=== PATIENT | female | born 1970 | race Caucasian/White ===

== ENCOUNTER → 2016-06-08 | Outpatient (CLI) | payer MEDICARE, OTHER ==
--- NOTE | 2016-06-08 12:18 | XR ---
EXAMINATION TYPE: XR KUB DATE OF EXAM ORDERED: 06/08/2016 12:05 PM HISTORY: Right-sided nephrolithiasis. COMPARISON: Previous study dated 04/25/2016. FINDINGS: The abdominal gas pattern is normal. There is no evidence of obstruction or free air. Ther e is a 5.3 mm linear calcification overlying the upper pole of the left kidney. No other definite tanika al calcifications are seen. There are no calcifications in the expected course of the right ureter. T here is a 2 to 3 mm calcification in the left hemipelvis. This was not visualized previously but may have been obscured by the patient's overlying soft tissues. This is on the opposite side of the patie nt's clinical syndrome. IMPRESSION: CALCIFICATIONS DESCRIBED.
== END | disposition home or self-care (01) ==
LOC: RADXRMAIN 11:50
PROVIDERS: ATTEND Urology
DX: N28.89 Other specified disorders of kidney and ureter (principal)
CPT/HCPCS: 74000

== ENCOUNTER → 2016-06-20 | Outpatient (CLI) | payer MEDICARE, OTHER ==
--- NOTE | 2016-06-21 07:47 | US ---
EXAMINATION TYPE: US kidneys/renal and bladder DATE OF EXAM: 06/20/2016 4:20 PM COMPARISON: CT in PACS CLINICAL HISTORY: History of hydro on right, and calculus on left EXAM MEASUREMENTS: Right Kidney: 11.3 x 5.3 x 4.6 cm Left Kidney: 11.8 x 5.0 x 5.1 cm ANATOMY: Right Kidney: No hydronephrosis or masses seen Left Kidney: No hydronephrosis, calculus at lower pole= 8mm Bladder: wnl Bilateral Jets seen: No There is no evidence for hydronephrosis at this point in time. Nephrolithiasis is seen lower pole on left. No masses are identified. The urinary bladder is anechoic. IMPRESSION: Left-sided nonobstructing nephrolithiasis.
== END | disposition home or self-care (01) ==
LOC: RADUSWWP 16:05
PROVIDERS: ATTEND Urology
DX: N20.0 Calculus of kidney (principal)
CPT/HCPCS: 76770

== ENCOUNTER 2017-10-25 13:28 | Emergency (ER) | payer MEDICARE ==
[2017-10-25 13:40] VITALS: RESP 18
[2017-10-25] MEDS ORDERED: KETOROLAC 30 MG/ML 1 ML VIAL IVP STA (13:51)
[2017-10-25] MEDS ORDERED: SODIUM CHLORIDE 0.9% 500 ML IV STA (13:51)
[2017-10-25] MEDS ORDERED: ONDANSETRON 4 MG/2 ML VIAL IVP STA (13:51)
--- NOTE | 2017-10-25 14:00 | ED ---
General Adult HPI - General Chief complaint: Back Pain/Injury Stated complaint: lt sided kidney pain Time Seen by Provider: 10/25/17 13:35 Source: patient, RN notes reviewed Mode of arrival: ambulatory Limitations: no limitations - History of Present Illness Initial comments: This is a 46-year-old female with past medical history significant for cerebral palsy since seizures. Patient also states she has a past history of kidney stones. Patient comes in today complaining of left-sided flank pain. Patient states she was told she had a kidney stone in her kidney a year ago and that it has not moved. Patient is worried currently that is now may have moved. Patient is complaining of left lower flank pain. Patient denies any dysuria hematuria urinary frequency. Patient states she has not vomited but she is nauseous. Patient denies any injury or trauma. Patient denies any chest pain difficulty breathing or shortness of breath. - Related Data Home Medications Medication Instructions Recorded Confirmed Cyclobenzaprine [Flexeril] 10 mg PO HS 10/25/17 10/25/17 Mirtazapine 45 mg PO HS 10/25/17 10/25/17 OXcarbazepine [Trileptal] 150 mg PO BID 10/25/17 10/25/17 OXcarbazepine [Trileptal] 600 mg PO BID 10/25/17 10/25/17 SUMAtriptan SUCCINATE [Imitrex] 100 mg PO DAILY PRN 10/25/17 10/25/17 Simvastatin 80 mg PO HS 10/25/17 10/25/17 Topiramate [Topamax] 50 mg PO TID 10/25/17 10/25/17 Vilazodone HCl [Viibryd] 40 mg PO DAILY 10/25/17 10/25/17 Previous Rx's Medication Instructions Recorded Hydrocodone/Acetaminophen [[place] 1 each PO Q4HR PRN #14 tab 10/25/17 5-325] Ketorolac [Toradol] 10 mg PO Q6HR #15 tab 10/25/17 Allergies Allergy/AdvReac Type Severity Reaction Status Date / Time phenytoin sodium Allergy Rash/Hives Verified 10/25/17 14:03 [From Dilantin] phenytoin sodium extended Allergy Rash/Hives Verified 10/25/17 14:03 [From Dilantin] zinc gluconate Allergy Rash/Hives Verified 10/25/17 14:03 [From Cold-Eeze] Review of Systems ROS Statement: Those systems with pertinent positive or pertinent negative responses have been documented in the HPI. ROS Other: All systems not noted in ROS Statement are negative. Past Medical History Past Medical History: Asthma, Seizure Disorder, Thyroid Disorder Additional Past Medical History / Comment(s): kidney stones, CP, nodules, unable to read. History of Any Multi-Drug Resistant Organisms: None Reported Past Surgical History: Appendectomy, Cholecystectomy Additional Past Surgical History / Comment(s): lung surgery Past Anesthesia/Blood Transfusion Reactions: No Reported Reaction Past Psychological History: No Psychological Hx Reported Smoking Status: Former smoker Past Alcohol Use History: Occasional, Rare Past Drug Use History: None Reported - Past Family History Mother Family Medical History: Unable to Obtain General Exam - General Exam Comments Initial Comments: GENERAL: Patient is well-developed and well-nourished. Patient is nontoxic and well- hydrated and is in mild distress. ENT: Neck is soft and supple. No significant lymphadenopathy is noted. Oropharynx is clear. Moist mucous membranes. Neck has full range of motion without eliciting any pain. EYES: The sclera were anicteric and conjunctiva were pink and moist. Extraocular movements were intact and pupils were equal round and reactive to light. Eyelids were unremarkable. PULMONARY: Unlabored respirations. Good breath sounds bilaterally. No audible rales rhonchi or wheezing was noted. CARDIOVASCULAR: There is a regular rate and rhythm without any murmurs gallops or rubs. ABDOMEN: Slight left-sided flank pain on palpation. No rebound or guarding. SKIN: Skin is clear with no lesions or rashes and otherwise unremarkable. NEUROLOGIC: Patient is alert and oriented x3. Cranial nerves II through XII are grossly intact. Motor and sensory are also intact. Normal speech, volume and content. Symmetrical smile. MUSCULOSKELETAL: Normal extremities with adequate strength and full range of motion. LYMPHATICS: No significant lymphadenopathy is noted PSYCHIATRIC: Normal psychiatric evaluation. Normal interpersonal interactions appears functionally intact in deals appropriately with others. No signs of depression. No signs of anxiety. Limitations: no limitations Course Vital Signs 10/25/17 10/25/17 13:37 14:48 Temperature 97.4 F L 98.0 F Pulse Rate 98 80 Respiratory 18 18 Rate Blood Pressure 140/82 139/85 O2 Sat by Pulse 99 98 Oximetry Medical Decision Making - Medical Decision Making Computed tomography scan shows a left proximal ureter stone measuring about 6.5 x 5 mm. Patient is much more comfortable after the Toradol. Patient will follow-up with urology. - Lab Data Result diagrams: 10/25/17 13:50 10/25/17 13:50 Lab Results 10/25/17 10/25/17 10/25/17 Range/Units 13:50 13:50 13:50 WBC 7.9 (3.8-10.6) k/uL RBC 5.07 (3.80-5.40) m/uL Hgb 13.6 (11.4-16.0) gm/dL Hct 41.6 (34.0-46.0) % MCV 82.1 (80.0-100.0) fL MCH 26.8 (25.0-35.0) pg MCHC 32.7 (31.0-37.0) g/dL RDW 14.7 (11.5-15.5) % Plt Count 367 (150-450) k/uL Neutrophils % 76 % Lymphocytes % 16 % Monocytes % 6 % Eosinophils % 0 % Basophils % 0 % Neutrophils # 6.0 (1.3-7.7) k/uL Lymphocytes # 1.2 (1.0-4.8) k/uL Monocytes # 0.5 (0-1.0) k/uL Eosinophils # 0.0 (0-0.7) k/uL Basophils # 0.0 (0-0.2) k/uL Sodium 143 (137-145) mmol/L Potassium 4.5 (3.5-5.1) mmol/L Chloride 109 H (98-107) mmol/L Carbon Dioxide 19 L (22-30) mmol/L Anion Gap 15 mmol/L BUN 10 (7-17) mg/dL Creatinine 0.70 (0.52-1.04) mg/dL Est GFR (CKD-EPI)AfAm >90 (>60 ml/min/1.73 sqM) Est GFR (CKD-EPI)NonAf >90 (>60 ml/min/1.73 sqM) Glucose 104 H (74-99) mg/dL Calcium 9.6 (8.4-10.2) mg/dL Total Bilirubin 0.2 (0.2-1.3) mg/dL AST 18 (14-36) U/L ALT 27 (9-52) U/L Alkaline Phosphatase 90 (38-126) U/L Total Protein 7.2 (6.3-8.2) g/dL Albumin 4.3 (3.5-5.0) g/dL Amylase 68 (30-110) U/L Lipase 50 (23-300) U/L Urine Color Urine Appearance (Clear) Urine pH (5.0-8.0) Ur Specific Ar[place] (1.001-1.035) Urine Protein (Negative) Urine Glucose (UA) (Negative) Urine Ketones (Negative) Urine Blood (Negative) Urine Nitrite (Negative) Urine Bilirubin (Negative) Urine Urobilinogen (<2.0) mg/dL Ur Leukocyte Esterase (Negative) Urine RBC (0-5) /hpf Urine WBC (0-5) /hpf Ur Squamous Epith Cells (0-4) /hpf Amorphous Sediment (None) /hpf Urine Bacteria (None) /hpf Urine Mucus (None) /hpf Urine HCG, Qual Not Detected (Not Detectd) 10/25/17 Range/Units 13:50 WBC (3.8-10.6) k/uL RBC (3.80-5.40) m/uL Hgb (11.4-16.0) gm/dL Hct (34.0-46.0) % MCV (80.0-100.0) fL MCH (25.0-35.0) pg MCHC (31.0-37.0) g/dL RDW (11.5-15.5) % Plt Count (150-450) k/uL Neutrophils % % Lymphocytes % % Monocytes % % Eosinophils % % Basophils % % Neutrophils # (1.3-7.7) k/uL Lymphocytes # (1.0-4.8) k/uL Monocytes # (0-1.0) k/uL Eosinophils # (0-0.7) k/uL Basophils # (0-0.2) k/uL Sodium (137-145) mmol/L Potassium (3.5-5.1) mmol/L Chloride (98-107) mmol/L Carbon Dioxide (22-30) mmol/L Anion Gap mmol/L BUN (7-17) mg/dL Creatinine (0.52-1.04) mg/dL Est GFR (CKD-EPI)AfAm (>60 ml/min/1.73 sqM) Est GFR (CKD-EPI)NonAf (>60 ml/min/1.73 sqM) Glucose (74-99) mg/dL Calcium (8.4-10.2) mg/dL Total Bilirubin (0.2-1.3) mg/dL AST (14-36) U/L ALT (9-52) U/L Alkaline Phosphatase (38-126) U/L Total Protein (6.3-8.2) g/dL Albumin (3.5-5.0) g/dL Amylase (30-110) U/L Lipase (23-300) U/L Urine Color Yellow Urine Appearance Cloudy H (Clear) Urine pH 6.5 (5.0-8.0) Ur Specific Arion 1.017 (1.001-1.035) Urine Protein Trace H (Negative) Urine Glucose (UA) Negative (Negative) Urine Ketones Negative (Negative) Urine Blood Moderate H (Negative) Urine Nitrite Negative (Negative) Urine Bilirubin Negative (Negative) Urine Urobilinogen <2.0 (<2.0) mg/dL Ur Leukocyte Esterase Small H (Negative) Urine RBC 128 H (0-5) /hpf Urine WBC 24 H (0-5) /hpf Ur Squamous Epith Cells 6 H (0-4) /hpf Amorphous Sediment Occasional H (None) /hpf Urine Bacteria Rare H (None) /hpf Urine Mucus Many H (None) /hpf Urine HCG, Qual (Not Detectd) Disposition Clinical Impression: Kidney stone, Hydroureter Disposition: HOME SELF-CARE Condition: Good Instructions: Kidney Stones (ED) Prescriptions: Hydrocodone/Acetaminophen [[place] 5-325] 1 each PO Q4HR PRN #14 tab PRN Reason: Pain Ketorolac [Toradol] 10 mg PO Q6HR #15 tab Is patient prescribed a controlled substance at d/c from ED?: Yes When asked, does pt state using other controlled substances?: No Referrals: Christopher Cook MD [Primary Care Provider] - 1-2 days Marlon Lrema MD [STAFF PHYSICIAN] - 1-2 days Time of Disposition: 15:27
[2017-10-25 14:17] LABS: Basophils % (A) 0 %; Eosinophils % (A) 0 %; HCT 41.6 % (34.0-46.0); HGB 13.6 gm/dL (11.4-16.0); Lymphocytes # (A) 1.2 k/uL (1.0-4.8); Lymphocytes % (A) 16 %; MCH 26.8 pg (25.0-35.0); MCHC 32.7 g/dL (31.0-37.0); MCV 82.1 fL (80.0-100.0); Mean Platelet Volume 6.7; Monocytes # (A) 0.5 k/uL (0-1.0); Monocytes % (A) 6 %; Neutrophils % (A) 76 %; Platelet Count 367 k/uL (150-450); RBC 5.07 m/uL (3.80-5.40); RDW 14.7 % (11.5-15.5); WBC 7.9 k/uL (3.8-10.6)
[2017-10-25 14:22] LABS: Amorphous Sediment,Urine Occasional /hpf; Appearance,Urine Cloudy (Clear); Bacteria,Urine Rare /hpf; Bilirubin,Urine Negative (Negative); Blood,Urine Moderate (Negative); Color,Urine Yellow; Glucose,Urine (UA) Negative (Negative); Ketones,Urine Negative (Negative); Leukocyte Esterase,Urine Small (Negative); Mucus,Urine Many /hpf; Nitrite,Urine Negative (Negative); PH, Urine 6.5 (5.0-8.0); Protein,Urine Trace (Negative); RBC,Urine 128 /hpf (0-5); Specific Gravity,Urine 1.017 (1.001-1.035); Squamous Epithelial Cell,Urine 6 /hpf (0-4); Urobilinogen,Urine <2.0 mg/dL (<2.0); WBC,Urine 24 /hpf (0-5)
[2017-10-25 14:43] LABS: ALT 27 U/L (9-52); AST 18 U/L (14-36); Albumin 4.3 g/dL (3.5-5.0); Alkaline Phosphatase 90 U/L (38-126); Amylase 68 U/L (30-110); Anion Gap 15 mmol/L; Blood Urea Nitrogen 10 mg/dL (7-17); Calcium 9.6 mg/dL (8.4-10.2); Carbon Dioxide 19 mmol/L (22-30); Chloride 109 mmol/L (98-107); Glucose 104 mg/dL (74-99); Lipase 50 U/L (23-300); Potassium 4.5 mmol/L (3.5-5.1); Sodium 143 mmol/L (137-145); Total Bilirubin 0.2 mg/dL (0.2-1.3); Total Protein 7.2 g/dL (6.3-8.2)
--- NOTE | 2017-10-25 14:45 | XR ---
Abdomen HISTORY: Left-sided flank pain, kidney stones Frontal view of the abdomen on 2 images correlated to prior abdomen 06/08/2016, CT abdomen pelvis 2015 There is a spinal curvature. Surgical clips are present over the right chest. Lung bases are clear. N o pneumoperitoneum or bowel obstruction is evident. There are air-fluid levels without bowel distenti on. Bowel gas may obscure underlying detail. IMPRESSION: Correlate for ileus or enteritis, follow-up as indicated if bowel obstruction is suspecte d. Bowel gas may obscure small calcifications.
--- NOTE | 2017-10-25 15:22 | CT ---
EXAMINATION TYPE: CT abdomen pelvis wo con DATE OF EXAM: 10/25/2017 COMPARISON: 04/10/2016 INDICATION: left flank pain, hx of stones DLP: 318.2 mGycm, Automated exposure control for dose reduction was used. CONTRAST: 0 mL of Isovue 300. Study performed without Oral Contrast TECHNIQUE: Axial images were obtained from above the diaphragm to the pubic rami in the axial plane a t 5 mm thick sections. Reconstructed images are reviewed on the computer in the coronal plane. FINDINGS: Limited CT sections are obtained the lung bases. No suspicious acute changes within the lung bases a re evident.. CT ABDOMEN: Liver: Normal Spleen: Normal Pancreas: Normal Adrenal glands: The adrenal glands are normal. Gallbladder: Normal Kidneys: No masses are evident. There is a moderate left hydronephrosis. There is an obstructing katja l stone measuring 0.6 x 0.5 cm at the left ureteropelvic junction. No additional calcifications are e vident. No hydroureter is evident. No cysts are present. Calcification in the inferior pole left kid chris is removed from previous location and has enlarged over the interval. Aorta: Normal Inferior vena cava: Normal. CT PELVIS: Loops of bowel within the abdomen and pelvis are normal. There are loops of bowel which are incom pletely distended or lack oral contrast limiting their evaluation. Appendix: Not identified. No suspicious inflammatory changes or dilated tubular structures are eviden t. Urinary bladder: Normal. Genitourinary structures: Uterus and adnexa appear normal. Osseous structures: No suspicious lytic or sclerotic lesions. Some facet degenerative changes are pre sent. IMPRESSIONS: 1. Obstructing 0.6 x 0.5 cm left ureteropelvic junction stone causing moderate left hydronephrosis.
[2017-10-25] MEDS ORDERED: MORPHINE SULFATE 4 MG/ML SYRINGE IVP STA (15:28)
[2017-10-25 15:56] VITALS: BP 129/80; PULSE 89; TEMP 97.9
== END 2017-10-25 15:56 | disposition home or self-care (01) ==
LOC: EC 13:28
DX: N20.2 Calculus of kidney with calculus of ureter (principal); N13.4 Hydroureter; G40.909 Epilepsy, unspecified, not intractable, without status epilepticus; Z87.891 Personal history of nicotine dependence; Z79.899 Other long term (current) drug therapy; Z88.8 Allergy status to other drugs, medicaments and biological substances; Z90.49 Acquired absence of other specified parts of digestive tract
CPT/HCPCS: 36415; 80053; 82150; 83690; 85025; 81001; 81025; 74018; 74176; 99284; 96374; 96375 ×2; J2270; J2405; J1885

== ENCOUNTER → 2017-11-16 | Outpatient (CLI) | payer MEDICARE, OTHER ==
--- NOTE | 2017-11-16 15:33 | US ---
EXAMINATION TYPE: US kidneys/renal and bladder DATE OF EXAM: 11/16/2017 COMPARISON: CT abdomen and pelvis October 25, 2017 CLINICAL HISTORY: N13.2 Hydronephrosis. follow up left renal stone and hydronephrosis. Left side beatrice n. Patient states she has not seen a urologist yet. EXAM MEASUREMENTS: Right Kidney: 9.8 x 4.87 x 4.9 cm Left Kidney: 10.5 x 5.3 x 5.6 cm Right Kidney: No hydronephrosis or masses seen Left Kidney: mild/moderate hydronephrosis. Echogenic focus seen in medial kidney in possible ureter = 0.9 x 0.6 cm Bladder: distended, wnl as visualized Bilateral Jets seen There is no evidence for right-sided hydronephrosis at this point in time. No right-sided nephrolith iasis is seen. No masses are identified on images saved. The urinary bladder is anechoic. Bilatera l ureteral jets are seen. IMPRESSION: There is persistent mild to moderate right-sided hydronephrosis likely due to stable 6 mm proximal le ft ureter calculus. Urology follow-up advised.
== END ==
LOC: RADUSWWP 14:29
PROVIDERS: ATTEND Family Medicine
DX: N13.2 Hydronephrosis with renal and ureteral calculous obstruction (principal)
CPT/HCPCS: 76770

== ENCOUNTER → 2017-12-14 | Outpatient (CLI) | payer MEDICARE, OTHER ==
[2017-12-14 14:46] LABS: Basophils % (A) 0 %; Eosinophils % (A) 0 %; HCT 41.8 % (34.0-46.0); HGB 13.6 gm/dL (11.4-16.0); Lymphocytes # (A) 1.6 k/uL (1.0-4.8); Lymphocytes % (A) 20 %; MCH 27.8 pg (25.0-35.0); MCHC 32.4 g/dL (31.0-37.0); MCV 85.9 fL (80.0-100.0); Mean Platelet Volume 6.6; Monocytes # (A) 0.5 k/uL (0-1.0); Monocytes % (A) 7 %; Neutrophils # (A) 5.4 k/uL (1.3-7.7); Neutrophils % (A) 71 %; Platelet Count 364 k/uL (150-450); RBC 4.87 m/uL (3.80-5.40); RDW 15.3 % (11.5-15.5); WBC 7.6 k/uL (3.8-10.6)
[2017-12-14 14:57] LABS: Anion Gap 12 mmol/L; Blood Urea Nitrogen 11 mg/dL (7-17); Calcium 9.7 mg/dL (8.4-10.2); Carbon Dioxide 20 mmol/L (22-30); Chloride 108 mmol/L (98-107); Glucose 106 mg/dL (74-99); Potassium 4.4 mmol/L (3.5-5.1); Sodium 140 mmol/L (137-145)
== END | disposition home or self-care (01) ==
LOC: LABPAT 14:02
PROVIDERS: ATTEND Urology
DX: Z01.812 Encounter for preprocedural laboratory examination (principal); N20.2 Calculus of kidney with calculus of ureter; Z79.899 Other long term (current) drug therapy
CPT/HCPCS: 36415; 80048; 85025

== ENCOUNTER → 2017-12-15 | Outpatient (CLI) | payer MEDICARE, OTHER | END | disposition home or self-care (01) | LOC: LABPAT 14:31 | PROVIDERS: ATTEND Urology | DX: Z01.812 Encounter for preprocedural laboratory examination (principal); N20.2 Calculus of kidney with calculus of ureter; Z79.899 Other long term (current) drug therapy | CPT/HCPCS: 81025 ==

== ENCOUNTER 2017-12-18 09:44 | Day surgery (SDC) | payer MEDICARE, OTHER ==
[2017-12-15 12:56] VITALS: BMI 23.8
--- NOTE | 2017-12-17 08:16 | P.GSHP ---
History of Present Illness H&P Date: 12/17/17 Chief Complaint: Left lower abdominal pain The patient is a 47-year-old white female with a history of kidney stones. She now presents with a one-year history of left lower abdominal pain. She has undergone a computed tomography scan and renal ultrasound, revealing left hydronephrosis due to a 5-6 mm left UPJ calculus. She now comes for ureteroscopic removal of the calculus. - Constitutional Constitutional: Reports weight loss, Denies chills, Denies fever - Gastrointestinal Gastrointestinal: Denies nausea, Denies vomiting - Genitourinary (Female) Genitourinary: Denies dysuria, Denies hematuria Past Medical History Past Medical History: Asthma, Hyperlipidemia, Musculoskeletal Disorder, Seizure Disorder, Skin Disorder, Thyroid Disorder Additional Past Medical History / Comment(s): Kidney stones X3. "CEREBRAL PALSY , VERY JERKY LT SIDE, MANDI ARM." UNABLE TO READ. RT LEG STIFF SINCE SURGERY. THYROID Nodules. LAST SEIZURE 2017 EST. MINOR CUT BOTTOM LT TOE, BRUISES. History of Any Multi-Drug Resistant Organisms: None Reported Past Surgical History: Appendectomy, Cholecystectomy, Orthopedic Surgery Additional Past Surgical History / Comment(s): BIOPSY Lung Surgery. KIDNEY STONE PROC. SURGERY ON TENDONS BALDOMERO KNEES. Past Anesthesia/Blood Transfusion Reactions: Previous Problems w/ Anesthesia Additional Past Anesthesia/Blood Transfusion Reaction / Comment(s): PROBLEMS BREATHING DURING LUNG BIOPSY. MOTHER "NOT AWAKENING FOR 24 HRS AFTER HYSTERECTOMY." Smoking Status: Former smoker - Past Family History Mother Family Medical History: No Reported History Medications and Allergies Home Medications Medication Instructions Recorded Confirmed Type Cyclobenzaprine [Flexeril] 10 mg PO HS 10/25/17 12/15/17 History Mirtazapine 45 mg PO HS 10/25/17 12/15/17 History OXcarbazepine [Trileptal] 150 mg PO BID 10/25/17 12/15/17 History OXcarbazepine [Trileptal] 600 mg PO BID 10/25/17 12/15/17 History SUMAtriptan SUCCINATE [Imitrex] 100 mg PO DAILY PRN 10/25/17 12/15/17 History Simvastatin 80 mg PO HS 10/25/17 12/15/17 History Topiramate [Topamax] 50 mg PO TID 10/25/17 12/15/17 History Vilazodone HCl [Viibryd] 40 mg PO DAILY 10/25/17 12/15/17 History Acetaminophen [Tylenol Arthritis] 650 mg PO Q8H PRN 12/15/17 12/15/17 History Acetaminophen [Tylenol Extra 500 - 1,000 mg PO Q6H PRN 12/15/17 12/15/17 History Strength] Allergy Relief 25 mg PO BID 12/15/17 History Cholecalciferol [Vitamin D3] 2,500 unit PO DAILY 12/15/17 12/15/17 History Folic Acid 0.8 mg PO DAILY 12/15/17 12/15/17 History Inhaler (Unsure Of Name) 1 - 2 inhalation INHALATION 12/15/17 History DIRECTED PRN Allergies Allergy/AdvReac Type Severity Reaction Status Date / Time phenytoin sodium Allergy Rash/Hives Verified 12/15/17 12:08 [From Dilantin] phenytoin sodium extended Allergy Rash/Hives Verified 12/15/17 12:08 [From Dilantin] zinc gluconate Allergy Rash/Hives Verified 12/15/17 12:08 [From Cold-Eeze] Surgical - Exam - General well developed, well nourished, no distress - Neck no masses, trachea midline - Respiratory normal respiratory effort, clear to auscultation - Cardiovascular Rhythm: regular Abnormal Heart Sounds: no systolic murmur, no diastolic murmur - Abdomen Abdomen: soft, tender (mild LLQ tenderness), no guarding, no rigid, no rebound Hernia: none - Psychiatric oriented to time, oriented to person, oriented to place, speech is normal, memory intact Results - Imaging CT scan - abdomen: report reviewed, image reviewed Assessment and Plan (1) Calculus of kidney Status: Acute Code(s): N20.0 - CALCULUS OF KIDNEY SNOMED Code(s): 13555153 Plan: I had a lengthy discussion with the patient and her mother regarding treatment options for her 5-6 mm left UPJ calculus. These include observation, ESWL, and ureteroscopy with laser lithotripsy. She has elected to undergo the latter. She has undergone this in the past. She understands potential risks to include anesthesia, infection, ureteral injury, and inability to successfully access and fragment the calculus. She also understands the need for a ureteral stent postoperatively.
[~2017-12-18 09:44] MED LIST: DEXAMETHASONE SOD PHOSPHATE 10 MG/ML 1 ML VIAL IV ONE; LACTATED RINGERS 1,000 ML IV SCH; LIDOCAINE 1% 20 ML VIAL (10MG/ML) FOR IV START INTRADERMA PRN; ONDANSETRON 4 MG/2 ML VIAL IVP ONE; SCOPOLAMINE 1.5MG/72HR PATCH TRANSDERM ONE; ceFAZolin IN SWFI 2 GM/20 ML SYRINGE IVP ONE
--- NOTE | 2017-12-18 10:14 | XR ---
EXAMINATION TYPE: XR KUB DATE OF EXAM: 12/18/2017 CLINICAL DATA: 47 year-old female left ureteral calculus, [facility] COMPARISON: 10/25/2017 FINDINGS: Nonobstructive bowel gas pattern with mild stool burden. Some surgical material projecting at the right upper quadrant. 6 cm calcification at the left mid abd omen likely in the left lower pole. The spine shows mild curvature towards the right. IMPRESSION: 6 mm lower pole left renal calculus. No evidence of bowel obstruction.
[2017-12-18] MEDS ORDERED: LIDOCAINE 1% INJ 10MG/ML (20 ML MDV) ONE (11:41)
[2017-12-18] MEDS ORDERED: fentaNYL (PF) 50 MCG/ML 2 ML AMP ONE (11:41)
[2017-12-18] MEDS ORDERED: PHENYLEPHRINE-0.9% NACL SYG 1 MG/10 ML SYRINGE ONE (11:41)
[2017-12-18] MEDS ORDERED: MIDAZOLAM 2 MG/2 ML VIAL ONE (11:41)
[2017-12-18] MEDS ORDERED: PROPOFOL 10 MG/ML 20 ML VIAL IV ONE (11:41)
[2017-12-18] MEDS ORDERED: LACTATED RINGERS 1,000 ML IV ONE (12:49)
--- NOTE | 2017-12-18 12:55 | P.OP ---
Date of Procedure: 12/18/17 Preoperative Diagnosis: Left renal calculus Postoperative Diagnosis: Same Procedure(s) Performed: Cystoscopy, left ureteroscopy with Holmium laser lithotripsy and stone basketing , left ureteral stent insertion Anesthesia: SAEED Surgeon: Med Love Estimated Blood Loss (ml): 10 IV fluids (ml): 300 Pathology: other (Calculus fragments, some for chemical analysis) Condition: stable Disposition: PACU Indications for Procedure: The patient is a 47-year-old white female with a history of kidney stones. She now presents with a one-year history of left lower abdominal pain. She has undergone a computed tomography scan and renal ultrasound, revealing left hydronephrosis due to a 5-6 mm left UPJ calculus. She now comes for ureteroscopic removal of the calculus. Operative Findings: Left lower pole renal calculus, fragmented and basketed successfully. Description of Procedure: The patient was taken to the operating room and placed in the dorsolithotomy position, with legs supported in Marshall stirrups. The external genitalia was prepped and draped sterilely. The 30 lens was used to introduce the 19-[place] Stortz cystoscopic sheath through the urethra and into the bladder under direct vision. The bladder was examined in its entirety. Both ureteral orifices were normal anatomic location and configuration, and clear urine effluxed from both. No tumors or foreign bodies were seen. A 0.038 inch Glidewire was passed through the cystoscope. The left ureteral orifice was cannulated, and the Glidewire was advanced up to the left renal pelvis. The cystoscope was removed, and an 11/13-[place] ureteral access catheter was passed over the wire, up to the left renal pelvis. The caliber of the ureter was diminished, as it was "snug" passing the ureteral access catheter. The mini flexible ureteroscope was passed through the ureteral access catheter sheath and advanced under direct vision, into the left renal pelvis. The calculus was identified within a lower pole calyx. The 200 micron Holmium laser probe was passed through the ureteroscope, and lithotripsy was performed. Initially, a "dusting technique" was utilized. However, the calculus began to fragment and therefore the fragmentation of the calculus was completed until all calculus fragments were small enough to safely basket. These fragments were then removed using a 1.9-[place] nitinol basket. The removed calculus fragments were saved and sent for chemical analysis. The Glidewire was passed through the ureteral access catheter sheath, which was removed, and the Glidewire was backloaded into the cystoscope. After advancing the cystoscope into the bladder, a 26 cm, 4.8-[place] double-J ureteral stent was placed over the wire. Proper stent positioning was verified fluoroscopically and endoscopically. The bladder was emptied and the cystoscope removed. The patient tolerated the procedure well and was taken to the recovery room in stable condition.
[2017-12-18] MEDS ORDERED: ONDANSETRON 4 MG/2 ML VIAL IVP ONE (13:07)
[2017-12-18] MEDS ORDERED: diphenhydrAMINE 50 MG/ML 1 ML VIAL IVP ONE (13:12)
[2017-12-18 13:23] VITALS: RESP 18; TEMP 97.2
[2017-12-18] MEDS: HYDROmorphone 0.5 MG/0.5 ML SYRINGE IVP PRN ×3 (13:34→13:50)
--- NOTE | 2017-12-18 14:04 | FL ---
Fluoroscopy HISTORY: Cystoscopy and lithotripsy 56 seconds fluoroscopy time supplied to the referring clinician. 2 intraoperative C-arm images docum ent the procedure. See dictated report from urology.
[2017-12-18] MEDS ORDERED: HYDROcodone/APAP 5-325MG 1 EACH TAB PO ONE (14:39)
[2017-12-18 15:26] VITALS: BP 115/65; PULSE 102
== END 2017-12-18 16:00 | disposition home or self-care (01) ==
LOC: OR 09:44
PROVIDERS: ATTEND Urology
DX: N13.2 Hydronephrosis with renal and ureteral calculous obstruction (principal); Z87.442 Personal history of urinary calculi; J45.909 Unspecified asthma, uncomplicated; E78.5 Hyperlipidemia, unspecified; G40.909 Epilepsy, unspecified, not intractable, without status epilepticus; L98.9 Disorder of the skin and subcutaneous tissue, unspecified; G80.9 Cerebral palsy, unspecified; R53.1 Weakness; E04.1 Nontoxic single thyroid nodule; Z79.899 Other long term (current) drug therapy; Z88.8 Allergy status to other drugs, medicaments and biological substances; Z87.891 Personal history of nicotine dependence
CPT/HCPCS: 81025; 82365; 74018; 52356; C2625; C1758 ×3; C1769; C1894; J2250; J1200; J1100; J2405; J2001; J3010; J2370; J2704; J1170

== ENCOUNTER 2017-12-19 11:24 | Emergency (ER) | payer MEDICARE ==
[2017-12-19 11:47] VITALS: RESP 18; TEMP 98.2
--- NOTE | 2017-12-19 14:23 | ED ---
Nausea/Vomiting/Diarrhea HPI - General Chief complaint: Nausea/Vomiting/Diarrhea Stated complaint: Vomiting P/O Kidney stone Time Seen by Provider: 12/19/17 14:23 Source: patient Mode of arrival: wheelchair Limitations: no limitations - History of Present Illness Initial comments: Xenia Cardenas is a 47 her old female with past medical history listed below, most significant for osteopenia with stent placement yesterday. Patient was discharged home with oral narcotics, she did well in the immediate postoperative period however this morning developed nausea and multiple episodes of nonbloody nonbilious emesis. Patient has been unable tolerate any by mouth intake including her pain medications today. Patient reports persistent nausea, persistent episodes of nonbloody nonbilious emesis, uncontrolled pain. She and mother deny fevers, chills, chest pain, palpitations, shortness of breath. The patient is experiencing hematuria which is expected in the post operative period. - Related Data Home Medications Medication Instructions Recorded Confirmed Cyclobenzaprine [Flexeril] 10 mg PO HS 10/25/17 12/19/17 Mirtazapine 45 mg PO HS 10/25/17 12/19/17 OXcarbazepine [Trileptal] 150 mg PO BID 10/25/17 12/19/17 OXcarbazepine [Trileptal] 600 mg PO BID 10/25/17 12/19/17 SUMAtriptan SUCCINATE [Imitrex] 100 mg PO DAILY PRN 10/25/17 12/19/17 Simvastatin 80 mg PO HS 10/25/17 12/19/17 Topiramate [Topamax] 50 mg PO TID 10/25/17 12/19/17 Vilazodone HCl [Viibryd] 40 mg PO DAILY 10/25/17 12/19/17 Allergy Relief 25 mg PO BID 12/15/17 12/19/17 Cholecalciferol [Vitamin D3] 2,500 unit PO DAILY 12/15/17 12/19/17 Folic Acid 0.8 mg PO DAILY 12/15/17 12/19/17 Inhaler (Unsure Of Name) 1 - 2 puff INHALATION RT-Q6H PRN 12/15/17 12/19/17 Hydrocodone/Acetaminophen [[place] 1 - 2 tab PO Q4HR PRN 12/19/17 12/19/17 5-325] Previous Rx's Medication Instructions Recorded Oxybutynin Chloride [Oxybutynin 10 mg PO DAILY #21 tab.er.24 12/18/17 Chloride ER] Ondansetron Odt [Zofran Odt] 4 mg PO Q8HR PRN #12 tab 12/19/17 Allergies Allergy/AdvReac Type Severity Reaction Status Date / Time phenytoin sodium Allergy Rash/Hives Verified 12/19/17 13:15 [From Dilantin] phenytoin sodium extended Allergy Rash/Hives Verified 12/19/17 13:15 [From Dilantin] zinc gluconate Allergy Rash/Hives Verified 12/19/17 13:15 [From Cold-Eeze] Review of Systems ROS Statement: Those systems with pertinent positive or pertinent negative responses have been documented in the HPI. ROS Other: All systems not noted in ROS Statement are negative. Constitutional: Denies: fever, chills ENT: Denies: throat pain Respiratory: Denies: cough Cardiovascular: Denies: chest pain, palpitations Endocrine: Denies: fatigue Gastrointestinal: Reports: nausea, vomiting Genitourinary: Reports: dysuria, hematuria Musculoskeletal: Reports: back pain Skin: Denies: rash Neurological: Denies: headache Psychiatric: Denies: anxiety, depression Hematological/Lymphatic: Denies: easy bleeding, easy bruising Past Medical History Past Medical History: Asthma, Hyperlipidemia, Musculoskeletal Disorder, Seizure Disorder, Skin Disorder, Thyroid Disorder Additional Past Medical History / Comment(s): Kidney stones X3. "CEREBRAL PALSY , VERY JERKY LT SIDE, MANDI ARM." UNABLE TO READ. RT LEG STIFF SINCE SURGERY. THYROID Nodules. LAST SEIZURE 2017 EST. History of Any Multi-Drug Resistant Organisms: None Reported Past Surgical History: Appendectomy, Cholecystectomy, Orthopedic Surgery Additional Past Surgical History / Comment(s): BIOPSY Lung Surgery. KIDNEY STONE PROC. SURGERY ON TENDONS BALDOMERO KNEES. Past Anesthesia/Blood Transfusion Reactions: Previous Problems w/ Anesthesia Additional Past Anesthesia/Blood Transfusion Reaction / Comment(s): PROBLEMS BREATHING DURING LUNG BIOPSY. MOTHER "NOT AWAKENING FOR 24 HRS AFTER HYSTERECTOMY." Past Psychological History: Depression Smoking Status: Former smoker Past Alcohol Use History: None Reported Past Drug Use History: None Reported - Past Family History Mother Family Medical History: No Reported History General Exam Limitations: no limitations General appearance: alert, other (appears uncomfortable) Head exam: Present: atraumatic, normocephalic Eye exam: Present: PERRL ENT exam: Present: mucous membranes dry Neck exam: Present: full ROM Respiratory exam: Absent: respiratory distress Cardiovascular Exam: Present: normal rhythm, tachycardia GI/Abdominal exam: Present: soft. Absent: distended, tenderness, guarding Rectal exam: Present: deferred Extremities exam: Present: other (spasticity of extremities, unchanged from previous) Back exam: Present: CVA tenderness (R), CVA tenderness (L) Neurological exam: Present: alert, oriented X3 Psychiatric exam: Present: anxious Skin exam: Present: warm, dry Course Vital Signs 12/19/17 12/19/17 11:42 16:47 Temperature 98.2 F Pulse Rate 98 107 H Respiratory 18 18 Rate Blood Pressure 155/96 134/88 O2 Sat by Pulse 98 97 Oximetry - Reevaluation(s) Reevaluation #1: She was reevaluated, nausea has completely resolved, there is been no further episodes of vomiting. She still complains of discomfort which she attributes to the stent being in place. Toradol and by mouth [place] were ordered for pain management. 12/19/17 15:31 Medical Decision Making - Medical Decision Making The patient was seen and evaluated, history is obtained from the patient her mother at bedside as well as view of medical record Patient underwent cystoscopy and stent placement yesterday, she subsequently developed nausea and vomiting has been unable to keep down her pain medications. Labs, IVF, Zofran and Morphine ordered Labs reveal no significant abnormalities Patient was evaluated after Zofran and morphine. Her nausea resolved completely but was still experiencing some discomfort. Toradol and by mouth [place] were ordered. Patient was able tolerate the by mouth [place] without any further nausea or vomiting. After medication she reported complete resolution of her pain. At this time I feel the patient is stable for discharge home. I will prescribe the patient Zofran ODT for symptomatic treatment of nausea. I advised the patient to take the medications [place] and oxybutynin as prescribed by her urologist. Call urologist for follow-up regarding discomfort relating to the stent. Return to the ER for any signs of infection, any worsening pain, any inability to tolerate by mouth intake. - Lab Data Result diagrams: 12/19/17 13:37 12/19/17 13:37 Lab Results 07/17/18 07/17/18 Range/Units 13:37 13:37 WBC 15.3 H (3.8-10.6) k/uL RBC 4.80 (3.80-5.40) m/uL Hgb 13.7 (11.4-16.0) gm/dL Hct 41.4 (34.0-46.0) % MCV 86.3 (80.0-100.0) fL MCH 28.5 (25.0-35.0) pg MCHC 33.0 (31.0-37.0) g/dL RDW 15.5 (11.5-15.5) % Plt Count 392 (150-450) k/uL Neutrophils % 83 % Lymphocytes % 10 % Monocytes % 6 % Eosinophils % 0 % Basophils % 0 % Neutrophils # 12.7 H (1.3-7.7) k/uL Lymphocytes # 1.6 (1.0-4.8) k/uL Monocytes # 0.9 (0-1.0) k/uL Eosinophils # 0.0 (0-0.7) k/uL Basophils # 0.0 (0-0.2) k/uL Sodium 139 (137-145) mmol/L Potassium 3.9 (3.5-5.1) mmol/L Chloride 107 (98-107) mmol/L Carbon Dioxide 21 L (22-30) mmol/L Anion Gap 11 mmol/L BUN 8 (7-17) mg/dL Creatinine 0.65 (0.52-1.04) mg/dL Est GFR (CKD-EPI)AfAm >90 (>60 ml/min/1.73 sqM) Est GFR (CKD-EPI)NonAf >90 (>60 ml/min/1.73 sqM) Glucose 103 H (74-99) mg/dL Calcium 9.2 (8.4-10.2) mg/dL Total Bilirubin 0.2 (0.2-1.3) mg/dL AST 13 L (14-36) U/L ALT 25 (9-52) U/L Alkaline Phosphatase 73 (38-126) U/L Total Protein 6.9 (6.3-8.2) g/dL Albumin 4.1 (3.5-5.0) g/dL Disposition Clinical Impression: Nausea and vomiting after administration of anesthetic agent Disposition: HOME SELF-CARE Condition: Good Instructions: Acute Nausea and Vomiting (ED) Prescriptions: Ondansetron Odt [Zofran Odt] 4 mg PO Q8HR PRN #12 tab PRN Reason: Nausea Is patient prescribed a controlled substance at d/c from ED?: No Referrals: Christopher Cook MD [Primary Care Provider] - 1-2 days Time of Disposition: 17:15
[2017-12-19] MEDS ORDERED: MORPHINE SULFATE 4 MG/ML SYRINGE IVP STA (14:28)
[2017-12-19] MEDS ORDERED: ONDANSETRON 4 MG/2 ML VIAL IVP STA (14:28)
[2017-12-19] MEDS ORDERED: SODIUM CHLORIDE 0.9% 1,000 ML IV ONE (14:28)
[2017-12-19] MEDS ORDERED: FAMOTIDINE 20 MG/2 ML VIAL IV STA (14:29)
[2017-12-19 14:49] LABS: Basophils % (A) 0 %; Eosinophils % (A) 0 %; HCT 41.4 % (34.0-46.0); HGB 13.7 gm/dL (11.4-16.0); Lymphocytes # (A) 1.6 k/uL (1.0-4.8); Lymphocytes % (A) 10 %; MCH 28.5 pg (25.0-35.0); MCV 86.3 fL (80.0-100.0); Mean Platelet Volume 6.5; Monocytes # (A) 0.9 k/uL (0-1.0); Monocytes % (A) 6 %; Neutrophils # (A) 12.7 k/uL (1.3-7.7); Neutrophils % (A) 83 %; Platelet Count 392 k/uL (150-450); RDW 15.5 % (11.5-15.5); WBC 15.3 k/uL (3.8-10.6)
--- NOTE | 2017-12-19 15:04 | XR ---
EXAMINATION TYPE: XR chest 2V DATE OF EXAM: 12/19/2017 COMPARISON: Chest x-ray June 11, 2013 HISTORY: History of left-sided kidney stone removed yesterday with chest pain and nausea. TECHNIQUE: Frontal and lateral views of the chest are obtained. FINDINGS: There is diminished inspiration on current study with right basilar linear scarring redemo nstrated. No suspicious focal airspace opacity or pneumothorax is identified bilaterally . The cardia c silhouette size is within normal limits. The osseous structures are intact. Surgical clips overli e the right breast similar prior. IMPRESSION: Diminished inspiration with right basilar vertical linear scarring. No new suspicious fo linnea infiltrate.
[2017-12-19 15:07] LABS: ALT 25 U/L (9-52); AST 13 U/L (14-36); Albumin 4.1 g/dL (3.5-5.0); Alkaline Phosphatase 73 U/L (38-126); Anion Gap 11 mmol/L; Blood Urea Nitrogen 8 mg/dL (7-17); Calcium 9.2 mg/dL (8.4-10.2); Carbon Dioxide 21 mmol/L (22-30); Chloride 107 mmol/L (98-107); Glucose 103 mg/dL (74-99); Potassium 3.9 mmol/L (3.5-5.1); Sodium 139 mmol/L (137-145); Total Bilirubin 0.2 mg/dL (0.2-1.3); Total Protein 6.9 g/dL (6.3-8.2)
[2017-12-19] MEDS ORDERED: HYDROcodone/APAP 5-325MG 1 EACH TAB PO STA (15:31)
[2017-12-19] MEDS ORDERED: KETOROLAC 30 MG/ML 1 ML VIAL IVP STA (15:31)
[2017-12-19 16:48] VITALS: BP 134/88; PULSE 107
== END 2017-12-19 17:30 | disposition home or self-care (01) ==
LOC: EC 11:24
DX: R11.2 Nausea with vomiting, unspecified (principal); T41.45XA Adverse effect of unspecified anesthetic, initial encounter; E78.5 Hyperlipidemia, unspecified; G40.909 Epilepsy, unspecified, not intractable, without status epilepticus; F32.9 Major depressive disorder, single episode, unspecified; Z87.442 Personal history of urinary calculi; Z90.49 Acquired absence of other specified parts of digestive tract; Z98.890 Other specified postprocedural states; Z88.8 Allergy status to other drugs, medicaments and biological substances; Z79.899 Other long term (current) drug therapy; Z87.891 Personal history of nicotine dependence
CPT/HCPCS: 99284; 96374; 96375 ×3; 96361; 36415; 80053; 85025; 71046; J2270; J2405; J1885

== ENCOUNTER → 2018-02-06 | Outpatient (CLI) | payer MEDICARE, OTHER ==
--- NOTE | 2018-02-06 15:51 | US ---
EXAMINATION TYPE: US kidneys/renal and bladder DATE OF EXAM: 02/06/2018 COMPARISON: Ultrasound 11/16/2017 CLINICAL HISTORY: Calculus of Kidney N20.0. Patient states renal stone removed by laser. EXAM MEASUREMENTS: Right Kidney: 10.5 x 4.9 x 5.1 cm Left Kidney: 10.9 x 5.4 x 6.0 cm Right Kidney: No hydronephrosis or masses seen Left Kidney: mild to moderate hydro seen Bladder: wnl Bilateral Jets seen: only right jet seen in three minutes of scan time. IMPRESSION: 1. Stable Moderate left hydronephrosis without hydroureter Nonvisualization of the left ureter during the examination.
== END | disposition home or self-care (01) ==
LOC: RADUSWWP 15:18
PROVIDERS: ATTEND Urology
DX: N13.30 Unspecified hydronephrosis (principal)
CPT/HCPCS: 76770

== ENCOUNTER → 2018-05-03 | Outpatient (CLI) | payer MEDICARE, OTHER ==
--- NOTE | 2018-05-03 12:35 | US ---
EXAMINATION TYPE: US kidneys/renal and bladder DATE OF EXAM: 05/03/2018 COMPARISON: CT abdomen and pelvis October 25, 2017. Prior renal ultrasound February 06, 2018 CLINICAL HISTORY: R93.4 Abnormal findings on diagnostic imaging of us. EXAM MEASUREMENTS: Right Kidney: 11.2 x 4.9 x 4.6 cm Left Kidney: 10.7 x 5.5 x 4.8 cm Incidental finding of right ovarian cyst measuring 3.1 x 2.0 x 2.5cm Patient unable to hold her breath. Right Kidney: No hydronephrosis or masses seen Left Kidney: No hydronephrosis or masses seen Bladder: wnl Bilateral Jets seen: Yes There is no evidence for hydronephrosis at this point in time. No nephrolithiasis is seen. No jeniffer s are identified. The urinary bladder is anechoic. Bilateral ureteral jets are seen. Adjacent to bl adder there is 2.5 cm simple appearing right ovarian cyst noted on current study. Suboptimal study due to patient being unable to hold breath. IMPRESSION: Interval resolution of left-sided hydronephrosis. No hydronephrosis is seen currently.
== END | disposition home or self-care (01) ==
LOC: RADUSWWP 10:36
PROVIDERS: ATTEND Urology
DX: R93.49 Abnormal radiologic findings on diagnostic imaging of other urinary organs (principal)
CPT/HCPCS: 76770

== ENCOUNTER → 2018-07-24 | Outpatient (CLI) | payer MEDICARE, OTHER ==
[2018-07-24 09:54] VITALS: BP 134/81; PULSE 126; RESP 15; TEMP 97.3; BMI 21.9
--- NOTE | 2018-07-24 11:03 | P.HPOB ---
History of Present Illness H&P Date: 07/24/18 Chief Complaint: The patient is here for her routine gynecologic exam and mammogram. This is a 47-year-old with an LMP of 07/12/2018. The patient's here to establish with this office. She states her menstrual periods have become slightly more unpredictable. They come about every 4 weeks give or take one week. She was wondering if she could be started on oral contraception to regulate her menstrual periods. She states she would like to get . Her last pelvic exam was about 3 years ago. She is otherwise without gynecologic complaints. Review of Systems The patient's weight has been stable over the last year. She denies respiratory , cardiac, or G.I. problems. Past Medical History Past Medical History: Asthma, Hyperlipidemia, Musculoskeletal Disorder, Seizure Disorder, Skin Disorder, Thyroid Disorder Additional Past Medical History / Comment(s): Kidney stones X3. "CEREBRAL PALSY , VERY JERKY LT SIDE, MANDI ARM." UNABLE TO READ. RT LEG STIFF SINCE SURGERY. THYROID Nodules. LAST SEIZURE 2017 EST. Migraine. 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 History of Any Multi-Drug Resistant Organisms: None Reported Past Surgical History: Appendectomy, Cholecystectomy, Orthopedic Surgery Additional Past Surgical History / Comment(s): BIOPSY Lung Surgery. KIDNEY STONE PROC. SURGERY ON TENDONS BALDOMERO KNEES. Past Anesthesia/Blood Transfusion Reactions: Previous Problems w/ Anesthesia Additional Past Anesthesia/Blood Transfusion Reaction / Comment(s): PROBLEMS BREATHING DURING LUNG BIOPSY. MOTHER "NOT AWAKENING FOR 24 HRS AFTER PROCEDURE. " Past Psychological History: Depression Additional Psychological History / Comment(s): . Smoking Status: Former smoker Past Alcohol Use History: Rare (2 per year) Additional Past Alcohol Use History / Comment(s): SMOKED 3 YEARS EST AFTER HIGH SCHOOL, QUIT 2009 Past Drug Use History: None Reported Additional History: 2017. She has been with her current boyfriend since late 2017. She is disabled. - Past Family History Mother Family Medical History: No Reported History Additional Family Medical History / Comment(s): Maternal grandfather had an DC. Father Family Medical History: No Reported History Medications and Allergies Home Medications Medication Instructions Recorded Confirmed Type Cyclobenzaprine [Flexeril] 10 mg PO HS 10/25/17 07/24/18 History Mirtazapine 45 mg PO HS 10/25/17 07/24/18 History OXcarbazepine [Trileptal] 150 mg PO BID 10/25/17 12/19/17 History OXcarbazepine [Trileptal] 600 mg PO BID 10/25/17 07/24/18 History SUMAtriptan SUCCINATE [Imitrex] 100 mg PO DAILY PRN 10/25/17 07/24/18 History Simvastatin 80 mg PO HS 10/25/17 07/24/18 History Topiramate [Topamax] 50 mg PO TID 10/25/17 12/19/17 History Vilazodone HCl [Viibryd] 40 mg PO DAILY 10/25/17 07/24/18 History Allergy Relief 25 mg PO BID 12/15/17 07/24/18 History Cholecalciferol [Vitamin D3] 2,500 unit PO DAILY 12/15/17 07/24/18 History Folic Acid 0.8 mg PO DAILY 12/15/17 07/24/18 History Inhaler (Unsure Of Name) 1 - 2 puff INHALATION RT-Q6H PRN 12/15/17 07/24/18 History Oxybutynin Chloride [Oxybutynin 10 mg PO DAILY #21 tab.er.24 12/18/17 07/24/18 Rx Chloride ER] Hydrocodone/Acetaminophen [[place] 1 - 2 tab PO Q4HR PRN 12/19/17 07/24/18 History 5-325] Ondansetron Odt [Zofran Odt] 4 mg PO Q8HR PRN #12 tab 12/19/17 07/24/18 Rx Allergies Allergy/AdvReac Type Severity Reaction Status Date / Time phenytoin sodium Allergy Rash/Hives Verified 07/24/18 09:44 [From Dilantin] phenytoin sodium extended Allergy Rash/Hives Verified 07/24/18 09:44 [From Dilantin] zinc gluconate Allergy Rash/Hives Verified 07/24/18 09:44 [From Cold-Eeze] Exam Vital Signs Temp Pulse Resp BP Pulse Ox 07/24/18 09:50 97.3 F L 126 H 15 134/81 97 Intake and Output 07/23/18 07/24/18 07/24/18 22:59 06:59 14:59 Other: Weight 54.431 kg Height 5'2", weight 120 pounds, BMI 21.9. This is a well-developed well-nourished white female who is alert and oriented times 3 in no acute distress. Speech is somewhat slurred possibly consistent with her history of cerebral palsy. HEENT: Within normal limits. NECK: Supple. There is a palpable left thyroid nodule which is slightly fluctuant, measuring approximately 2.5 x 2.5 cm. This is smooth and nontender. She has had this for a number of years. And had previously undergone some type of workup. CHEST AND LUNGS: Clear to auscultation. HEART: Regular rate and rhythm. BREASTS: Are without mass or discharge. AXILLARY EXAM: Negative for adenopathy. BACK: Negative for CVA tenderness. ABDOMEN: Soft, nontender, without palpable masses. PELVIC EXAM: Normal external genitalia. Cervix and vagina appear normal. There is no unusual discharge. There is no evidence of prolapse. The uterus is midposition, nongravid size and nontender. There are no palpable adnexal masses or tenderness. RECTAL EXAM: negative for mass or tenderness and is negative for occult blood. EXTREMITIES: Nontender. IMPRESSION: 1. 47-year-old female with normal gynecologic exam. 2. Slight menstrual irregularity. Possible early perimenopause. 3. I do not feel that she is a good candidate for oral contraception which she had initially requested for her slight menstrual irregularity. I do not feel she is a good candidate because of her age as well as her history of seizure and migraine. Also, she seems to be interested in getting rather than preventing it. 4. She would be considered high risk if she were to become because of her age and medical problems as well as the several medications that she takes. 5. Left neck mass that seems to be originating from the thyroid gland. This is apparently not new and has had some type of evaluation in the past. PLAN: 1. Pap smear was performed. 2. Self breast awareness was discussed with the patient. 3. Screening mammogram will be done today. 4. We had a long discussion regarding attempting and how I do not feel she is a good candidate for oral contraception, especially because she sounds like she wants to become in the future. She understands that her ability to get will probably rapidly decrease is she ages. We also discussed how she would be considered very high risk if she did get . I have recommended that she see a high risk ob specialist, a perinatologist, to discuss the possibility of getting with her medical conditions and her age. She would like to discuss this with her boyfriend and will let me know if she would like a referral for this. 5. We have also discussed possible types of control if she desires to prevent . I have recommended using condoms to prevent , at least until she has spoken with a perinatologist about the possibility of becoming and prior to getting preconception counseling. We also discussed other types of control such as Depo-Provera injections, IUD, and tubal sterilization, if she desires to effectively prevent . 6. I have recommended that she follow up with her primary care physician regarding the left neck mass. She states she has been seen by somebody for this neck mass in the past. 7. She will return in one year and PRN.
--- NOTE | 2018-07-25 08:40 | MM ---
Reason for exam: screening (asymptomatic). Last mammogram was performed 4 years and 4 months ago. History: Patient is nulliparous. Excisional biopsy of the right breast, September 21, 2007. Physical Findings: A clinical breast exam by your physician is recommended on an annual basis and results should be correlated with mammographic findings. MG 3D Screening Mammo W/Cad Bilateral CC and MLO view(s) were taken. Prior study comparison: March 14, 2014, bilateral MG diagnostic mammo w CAD BALDOMERO. April 08, 2011, [facility] DIGITAL LEFT BREAST MAMMOGRAM w/CAD. The breast tissue is extremely dense which could obscure a lesion on mammography. Benign appearing bilateral calcifications. Right surgical clips noted. No significant changes when compared with prior studies. ASSESSMENT: Benign, BI-RAD 2 RECOMMENDATION: Routine screening mammogram of both breasts in 1 year.
== END | disposition home or self-care (01) ==
LOC: WWCWWP 09:20
PROVIDERS: ATTEND Obstetrics & Gynecology
DX: Z12.31 Encounter for screening mammogram for malignant neoplasm of breast (principal)
CPT/HCPCS: 77063; 77067

== ENCOUNTER → 2019-08-12 | Outpatient (CLI) | payer MEDICARE, OTHER ==
--- NOTE | 2019-08-12 13:58 | US ---
EXAMINATION TYPE: US thyroid st tissue head/neck DATE OF EXAM: 08/12/2019 COMPARISON: US 03/14/2014 CLINICAL HISTORY: E04.01 Thyroid nodule. F/U nodules GLAND SIZE: Right Lobe: 5.4 x 1.6 x 1.5 cm Overall Parenchyma: heterogenous Left Lobe: 4.1 x 1.8 x 1.8 cm Overall Parenchyma: heterogeneous Isthmus Thickness: 0.4 cm NODULES RIGHT: # of nodules measured on right: 2 1. 1.3 X 1.0 x 1.4 cm isoechoic solid nodule at the lower pole with well-defined margins; This nod ule is wider than tall and shows intranodular vascularity. Prior size: 0.7 x 0.8 x 0.8 cm 2. 1.2 X 1.0 x 1.2 cm hypoechoic mixed nodule at the lower pole with poorly defined margins; This n odule is wider than tall and shows intranodular vascularity. Prior size: 0.8 x 0.7 x 0.6 cm LEFT: # of nodules measured on left: 1 1. 2.8 X 1.8 x 2.7 cm hypoechoic mixed nodule at the mid/lower pole with well-defined margins; Thi s nodule is wider than tall and shows intranodular vascularity. Prior size: 1.7 x 1.2 x 0.6 cm Bilateral neck scanned, no evidence of lymphadenopathy. All nodules increased in size when compared to previous. IMPRESSION: Multinodular goiter. There is increase in size of all of the nodules in comparison to the prior of . Fine-needle aspiration could be considered for the largest nodule that measures 2.8 cm on t he left.
--- NOTE | 2019-08-12 14:54 | XR ---
Right knee HISTORY: Pain and swelling 3 views of the right knee Correlation to prior exam 08/14/2014 No interval change, persistent superolateral patellar location. Bone mineralization, joint spaces and alignment are maintained. No evident joint effusion. Small vague calcification present in the interc ondylar notch level is indeterminate. IMPRESSION: No fracture or dislocation. Knee MRI may be of benefit, correlate to exclude patellar sub luxation, additional findings above.
== END | disposition home or self-care (01) ==
LOC: RADUSWWP 13:11
PROVIDERS: ATTEND Family Medicine
DX: E04.2 Nontoxic multinodular goiter (principal); M25.561 Pain in right knee
CPT/HCPCS: 76536

== ENCOUNTER 2019-08-28 17:57 | Emergency (ER) | payer MEDICARE, OTHER ==
[2019-08-28] MEDS ORDERED: KETOROLAC 30 MG/ML 1 ML VIAL IVP STA (18:24)
[2019-08-28 18:42] LABS: Basophils % (A) 0 %; Eosinophils # (A) 0.1 k/uL (0-0.7); Eosinophils % (A) 1 %; HCT 42.3 % (34.0-46.0); HGB 14.4 gm/dL (11.4-16.0); Lymphocytes # (A) 0.8 k/uL (1.0-4.8); Lymphocytes % (A) 6 %; MCH 30.5 pg (25.0-35.0); MCHC 33.9 g/dL (31.0-37.0); Mean Platelet Volume 7.6; Monocytes # (A) 0.5 k/uL (0-1.0); Monocytes % (A) 3 %; Neutrophils # (A) 13.5 k/uL (1.3-7.7); Neutrophils % (A) 90 %; Platelet Count 318 k/uL (150-450); RDW 12.3 % (11.5-15.5)
--- NOTE | 2019-08-28 18:47 | ED ---
Abdominal Pain HPI - General Source: patient Mode of arrival: ambulatory Limitations: no limitations <Saira Rossi - Last Filed: 08/28/19 18:50> <Lisa Kaur - Last Filed: 08/28/19 20:20> - General Chief Complaint: Abdominal Pain Stated Complaint: poss kidney stone Time Seen by Provider: 08/28/19 18:04 - History of Present Illness Initial Comments: 48-year-old female presenting today for chief complaint of left groin pain. Patient states that she has a significant history of kidney stone she states this pain is identical is sharp in nature coming and going in intensity. Patient states the pain began early this morning she states around 11 AM she began developing nausea and vomiting secondary to the pain she states that the pain is around a 7 out of 10. Sharp stabbing. Coming and going she denies any specific alleviating or aggravating factors. When pain persisted this evening she decided to present to the emergency department for further evaluation and symptomatically management. Patient states that she has had had lithotripsy in the past however most her stones have passed spontaneously. Patient denies any fever body aches chills dysuria urgency frequency. Patient denies any gross hematuria. Remaining review of system negative upon arrival patient appears well no signs acute distress (Saira Rossi) - Related Data Home Medications Medication Instructions Recorded Confirmed Cyclobenzaprine [Flexeril] 10 mg PO HS 10/25/17 07/24/18 Mirtazapine 45 mg PO HS 10/25/17 07/24/18 OXcarbazepine [Trileptal] 150 mg PO BID 10/25/17 12/19/17 OXcarbazepine [Trileptal] 600 mg PO BID 10/25/17 07/24/18 SUMAtriptan SUCCINATE [Imitrex] 100 mg PO DAILY PRN 10/25/17 07/24/18 Simvastatin 80 mg PO HS 10/25/17 07/24/18 Topiramate [Topamax] 50 mg PO TID 10/25/17 12/19/17 Vilazodone HCl [Viibryd] 40 mg PO DAILY 10/25/17 07/24/18 Allergy Relief 25 mg PO BID 12/15/17 07/24/18 Cholecalciferol [Vitamin D3] 2,500 unit PO DAILY 12/15/17 07/24/18 Folic Acid 0.8 mg PO DAILY 12/15/17 07/24/18 Inhaler (Unsure Of Name) 1 - 2 puff INHALATION RT-Q6H PRN 12/15/17 07/24/18 Hydrocodone/Acetaminophen [Marcus 1 - 2 tab PO Q4HR PRN 12/19/17 07/24/18 5-325] Previous Rx's Medication Instructions Recorded Oxybutynin Chloride [Oxybutynin 10 mg PO DAILY #21 tab.er.24 12/18/17 Chloride ER] Ondansetron Odt [Zofran Odt] 4 mg PO Q8HR PRN #12 tab 12/19/17 Allergies Allergy/AdvReac Type Severity Reaction Status Date / Time phenytoin sodium Allergy Rash/Hives Verified 08/28/19 18:02 [From Dilantin] phenytoin sodium extended Allergy Rash/Hives Verified 08/28/19 18:02 [From Dilantin] zinc gluconate Allergy Rash/Hives Verified 08/28/19 18:02 [From Cold-Eeze] Review of Systems ROS Other: All systems not noted in ROS Statement are negative. <Saira Rossi - Last Filed: 08/28/19 18:50> ROS Other: All systems not noted in ROS Statement are negative. <Lisa Kaur - Last Filed: 08/28/19 20:20> ROS Statement: Those systems with pertinent positive or pertinent negative responses have been documented in the HPI. Past Medical History Past Medical History: Asthma, Hyperlipidemia, Musculoskeletal Disorder, Seizure Disorder, Skin Disorder, Thyroid Disorder Additional Past Medical History / Comment(s): Kidney stones X3. "CEREBRAL PALSY, VERY JERKY LT SIDE, MANDI ARM." UNABLE TO READ. RT LEG STIFF SINCE SURGERY. THYROID Nodules. LAST SEIZURE 2017 EST. Migraine. PAST TUG HAND HISTORY: She has no history of STDs. History of Any Multi-Drug Resistant Organisms: None Reported Past Surgical History: Appendectomy, Cholecystectomy, Orthopedic Surgery Additional Past Surgical History / Comment(s): BIOPSY Lung Surgery. KIDNEY STONE PROC. SURGERY ON TENDONS BALDOMERO KNEES. Past Anesthesia/Blood Transfusion Reactions: Previous Problems w/ Anesthesia Additional Past Anesthesia/Blood Transfusion Reaction / Comment(s): PROBLEMS BREATHING DURING LUNG BIOPSY. MOTHER "NOT AWAKENING FOR 24 HRS AFTER PROCEDU RE." Past Psychological History: Depression Smoking Status: Former smoker Past Alcohol Use History: Rare Past Drug Use History: None Reported - Past Family History Mother Family Medical History: No Reported History Additional Family Medical History / Comment(s): Maternal grandfather had an [place]. Father Family Medical History: No Reported History <Saira Rossi - Last Filed: 08/28/19 18:50> General Exam Limitations: no limitations <Saira Rossi - Last Filed: 08/28/19 18:50> - General Exam Comments Initial Comments: General: The patient is awake and alert, in no distress, and does not appear acutely ill. Eye: Pupils are equal, round and reactive to light, extra-ocular movements are intact. No nystagmus. There is normal conjunctiva bilaterally. No signs of icterus. Ears, nose, mouth and throat: There are moist mucous membranes and no oral lesions. Neck: The neck is supple, there is no tenderness or JVD. Cardiovascular: There is a regular rate and rhythm. No murmur, rub or gallop is appreciated. Respiratory: Lungs are clear to auscultation, respirations are non-labored, breath sounds are equal. No wheezes, stridor, rales, or rhonchi. Gastrointestinal: Soft, non-distended, non-tender abdomen without masses or organomegaly noted. There is no rebound or guarding present. No CVA tenderness. Musculoskeletal: Normal ROM, no tenderness. Strength 5/5. Sensation intact. Radial pulses equal bilaterally 2+. Neurological: A&O x 3. CN II-XII intact grossly, There are no obvious motor or sensory deficits. Coordination appears grossly intact. Speech is normal. Skin: Skin is warm and dry and no rashes or lesions are noted. Psychiatric: Cooperative, appropriate mood & affect, normal judgment. (Saira Rossi) Course Vital Signs 08/28/19 17:58 Temperature 99.0 F Pulse Rate 118 H Respiratory 18 Rate Blood Pressure 127/83 O2 Sat by Pulse 98 Oximetry Medical Decision Making - Lab Data Result diagrams: 08/28/19 18:30 <Saira Rossi - Last Filed: 08/28/19 18:50> - Lab Data Result diagrams: 08/28/19 18:30 08/28/19 18:30 - Radiology Data Radiology results: report reviewed, image reviewed <Lisa Kuar - Last Filed: 08/28/19 20:20> - Medical Decision Making 48-year-old female patient presented to the emergency department today for eval uation of left groin pain. I took this patient has a sign out from Saira Rossi PA-c. I did do a personal evaluation of the patient, abdomen is now soft and nontender. She has no CVA tenderness. Labs reviewed and does reveal blood in the urine. CT abdomen and pelvis without contrast was reviewed and was unremarkable. I did discuss findings and results with the patient. Patient does admit that she is on her period at this time. We we'll discharge home with pain medication. She is instructed to increase fluids and to rest. She is instructed to follow-up with her primary care physician for recheck in 1-2 days. Return parameters were discussed in detail. She verbalizes understanding and agrees this plan. (Lisa Kaur) - Lab Data Lab Results 08/28/19 08/28/19 08/28/19 Range/Units 18:30 18:30 18:30 WBC 15.0 H (3.8-10.6) k/uL RBC 4.70 (3.80-5.40) m/uL Hgb 14.4 (11.4-16.0) gm/dL Hct 42.3 (34.0-46.0) % MCV 90.0 (80.0-100.0) fL MCH 30.5 (25.0-35.0) pg MCHC 33.9 (31.0-37.0) g/dL RDW 12.3 (11.5-15.5) % Plt Count 318 (150-450) k/uL Neutrophils % 90 % Lymphocytes % 6 % Monocytes % 3 % Eosinophils % 1 % Basophils % 0 % Neutrophils # 13.5 H (1.3-7.7) k/uL Lymphocytes # 0.8 L (1.0-4.8) k/uL Monocytes # 0.5 (0-1.0) k/uL Eosinophils # 0.1 (0-0.7) k/uL Basophils # 0.0 (0-0.2) k/uL Sodium 134 L (137-145) mmol/L Potassium 4.2 (3.5-5.1) mmol/L Chloride 102 (98-107) mmol/L Carbon Dioxide 25 (22-30) mmol/L Anion Gap 7 mmol/L BUN 15 (7-17) mg/dL Creatinine 0.55 (0.52-1.04) mg/dL Est GFR (CKD-EPI)AfAm >90 (>60 ml/min/1.73 sqM) Est GFR (CKD-EPI)NonAf >90 (>60 ml/min/1.73 sqM) Glucose 154 H (74-99) mg/dL Calcium 9.2 (8.4-10.2) mg/dL Total Bilirubin 0.3 (0.2-1.3) mg/dL AST 20 (14-36) U/L ALT 14 (4-34) U/L Alkaline Phosphatase 59 (38-126) U/L Total Protein 7.4 (6.3-8.2) g/dL Albumin 4.3 (3.5-5.0) g/dL Urine Color Yellow Urine Appearance Cloudy H (Clear) Urine pH 6.5 (5.0-8.0) Ur Specific Yulan 1.030 (1.001-1.035) Urine Protein 1+ H (Negative) Urine Glucose (UA) Negative (Negative) Urine Ketones 2+ H (Negative) Urine Blood Moderate H (Negative) Urine Nitrite Negative (Negative) Urine Bilirubin Negative (Negative) Urine Urobilinogen 2.0 (<2.0) mg/dL Ur Leukocyte Esterase Trace H (Negative) Urine RBC 68 H (0-5) /hpf Urine WBC 6 H (0-5) /hpf Ur Squamous Epith Cells 10 H (0-4) /hpf Urine Bacteria Occasional H (None) /hpf Hyaline Casts 1 (0-2) /lpf Urine Mucus Moderate H (None) /hpf - Radiology Data CT abdomen and pelvis was obtained without contrast. Report was reviewed in its entirety. Impression by Dr. Mendoza shows no acute process seen. (Lisa Kaur) Disposition <Saira Rossi - Last Filed: 08/28/19 18:50> Is patient prescribed a controlled substance at d/c from ED?: No Time of Disposition: 20:08 <Lisa Kaur - Last Filed: 08/28/19 20:20> Clinical Impression: Left groin pain Disposition: HOME SELF-CARE Condition: Good Instructions (If sedation given, give patient instructions): Abdominal Pain (ED) Additional Instructions: Follow up with your primary care physician for recheck in 1-2 days. Take medications as directed. Return to the emergency department immediately for any new, worsening, or concerning symptoms. Referrals: Christopher Cook MD [Primary Care Provider] - 1-2 days
[2019-08-28 18:52] LABS: ALT 14 U/L (4-34); AST 20 U/L (14-36); African American GFR (CKD) >90 (>60 ml/min/1.73 sqM); Albumin 4.3 g/dL (3.5-5.0); Alkaline Phosphatase 59 U/L (38-126); Anion Gap 7 mmol/L; Blood Urea Nitrogen 15 mg/dL (7-17); Calcium 9.2 mg/dL (8.4-10.2); Carbon Dioxide 25 mmol/L (22-30); Chloride 102 mmol/L (98-107); Glucose 154 mg/dL (74-99); Non-African American GFR(CKD) >90 (>60 ml/min/1.73 sqM); Potassium 4.2 mmol/L (3.5-5.1); Sodium 134 mmol/L (137-145); Total Bilirubin 0.3 mg/dL (0.2-1.3); Total Protein 7.4 g/dL (6.3-8.2)
[2019-08-28] MEDS ORDERED: cefTRIAXone IN SWFI 1,000 MG/10 ML SYRINGE IVP STA (18:59)
[2019-08-28] MEDS ORDERED: ONDANSETRON 4 MG/2 ML VIAL IVP STA (18:59)
[2019-08-28 19:08] LABS: Appearance,Urine Cloudy (Clear); Bacteria,Urine Occasional /hpf; Bilirubin,Urine Negative (Negative); Blood,Urine Moderate (Negative); Color,Urine Yellow; Glucose,Urine (UA) Negative (Negative); Hyaline Casts,Urine 1 /lpf (0-2); Ketones,Urine 2+ (Negative); Leukocyte Esterase,Urine Trace (Negative); Mucus,Urine Moderate /hpf; Nitrite,Urine Negative (Negative); PH, Urine 6.5 (5.0-8.0); Protein,Urine 1+ (Negative); RBC,Urine 68 /hpf (0-5); Squamous Epithelial Cell,Urine 10 /hpf (0-4); WBC,Urine 6 /hpf (0-5)
--- NOTE | 2019-08-28 19:23 | CT ---
EXAMINATION TYPE: CT abdomen pelvis wo con DATE OF EXAM: 08/28/2019 COMPARISON: 10/25/17 HISTORY: LLQ pain with history of stones. CT DLP: 396.5 mGycm Examination of the solid and hollow viscera is limited given the lack of contrast. FINDINGS: LUNG BASES: No evidence for nodule. No evidence for infiltrate.granuloma rll. LIVER/GB: The gallbladder is unremarkable. No space-occupying hepatic lesion. PANCREAS: No pancreatic mass identified. No inflammatory process seen. SPLEEN: No evidence for splenomegaly. No intrasplenic lesions seen. ADRENALS: No adrenal nodules identified. No evidence for thickening. KIDNEYS: No evidence for renal mass. No nephrolithiasis. No hydronephrosis. BOWEL: Appendix has a normal appearance. No evidence of bowel obstruction. No inflammatory process. Lymph nodes: No evidence for adenopathy greater than 1 cm. Abdominal aorta: Atheromatous changes seen. No evidence for aneurysm. Genital organs: No significant abnormality. Other: No significant abnormality. IMPRESSION: No acute process seen
[2019-08-28] MEDS ORDERED: IBUPROFEN 600 MG STARTER PACK 4 TAB BTL PO STA (20:08)
[2019-08-28] MEDS ORDERED: ACET/COD 300 MG/30 MG STARTER PACK 6 TAB BTL PO STA (20:08)
[2019-08-28 20:23] VITALS: BP 132/74; PULSE 97; RESP 17; TEMP 98.9
== END 2019-08-28 20:23 | disposition home or self-care (01) ==
LOC: EC 17:57
DX: R10.32 Left lower quadrant pain (principal); R31.9 Hematuria, unspecified; E78.5 Hyperlipidemia, unspecified; G40.909 Epilepsy, unspecified, not intractable, without status epilepticus; G80.9 Cerebral palsy, unspecified; J45.909 Unspecified asthma, uncomplicated; F32.9 Major depressive disorder, single episode, unspecified; Z79.899 Other long term (current) drug therapy; Z88.8 Allergy status to other drugs, medicaments and biological substances; Z87.891 Personal history of nicotine dependence; Z90.49 Acquired absence of other specified parts of digestive tract; Z90.89 Acquired absence of other organs
CPT/HCPCS: 36415; 80053; 85025; 81001; 74176; 99284; 96374; J1885

== ENCOUNTER → 2019-11-05 | Outpatient (CLI) | payer MEDICARE, OTHER | END | disposition home or self-care (01) | LOC: LABWHC1 14:00 | PROVIDERS: ATTEND Family Medicine | DX: Z11.59 Encounter for screening for other viral diseases (principal) ==

== ENCOUNTER 2019-11-07 08:47 | Day surgery (SDC) | payer MEDICARE, OTHER ==
[2019-11-07 09:42] VITALS: TEMP 98.3
--- NOTE | 2019-11-07 11:48 | US ---
ULTRASOUND GUIDED FNA THYROID BIOPSY: CLINICAL HISTORY: Request for FNA of 2 right-sided thyroid nodules and one left-sided thyroid nodule FINDINGS: The procedure was explained to the patient. The risks, complications, benefits and alternatives were discussed and any questions were answered. Informed consent was obtained. Patient was placed supin e on the ultrasound table and prepped and draped in the usual sterile fashion. Utilizing a 25 gauge needle, five passes were made into the dominant cystic mass of the left thyroid. The patient could n ot continue with the additional biopsy of the right side and the patient deferred the procedure. Patient was stable throughout the procedure. Pathology is pending. All elements of maximal barrier technique were utilized. IMPRESSION: 1. Successful ultrasound guided FNA thyroid biopsy of the left thyroid nodule. Note is made is predo minately cystic which can lower diagnostic yield on pathology.
[2019-11-07 11:51] VITALS: BP 130/84; PULSE 98; RESP 14
== END 2019-11-07 11:35 | disposition home or self-care (01) ==
LOC: RADPROMAIN 08:47
PROVIDERS: ATTEND Family Medicine
DX: E04.2 Nontoxic multinodular goiter (principal)
CPT/HCPCS: 10005; 88173; 88305

== ENCOUNTER 2020-03-14 12:03 | Emergency (ER) | payer MEDICARE, OTHER ==
[2020-03-14 12:16] VITALS: BP 133/88; PULSE 98; RESP 18; TEMP 98.6
[2020-03-14] MEDS ORDERED: KETOROLAC 15 MG/ML 1 ML VIAL IM STA (12:35)
--- NOTE | 2020-03-14 12:40 | ED ---
General Adult HPI - General Chief complaint: Extremity Problem,Nontraumatic Stated complaint: knee swelling Time Seen by Provider: 03/14/20 12:21 Source: patient, RN notes reviewed Mode of arrival: wheelchair Limitations: no limitations - History of Present Illness Initial comments: 49-year-old female presents to the emergency room for a chief complaint of right knee pain. Patient reports that she was letting her dogs out last night she started with pain in her right knee. She does not recall injuring the knee. She did have surgery on the right knee several years ago and has had problems with stiffness and pain since that time. Patient denies any fevers or chills. Denies any significant swelling.Patient has no other complaints at this time including shortness of breath, chest pain, abdominal pain, nausea or vomiting, headache, or visual changes. - Related Data Home Medications Medication Instructions Recorded Confirmed Cyclobenzaprine [Flexeril] 10 mg PO HS 10/25/17 11/07/19 Mirtazapine 45 mg PO HS 10/25/17 11/07/19 OXcarbazepine [Trileptal] 150 mg PO BID 10/25/17 11/07/19 OXcarbazepine [Trileptal] 600 mg PO BID 10/25/17 11/07/19 SUMAtriptan SUCCINATE [Imitrex] 100 mg PO DAILY PRN 10/25/17 11/07/19 Simvastatin 80 mg PO HS 10/25/17 11/07/19 Topiramate [Topamax] 50 mg PO TID 10/25/17 11/07/19 Allergy Relief 25 mg PO BID 12/15/17 11/07/19 Cholecalciferol [Vitamin D3] 2,500 unit PO DAILY 12/15/17 11/07/19 Folic Acid 0.8 mg PO DAILY 12/15/17 11/07/19 Diclofenac Sodium 25 mg PO DAILY 10/25/19 11/07/19 Galcanezumab-Gnlm [Emgality 120 mg SQ DIRECTED 10/25/19 11/07/19 Syringe] Ibuprofen 800 mg PO Q8H 10/25/19 11/07/19 Levothyroxine Sodium [Synthroid] 50 mcg PO DAILY 10/25/19 11/07/19 Non Formulary Drug 1 each PO ONCE 10/25/19 11/07/19 Non Formulary Drug 1 each PO ONCE 10/25/19 11/07/19 Omeprazole 20 mg PO DAILY 10/25/19 11/07/19 Aspirin/Acetaminophen/Caffeine 1 tab PO DAILY PRN 11/07/19 11/07/19 [Excedrin Extra Strength Caplet] diazePAM [Valium] 10 mg PO ONCE 11/07/19 11/07/19 Previous Rx's Medication Instructions Recorded Oxybutynin Chloride [Oxybutynin 10 mg PO DAILY #21 tab.er.24 12/18/17 Chloride ER] Allergies Allergy/AdvReac Type Severity Reaction Status Date / Time phenytoin sodium Allergy Rash/Hives Verified 03/14/20 12:16 [From Dilantin] phenytoin sodium extended Allergy Rash/Hives Verified 03/14/20 12:16 [From Dilantin] zinc gluconate Allergy Rash/Hives Verified 03/14/20 12:16 [From Cold-Eeze] Review of Systems ROS Statement: Those systems with pertinent positive or pertinent negative responses have been documented in the HPI. ROS Other: All systems not noted in ROS Statement are negative. Past Medical History Past Medical History: Asthma, Hyperlipidemia, Musculoskeletal Disorder, Seizure Disorder, Skin Disorder, Thyroid Disorder Additional Past Medical History / Comment(s): Kidney stones X3. "CEREBRAL PALSY, VERY JERKY LT SIDE, MANDI ARM." UNABLE TO READ. RT LEG STIFF SINCE SURGERY. THYROID Nodules. LAST SEIZURE 2017 EST. Migraine. 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 patient walks with out assistance. History of Any Multi-Drug Resistant Organisms: None Reported Past Surgical History: Appendectomy, Cholecystectomy, Orthopedic Surgery Additional Past Surgical History / Comment(s): BIOPSY Lung Surgery. KIDNEY STONE PROC. SURGERY ON TENDONS BALDOMERO KNEES. Past Anesthesia/Blood Transfusion Reactions: Previous Problems w/ Anesthesia Additional Past Anesthesia/Blood Transfusion Reaction / Comment(s): PROBLEMS BREATHING DURING LUNG BIOPSY. MOTHER "NOT AWAKENING FOR 24 HRS AFTER PROCEDURE." Past Psychological History: Depression Smoking Status: Never smoker Past Alcohol Use History: Rare Past Drug Use History: None Reported - Past Family History Mother Family Medical History: No Reported History Additional Family Medical History / Comment(s): Maternal grandfather had an ME. Father Family Medical History: No Reported History General Exam Limitations: no limitations General appearance: alert, in no apparent distress Head exam: Present: atraumatic, normocephalic, normal inspection Eye exam: Present: normal appearance, PERRL, EOMI. Absent: scleral icterus, conjunctival injection, periorbital swelling ENT exam: Present: normal exam, mucous membranes moist Neck exam: Present: normal inspection, full ROM. Absent: tenderness, meningismus, lymphadenopathy Respiratory exam: Present: normal lung sounds bilaterally. Absent: respiratory distress, wheezes, rales, rhonchi, stridor Cardiovascular Exam: Present: regular rate, normal rhythm, normal heart sounds. Absent: systolic murmur, diastolic murmur, rubs, gallop, clicks GI/Abdominal exam: Present: soft, normal bowel sounds. Absent: distended, tenderness, guarding, rebound, rigid Extremities exam: Present: tenderness (Tenderness to the anterior aspect of the right knee.), normal capillary refill (Capillary refill less than 2 seconds, DP pulse 2+ right lower extremity), other (There is a scar on the anterior right knee. Otherwise right leg appears normal.). Absent: full ROM (Patient has ab out 45 flexion of the right knee before eliciting pain.), pedal edema, joint swelling (I do not appreciate any edema or erythema of the right knee.), calf tenderness (No tenderness, negative Homans sign.) Course Vital Signs 03/14/20 12:13 Temperature 98.6 F Pulse Rate 98 Respiratory 18 Rate Blood Pressure 133/88 O2 Sat by Pulse 96 Oximetry Medical Decision Making - Medical Decision Making HPI physical exam integument. There is no significant edema. Patient is well 45 of flexion of the right knee. There is no erythema or increased warmth. No evidence of septic joint. DP pulse 2+, capillary refill less than 2 seconds. X- ray of the right knee shows no acute fracture or dislocation. At this time I recommend patient follow-up with her orthopedic surgeon. If she has any worsening symptoms or fever she will return to the emergency department. Otherwise she will take Motrin and Tylenol for pain until that time. Disposition Clinical Impression: Knee pain, right Disposition: HOME SELF-CARE Condition: Good Instructions (If sedation given, give patient instructions): Knee Pain (ED) Additional Instructions: Take Motrin and Tylenol for pain. Use crutches as needed. Follow-up with primary care and orthopedics in one to 2 days. Return to the emergency room for any worsening symptoms including fevers. Is patient prescribed a controlled substance at d/c from ED?: No Referrals: Christopher Cook MD [Primary Care Provider] - 1-2 days Moises Anderson DO [Doctor of Osteopathic Medicine] - 1-2 days Time of Disposition: 13:45
--- NOTE | 2020-03-14 13:09 | XR ---
EXAMINATION TYPE: XR knee complete RT DATE OF EXAM: 03/14/2020 COMPARISON: NONE HISTORY: Pain TECHNIQUE: Three views are submitted. FINDINGS: There is a small suprapatellar bursal fluid collection. Well-corticated density adjacent to the later al margin the joint can be associated with remote avulsion fracture and internal derangement. Mild na rrowing of the medial compartment of the knee joint.. Osseous structures are intact. No acute fract ure seen. IMPRESSION: 1. No acute fracture or dislocation. 2. Arthropathy. See above.
== END 2020-03-14 14:04 | disposition home or self-care (01) ==
LOC: EC 12:03
DX: M25.561 Pain in right knee (principal); E78.5 Hyperlipidemia, unspecified; G43.909 Migraine, unspecified, not intractable, without status migrainosus; G40.909 Epilepsy, unspecified, not intractable, without status epilepticus; F32.9 Major depressive disorder, single episode, unspecified; Z79.1 Long term (current) use of non-steroidal anti-inflammatories (NSAID); Z79.899 Other long term (current) drug therapy; Z79.890 Hormone replacement therapy; Z88.8 Allergy status to other drugs, medicaments and biological substances; Z98.890 Other specified postprocedural states
CPT/HCPCS: 73562; 99283; 96372; J1885

== ENCOUNTER → 2020-06-02 | Outpatient (CLI) | payer MEDICARE, OTHER ==
--- NOTE | 2020-06-02 10:02 | CT ---
EXAMINATION TYPE: CT brain w con DATE OF EXAM: 06/02/2020 COMPARISON: None. HISTORY: Headaches, Cerebral Palsy CT DLP: 978.20 mGycm. Automated Exposure Control for Dose Reduction was Utilized. TECHNIQUE: CT scan of the head is performed with IV Contrast, patient injected with 100 ml mL of Is ovue 300. FINDINGS: The ventricles and sulci are within normal limits in size. Postcontrast images show no gurrola spicious enhancing intraparenchymal mass. No midline shift. Johnson-white matter differentiation is main tained. The globes are intact and the visualized sinuses are clear. IMPRESSION: Unremarkable study.
== END | disposition home or self-care (01) ==
LOC: RADCTMAIN 09:02
PROVIDERS: ATTEND Family Medicine
DX: R51.9 Headache, unspecified (principal)
CPT/HCPCS: 70460; Q9967

== ENCOUNTER → 2020-07-30 | Outpatient (CLI) | payer MEDICARE, OTHER | END | disposition home or self-care (01) | LOC: LABWHC1 10:48 | PROVIDERS: ATTEND Psychiatry & Neurology Neurology | DX: G40.009 Localization-related (focal) (partial) idiopathic epilepsy and epileptic syndromes with seizures of localized onset, not intractable, without status epilepticus (principal) | CPT/HCPCS: 36415; 80183; 84295 ==

== ENCOUNTER → 2020-11-12 | Day surgery (SDC) | payer MEDICARE, OTHER ==
[2020-11-11 10:11] VITALS: BMI 26.4
[~2020-11-12] MED LIST changes: -DEXAMETHASONE SOD PHOSPHATE 10 MG/ML 1 ML VIAL IV ONE; +LIDOCAINE 1% (10MG/ML) FOR IV START INTRADERMA ONE; -LIDOCAINE 1% 20 ML VIAL (10MG/ML) FOR IV START INTRADERMA PRN; +LIDOCAINE 1% INJ 10MG/ML (20 ML MDV) ONE; -ONDANSETRON 4 MG/2 ML VIAL IVP ONE; +PROPOFOL 10 MG/ML 20 ML VIAL IV ONE; -SCOPOLAMINE 1.5MG/72HR PATCH TRANSDERM ONE; -ceFAZolin IN SWFI 2 GM/20 ML SYRINGE IVP ONE
[2020-11-12 09:43] VITALS: TEMP 98.5
--- NOTE | 2020-11-12 10:23 | P.GSHP ---
History of Present Illness H&P Date: 11/12/20 Chief Complaint: GERD This a 50-year-old female who presents today for EGD. She has issues with GERD. Past Medical History Past Medical History: Asthma, Hyperlipidemia, Musculoskeletal Disorder, Osteoarthritis (OA), Seizure Disorder, Thyroid Disorder Additional Past Medical History / Comment(s): Kidney stones X3. "CEREBRAL PALSY, VERY JERKY LT SIDE, MANDI ARM." UNABLE TO READ. . THYROID Nodules. LAST SEIZURE 2017 EST. Migraine. . patient walks with out assistance. History of Any Multi-Drug Resistant Organisms: None Reported Past Surgical History: Appendectomy, Cholecystectomy, Orthopedic Surgery Additional Past Surgical History / Comment(s): BIOPSY Lung Surgery. KIDNEY STONE PROC. SURGERY ON TENDONS BALDOMERO KNEES. Past Anesthesia/Blood Transfusion Reactions: Previous Problems w/ Anesthesia Additional Past Anesthesia/Blood Transfusion Reaction / Comment(s): HAD PROBLEMS BREATHING DURING LUNG BIOPSY. MOTHER "NOT AWAKENING FOR 24 HRS AFTER PROCEDURE." Smoking Status: Former smoker - Past Family History Mother Family Medical History: No Reported History Additional Family Medical History / Comment(s): Maternal grandfather had an [place]. Father Family Medical History: No Reported History Medications and Allergies Home Medications Medication Instructions Recorded Confirmed Type OXcarbazepine [Trileptal] 150 mg PO BID 10/25/17 11/12/20 History OXcarbazepine [Trileptal] 600 mg PO BID 10/25/17 11/12/20 History SUMAtriptan SUCCINATE [Imitrex] 100 mg PO DAILY PRN 10/25/17 11/12/20 History Simvastatin 80 mg PO HS 10/25/17 11/12/20 History Topiramate [Topamax] 50 mg PO TID PRN 10/25/17 11/12/20 History Cholecalciferol [Vitamin D3] 25 mcg PO DAILY 12/15/17 11/12/20 History Folic Acid 1 mg PO DAILY 12/15/17 11/12/20 History Ibuprofen 600 mg PO DAILY 10/25/19 11/12/20 History Levothyroxine Sodium [Synthroid] 100 mcg PO DAILY 10/25/19 11/12/20 History Omeprazole 20 mg PO DAILY 10/25/19 11/12/20 History Aspirin/Acetaminophen/Caffeine 1 tab PO DAILY PRN 11/07/19 11/12/20 History [Excedrin Extra Strength Caplet] Control Pill 1 tab PO DAILY 11/11/20 11/12/20 History Multivitamins, Thera [Multivitamin 1 tab PO DAILY 11/11/20 11/12/20 History (formulary)] Pot Citrate 1080mg Tab 3,160 mg PO DAILY 11/11/20 11/12/20 History Allergies Allergy/AdvReac Type Severity Reaction Status Date / Time phenytoin sodium Allergy Rash/Hives Verified 11/12/20 09:39 [From Dilantin] phenytoin sodium extended Allergy Rash/Hives Verified 11/12/20 09:39 [From Dilantin] zinc gluconate Allergy Rash/Hives Verified 11/12/20 09:39 [From Cold-Eeze] Surgical - Exam Vital Signs Temp Pulse Resp BP Pulse Ox 98.5 F 92 18 169/76 95 11/12/20 09:42 11/12/20 09:42 11/12/20 09:42 11/12/20 09:42 11/12/20 09:42 - General well developed, well nourished, no distress - Eyes PERRL - ENT normal pinna - Neck no masses - Respiratory normal expansion - Cardiovascular Rhythm: regular - Abdomen Abdomen: soft, non tender Assessment and Plan Assessment: GERD. We'll perform EGD.
--- NOTE | 2020-11-12 10:31 | P.OP ---
Preoperative Diagnosis: GERD Postoperative Diagnosis: Mild antral gastritis Procedure(s) Performed: EGD Anesthesia: MAC Surgeon: Joe Chow Pathology: other (Antrum, esophagus) Condition: stable Disposition: PACU Description of Procedure: The patient's placed on the endoscopy table in the lateral position. She received IV sedation. The gastroscope was oropharynx passed in the esophagus into the stomach. Scope was then placed through the pylorus. The first and second portion of the duodenum appeared normal. Scope was then brought back the antrum this was mildly inflamed. Biopsies performed. Scope was unretroflexed and remainder of the stomach appeared normal. There is no significant hiatal hernia. The GE junction was at 40 cm. The distal esophagus appeared normal. A random biopsies performed due to her symptoms. The proximal esophagus normal. Scope was withdrawn for patient.
[2020-11-12 10:39] VITALS: BP 146/89; RESP 16
[2020-11-12 11:04] VITALS: PULSE 82
== END ==
LOC: ORWHC2ENDO 08:59
PROVIDERS: ATTEND Surgery
DX: K21.00 Gastro-esophageal reflux disease with esophagitis, without bleeding (principal); J45.909 Unspecified asthma, uncomplicated; E78.5 Hyperlipidemia, unspecified; M19.90 Unspecified osteoarthritis, unspecified site; G40.909 Epilepsy, unspecified, not intractable, without status epilepticus; E04.1 Nontoxic single thyroid nodule; Z87.442 Personal history of urinary calculi; G80.1 Spastic diplegic cerebral palsy; Z90.89 Acquired absence of other organs; Z90.49 Acquired absence of other specified parts of digestive tract; Z98.890 Other specified postprocedural states; Z87.891 Personal history of nicotine dependence; Z82.49 Family history of ischemic heart disease and other diseases of the circulatory system; Z79.1 Long term (current) use of non-steroidal anti-inflammatories (NSAID); Z79.3 Long term (current) use of hormonal contraceptives; Z79.899 Other long term (current) drug therapy; Z88.8 Allergy status to other drugs, medicaments and biological substances; Z88.5 Allergy status to narcotic agent
CPT/HCPCS: 81025; 88305; 88342; 43239; J2001; J2704

== ENCOUNTER → 2020-11-13 | Outpatient (CLI) | payer MEDICARE, OTHER ==
--- NOTE | 2020-11-13 11:35 | NM ---
Nuclear medicine hepatobiliary scan. HISTORY: Pain. DOSAGE: The patient 8 ounces of ensure plus and 5.1 mCi of Technetium 99m Choletec. FINDINGS: There is normal hepatic extraction. The gallbladder is seen by 20 minutes. There is bilia ry to bowel clearance by 20 minutes. Ejection fraction is 78%. IMPRESSION: 1. Normal hepatobiliary exam
== END | disposition home or self-care (01) ==
LOC: RADNMMAIN 09:07
PROVIDERS: ATTEND Surgery
DX: R10.9 Unspecified abdominal pain (principal)
CPT/HCPCS: 78226; A9537

== ENCOUNTER → 2020-12-03 | Outpatient (CLI) | payer MEDICARE, OTHER ==
--- NOTE | 2020-12-03 12:51 | CT ---
EXAMINATION TYPE: CT wrist RT wo con DATE OF EXAM: 12/03/2020 COMPARISON: None HISTORY: 50-year-old female M23.531, Right wrist pain after injury TECHNIQUE: Contiguous axial scanning of the right wrist without IV contrast. Coronal and sagittal rec onstructions performed. 3-D reconstructions generated on a dedicated workstation. CT DLP: 257 mGycm Automated exposure control for dose reduction was used. FINDINGS: Oblique fracture distal half of the first metacarpal. There may be intra-articular extension at the l evel of the first MCP joint, coronal image 12. Minimally offset oblique fracture proximal shaft of the second metacarpal with slight posterior displ acement of 3 mm, coronal image 9 and sagittal image 7. Additional oblique fracture proximal shaft of the third metacarpal. It seems to be some bony bridging at this level, coronal image 6 and sagittal image 13. No additional acute fracture, subluxation, dislocation is seen. A marker has been placed along the radial aspect of the distal forearm. IMPRESSION: OBLIQUE FRACTURES INVOLVING THE FIRST, SECOND, AND THIRD METACARPALS. MINIMAL DISPLACEMENT UP TO 3 MM . THE FIRST METACARPAL FRACTURE MAY EXTEND INTO THE FIRST MCP JOINT. NO SUBLUXATION OR DISLOCATION.
== END | disposition home or self-care (01) ==
LOC: RADCTMAIN 09:21
PROVIDERS: ATTEND Family Medicine
DX: S62.201A Unspecified fracture of first metacarpal bone, right hand, initial encounter for closed fracture (principal); S62.300A Unspecified fracture of second metacarpal bone, right hand, initial encounter for closed fracture; S62.302A Unspecified fracture of third metacarpal bone, right hand, initial encounter for closed fracture; S63.501A Unspecified sprain of right wrist, initial encounter; X58.XXXA Exposure to other specified factors, initial encounter

== ENCOUNTER → 2021-01-01 | Outpatient (CLI) | payer MEDICARE, OTHER ==
--- NOTE | 2021-01-01 13:07 | XR ---
EXAMINATION TYPE: XR wrist complete RT DATE OF EXAM: 01/01/2021 COMPARISON: NONE HISTORY: Pain follow-up fracture TECHNIQUE: Four views submitted. FINDINGS: The osseous structures are intact. The joint spaces are preserved and there is no acute fracture or dislocation. Fractures noted on prior exam are not well seen on today's exam. IMPRESSION: 1. Previously noted fractures involving the metacarpals
== END | disposition home or self-care (01) ==
LOC: RADXRMAIN 12:28
PROVIDERS: ATTEND Family Medicine
DX: M25.531 Pain in right wrist (principal)

== ENCOUNTER 2021-02-01 06:29 | Day surgery (SDC) | payer MEDICARE, OTHER ==
[2021-01-25 10:05] VITALS: BMI 25.6
[~2021-02-01 06:29] MED LIST changes: +ACETAMINOPHEN TAB 500 MG TAB PO PRN; +DEXAMETHASONE SOD PHOSPHATE 4 MG/ML 1 ML VIAL IV ONE; +HEPARIN SODIUM,PORCINE/PF 5,000 UNIT/0.5 ML SYRINGE SQ PRN; -LIDOCAINE 1% (10MG/ML) FOR IV START INTRADERMA ONE; -LIDOCAINE 1% INJ 10MG/ML (20 ML MDV) ONE; +ONDANSETRON 4 MG/2 ML VIAL IVP ONE; -PROPOFOL 10 MG/ML 20 ML VIAL IV ONE
[2021-02-01] MEDS ORDERED: ACETAMINOPHEN TAB 500 MG TAB ONE (07:21)
[2021-02-01] MEDS ORDERED: GLYCOPYRROLATE 0.2 MG/ML 2 ML VIAL ONE (07:55)
[2021-02-01] MEDS ORDERED: LIDOCAINE 1% INJ 10MG/ML (20 ML MDV) ONE (07:55)
[2021-02-01] MEDS ORDERED: NEOSTIGMINE 1 MG/ML 10 ML VIAL ONE (07:55)
[2021-02-01] MEDS ORDERED: ROCURONIUM 10 MG/ML (5 ML VIAL) IV ONE (07:55)
[2021-02-01] MEDS ORDERED: fentaNYL (PF) 50 MCG/ML 2 ML AMP ONE (07:55)
[2021-02-01] MEDS ORDERED: PROPOFOL 10 MG/ML 20 ML VIAL IV ONE (07:55)
[2021-02-01] MEDS ORDERED: MIDAZOLAM 2 MG/2 ML VIAL ONE (07:55)
[2021-02-01] MEDS ORDERED: BUPIVACAINE (PF) 0.5% 30 ML VIAL SQ ONE (08:15)
[2021-02-01 08:38] VITALS: TEMP 97.1
--- NOTE | 2021-02-01 08:38 | P.GSHP ---
History of Present Illness H&P Date: 02/01/21 Chief Complaint: Right upper quadrant pain This a 41-year-old female who presents today for laparoscopic cholestatic. Patient had a recent HIDA scan was abnormal ejection fraction. Past Medical History Past Medical History: Asthma, GERD/Reflux, Hyperlipidemia, Musculoskeletal Disorder, Osteoarthritis (OA), Seizure Disorder, Thyroid Disorder Additional Past Medical History / Comment(s): "Wearing brace on right wrist for fractures." Hx Kidney Stones X3. "CEREBRAL PALSY, VERY JERKY LEFT SIDE, ESPECIALLY ARM, LIMPS", UNABLE TO READ. THYROID Nodules. LAST SEIZURE 2017. Migraines. History of Any Multi-Drug Resistant Organisms: None Reported Past Surgical History: Appendectomy, Orthopedic Surgery Additional Past Surgical History / Comment(s): Lung Biopsy. KIDNEY STONE PROCEDURE, SURGERY ON TENDONS BILATERAL KNEES. Past Anesthesia/Blood Transfusion Reactions: Previous Problems w/ Anesthesia Additional Past Anesthesia/Blood Transfusion Reaction / Comment(s): HAD PROBLEMS BREATHING DURING LUNG BIOPSY. " DID NOT AWAKEN FOR 24 HRS AFTER PROCEDURE." Past Psychological History: Depression Smoking Status: Former smoker Past Alcohol Use History: Rare Additional Past Alcohol Use History / Comment(s): STARTED SMOKING AT AGE 21, QUIT AT AGE 26, SMOKED 1/2PPD. Past Drug Use History: None Reported - Past Family History Mother Family Medical History: No Reported History Additional Family Medical History / Comment(s): Maternal grandfather had an [place]. Father Family Medical History: No Reported History Medications and Allergies Home Medications Medication Instructions Recorded Confirmed Type OXcarbazepine [Trileptal] 150 mg PO BID 10/25/17 02/01/21 History OXcarbazepine [Trileptal] 600 mg PO BID 10/25/17 02/01/21 History SUMAtriptan SUCCINATE [Imitrex] 100 mg PO DAILY PRN 10/25/17 02/01/21 History Simvastatin 80 mg PO HS 10/25/17 02/01/21 History Topiramate [Topamax] 50 mg PO TID PRN 10/25/17 02/01/21 History Cholecalciferol [Vitamin D3] 25 mcg PO DAILY 12/15/17 02/01/21 History Folic Acid 1 mg PO DAILY 12/15/17 02/01/21 History Ibuprofen 600 mg PO DAILY 10/25/19 01/25/21 History Levothyroxine Sodium [Synthroid] 100 mcg PO QAM 10/25/19 02/01/21 History Omeprazole 20 mg PO BID 10/25/19 02/01/21 History Aspirin/Acetaminophen/Caffeine 1 tab PO DAILY PRN 11/07/19 01/25/21 History [Excedrin Extra Strength Caplet] Control Pill 1 tab PO QAM 11/11/20 02/01/21 History Multivitamins, Thera [Multivitamin 1 tab PO DAILY 11/11/20 01/25/21 History (formulary)] Pot Citrate 1080mg Tab 1,080 mg PO QID 11/11/20 02/01/21 History Ondansetron HCl [Zofran] 4 mg PO BID PRN 01/25/21 02/01/21 History Allergies Allergy/AdvReac Type Severity Reaction Status Date / Time phenytoin sodium Allergy Rash/Hives Verified 02/01/21 06:46 [From Dilantin] phenytoin sodium extended Allergy Rash/Hives Verified 02/01/21 06:46 [From Dilantin] zinc gluconate Allergy Rash/Hives Verified 02/01/21 06:46 [From Cold-Eeze] Surgical - Exam Vital Signs Temp Pulse Resp BP Pulse Ox 98.0 F 84 16 127/77 97 02/01/21 07:11 02/01/21 07:11 02/01/21 07:11 02/01/21 07:11 02/01/21 07:11 - General well developed, well nourished, no distress - Eyes PERRL - ENT normal pinna - Neck no masses - Respiratory normal expansion - Cardiovascular Rhythm: regular - Abdomen Abdomen: soft, non tender Assessment and Plan Assessment: Chronic cholecystis. We'll perform laparoscopic cholecystectomy.
[2021-02-01] MEDS ORDERED: LACTATED RINGERS 1,000 ML IV ONE ×2 (08:48→09:45)
[2021-02-01] MEDS: HYDROmorphone 0.5 MG/0.5 ML SYRINGE IVP PRN ×6 (08:48→09:23)
[2021-02-01] MEDS ORDERED: ONDANSETRON 4 MG/2 ML VIAL ONE (09:49)
[2021-02-01] MEDS ORDERED: ONDANSETRON 4 MG/2 ML VIAL IVP ONE (09:50)
[2021-02-01 09:58] VITALS: RESP 16
[2021-02-01 11:10] VITALS: BP 131/84; PULSE 84
--- NOTE | 2021-02-25 09:53 | P.OP ---
Date of Procedure: 02/01/21 Preoperative Diagnosis: Chronic cholecystitis Postoperative Diagnosis: Chronic cholecystitis Procedure(s) Performed: Laparoscopic cholecystectomy Anesthesia: SAEED Surgeon: Joe Chow Pathology: other (All bladder) Condition: stable Disposition: PACU Description of Procedure: The patient was placed on the operating table. The patient received a general endotracheal tube anesthesia. The patients abdomen was prepped and draped in the usual sterile fashion. Through an infraumbilical stab incision, the fascia of the anterior abdominal wall was grasped with a pair of Kochers and then the Veress needle was placed in the peritoneal cavity. Position of the Veress needle was confirmed with positive drop test. The abdomen was then insufflated. After adequate insufflation, the 10 mm trocar was placed in the peritoneal cavity. Following this the laparoscope was placed in the p eritoneal cavity. The patient was placed in the head-up, right side up position and then a 5 mm trocar was placed in the right lateral and right subcostal position under direct visualization. A 8 mm trocar was placed in the epigastric position. The gallbladder was grasped in the fundus and infundibulum. Traction on the gallbladder was placed in the lateral and the cephalad positions. The triangle of Calot was visualized.. The cystic duct was bluntly dissected until the union of the cystic duct and common bile duct was seen. A critical view of safety was achieved. The cystic duct was then divided and sealed with the Harmonic scissors. A PDS Endoloop was then placed throughout the cystic duct stump. The cystic artery divided and sealed with the Harmonic scissors. The gallbladder was then removed from the liver bed using Harmonic scissors. The gallbladder was then extracted through the epigastric port site. Operative field was checked for any bleeding spots and Harmonic scissors was used to coagulate the liver bed. The abdomen was irrigated. The trocars were removed. The skin was closed using interrupted 3-0 Vicryl suture. Dermabond dressing were applied. The patient tolerated the procedure well.
== END 2021-02-01 11:52 | disposition home or self-care (01) ==
LOC: OR 06:29
PROVIDERS: ATTEND Surgery
DX: K81.1 Chronic cholecystitis (principal); K82.8 Other specified diseases of gallbladder; E78.5 Hyperlipidemia, unspecified; G40.909 Epilepsy, unspecified, not intractable, without status epilepticus; G80.9 Cerebral palsy, unspecified; J45.909 Unspecified asthma, uncomplicated; K21.9 Gastro-esophageal reflux disease without esophagitis; Z79.1 Long term (current) use of non-steroidal anti-inflammatories (NSAID); Z82.49 Family history of ischemic heart disease and other diseases of the circulatory system; Z87.891 Personal history of nicotine dependence; Z90.49 Acquired absence of other specified parts of digestive tract
CPT/HCPCS: 47562; 36415; 81025; 88304; 80053; 85025; 81003; J2250; J1200; J1100; J2710; J0690; J2405; J2001; J3010; J2704; J1170; J1644

== ENCOUNTER 2021-02-01 19:06 | Observation (INO) | payer MEDICARE, OTHER ==
[2021-02-01] MEDS ORDERED: SODIUM CHLORIDE 0.9% 2,000 ML IV ONE (20:55)
[2021-02-01] MEDS ORDERED: diphenhydrAMINE 50 MG/ML 1 ML VIAL IVP STA (20:55)
[2021-02-01] MEDS ORDERED: ONDANSETRON 4 MG/2 ML VIAL IVP STA (20:55)
[2021-02-01] MEDS ORDERED: FAMOTIDINE 20 MG/2 ML VIAL IV STA (20:55)
--- NOTE | 2021-02-01 21:05 | ED ---
Nausea/Vomiting/Diarrhea HPI - General Source: patient, family, RN notes reviewed Mode of arrival: wheelchair Limitations: no limitations <Moises Mills - Last Filed: 02/01/21 22:54> <Cheyenne Mark - Last Filed: 02/02/21 13:42> - General Chief complaint: Nausea/Vomiting/Diarrhea Stated complaint: post gallbladder surgery-vomiting Time Seen by Provider: 02/01/21 20:55 - History of Present Illness Initial comments: This a 50-year-old female presents emergency Department chief complaint of nausea vomiting postop. Patient had a cholecystectomy by Dr. Chow today. Patient had nausea vomiting right after the surgery was given medicine prior to discharge was not discharged with any antiemetics. She's been unable to keep any meds on sense. Patient caregiver talk to Dr. Carlson who sent her in the emergency department for probable admission. Patient did have a small moderate bleeding from her upper incision site which has subsided. (Moises Mills) - Related Data Home Medications Medication Instructions Recorded Confirmed OXcarbazepine [Trileptal] 150 mg PO BID 10/25/17 02/01/21 OXcarbazepine [Trileptal] 600 mg PO BID 10/25/17 02/01/21 Simvastatin 80 mg PO HS 10/25/17 02/01/21 Levothyroxine Sodium [Synthroid] 100 mcg PO QAM 10/25/19 02/01/21 Omeprazole 20 mg PO BID 10/25/19 02/01/21 Aspirin/Acetaminophen/Caffeine 1 tab PO Q12H PRN 11/07/19 02/01/21 [Excedrin Extra Strength Caplet] Multivitamins, Thera [Multivitamin 1 tab PO DAILY 11/11/20 02/01/21 (formulary)] Ondansetron HCl [Zofran] 4 mg PO BID PRN 01/25/21 02/01/21 Acetaminophen Tab [Tylenol] 650 mg PO Q6H PRN 02/01/21 02/01/21 Cholecalciferol [Vitamin D3 (25 25 mcg PO DAILY 02/01/21 02/01/21 Mcg = 1000 Iu)] Fexofenadine HCl [Patricia Allergy] 180 mg PO DAILY 02/01/21 02/01/21 Folic Acid 1 mg PO DAILY 02/01/21 02/01/21 Galcanezumab-Gnlm [Emgality 120 mg INJ Q28D 02/01/21 02/01/21 Syringe] Pirmella 0.5/0.75/1mg-35mcg 1 tab PO DAILY 02/01/21 02/01/21 Potassium Citrate [Potassium 10 meq PO QID 02/01/21 02/01/21 Citrate ER] Previous Rx's Medication Instructions Recorded Docusate [Colace] 100 mg PO BID #20 capsule 02/01/21 Ibuprofen [Motrin] 600 mg PO Q6HR PRN #40 tab 02/01/21 oxyCODONE HCL [OxyIR] 5 mg PO Q6H PRN 3 Days #10 tab 02/01/21 Allergies Allergy/AdvReac Type Severity Reaction Status Date / Time phenytoin sodium Allergy Rash/Hives Verified 02/01/21 22:12 [From Dilantin] phenytoin sodium extended Allergy Rash/Hives Verified 02/01/21 22:12 [From Dilantin] zinc gluconate Allergy Rash/Hives Verified 02/01/21 22:12 [From Cold-Eeze] Review of Systems ROS Other: All systems not noted in ROS Statement are negative. <Moises Mills - Last Filed: 02/01/21 22:54> ROS Other: All systems not noted in ROS Statement are negative. <Cheyenne Mark - Last Filed: 02/02/21 13:42> ROS Statement: Those systems with pertinent positive or pertinent negative responses have been documented in the HPI. Past Medical History Past Medical History: Asthma, Hyperlipidemia, Musculoskeletal Disorder, Osteoarthritis (OA), Seizure Disorder, Thyroid Disorder Additional Past Medical History / Comment(s): Kidney stones X3. "CEREBRAL PALSY, VERY JERKY LT SIDE, MANDI ARM." UNABLE TO READ. . THYROID Nodules. LAST SEIZURE 2017 EST. Migraine. . patient walks with out assistance. History of Any Multi-Drug Resistant Organisms: None Reported Past Surgical History: Appendectomy, Cholecystectomy, Orthopedic Surgery Additional Past Surgical History / Comment(s): BIOPSY Lung Surgery. KIDNEY STONE PROC. SURGERY ON TENDONS BALDOMERO KNEES. Past Anesthesia/Blood Transfusion Reactions: Previous Problems w/ Anesthesia Additional Past Anesthesia/Blood Transfusion Reaction / Comment(s): HAD PROBLEMS BREATHING DURING LUNG BIOPSY. MOTHER "NOT AWAKENING FOR 24 HRS AFTER PROCEDURE." Past Psychological History: Depression Smoking Status: Former smoker Past Alcohol Use History: Rare Past Drug Use History: None Reported - Past Family History Mother Family Medical History: No Reported History Additional Family Medical History / Comment(s): Maternal grandfather had an [place]. Father Family Medical History: No Reported History <Moises Mills - Last Filed: 02/01/21 22:54> General Exam Limitations: no limitations General appearance: alert, in no apparent distress Head exam: Present: atraumatic, normocephalic, normal inspection Respiratory exam: Present: normal lung sounds bilaterally. Absent: respiratory distress, wheezes, rales, rhonchi, stridor Cardiovascular Exam: Present: normal rhythm, tachycardia, normal heart sounds. Absent: systolic murmur, diastolic murmur, rubs, gallop, clicks GI/Abdominal exam: Present: soft, tenderness, normal bowel sounds. Absent: distended, guarding, rebound, rigid Back exam: Absent: CVA tenderness (R), CVA tenderness (L) Neurological exam: Present: alert Skin exam: Present: warm, dry, intact, normal color. Absent: rash <Moises Mills - Last Filed: 02/01/21 22:54> Course Vital Signs 02/01/21 02/01/21 02/02/21 19:33 21:35 00:00 Temperature 98 F 98.7 F Pulse Rate 119 H 111 H 105 H Pulse Rate [ Right Lateral] Respiratory 18 18 16 Rate Blood Pressure 158/86 119/68 138/86 Blood Pressure [Left Radial Artery] O2 Sat by Pulse 97 97 97 Oximetry 02/02/21 07:00 Temperature 97.8 F Pulse Rate Pulse Rate [ 94 Right Lateral] Respiratory 18 Rate Blood Pressure Blood Pressure 124/81 [Left Radial Artery] O2 Sat by Pulse 95 Oximetry Medical Decision Making - Lab Data Result diagrams: 02/01/21 20:59 02/01/21 20:59 <Moises Mills - Last Filed: 02/01/21 22:54> - Lab Data Result diagrams: 02/01/21 20:59 02/01/21 20:59 <Cheyenne Mark - Last Filed: 02/02/21 13:42> - Medical Decision Making 50-year-old presented for postcholecystectomy nausea vomiting. Patient was revealed shows mild transaminitis, patient was hydrated given antiemetics and pain control feel slightly improved case discussed with Dr. Tobar patient will be admitted overnight for IV fluids, pain control and antiemetics. (Moises Mills) I was available for consultation in the emergency department. The history and physical exam were done by the midlevel provider. I was consulted for this patients care. I reviewed the case with the midlevel provider and based on their presentation of the patient, I agree with the assessment, medical decision making and plan of care as documented. Chart was dictated using [employer] dictation software. Attempts were made to correct any dictation errors however some typographical errors may persist. Patient was seen during a national state of emergency due to the Covid-19 pandemic. (Cheyenne Mark) - Lab Data Lab Results 02/01/21 02/01/21 02/01/21 Range/Units 20:59 20:59 20:59 WBC 15.0 H (3.8-10.6) k/uL RBC 4.79 (3.80-5.40) m/uL Hgb 14.6 (11.4-16.0) gm/dL Hct 43.9 (34.0-46.0) % MCV 91.8 (80.0-100.0) fL MCH 30.5 (25.0-35.0) pg MCHC 33.2 (31.0-37.0) g/dL RDW 13.3 (11.5-15.5) % Plt Count 266 (150-450) k/uL MPV 8.4 Neutrophils % 88 % Lymphocytes % 7 % Monocytes % 4 % Eosinophils % 0 % Basophils % 0 % Neutrophils # 13.1 H (1.3-7.7) k/uL Lymphocytes # 1.1 (1.0-4.8) k/uL Monocytes # 0.6 (0-1.0) k/uL Eosinophils # 0.0 (0-0.7) k/uL Basophils # 0.0 (0-0.2) k/uL Sodium 134 L (137-145) mmol/L Potassium 4.7 (3.5-5.1) mmol/L Chloride 103 (98-107) mmol/L Carbon Dioxide 22 (22-30) mmol/L Anion Gap 9 mmol/L BUN 17 (7-17) mg/dL Creatinine 0.48 L (0.52-1.04) mg/dL Est GFR (CKD-EPI)AfAm >90 (>60 ml/min/1.73 sqM) Est GFR (CKD-EPI)NonAf >90 (>60 ml/min/1.73 sqM) Glucose 116 H (74-99) mg/dL Calcium 9.3 (8.4-10.2) mg/dL Total Bilirubin 0.4 (0.2-1.3) mg/dL AST 69 H (14-36) U/L ALT 38 H (4-34) U/L Alkaline Phosphatase 106 (38-126) U/L Total Protein 6.9 (6.3-8.2) g/dL Albumin 4.0 (3.5-5.0) g/dL Urine Color Light Yellow Urine Appearance Clear (Clear) Urine pH 7.0 (5.0-8.0) Ur Specific [place] 1.008 (1.001-1.035) Urine Protein Negative (Negative) Urine Glucose (UA) Negative (Negative) Urine Ketones 2+ H (Negative) Urine Blood Negative (Negative) Urine Nitrite Negative (Negative) Urine Bilirubin Negative (Negative) Urine Urobilinogen <2.0 (<2.0) mg/dL Ur Leukocyte Esterase Negative (Negative) Disposition <Moises Mills - Last Filed: 02/01/21 22:54> <Cheyenne Mark - Last Filed: 02/02/21 13:42> Clinical Impression: Postoperative nausea and vomiting, Status post cholecystectomy Disposition: ADMITTED IP TO THIS HOSP Condition: Fair
[2021-02-01 21:19] LABS: Basophils % (A) 0 %; Eosinophils % (A) 0 %; HCT 43.9 % (34.0-46.0); HGB 14.6 gm/dL (11.4-16.0); Lymphocytes # (A) 1.1 k/uL (1.0-4.8); Lymphocytes % (A) 7 %; MCH 30.5 pg (25.0-35.0); MCHC 33.2 g/dL (31.0-37.0); MCV 91.8 fL (80.0-100.0); Mean Platelet Volume 8.4; Monocytes # (A) 0.6 k/uL (0-1.0); Monocytes % (A) 4 %; Neutrophils # (A) 13.1 k/uL (1.3-7.7); Neutrophils % (A) 88 %; Platelet Count 266 k/uL (150-450); RBC 4.79 m/uL (3.80-5.40); RDW 13.3 % (11.5-15.5)
[2021-02-01 21:29] LABS: ALT 38 U/L (4-34); AST 69 U/L (14-36); African American GFR (CKD) >90 (>60 ml/min/1.73 sqM); Alkaline Phosphatase 106 U/L (38-126); Anion Gap 9 mmol/L; Blood Urea Nitrogen 17 mg/dL (7-17); Calcium 9.3 mg/dL (8.4-10.2); Carbon Dioxide 22 mmol/L (22-30); Chloride 103 mmol/L (98-107); Glucose 116 mg/dL (74-99); Non-African American GFR(CKD) >90 (>60 ml/min/1.73 sqM); Potassium 4.7 mmol/L (3.5-5.1); Sodium 134 mmol/L (137-145); Total Bilirubin 0.4 mg/dL (0.2-1.3); Total Protein 6.9 g/dL (6.3-8.2)
[2021-02-01] MEDS ORDERED: HYDROmorphone 0.5 MG/0.5 ML SYRINGE IVP STA (21:40)
[2021-02-01 22:21] LABS: Appearance,Urine Clear (Clear); Bilirubin,Urine Negative (Negative); Blood,Urine Negative (Negative); Color,Urine Light Yellow; Glucose,Urine (UA) Negative (Negative); Ketones,Urine 2+ (Negative); Leukocyte Esterase,Urine Negative (Negative); Nitrite,Urine Negative (Negative); Protein,Urine Negative (Negative); Specific Gravity,Urine 1.008 (1.001-1.035); Urobilinogen,Urine <2.0 mg/dL (<2.0)
[2021-02-01] MEDS ORDERED: NALOXONE 0.4 MG/ML 1 ML VIAL IV PRN (22:55)
[2021-02-01] MEDS: SODIUM CHLORIDE 0.9% 1,000 ML IV SCH (23:41)
[2021-02-02] MEDS: ONDANSETRON 4 MG/2 ML VIAL IVP PRN ×4 (01:01→17:31)
[2021-02-02] MEDS: HYDROmorphone 0.5 MG/0.5 ML SYRINGE IVP PRN ×4 (01:02→11:19)
[2021-02-02] MEDS: SODIUM CHLORIDE 0.9% 1,000 ML IV SCH ×3 (01:02→22:24)
[2021-02-02] MEDS ORDERED: ASPIRIN-ACET-CAFF 250-250-65MG 1 EACH TAB PO PRN (08:09)
[2021-02-02] MEDS: FOLIC ACID 1 MG TAB PO SCH (08:56)
[2021-02-02] MEDS: CHOLECALCIFEROL 25 MCG (1000 IU) TABLET PO SCH (08:56)
[2021-02-02] MEDS: DOCUSATE 100 MG CAP PO SCH ×2 (08:56→20:17)
[2021-02-02] MEDS: MULTIVITAMINS, THERA 1 EACH TAB PO SCH (08:56)
[2021-02-02] MEDS: ETHINYL ESTRADIOL PO SCH (08:56)
[2021-02-02] MEDS: NORETHINDRONE PO SCH (08:56)
[2021-02-02] MEDS: POTASSIUM CITRATE 10 MEQ TABLET.ER PO SCH ×4 (09:02→22:23)
[2021-02-02] MEDS: PANTOPRAZOLE 40 MG TABLET PO SCH ×2 (09:04→20:17)
[2021-02-02] MEDS: LORATADINE 10 MG TAB PO SCH (09:04)
[2021-02-02] MEDS: OXcarbazepine 150 MG TAB PO SCH ×2 (09:05→20:36)
[2021-02-02] MEDS: OXcarbazepine 300 MG TAB PO SCH ×2 (09:05→20:36)
[2021-02-02] MEDS: LEVOTHYROXINE 100 MCG TAB PO SCH (09:25)
[2021-02-02] MEDS: PIPERACILLIN-TAZOBACTAM 3.375 GM in SODIUM CHLORIDE 0.9% 100 ML IVPB SCH ×2 (11:22→20:16)
--- NOTE | 2021-02-02 14:38 | HP ---
HISTORY AND PHYSICAL This is a 50-year-old white female with nausea, vomiting, postop cholecystectomy, unable to keep any solids or liquids down. She had nausea and vomiting right after surgery, discharged without any antiemetics. She came to the emergency room because she could not keep anything down. She had some small to moderate bleeding from her upper incision, at which time she came to the hospital. HOME MEDICATIONS: 1. Trileptal 600 mg b.i.d., 150 mg b.i.d. 2. Simvastatin 80 mg daily. 3. Synthroid mcg daily. 4. Omeprazole 20 mg b.i.d. 5. Aspirin 1 tab q.12 hours. 6. Multivitamin daily. 7. Zofran. 8. shots. 9. control pills. 10.Potassium chloride. ALLERGIES: DILANTIN. REVIEW OF SYSTEMS: Fourteen-point review of systems negative except for mentioned in HPI. PAST MEDICAL HISTORY: Seizure disorder, hypothyroidism, musculoskeletal disorder, asthma, dyslipidemia, osteoarthritis. SURGERIES: Appendectomy, cholecystectomy, orthopedic surgery. FAMILY HISTORY: Mother with diabetes mellitus. Father with hypertension. PHYSICAL EXAMINATION: She is in no acute distress. VITAL SIGNS: Stable. Afebrile. Blood pressure 119 to 150s over 80s to 60s, respiratory rate 18 to 16, pulse rate 111 to 119, temperature 98.7, oxygen 97. CARDIOVASCULAR: S1, S2. LUNGS: Clear. GI soft. She has some mild tenderness around her incision. Some mild guarding. No rebound. EXTREMITIES: No cyanosis, clubbing, edema. SKIN: Warm, dry, intact. ASSESSMENT: Mild transaminitis with progressive vomiting with leukocytosis. Admit the patient. Rehydrate her. Surgery consult. Prognosis guarded. Await Surgery's intervention. MMODL / IJN: [id number] /
[2021-02-02] MEDS: KETOROLAC 15 MG/ML 1 ML VIAL IVP PRN ×2 (17:25→23:49)
[2021-02-02] MEDS: ACETAMINOPHEN TAB 325 MG TAB PO PRN ×2 (17:35→23:48)
[2021-02-02] MEDS ORDERED: ATORVASTATIN 40 MG TAB PO SCH (21:00)
[2021-02-03] MEDS: SODIUM CHLORIDE 0.9% 1,000 ML IV SCH ×2 (03:33→13:43)
[2021-02-03] MEDS: PIPERACILLIN-TAZOBACTAM 3.375 GM in SODIUM CHLORIDE 0.9% 100 ML IVPB SCH ×2 (03:33→13:42)
[2021-02-03] MEDS: LEVOTHYROXINE 100 MCG TAB PO SCH (05:04)
[2021-02-03] MEDS: MULTIVITAMINS, THERA 1 EACH TAB PO SCH (07:35)
[2021-02-03] MEDS: FOLIC ACID 1 MG TAB PO SCH (07:36)
[2021-02-03] MEDS: PANTOPRAZOLE 40 MG TABLET PO SCH (07:36)
[2021-02-03] MEDS: ACETAMINOPHEN TAB 325 MG TAB PO PRN (07:36)
[2021-02-03] MEDS: DOCUSATE 100 MG CAP PO SCH (07:37)
[2021-02-03] MEDS: KETOROLAC 15 MG/ML 1 ML VIAL IVP PRN (07:37)
[2021-02-03] MEDS: LORATADINE 10 MG TAB PO SCH (07:37)
[2021-02-03] MEDS: CHOLECALCIFEROL 25 MCG (1000 IU) TABLET PO SCH (07:37)
[2021-02-03] MEDS: OXcarbazepine 150 MG TAB PO SCH (07:38)
[2021-02-03] MEDS: POTASSIUM CITRATE 10 MEQ TABLET.ER PO SCH ×2 (07:39→14:28)
[2021-02-03] MEDS: OXcarbazepine 300 MG TAB PO SCH (07:40)
[2021-02-03] MEDS: ETHINYL ESTRADIOL PO SCH (07:41)
[2021-02-03] MEDS: NORETHINDRONE PO SCH (07:41)
[2021-02-03 07:45] VITALS: BP 147/81; PULSE 91; RESP 14; TEMP 98.5
[2021-02-03 09:11] LABS: Basophils # (A) 0.02 X 10*3/uL (0.00-0.10); Basophils % (A) 0.3 %; Eosinophils # (A) 0 X 10*3/uL (0.04-0.35); Eosinophils % (A) 0 %; HCT 37.6 % (37.2-46.3); HGB 12.4 g/dL (12.0-15.0); Lymphocytes # (A) 1.85 X 10*3/uL (0.90-5.00); Lymphocytes % (A) 23.7 %; MCH 29.6 pg (27.0-32.0); MCV 89.7 fL (80.0-97.0); Mean Platelet Volume 11.2 fL (9.5-12.2); Monocytes # (A) 0.92 X 10*3/uL (0.20-1.00); Monocytes % (A) 11.8 %; Neutrophils # (A) 4.98 X 10*3/uL (1.80-7.70); Neutrophils % (A) 63.9 %; Platelet Count 274 X 10*3/uL (140-440); RBC 4.19 X 10*6/uL (4.10-5.20); RDW 13.2 % (11.5-14.5); WBC 7.79 X 10*3/uL (4.50-10.00)
--- NOTE | 2021-02-03 09:21 | P.GSCN ---
History of Present Illness Consult date: 02/02/21 Reason for Consult: Nausea, abdominal pain History of present illness: This a 50-year-old female who underwent laparoscopic cholecystectomy yesterday. Patient was admitted to emergency room last night with with some nausea and abdominal pain. Patient states she currently feels better. Past Medical History Past Medical History: Asthma, Hyperlipidemia, Musculoskeletal Disorder, Osteoarthritis (OA), Seizure Disorder, Thyroid Disorder Additional Past Medical History / Comment(s): Kidney stones X3. "CEREBRAL PALSY, VERY JERKY LT SIDE, MANDI ARM." UNABLE TO READ. . THYROID Nodules. LAST SEIZURE 2017 EST. Migraine. . patient walks with out assistance. History of Any Multi-Drug Resistant Organisms: None Reported Past Surgical History: Appendectomy, Cholecystectomy, Orthopedic Surgery Additional Past Surgical History / Comment(s): BIOPSY Lung Surgery. KIDNEY STONE PROC. SURGERY ON TENDONS BALDOMERO KNEES. Past Anesthesia/Blood Transfusion Reactions: Previous Problems w/ Anesthesia Additional Past Anesthesia/Blood Transfusion Reaction / Comm: HAD PROBLEMS BREATHING DURING LUNG BIOPSY. MOTHER "NOT AWAKENING FOR 24 HRS AFTER PROCEDURE." Past Psychological History: Depression Additional Psychological History / Comment(s): . Smoking Status: Former smoker Past Alcohol Use History: Rare Additional Past Alcohol Use History / Comment(s): STARTED SMOKING AT AGE 21 QUIT AT AGE 26 SMOKED 1/2PPD Past Drug Use History: None Reported - Past Family History Mother Family Medical History: No Reported History Additional Family Medical History / Comment(s): Maternal grandfather had an [place]. Father Family Medical History: No Reported History Medications and Allergies Home Medications Medication Instructions Recorded Confirmed Type OXcarbazepine [Trileptal] 150 mg PO BID 10/25/17 02/01/21 History OXcarbazepine [Trileptal] 600 mg PO BID 10/25/17 02/01/21 History Simvastatin 80 mg PO HS 10/25/17 02/01/21 History Levothyroxine Sodium [Synthroid] 100 mcg PO QAM 10/25/19 02/01/21 History Omeprazole 20 mg PO BID 10/25/19 02/01/21 History Aspirin/Acetaminophen/Caffeine 1 tab PO Q12H PRN 11/07/19 02/01/21 History [Excedrin Extra Strength Caplet] Multivitamins, Thera [Multivitamin 1 tab PO DAILY 11/11/20 02/01/21 History (formulary)] Ondansetron HCl [Zofran] 4 mg PO BID PRN 01/25/21 02/01/21 History Acetaminophen Tab [Tylenol] 650 mg PO Q6H PRN 02/01/21 02/01/21 History Cholecalciferol [Vitamin D3 (25 25 mcg PO DAILY 02/01/21 02/01/21 History Mcg = 1000 Iu)] Docusate [Colace] 100 mg PO BID #20 capsule 02/01/21 02/01/21 Rx Fexofenadine HCl [Patricia Allergy] 180 mg PO DAILY 02/01/21 02/01/21 History Folic Acid 1 mg PO DAILY 02/01/21 02/01/21 History Galcanezumab-Gnlm [Emgality 120 mg INJ Q28D 02/01/21 02/01/21 History Syringe] Ibuprofen [Motrin] 600 mg PO Q6HR PRN #40 tab 02/01/21 02/01/21 Rx Pirmella 7/7/7 0.5/0.75/1mg-35mcg 1 tab PO DAILY 02/01/21 02/01/21 History Potassium Citrate [Potassium 10 meq PO QID 02/01/21 02/01/21 History Citrate ER] oxyCODONE HCL [OxyIR] 5 mg PO Q6H PRN 3 Days #10 tab 02/01/21 02/01/21 Rx Allergies Allergy/AdvReac Type Severity Reaction Status Date / Time phenytoin sodium Allergy Rash/Hives Verified 02/01/21 22:12 [From Dilantin] phenytoin sodium extended Allergy Rash/Hives Verified 02/01/21 22:12 [From Dilantin] zinc gluconate Allergy Rash/Hives Verified 02/01/21 22:12 [From Cold-Eeze] Surgical - Exam Vital Signs Temp Pulse Resp BP Pulse Ox 98 F 119 H 18 158/86 97 02/01/21 19:33 02/01/21 19:33 02/01/21 19:33 02/01/21 19:33 02/01/21 19:33 - General well developed, well nourished, no distress - Eyes PERRL - ENT normal pinna - Neck no masses - Respiratory normal expansion - Cardiovascular Rhythm: regular - Abdomen Abdomen: soft, non tender Results - Labs 02/03/21 04:42 02/01/21 20:59 Abnormal Lab Results - Last 24 Hours (Table) 02/03/21 Range/Units 04:42 Eosinophils # 0 L (0.04-0.35) X 10*3/uL Assessment and Plan Assessment: Status post laparoscopic ostectomy. Patient's pain is most likely due to postoperative response. Will provide supportive care.
[2021-02-03 10:22] LABS: Albumin 3.8 g/dL (3.80-4.90); Albumin/Globulin Ratio 1.9 (1.60-3.17); Anion Gap 7.5 mmol/L (4.00-12.00); BUN/Creat Ratio 11.67 Ratio (12.00-20.00); Calcium 9.1 mg/dL (8.7-10.3); Carbon Dioxide 26.5 mmol/L (21.6-31.8); Potassium 3.6 mmol/L (3.5-5.5); Total Bilirubin 0.4 mg/dL (0.3-1.2); Total Protein 5.8 g/dL (6.2-8.2)
--- NOTE | 2021-02-03 12:37 | P.PN ---
Subjective Progress Note Date: 02/03/21 CHIEF COMPLAINT: Nausea and vomiting HISTORY OF PRESENT ILLNESS: Patient had recent laparoscopic cholecystectomy 02/01/2021. Patient presented with nausea and vomiting. She reports that her nausea and vomiting has resolved. Her last episode of vomiting was yesterday evening after eating pudding. She was able to tolerate breakfast this morning. She's afebrile. Her white count has normalized from 15-7.79 she's on full liquids. PHYSICAL EXAM: VITAL SIGNS: Reviewed. GENERAL: Well-developed in no acute distress. HEENT: No sclera icterus. Extraocular movements grossly intact. Moist buccal mucosa. Head is atraumatic, normocephalic. ABDOMEN: Soft. Nondistended. Nontender. Incision sites clean dry and intact NEUROLOGIC: Alert and oriented. Cranial nerves II through XII grossly intact. ASSESSMENT: 1. Cholecystitis status post recent Cholecystectomy 2. Nausea and vomiting likely postoperative response. Now resolved PLAN: -Continue supportive care -No further surgical intervention required Physician Gaming Cashier note has been reviewed by physician. Signing provider agrees with the documented findings, assessment, and plan of care. Objective - Vital Signs Vital signs: Vital Signs Temp 98.5 F 02/03/21 07:00 Pulse 91 02/03/21 08:00 Resp 14 02/03/21 08:00 BP 147/81 02/03/21 07:00 Pulse Ox 96 02/03/21 07:00 Intake & Output 02/02/21 02/03/21 02/03/21 18:59 06:59 18:59 Intake Total 90 Balance 90 Weight 63.503 kg Intake: Oral 90 Other: Voiding Method Toilet Toilet # Voids 1 4 - Labs CBC & Chem 7: 02/03/21 04:42 02/03/21 04:42 Labs: Abnormal Lab Results - Last 24 Hours (Table) 02/03/21 02/03/21 Range/Units 04:42 04:42 Eosinophils # 0 L (0.04-0.35) X 10*3/uL BUN 7.0 L (9.0-27.0) mg/dL BUN/Creatinine Ratio 11.67 L (12.00-20.00) Ratio Total Protein 5.8 L (6.2-8.2) g/dL
== END 2021-02-03 15:15 | disposition home or self-care (01) ==
LOC: EC 19:06 → 6NMEDSUR 22:57
PROVIDERS: ADMIT Family Medicine; ATTEND Family Medicine
DX: K91.0 Vomiting following gastrointestinal surgery (principal); R74.01 Elevation of levels of liver transaminase levels; R10.9 Unspecified abdominal pain; M19.90 Unspecified osteoarthritis, unspecified site; E03.9 Hypothyroidism, unspecified; E78.5 Hyperlipidemia, unspecified; G40.909 Epilepsy, unspecified, not intractable, without status epilepticus; G80.9 Cerebral palsy, unspecified; J45.909 Unspecified asthma, uncomplicated; F32.9 Major depressive disorder, single episode, unspecified; E04.2 Nontoxic multinodular goiter; Z79.890 Hormone replacement therapy; Z79.899 Other long term (current) drug therapy; Z88.8 Allergy status to other drugs, medicaments and biological substances; Z91.048 Other nonmedicinal substance allergy status; Z86.69 Personal history of other diseases of the nervous system and sense organs; Z87.442 Personal history of urinary calculi; Z87.891 Personal history of nicotine dependence; Z90.49 Acquired absence of other specified parts of digestive tract; Z83.3 Family history of diabetes mellitus; Z82.49 Family history of ischemic heart disease and other diseases of the circulatory system
CPT/HCPCS: 99285; 96376 ×3; 96361 ×2; 96366 ×3; 96375 ×2; 96365; 80053; 85025; G0378 ×3; J2543 ×2; J2405; J1885 ×2; J1170; 36415; 81003

== ENCOUNTER → 2021-03-18 | Outpatient (CLI) | payer MEDICARE, OTHER ==
--- NOTE | 2021-03-18 10:19 | FL ---
EXAMINATION TYPE: FL UGI air w esophagus DATE OF EXAM: 03/18/2021 COMPARISON: CT abdomen and pelvis August 28, 2019 HISTORY: GERD. Persistent epigastric pain and nausea for one month since gallbladder removed 2 months earlier. Chronic constipation. TECHNIQUE: A double contrast UGI study is attempted. A total of 37 seconds of fluoroscopic time was utilized during procedure and 39 images obtained. FINDINGS: Tomography Technologist image of the abdomen shows no gross abnormality. Exam note is suboptimal as patient unable to tolerate air contrast causing vomiting. Essentially sing le contrast study. The esophagus shows satisfactory motility and emptying into the stomach. No evide nce of fixed hiatal hernia or stricture noted. Surgical clips overlying the right breast are present. The stomach shows satisfactory peristalsis and mucosal folds. No evidence of any focal intraluminal mass or ulcer disease. No significant gastroesophageal reflux was seen during real time performance of this study. The duodenal bulb, sweep, and proximal small bowel loops are unremarkable. IMPRESSION: Normal single contrast upper GI study.
== END | disposition home or self-care (01) ==
LOC: RADUSWWP 08:42
PROVIDERS: ATTEND Surgery
DX: K21.9 Gastro-esophageal reflux disease without esophagitis (principal)
CPT/HCPCS: 74246

== ENCOUNTER → 2021-04-09 | Outpatient (CLI) | payer MEDICARE, OTHER ==
--- NOTE | 2021-04-09 16:02 | US ---
EXAMINATION TYPE: US pelvis complete transvag DATE OF EXAM: 04/09/2021 COMPARISON: CT CLINICAL HISTORY: N83.0 cyst of ovary. 3 months ago had rt ovarian cyst; denies pain now; ; takes medication for control, seizures TECHNIQUE: Transvaginal (TV) and Transabdominal (TA) . Transabdominal sonographic images of the pel vis were acquired. Transvaginal sonographic images were medically necessary to better assess the fol lowing anatomy: myometrium and endometrium. Date of LMP: 04/06/2021 EXAM MEASUREMENTS: Uterus: 12.2 x 7.4 x 4.5 cm Endometrial Stripe: 0.9 cm Right Ovary: 4.0 x 2.6 x 3.3 cm Left Ovary: 3.0 x 1.5 x 1.2 cm 1. Uterus: Anteverted; lobular border; couple of uterine fibroids noted: upper right oval heterogene ous mass noted = 1.7 x 1.7x 1.3cm and mid left myometrium oval heterogeneous mass also seen = 1.5 x 1.4 x 1.9cm. Both fibroids are better appreciated on TV US. Complex fluid is seen in cervical canal = 2.3 x 0.7 x 0.4cm. 2. Endometrium: thickness wnl for Day 4 LMP. 3. Right Ovary: enlarged ovary; multifollicular with largest cyst = 3.3 x 3.1 x 2.1cm. 4. Left Ovary: multiple small follicles Spectral, color and waveform Doppler imaging shows good arterial and venous flow within the ovaries ; there is no evidence for ovarian torsion. 5. Bilateral Adnexa: wnl 6. Posterior cul-de-sac: wnl IMPRESSION: 1. Uterine fibroids 2. Fluid within the endometrial canal 3. Right ovarian cyst
== END | disposition home or self-care (01) ==
LOC: RADUSWWP 09:02
PROVIDERS: ATTEND Family Medicine
DX: D25.9 Leiomyoma of uterus, unspecified (principal); N83.01 Follicular cyst of right ovary
CPT/HCPCS: 76830; 76856; 93975

== ENCOUNTER 2021-05-31 17:55 | Emergency (ER) | payer MEDICARE, OTHER ==
[2021-05-31 20:08] VITALS: BP 153/95; PULSE 86; RESP 18; TEMP 99.5
--- NOTE | 2021-05-31 20:29 | XR ---
EXAMINATION TYPE: XR chest 2V DATE OF EXAM: 05/31/2021 8:21 PM COMPARISON: 12/19/2017 CLINICAL INDICATION:Female, 50 years old with history of COUGH, TECHNIQUE: Frontal and lateral views of the chest. FINDINGS: Lungs/Pleura: There is no evidence of pleural effusion, focal consolidation, or pneumothorax. Pulmonary vascularity: Unremarkable. Heart/mediastinum: Cardiomediastinal silhouette is unremarkable. Musculoskeletal: No acute osseous pathology. Other findings: Surgical clips are present. IMPRESSION: No acute cardiopulmonary disease/process.
--- NOTE | 2021-05-31 21:37 | ED ---
URI HPI - General Chief Complaint: Upper Respiratory Infection Stated Complaint: Cough Time Seen by Provider: 05/31/21 20:47 Source: patient, RN notes reviewed Mode of arrival: ambulatory Limitations: no limitations - History of Present Illness Initial Comments: Patient is 30-year-old female that presents to emergency department complaining of upper respiratory tract symptoms for the past all days. She can emergency room to get evaluated. He was otherwise well-appearing in no apparent distress or pain. She denied any chest pain shortness breath headache nausea vomiting diarrhea constipation fever fatigue chills. - Related Data Home Medications Medication Instructions Recorded Confirmed OXcarbazepine [Trileptal] 150 mg PO BID 10/25/17 02/01/21 OXcarbazepine [Trileptal] 600 mg PO BID 10/25/17 02/01/21 Simvastatin 80 mg PO HS 10/25/17 02/01/21 Levothyroxine Sodium [Synthroid] 100 mcg PO QAM 10/25/19 02/01/21 Omeprazole 20 mg PO BID 10/25/19 02/01/21 Aspirin/Acetaminophen/Caffeine 1 tab PO Q12H PRN 11/07/19 02/01/21 [Excedrin Extra Strength Caplet] Multivitamins, Thera [Multivitamin 1 tab PO DAILY 11/11/20 02/01/21 (formulary)] Ondansetron HCl [Zofran] 4 mg PO BID PRN 01/25/21 02/01/21 Acetaminophen Tab [Tylenol] 650 mg PO Q6H PRN 02/01/21 02/01/21 Cholecalciferol [Vitamin D3 (25 25 mcg PO DAILY 02/01/21 02/01/21 Mcg = 1000 Iu)] Fexofenadine HCl [Patricia Allergy] 180 mg PO DAILY 02/01/21 02/01/21 Folic Acid 1 mg PO DAILY 02/01/21 02/01/21 Galcanezumab-Gnlm [Emgality 120 mg INJ Q28D 02/01/21 02/01/21 Syringe] Pirmella 0.5/0.75/1mg-35mcg 1 tab PO DAILY 02/01/21 02/01/21 Potassium Citrate [Potassium 10 meq PO QID 02/01/21 02/01/21 Citrate ER] Previous Rx's Medication Instructions Recorded Docusate [Colace] 100 mg PO BID #20 capsule 02/01/21 Ibuprofen [Motrin] 600 mg PO Q6HR PRN #40 tab 02/01/21 oxyCODONE HCL [OxyIR] 5 mg PO Q6H PRN 3 Days #10 tab 02/01/21 Allergies Allergy/AdvReac Type Severity Reaction Status Date / Time phenytoin sodium Allergy Rash/Hives Verified 05/31/21 20:08 [From Dilantin] phenytoin sodium extended Allergy Rash/Hives Verified 05/31/21 20:08 [From Dilantin] zinc gluconate Allergy Rash/Hives Verified 05/31/21 20:08 [From Cold-Eeze] Review of Systems ROS Statement: Those systems with pertinent positive or pertinent negative responses have been documented in the HPI. ROS Other: All systems not noted in ROS Statement are negative. Past Medical History Past Medical History: Asthma, Hyperlipidemia, Musculoskeletal Disorder, Osteoarthritis (OA), Seizure Disorder, Thyroid Disorder Additional Past Medical History / Comment(s): Kidney stones X3. "CEREBRAL PALSY, VERY JERKY LT SIDE, MANDI ARM." UNABLE TO READ. . THYROID Nodules. LAST SEIZURE 2017 EST. Migraine. . patient walks with out assistance. History of Any Multi-Drug Resistant Organisms: None Reported Past Surgical History: Appendectomy, Cholecystectomy, Orthopedic Surgery Additional Past Surgical History / Comment(s): BIOPSY Lung Surgery. KIDNEY STONE PROC. SURGERY ON TENDONS BALDOMERO KNEES. Past Anesthesia/Blood Transfusion Reactions: Previous Problems w/ Anesthesia Additional Past Anesthesia/Blood Transfusion Reaction / Comment(s): HAD PROBLEMS BREATHING DURING LUNG BIOPSY. MOTHER "NOT AWAKENING FOR 24 HRS AFTER PROCEDURE." Past Psychological History: Depression Smoking Status: Former smoker Past Alcohol Use History: Rare Past Drug Use History: None Reported - Past Family History Mother Family Medical History: No Reported History Additional Family Medical History / Comment(s): Maternal grandfather had an MO. Father Family Medical History: No Reported History General Exam Limitations: no limitations General appearance: alert, in no apparent distress Head exam: Present: atraumatic, normocephalic, normal inspection Eye exam: Present: normal appearance, PERRL, EOMI. Absent: scleral icterus, conjunctival injection, periorbital swelling ENT exam: Present: normal exam, mucous membranes moist Neck exam: Present: normal inspection Respiratory exam: Present: normal lung sounds bilaterally. Absent: respiratory distress, wheezes, rales, rhonchi, stridor Cardiovascular Exam: Present: regular rate, normal rhythm, normal heart sounds. Absent: systolic murmur, diastolic murmur, rubs, gallop, clicks GI/Abdominal exam: Present: soft, normal bowel sounds. Absent: distended, tenderness, guarding, rebound, rigid Extremities exam: Present: normal inspection, full ROM, normal capillary refill. Absent: tenderness, pedal edema, joint swelling, calf tenderness Neurological exam: Present: alert, oriented X3 Psychiatric exam: Present: normal affect, normal mood Skin exam: Present: warm, dry, intact, normal color. Absent: rash Course Vital Signs 05/31/21 20:05 Temperature 99.5 F Pulse Rate 86 Respiratory 18 Rate Blood Pressure 153/95 O2 Sat by Pulse 96 Oximetry Medical Decision Making - Medical Decision Making 50-year-old female complaining of upper respiratory tract since the past all days. Cepheid 4 Plex ordered, Cepheid 4 Plex negative. Patient most likely has upper respiratory tract infection. Case discussed with Dr. Allen. - Lab Data Lab Results 05/31/21 Range/Units 20:11 Influenza Type A (PCR) Not Detected (Not Detectd) Influenza Type B (PCR) Not Detected (Not Detectd) RSV (PCR) Not Detected (Not Detectd) SARS-CoV-2 (PCR) Not Detected (Not Detectd) Disposition Clinical Impression: Acute upper respiratory infection Disposition: HOME SELF-CARE Condition: Stable Instructions (If sedation given, give patient instructions): Upper Respiratory Infection (ED) Additional Instructions: Please return to the Emergency Department if symptoms worsen or any other concerns. Follow-up with primary care in 1-2 days. Take Tylenol Motrin as needed for aches pains or fevers. Is patient prescribed a controlled substance at d/c from ED?: No Referrals: Christopher Cook MD [Primary Care Provider] - 1-2 days Time of Disposition: 21:37
== END 2021-05-31 21:48 | disposition home or self-care (01) ==
LOC: EC 17:55
DX: J06.9 Acute upper respiratory infection, unspecified (principal); J45.909 Unspecified asthma, uncomplicated; E78.5 Hyperlipidemia, unspecified; E07.9 Disorder of thyroid, unspecified; M19.90 Unspecified osteoarthritis, unspecified site; G43.909 Migraine, unspecified, not intractable, without status migrainosus; G40.909 Epilepsy, unspecified, not intractable, without status epilepticus; Z88.8 Allergy status to other drugs, medicaments and biological substances; Z20.822 Contact with and (suspected) exposure to COVID-19; Z79.82 Long term (current) use of aspirin; Z79.899 Other long term (current) drug therapy; Z79.890 Hormone replacement therapy; Z87.891 Personal history of nicotine dependence
CPT/HCPCS: 71046; 87636; 99283

== ENCOUNTER → 2021-12-09 | Outpatient (CLI) | payer MEDICARE, OTHER ==
--- NOTE | 2021-12-10 08:34 | XR ---
Right ankle limited HISTORY: Pain and swelling 2 views the right ankle There is soft tissue swelling present. Bone mineralization, joint spaces and alignment are maintained . There is a small plantar calcaneal spur. No fracture or dislocation. IMPRESSION: Soft tissue swelling. Plantar spur as described.
== END | disposition home or self-care (01) ==
LOC: RADXRMAIN 15:43
PROVIDERS: ATTEND Family Medicine
DX: M25.571 Pain in right ankle and joints of right foot (principal); M79.89 Other specified soft tissue disorders

== ENCOUNTER 2022-01-09 02:57 | Emergency (ER) | payer MEDICARE, OTHER ==
[2022-01-09 03:05] VITALS: BP 125/80; PULSE 97; RESP 18; TEMP 98
--- NOTE | 2022-01-09 03:12 | ED ---
General Adult HPI - General Chief complaint: Abdominal Pain Stated complaint: Abd Pain, Covid+ Time Seen by Provider: 01/09/22 03:02 Source: patient, EMS Mode of arrival: EMS - History of Present Illness Initial comments: Dictation was produced using [employer] dictation software. please excuse any grammatical, word or spelling errors. Chief Complaint: Patient is 51-year-old female presents with episode of abdominal pain History of Present Illness: Is a 51-year-old female presents emergency to perform further abdominal pain. Patient has history of seizure disorder and cerebral palsy. She states she was sitting on the toilet just prior to arrival. She was having a bowel movement. She states she had a large bowel movement. Around the time of her bowel movement she was having severe right lower quadrant abdominal pain. She states it lasted for approximately 20 minutes. Patient called EMS. She states that while en route to the ER her pain completely resolved. Patient is asymptomatic at the bedside currently. She was seen here recently for COVID-19. Patient has one or 2 days left on her oral antivirals. Patient otherwise has no complaints. Denies any fever, chills or night sweats. The ROS documented in this emergency department record has been reviewed and confirmed by me. Those systems with pertinent positive or negative responses have been documented in the HPI. All other systems are other negative and/or noncontributory. PHYSICAL EXAM: General Impression: Alert and oriented x3, not in acute distress HEENT: Normocephalic atraumatic, extra-ocular movements intact, pupils equal and reactive to light bilaterally, mucous membranes moist. Cardiovascular: Heart regular rate and rhythm Chest: Able to complete full sentences, no retractions, no tachypnea Abdomen: abdomen soft, non-tender, non-distended, no organomegaly Musculoskeletal: Pulses present and equal in all extremities, no peripheral edema Motor: no focal deficits noted Neurological: CN II-XII grossly intact, no focal motor or sensory deficits noted Skin: Intact with no visualized rashes Psych: Normal affect and mood ED course: 51 Female presents to the emergency department for episode of abdominal pain. She states it lasts for 20 minutes. Around the time of her symptoms states that her pain was severe. She is currently symptomatic at the bedside. The pain resolved while en route to the ER. Vital signs upon arrival are within acceptable limits. Patient is well-appearing at the bedside. Abdominal exam is unremarkable. abdominal x-ray shows no acute processes. Patient given a sandwich and while eating states that her right lower quadrant pain returned. patient has a history of appendectomy. Laboratory evaluation obtained. Mild leukocytosis 12.6. Potassium of 5.4. Rest of labs unremarkable. Computed tomography scan abdomen and pelvis shows no acute abnormalities. There is a left ovarian cyst measuring 2.6 cm. This a ppears new. Patient was observed in emergency department for approximately 3 hours per she is reevaluated at bedside at 6:00 and found to be stable medical condition. At this point no high-risk features. Labs and imaging unremarkable. Patient be discharged. - Related Data Home Medications Medication Instructions Recorded Confirmed OXcarbazepine [Trileptal] 150 mg PO BID 10/25/17 02/01/21 OXcarbazepine [Trileptal] 600 mg PO BID 10/25/17 02/01/21 Simvastatin 80 mg PO HS 10/25/17 02/01/21 Levothyroxine Sodium [Synthroid] 100 mcg PO QAM 10/25/19 02/01/21 Omeprazole 20 mg PO BID 10/25/19 02/01/21 Aspirin/Acetaminophen/Caffeine 1 tab PO Q12H PRN 11/07/19 02/01/21 [Excedrin Extra Strength Caplet] Multivitamins, Thera [Multivitamin 1 tab PO DAILY 11/11/20 02/01/21 (formulary)] ondansetron HCL [Zofran] 4 mg PO BID PRN 01/25/21 02/01/21 Acetaminophen Tab [Tylenol] 650 mg PO Q6H PRN 02/01/21 02/01/21 Cholecalciferol [Vitamin D3 (25 25 mcg PO DAILY 02/01/21 02/01/21 Mcg = 1000 Iu)] Fexofenadine HCl [Patricia Allergy] 180 mg PO DAILY 02/01/21 02/01/21 Folic Acid 1 mg PO DAILY 02/01/21 02/01/21 Galcanezumab-Gnlm [Emgality 120 mg INJ Q28D 02/01/21 02/01/21 Syringe] Pirmella 0.5/0.75/1mg-35mcg 1 tab PO DAILY 08/30/21 08/30/21 Potassium Citrate [Potassium 10 meq PO QID 02/01/21 02/01/21 Citrate ER] Previous Rx's Medication Instructions Recorded Docusate [Colace] 100 mg PO BID #20 capsule 02/01/21 Ibuprofen [Motrin] 600 mg PO Q6HR PRN #40 tab 02/01/21 oxyCODONE HCL [OxyIR] 5 mg PO Q6H PRN 3 Days #10 tab 02/01/21 Nirmatrelvir/Ritonavir [Paxlovid 1 each PO BID #30 tab 01/02/22 2X150 mg-100 mg (Eua)] Allergies Allergy/AdvReac Type Severity Reaction Status Date / Time phenytoin sodium Allergy Rash/Hives Verified 01/02/22 05:14 [From Dilantin] phenytoin sodium extended Allergy Rash/Hives Verified 01/02/22 05:14 [From Dilantin] zinc gluconate Allergy Rash/Hives Verified 01/02/22 05:14 [From Cold-Eeze] Review of Systems ROS Statement: Those systems with pertinent positive or pertinent negative responses have been documented in the HPI. ROS Other: All systems not noted in ROS Statement are negative. Past Medical History Past Medical History: Asthma, Hyperlipidemia, Musculoskeletal Disorder, Osteoarthritis (OA), Seizure Disorder, Thyroid Disorder Additional Past Medical History / Comment(s): Kidney stones X3. "CEREBRAL PALSY, VERY JERKY LT SIDE, MANDI ARM." UNABLE TO READ. . THYROID Nodules. LAST SEIZURE 2017 EST. Migraine. . patient walks with out assistance. History of Any Multi-Drug Resistant Organisms: None Reported Past Surgical History: Appendectomy, Cholecystectomy, Orthopedic Surgery Additional Past Surgical History / Comment(s): BIOPSY Lung Surgery. KIDNEY STONE PROC. SURGERY ON TENDONS BALDOMERO KNEES. Past Anesthesia/Blood Transfusion Reactions: Previous Problems w/ Anesthesia Additional Past Anesthesia/Blood Transfusion Reaction / Comment(s): HAD PROBLEMS BREATHING DURING LUNG BIOPSY. MOTHER "NOT AWAKENING FOR 24 HRS AFTER PROCEDURE." Past Psychological History: Depression Smoking Status: Former smoker Past Alcohol Use History: Rare Past Drug Use History: None Reported - Past Family History Mother Family Medical History: No Reported History Additional Family Medical History / Comment(s): Maternal grandfather had an OK. Father Family Medical History: No Reported History Course Vital Signs 01/09/22 02:59 Temperature 98 F Pulse Rate 97 Respiratory 18 Rate Blood Pressure 125/80 O2 Sat by Pulse 98 Oximetry Medical Decision Making - Lab Data Result diagrams: 01/09/22 04:07 01/09/22 04:07 Lab Results 01/09/22 01/09/22 Range/Units 04:07 04:07 WBC 12.6 H (3.8-10.6) k/uL RBC 5.06 (3.80-5.40) m/uL Hgb 15.0 (11.4-16.0) gm/dL Hct 45.7 (34.0-46.0) % MCV 90.3 (80.0-100.0) fL MCH 29.7 (25.0-35.0) pg MCHC 32.9 (31.0-37.0) g/dL RDW 12.8 (11.5-15.5) % Plt Count 387 (150-450) k/uL MPV 9.0 Neutrophils % 66 % Lymphocytes % 24 % Monocytes % 8 % Eosinophils % 1 % Basophils % 1 % Neutrophils # 8.3 H (1.3-7.7) k/uL Lymphocytes # 3.0 (1.0-4.8) k/uL Monocytes # 1.0 (0-1.0) k/uL Eosinophils # 0.1 (0-0.7) k/uL Basophils # 0.1 (0-0.2) k/uL Sodium 136 L (137-145) mmol/L Potassium 5.4 H (3.5-5.1) mmol/L Chloride 103 (98-107) mmol/L Carbon Dioxide 22 (22-30) mmol/L Anion Gap 11 mmol/L BUN 20 H (7-17) mg/dL Creatinine 0.53 (0.52-1.04) mg/dL Est GFR (CKD-EPI)AfAm >90 (>60 ml/min/1.73 sqM) Est GFR (CKD-EPI)NonAf >90 (>60 ml/min/1.73 sqM) Glucose 149 H (74-99) mg/dL Calcium 9.2 (8.4-10.2) mg/dL Total Bilirubin 1.3 (0.2-1.3) mg/dL AST 59 H (14-36) U/L ALT 26 (4-34) U/L Alkaline Phosphatase 40 (38-126) U/L Total Protein 7.8 (6.3-8.2) g/dL Albumin 4.4 (3.5-5.0) g/dL Disposition Clinical Impression: Abdominal pain Disposition: HOME SELF-CARE Condition: Good Instructions (If sedation given, give patient instructions): Abdominal Pain (ED) Is patient prescribed a controlled substance at d/c from ED?: No Referrals: Christopher Cook MD [Primary Care Provider] - 1-2 days Time of Disposition: 06:06
--- NOTE | 2022-01-09 03:27 | XR ---
EXAMINATION TYPE: XR abdomen 1V DATE OF EXAM: 01/09/2022 COMPARISON: NONE HISTORY: Abdominal pain TECHNIQUE: Single view FINDINGS: Bowel gas pattern is normal. No sign of intestinal obstruction or pneumoperitoneum. Fecal p attern is normal. No evidence of a mass. There are no pathologic calcifications over the kidneys. Bon y structures are intact. IMPRESSION: Nonacute abdomen.
[2022-01-09 04:20] LABS: Basophils # (A) 0.1 k/uL (0-0.2); Basophils % (A) 1 %; Eosinophils # (A) 0.1 k/uL (0-0.7); Eosinophils % (A) 1 %; HCT 45.7 % (34.0-46.0); Lymphocytes % (A) 24 %; MCH 29.7 pg (25.0-35.0); MCHC 32.9 g/dL (31.0-37.0); MCV 90.3 fL (80.0-100.0); Monocytes % (A) 8 %; Neutrophils # (A) 8.3 k/uL (1.3-7.7); Neutrophils % (A) 66 %; Platelet Count 387 k/uL (150-450); RBC 5.06 m/uL (3.80-5.40); RDW 12.8 % (11.5-15.5); WBC 12.6 k/uL (3.8-10.6)
[2022-01-09 04:23] LABS: ALT 26 U/L (4-34); AST 59 U/L (14-36); African American GFR (CKD) >90 (>60 ml/min/1.73 sqM); Albumin 4.4 g/dL (3.5-5.0); Alkaline Phosphatase 40 U/L (38-126); Anion Gap 11 mmol/L; Blood Urea Nitrogen 20 mg/dL (7-17); Calcium 9.2 mg/dL (8.4-10.2); Carbon Dioxide 22 mmol/L (22-30); Chloride 103 mmol/L (98-107); Glucose 149 mg/dL (74-99); Non-African American GFR(CKD) >90 (>60 ml/min/1.73 sqM); Potassium 5.4 mmol/L (3.5-5.1); Sodium 136 mmol/L (137-145); Total Bilirubin 1.3 mg/dL (0.2-1.3); Total Protein 7.8 g/dL (6.3-8.2)
[2022-01-09] MEDS ORDERED: MORPHINE SULFATE 4 MG/ML SYRINGE IV STA (05:23)
--- NOTE | 2022-01-09 05:34 | CT ---
EXAMINATION TYPE: CT abdomen pelvis w con DATE OF EXAM: 01/09/2022 COMPARISON: 08/28/2019 HISTORY: pain CT DLP: 751.8 mGycm Automated exposure control for dose reduction was used. CONTRAST: Performed with IV Contrast, patient injected with 100 mL of Isovue 300. The lung bases are clear of infiltrate. There is mild subsegmental atelectasis right lung base. Heart size is normal. No pericardial effusion. No pleural effusion. Liver spleen and stomach pancreas johnnie ear intact. The bile ducts are not dilated. Gallbladder appears absent. There is no adrenal mass. Kidneys show satisfactory contrast opacification. There is no hydronephrosi s. Delayed images show normal renal excretion. No retroperitoneal adenopathy. Ureters are not dilated . Bladder distends smoothly. Uterus is anteverted. No pelvic mass. No free fluid in the pelvis. There is 2.6 cm cyst on the left ovary. Appendix not seen. No sign of thickened appendix. There is no mesenteric edema. No ascites or free ai r. No sign of a bowel obstruction. The lumbar vertebrae have normal alignment. No compression fractur e. Bony pelvis is intact. The hip joints are intact. Sacroiliac joints are intact. IMPRESSION: No acute abnormality in the abdomen and pelvis. Left ovarian cyst. Cyst appears new compared to old e xam.
[2022-01-09] MEDS ORDERED: CALCIUM CARBONATE 500 MG CHEWABLE PO STA (06:06)
== END 2022-01-09 07:10 | disposition home or self-care (01) ==
LOC: EC 02:57
DX: N83.202 Unspecified ovarian cyst, left side (principal); U07.1 COVID-19; J45.909 Unspecified asthma, uncomplicated; D72.829 Elevated white blood cell count, unspecified; E78.5 Hyperlipidemia, unspecified; E07.9 Disorder of thyroid, unspecified; M19.90 Unspecified osteoarthritis, unspecified site; Z90.49 Acquired absence of other specified parts of digestive tract; Z87.891 Personal history of nicotine dependence; Z88.8 Allergy status to other drugs, medicaments and biological substances; Z79.899 Other long term (current) drug therapy; Z79.890 Hormone replacement therapy; Z79.82 Long term (current) use of aspirin
CPT/HCPCS: 36415; 80053; 85025; 74018; 74177; 99284; 96374; J2270; Q9967

== ENCOUNTER → 2022-01-31 | Outpatient (CLI) | payer MEDICARE, OTHER ==
--- NOTE | 2022-01-31 15:37 | US ---
EXAMINATION TYPE: US pelvis complete transvag DATE OF EXAM: 01/31/2022 COMPARISON: US, CT CLINICAL HISTORY: N83.209 Ovarian cyst. Ovarian cyst. Hx miscarriage. . TECHNIQUE: Transvaginal (TV) and Transabdominal (TA) . Transabdominal sonographic images of the pel vis were acquired. Transvaginal sonographic images were medically necessary to better assess the fol lowing anatomy: right ovary and endometrium. Date of LMP: Unknown EXAM MEASUREMENTS: Uterus: 10.5 x 7.2 x 5.7 cm Endometrial Stripe: 0.88 cm Right Ovary: 3.2 x 2.7 x 2.4 cm Left Ovary: 3.3 x 2.9 x 1.5 cm 1. Uterus: Anteverted Measures upper limits versus slightly enlarged. Appears heterogeneous. Hypoechoic area seen posterior uterus right: 1.9 x 1.8 x 1.8 cm. Hypoechoic area seen uterus left: 1.6 x 2.0 x 1.3 cm. These areas were seen better TA. 2. Endometrium: Anechoic possible fluid in endometrium: 2.5 x 0.7 x 0.4 cm. 3. Right Ovary: Appears wnl 4. Left Ovary: Seen TA only. Anechoic area seen: 1.2 x 1.1 x 0.7 cm. 5. Bilateral Adnexa: Appears wnl 6. Posterior cul-de-sac: Appears wnl IMPRESSION: 1. Uterine fibroids. 2. No evidence for acute pelvic process. 3. Borderline thickened endometrium for a postmenopausal patient clinical correlation recommended. 4. Left ovarian cyst measuring 1.2 cm. Right ovary appears within normal limits.
== END | disposition home or self-care (01) ==
LOC: RADUSWWP 13:43
PROVIDERS: ATTEND Family Medicine
DX: D25.9 Leiomyoma of uterus, unspecified (principal)
CPT/HCPCS: 76830; 76856

== ENCOUNTER 2022-03-27 14:22 | Emergency (ER) | payer MEDICARE, OTHER ==
[2022-03-27 14:26] VITALS: RESP 20; TEMP 98
--- NOTE | 2022-03-27 14:49 | XR ---
EXAMINATION TYPE: XR ankle complete LT DATE OF EXAM: 03/27/2022 COMPARISON: NONE HISTORY: Foot pain TECHNIQUE: 3 views FINDINGS: Ankle mortise is anatomic. No fracture nor dislocation. Joint spaces are normal. There is A chilles calcaneal spurring. IMPRESSION: Calcaneal spurring. No fracture.
--- NOTE | 2022-03-27 14:50 | XR ---
EXAMINATION TYPE: XR foot complete LT DATE OF EXAM: 03/27/2022 COMPARISON: NONE HISTORY: Pain TECHNIQUE: 3 view FINDINGS: Metatarsals are intact. I see no fracture nor dislocation. There are no erosions. There is mild plantar and Achilles calcaneal spurring. IMPRESSION: Calcaneal spurring. No fracture.
--- NOTE | 2022-03-27 15:10 | ED ---
General Adult HPI - General Chief complaint: Extremity Injury, Lower Stated complaint: Fall, RT shoulder pain/LT ankle pain Time Seen by Provider: 03/27/22 14:38 Source: patient Mode of arrival: ambulatory Limitations: no limitations - History of Present Illness Initial comments: Dictation was produced using [employer] dictation software. please excuse any grammatical, word or spelling errors. Chief Complaint: 51y Old female presents to the emergency department for left ankle pain, right shoulder pain and thoracic back pain History of Present Illness: Patient is a 51-year-old female presents emergency Department with left ankle pain, right shoulder pain and thoracic back pain. Patient fell yesterday. She was trying to let her dog out when she fell to the ground. Since that she's been having pain to her left ankle, right shoulder and thoracic back. Patient states she is able to ambulate with minimal complications. She has history of hairline fractures to her left ankle. She is concerned that she is having another incidence of that. The ROS documented in this emergency department record has been reviewed and confirmed by me. Those systems with pertinent positive or negative responses have been documented in the HPI. All other systems are other negative and/or noncontributory. PHYSICAL EXAM: General Impression: Alert and oriented x3, not in acute distress HEENT: Normocephalic atraumatic, extra-ocular movements intact, pupils equal and reactive to light bilaterally, mucous membranes moist. Cardiovascular: Heart regular rate and rhythm Chest: Able to complete full sentences, no retractions, no tachypnea Musculoskeletal: Pulses present and equal in all extremities, no peripheral edema Right Shoulder: Active and passive range of motion motion intact, there is some palpatory tenderness to the right shoulder. Left ankle: Palpatory tenderness to the distal fibula, no gross deformity or swelling Motor: no focal deficits noted Neurological: CN II-XII grossly intact, no focal motor or sensory deficits noted Skin: Intact with no visualized rashes Psych: Normal affect and mood ED course: 51-year-old female presents to the emergency department for left ankle pain, right shoulder pain and right thoracic back pain after fall. Vital signs upon arrival are within acceptable limits. No gross findings on physical examination to suggest significant trauma. X-ray and ankle x-ray are unremarkable. Shoulder x-ray and thoracic spine x-ray unremarkable. Patient observed in the emergency department for approximately 1 hour 30 minutes. She is notified of the results of her imaging studies. She'll be discharged. - Related Data Home Medications Medication Instructions Recorded Confirmed OXcarbazepine [Trileptal] 150 mg PO BID 10/25/17 02/01/21 OXcarbazepine [Trileptal] 600 mg PO BID 10/25/17 02/01/21 Simvastatin 80 mg PO HS 10/25/17 02/01/21 Levothyroxine Sodium [Synthroid] 100 mcg PO QAM 10/25/19 02/01/21 Omeprazole 20 mg PO BID 10/25/19 02/01/21 Aspirin/Acetaminophen/Caffeine 1 tab PO Q12H PRN 11/07/19 02/01/21 [Excedrin Extra Strength Caplet] Multivitamins, Thera [Multivitamin 1 tab PO DAILY 11/11/20 02/01/21 (formulary)] ondansetron HCL [Zofran] 4 mg PO BID PRN 01/25/21 02/01/21 Acetaminophen Tab [Tylenol] 650 mg PO Q6H PRN 02/01/21 02/01/21 Cholecalciferol [Vitamin D3 (25 25 mcg PO DAILY 02/01/21 02/01/21 Mcg = 1000 Iu)] Fexofenadine HCl [Patricia Allergy] 180 mg PO DAILY 02/01/21 02/01/21 Folic Acid 1 mg PO DAILY 02/01/21 02/01/21 Galcanezumab-Gnlm [Emgality 120 mg INJ Q28D 02/01/21 02/01/21 Syringe] Pirmella 0.5/0.75/1mg-35mcg 1 tab PO DAILY 02/01/21 02/01/21 Potassium Citrate [Potassium 10 meq PO QID 02/01/21 02/01/21 Citrate ER] Previous Rx's Medication Instructions Recorded Docusate [Colace] 100 mg PO BID #20 capsule 02/01/21 Ibuprofen [Motrin] 600 mg PO Q6HR PRN #40 tab 02/01/21 oxyCODONE HCL [OxyIR] 5 mg PO Q6H PRN 3 Days #10 tab 02/01/21 Nirmatrelvir/Ritonavir [Paxlovid 1 each PO BID #30 tab 01/02/22 2X150 mg-100 mg (Eua)] HYDROcodone/APAP 5-325MG [[place] 1 tab PO Q6HR PRN 3 Days #12 tab 03/27/22 5-325] Allergies Allergy/AdvReac Type Severity Reaction Status Date / Time phenytoin sodium Allergy Rash/Hives Verified 03/27/22 14:26 [From Dilantin] phenytoin sodium extended Allergy Rash/Hives Verified 03/27/22 14:26 [From Dilantin] zinc gluconate Allergy Rash/Hives Verified 03/27/22 14:26 [From Cold-Eeze] Review of Systems ROS Statement: Those systems with pertinent positive or pertinent negative responses have been documented in the HPI. ROS Other: All systems not noted in ROS Statement are negative. Past Medical History Past Medical History: Asthma, Hyperlipidemia, Musculoskeletal Disorder, Osteoarthritis (OA), Seizure Disorder, Thyroid Disorder Additional Past Medical History / Comment(s): Kidney stones X3. "CEREBRAL PALSY, VERY JERKY LT SIDE, MANDI ARM." UNABLE TO READ. . THYROID Nodules. LAST SEIZURE 2017 EST. Migraine. . patient walks with out assistance. History of Any Multi-Drug Resistant Organisms: None Reported Past Surgical History: Appendectomy, Cholecystectomy, Orthopedic Surgery Additional Past Surgical History / Comment(s): BIOPSY Lung Surgery. KIDNEY STONE PROC. SURGERY ON TENDONS BALDOMERO KNEES. Past Anesthesia/Blood Transfusion Reactions: Previous Problems w/ Anesthesia Additional Past Anesthesia/Blood Transfusion Reaction / Comment(s): HAD PROBLEMS BREATHING DURING LUNG BIOPSY. MOTHER "NOT AWAKENING FOR 24 HRS AFTER PROCEDURE." Past Psychological History: Depression Smoking Status: Former smoker Past Alcohol Use History: Rare Past Drug Use History: None Reported - Past Family History Mother Family Medical History: No Reported History Additional Family Medical History / Comment(s): Maternal grandfather had an [place]. Father Family Medical History: No Reported History General Exam Limitations: no limitations Course Vital Signs 03/27/22 14:24 Temperature 98 F Pulse Rate 86 Respiratory 20 Rate Blood Pressure 140/84 O2 Sat by Pulse 99 Oximetry Disposition Clinical Impression: Fall Disposition: HOME SELF-CARE Condition: Good Instructions (If sedation given, give patient instructions): Ankle Sprain (ED) Prescriptions: HYDROcodone/APAP 5-325MG [[place] 5-325] 1 tab PO Q6HR PRN 3 Days #12 tab PRN Reason: Severe Pain Is patient prescribed a controlled substance at d/c from ED?: Yes If prescribed controlled substance>3 days was MAPS reviewed?: Prescribed <3 Days Referrals: Christopher Cook MD [Primary Care Provider] - 1-2 days Time of Disposition: 16:03
--- NOTE | 2022-03-27 15:47 | XR ---
EXAMINATION TYPE: XR thoracic spine 2V DATE OF EXAM: 03/27/2022 COMPARISON: Chest x-ray 05/31/2021 HISTORY: Cough TECHNIQUE: 2 views FINDINGS: Thoracic vertebra have normal spacing and alignment. Posterior elements are intact. No comp ression fracture.. IMPRESSION: Negative thoracic spine exam. No fracture. No change.
--- NOTE | 2022-03-27 15:48 | XR ---
EXAMINATION TYPE: XR shoulder complete RT DATE OF EXAM: 03/27/2022 COMPARISON: NONE HISTORY: Shoulder pain TECHNIQUE: 3 views FINDINGS: There is minimal calcification at the greater tuberosity. AC joint is intact. There is no f racture nor dislocation. IMPRESSION: No acute abnormality of the right shoulder. Minimal calcific tendinitis.
[2022-03-27] MEDS ORDERED: ACET/COD 300 MG/30 MG STARTER PACK 6 TAB BTL PO STA (16:03)
[2022-03-27 16:18] VITALS: BP 135/77; PULSE 79
== END 2022-03-27 16:16 | disposition home or self-care (01) ==
LOC: EC 14:22
DX: S93.402A Sprain of unspecified ligament of left ankle, initial encounter (principal); J45.909 Unspecified asthma, uncomplicated; E78.5 Hyperlipidemia, unspecified; M19.90 Unspecified osteoarthritis, unspecified site; E07.9 Disorder of thyroid, unspecified; Z88.8 Allergy status to other drugs, medicaments and biological substances; W19.XXXA Unspecified fall, initial encounter
CPT/HCPCS: 72070; 99283

== ENCOUNTER 2022-03-27 18:51 | Observation (INO) | payer MEDICARE, OTHER ==
--- NOTE | 2022-03-27 19:58 | ED ---
General Adult HPI - General Chief complaint: Seizure Stated complaint: Seizure Time Seen by Provider: 03/27/22 19:56 Source: patient Mode of arrival: ambulatory Limitations: no limitations - History of Present Illness Initial comments: Patient presents to the ED with her father for evaluation status post reported seizure. Patient states she was seen in the ED earlier today due to left foot/ankle, upper back and right shoulder pain status post fall yesterday. Patient had negative x-rays obtained in the ED, and she was discharged home with Tylenol #3's. Patient states that she took a dose of the pain medication she was prescribed this evening, then she became nauseated and awoke on the floor. Patient states that she feels that she had a seizure. Patient states that she has a history of seizure disorder for which she takes Trileptal, and she denies missing any doses. Patient states that she has a slight headache at this time, and she states that she thinks she may have hit her head when she fell onto the floor this evening. Patient's reported seizure was unwitnessed. Patient denies any other new site of pain. Patient denies fever or chills, focal numbness/weakness/neuro deficit, visual changes, dizziness, neck pain, chest pain, dyspnea, palpitations, abdominal pain, diarrhea or constipation, bloody or melanotic stool, dysuria or urinary symptoms, incontinence, or any other symptoms or complaints. - Related Data Home Medications Medication Instructions Recorded Confirmed OXcarbazepine [Trileptal] 150 mg PO BID 10/25/17 02/01/21 OXcarbazepine [Trileptal] 600 mg PO BID 10/25/17 02/01/21 Simvastatin 80 mg PO HS 10/25/17 02/01/21 Levothyroxine Sodium [Synthroid] 100 mcg PO QAM 10/25/19 02/01/21 Omeprazole 20 mg PO BID 10/25/19 02/01/21 Aspirin/Acetaminophen/Caffeine 1 tab PO Q12H PRN 11/07/19 02/01/21 [Excedrin Extra Strength Caplet] Multivitamins, Thera [Multivitamin 1 tab PO DAILY 11/11/20 02/01/21 (formulary)] ondansetron HCL [Zofran] 4 mg PO BID PRN 01/25/21 02/01/21 Acetaminophen Tab [Tylenol] 650 mg PO Q6H PRN 02/01/21 02/01/21 Cholecalciferol [Vitamin D3 (25 25 mcg PO DAILY 02/01/21 02/01/21 Mcg = 1000 Iu)] Fexofenadine HCl [Patricia Allergy] 180 mg PO DAILY 02/01/21 02/01/21 Folic Acid 1 mg PO DAILY 02/01/21 02/01/21 Galcanezumab-Gnlm [Emgality 120 mg INJ Q28D 02/01/21 02/01/21 Syringe] Pirmella 0.5/0.75/1mg-35mcg 1 tab PO DAILY 02/01/21 02/01/21 Potassium Citrate [Potassium 10 meq PO QID 02/01/21 02/01/21 Citrate ER] Previous Rx's Medication Instructions Recorded Docusate [Colace] 100 mg PO BID #20 capsule 02/01/21 Ibuprofen [Motrin] 600 mg PO Q6HR PRN #40 tab 02/01/21 oxyCODONE HCL [OxyIR] 5 mg PO Q6H PRN 3 Days #10 tab 02/01/21 Nirmatrelvir/Ritonavir [Paxlovid 1 each PO BID #30 tab 01/02/22 2X150 mg-100 mg (Eua)] HYDROcodone/APAP 5-325MG [[place] 1 tab PO Q6HR PRN 3 Days #12 tab 03/27/22 5-325] Allergies Allergy/AdvReac Type Severity Reaction Status Date / Time phenytoin sodium Allergy Rash/Hives Verified 03/27/22 19:20 [From Dilantin] phenytoin sodium extended Allergy Rash/Hives Verified 03/27/22 19:20 [From Dilantin] zinc gluconate Allergy Rash/Hives Verified 03/27/22 19:20 [From Cold-Eeze] Review of Systems ROS Statement: Those systems with pertinent positive or pertinent negative responses have been documented in the HPI. ROS Other: All systems not noted in ROS Statement are negative. Past Medical History Past Medical History: Asthma, Hyperlipidemia, Musculoskeletal Disorder, Osteoarthritis (OA), Seizure Disorder, Thyroid Disorder Additional Past Medical History / Comment(s): Kidney stones X3. "CEREBRAL PALSY, VERY JERKY LT SIDE, MANDI ARM." UNABLE TO READ. . THYROID Nodules. LAST SEIZURE 2017 EST. Migraine. . patient walks with out assistance. History of Any Multi-Drug Resistant Organisms: None Reported Past Surgical History: Appendectomy, Cholecystectomy, Orthopedic Surgery Additional Past Surgical History / Comment(s): BIOPSY Lung Surgery. KIDNEY STONE PROC. SURGERY ON TENDONS BALDOMERO KNEES. Past Anesthesia/Blood Transfusion Reactions: Previous Problems w/ Anesthesia Additional Past Anesthesia/Blood Transfusion Reaction / Comment(s): HAD PROBLEMS BREATHING DURING LUNG BIOPSY. MOTHER "NOT AWAKENING FOR 24 HRS AFTER PROCEDURE." Past Psychological History: Depression Smoking Status: Former smoker Past Alcohol Use History: Rare Past Drug Use History: None Reported - Past Family History Mother Family Medical History: No Reported History Additional Family Medical History / Comment(s): Maternal grandfather had an [place]. Father Family Medical History: No Reported History General Exam Limitations: no limitations General appearance: alert, in no apparent distress Head exam: Present: atraumatic, normocephalic Eye exam: Present: normal appearance, PERRL, EOMI ENT exam: Present: mucous membranes moist, TM's normal bilaterally Neck exam: Present: other (Trachea is in midline). Absent: tenderness, meningismus Respiratory exam: Present: normal lung sounds bilaterally. Absent: respiratory distress, wheezes, rales, rhonchi, stridor, chest wall tenderness Cardiovascular Exam: Present: regular rate, normal rhythm, normal heart sounds, other (Normal radial pulses bilaterally) GI/Abdominal exam: Present: soft. Absent: distended, tenderness, guarding Extremities exam: Present: other (Pelvis is stable and nontender) Back exam: Absent: tenderness Neurological exam: Present: alert, oriented X3, CN II-XII intact. Absent: motor sensory deficit Psychiatric exam: Present: normal affect, normal mood Skin exam: Present: warm, dry, intact, normal color Course Vital Signs 03/27/22 03/27/22 19:19 22:20 Temperature 97.9 F Pulse Rate 87 94 Respiratory 18 18 Rate Blood Pressure 120/75 135/70 O2 Sat by Pulse 97 96 Oximetry - Reevaluation(s) Reevaluation #1: 03/27/22 22:18 Per ED RN, patient had a witnessed generalized, tonic-clonic seizure while in the bathroom in the emergency department. Patient reports sitting down on the floor prior to her seizure, and she did not sustain any fall or injury. Patient is now mildly postictal in appearance, but she is alert and oriented. Patient is only complaining of feeling fatigued at this time. Ativan 2 mg IV was ordered and given. Given this is the patient's second seizure today, I have advised that she be admitted to the hospital, and patient agrees with hospital admission at this time. Patient and father are aware the patient's test results. 03/27/22 22:20 Case, H&P, test results and ED management were discussed with Dr. Cook. He accepts hospital admission. He agrees with neurology consultation. He has no further recommendations at this time. EKG Findings - EKG Comments: EKG Findings:: Normal sinus rhythm, ventricular rate of 83 bpm, no ectopy, normal CT and QRS intervals, normal QT interval, incomplete right bundle branch block, normal axis, no ST or T-wave abnormality Medical Decision Making - Medical Decision Making Patient has had 2 seizures today, including a witnessed generalized tonic-clonic seizure in the emergency department. Patient's labs are fairly unremarkable. Patient's head CT is negative. Will admit the patient to the hospital for observation and neurology consultation. Dr. Cook has accepted hospital admission. - Lab Data Result diagrams: 03/27/22 20:14 03/27/22 20:14 Lab Results 03/27/22 03/27/22 Range/Units 20:14 20:14 WBC 13.9 H (3.8-10.6) k/uL RBC 4.95 (3.80-5.40) m/uL Hgb 15.0 (11.4-16.0) gm/dL Hct 43.4 (34.0-46.0) % MCV 87.6 (80.0-100.0) fL MCH 30.2 (25.0-35.0) pg MCHC 34.5 (31.0-37.0) g/dL RDW 12.6 (11.5-15.5) % Plt Count 312 (150-450) k/uL MPV 8.0 Neutrophils % 74 % Lymphocytes % 15 % Monocytes % 9 % Eosinophils % 1 % Basophils % 1 % Neutrophils # 10.2 H (1.3-7.7) k/uL Lymphocytes # 2.1 (1.0-4.8) k/uL Monocytes # 1.2 H (0-1.0) k/uL Eosinophils # 0.1 (0-0.7) k/uL Basophils # 0.1 (0-0.2) k/uL Sodium 137 (137-145) mmol/L Potassium 3.8 (3.5-5.1) mmol/L Chloride 101 (98-107) mmol/L Carbon Dioxide 25 (22-30) mmol/L Anion Gap 11 mmol/L BUN 15 (7-17) mg/dL Creatinine 0.53 (0.52-1.04) mg/dL Est GFR (CKD-EPI)AfAm >90 (>60 ml/min/1.73 sqM) Est GFR (CKD-EPI)NonAf >90 (>60 ml/min/1.73 sqM) Glucose 132 H (74-99) mg/dL Calcium 8.7 (8.4-10.2) mg/dL Magnesium 2.0 (1.6-2.3) mg/dL Total Bilirubin 0.8 (0.2-1.3) mg/dL AST 138 H (14-36) U/L ALT 53 H (4-34) U/L Alkaline Phosphatase 113 (38-126) U/L Total Protein 6.8 (6.3-8.2) g/dL Albumin 4.2 (3.5-5.0) g/dL - Radiology Data Noncontrast head CT: Normal unenhanced head CT scan. No change. Disposition Clinical Impression: Generalized seizure, Nausea Disposition: [facility] Condition: Stable Is patient prescribed a controlled substance at d/c from ED?: No Referrals: Christopher Cook MD [Primary Care Provider] - 1-2 days Time of Disposition: 22:20
[2022-03-27] MEDS ORDERED: SODIUM CHLORIDE 0.9% 500 ML 500 ML IV STA (20:05)
[2022-03-27] MEDS ORDERED: ONDANSETRON 4 MG/2 ML VIAL IVP STA (20:06)
[2022-03-27 20:30] LABS: Basophils # (A) 0.1 k/uL (0-0.2); Basophils % (A) 1 %; Eosinophils # (A) 0.1 k/uL (0-0.7); Eosinophils % (A) 1 %; HCT 43.4 % (34.0-46.0); Lymphocytes # (A) 2.1 k/uL (1.0-4.8); Lymphocytes % (A) 15 %; MCH 30.2 pg (25.0-35.0); MCHC 34.5 g/dL (31.0-37.0); MCV 87.6 fL (80.0-100.0); Monocytes # (A) 1.2 k/uL (0-1.0); Monocytes % (A) 9 %; Neutrophils # (A) 10.2 k/uL (1.3-7.7); Neutrophils % (A) 74 %; Platelet Count 312 k/uL (150-450); RBC 4.95 m/uL (3.80-5.40); RDW 12.6 % (11.5-15.5); WBC 13.9 k/uL (3.8-10.6)
[2022-03-27 20:39] LABS: ALT 53 U/L (4-34); AST 138 U/L (14-36); African American GFR (CKD) >90 (>60 ml/min/1.73 sqM); Albumin 4.2 g/dL (3.5-5.0); Alkaline Phosphatase 113 U/L (38-126); Anion Gap 11 mmol/L; Blood Urea Nitrogen 15 mg/dL (7-17); Calcium 8.7 mg/dL (8.4-10.2); Carbon Dioxide 25 mmol/L (22-30); Chloride 101 mmol/L (98-107); Glucose 132 mg/dL (74-99); Non-African American GFR(CKD) >90 (>60 ml/min/1.73 sqM); Potassium 3.8 mmol/L (3.5-5.1); Sodium 137 mmol/L (137-145); Total Bilirubin 0.8 mg/dL (0.2-1.3); Total Protein 6.8 g/dL (6.3-8.2)
--- NOTE | 2022-03-27 21:20 | CT ---
EXAMINATION TYPE: CT brain wo con DATE OF EXAM: 03/27/2022 COMPARISON: 06/02/2020 HISTORY: seizure CT DLP: 1051.4 mGycm Automated exposure control for dose reduction was used. Images of the brain obtained without contrast. Ventricles and sulci appear normal. There is no mass effect or midline shift. No sign of intracranial hemorrhage. Calvarium is intact. IMPRESSION: Normal unenhanced head CT scan. No change.
[2022-03-27] MEDS ORDERED: ONDANSETRON 4 MG ODT STARTER PACK 2 TAB BTL PO STA (22:03)
[2022-03-27] MEDS ORDERED: LORazepam 2 MG/ML INJ IV STA (22:11)
[2022-03-27] MEDS ORDERED: LORazepam 2 MG/ML INJ IV PRN (22:22)
[2022-03-28] MEDS ORDERED: ACETAMINOPHEN TAB 325 MG TAB PO STA (04:11)
[2022-03-28 06:47] LABS: Basophils % (A) 0 %; Eosinophils % (A) 0 %; HCT 39.4 % (34.0-46.0); HGB 13.4 gm/dL (11.4-16.0); Lymphocytes # (A) 1.6 k/uL (1.0-4.8); Lymphocytes % (A) 21 %; MCH 30.4 pg (25.0-35.0); MCV 89.3 fL (80.0-100.0); Mean Platelet Volume 7.8; Monocytes # (A) 0.6 k/uL (0-1.0); Monocytes % (A) 7 %; Neutrophils # (A) 5.3 k/uL (1.3-7.7); Neutrophils % (A) 69 %; Platelet Count 298 k/uL (150-450); RBC 4.41 m/uL (3.80-5.40); RDW 12.6 % (11.5-15.5); WBC 7.6 k/uL (3.8-10.6)
[2022-03-28 07:04] LABS: ALT 51 U/L (4-34); AST 69 U/L (14-36); African American GFR (CKD) >90 (>60 ml/min/1.73 sqM); Albumin 3.6 g/dL (3.5-5.0); Alkaline Phosphatase 90 U/L (38-126); Anion Gap 9 mmol/L; Blood Urea Nitrogen 13 mg/dL (7-17); Calcium 8.6 mg/dL (8.4-10.2); Carbon Dioxide 26 mmol/L (22-30); Chloride 103 mmol/L (98-107); Glucose 93 mg/dL (74-99); Non-African American GFR(CKD) >90 (>60 ml/min/1.73 sqM); Sodium 138 mmol/L (137-145); Total Bilirubin 0.6 mg/dL (0.2-1.3); Total Protein 5.9 g/dL (6.3-8.2)
[2022-03-28] MEDS: ONDANSETRON 4 MG/2 ML VIAL IVP PRN ×2 (09:48→15:28)
[2022-03-28] MEDS: ACETAMINOPHEN TAB 325 MG TAB PO PRN ×2 (09:54→15:28)
[2022-03-28] MEDS ORDERED: OXcarbazepine 300 MG TAB PO SCH ×2 (10:15→21:00)
[2022-03-28] MEDS: OXcarbazepine 300 MG TAB PO SCH ×2 (10:35→21:03)
--- NOTE | 2022-03-28 10:44 | P.CNNES ---
History of Present Illness Consult date: 03/28/22 Requesting physician: Evans Cuevas Reason for Consult: Seizure disorder History of Present Illness: This is a 51-year-old woman history of seizure, cerebral palsy, who presented emergency department is reported seizure. Some of the history is obtained from medical record. It seems that the patient recently came to our ED because a left foot ankle upper back and right shoulder pain after a fall 2 days ago and the patient had negative x-rays that was obtained in the ED and was discharged home with tunnel 3 but then that the patient stated that she took the pit at pain medication yesterday evening and then she became nauseated and woke up on the floor and she felt she had a possible seizure. Patient stated that the she went to lie on the couch in the next thinks that she found herself on the floor. She denies any warning signs prior to the episode. Denies any urinary or bowel incontinence. Unsure how long she passed out for. The episode was unwitnessed. She notified the ED team that she thinks she may have hit her head and she fell on the floor yesterday evening. She is on Trileptal for her seizure and she denies missing her doses. She is on Trileptal 750 mg 1 tablet twice a day. She stated that prior to this episode at her last seizure was 7 years ago. Usually with a seizure she has warning side that she feels nauseous then she passes out. In the past that she was on Dilantin but had ALLERGIC reaction to Dilantin. She does follow up with a neurologist for her seizure but does not know the name of her neurologist. According to the nurse yesterday she was about to be discharged but when she went to the bathroom she felt nauseous but did not lose consciousness according to nurse was reported him and no post ictal confusion. Some of the workup during this hospital visit consisted of Initial white blood cells 13.9 thousand and repeated is 7.6. The repeat his CBC differential is unremarkable. Initial serum glucose is 132 in the repeat is normalized. AST is 138 and ALTs is 53. The sodium is 137, calcium magnesium is within normal limits. He give the head is reported as normal on and has his computed tomography scan. No change. Review of Systems Review of system: The 12 point system was reviewed and apparent positive and negative per HPI. Past Medical History Past Medical History: Asthma, Hyperlipidemia, Musculoskeletal Disorder, Osteoarthritis (OA), Seizure Disorder, Thyroid Disorder Additional Past Medical History / Comment(s): Kidney stones X3. "CEREBRAL PALSY, VERY JERKY LT SIDE, MANDI ARM." UNABLE TO READ. . THYROID Nodules. LAST SEIZURE 2017 EST. Migraine. . patient walks with out assistance. History of Any Multi-Drug Resistant Organisms: None Reported Past Surgical History: Appendectomy, Cholecystectomy, Orthopedic Surgery Additional Past Surgical History / Comment(s): BIOPSY Lung Surgery. KIDNEY STONE PROC. SURGERY ON TENDONS BALDOMERO KNEES. Past Anesthesia/Blood Transfusion Reactions: Previous Problems w/ Anesthesia Additional Past Anesthesia/Blood Transfusion Reaction / Comment(s): HAD PROBLEMS BREATHING DURING LUNG BIOPSY. MOTHER "NOT AWAKENING FOR 24 HRS AFTER PROCEDURE." Past Psychological History: Depression Smoking Status: Former smoker Past Alcohol Use History: Rare Past Drug Use History: None Reported - Past Family History Mother Family Medical History: No Reported History Additional Family Medical History / Comment(s): Maternal grandfather had an [place]. Father Family Medical History: No Reported History Medications and Allergies Home Medications Medication Instructions Recorded Confirmed Type OXcarbazepine [Trileptal] 150 mg PO BID 10/25/17 03/28/22 History OXcarbazepine [Trileptal] 600 mg PO BID 10/25/17 03/28/22 History ondansetron HCL [Zofran] 4 mg PO BID PRN 01/25/21 03/28/22 History Folic Acid 1 mg PO DAILY 02/01/21 03/28/22 History Atorvastatin [Lipitor] 40 mg PO HS 03/28/22 03/28/22 History Budesonide/Glycopyr/Formoterol 1 puff INHALATION RT-BID 03/28/22 03/28/22 History [Breztri Aerosphere Inhaler] Bumetanide [BUMEX] 0.5 mg PO DAILY 03/28/22 03/28/22 History Dasetta 1 tab PO DAILY 03/28/22 03/28/22 History Galcanezumab-Gnlm [Emgality 120 mg SQ QMONTHLY 03/28/22 03/28/22 History Syringe] HYDROcodone/APAP 5-325MG [[place] 1 tab PO Q6HR PRN 03/28/22 03/28/22 History 5-325] Ibuprofen [Motrin] 600 mg PO DAILY PRN 03/28/22 03/28/22 History Levothyroxine Sodium [Synthroid] 100 mcg PO DAILY 03/28/22 03/28/22 History Potassium Citrate [Potassium 20 meq PO BID 03/28/22 03/28/22 History Citrate ER] amLODIPine [Norvasc] 10 mg PO DAILY 03/28/22 03/28/22 History Allergies Allergy/AdvReac Type Severity Reaction Status Date / Time phenytoin sodium Allergy Rash/Hives Verified 03/28/22 09:39 [From Dilantin] phenytoin sodium extended Allergy Rash/Hives Verified 03/28/22 09:39 [From Dilantin] zinc gluconate Allergy Rash/Hives Verified 03/28/22 09:39 [From Cold-Eeze] Physical Examination - Vital Signs Vital Signs: Vital Signs Temp Pulse Pulse Resp BP BP Pulse Ox 03/28/22 09:50 89 18 03/28/22 08:53 98.5 F 92 18 118/75 95 03/28/22 06:13 97.7 F 88 17 113/70 96 03/27/22 22:20 94 18 135/70 96 03/27/22 19:19 97.9 F 87 18 120/75 97 Intake and Output 03/27/22 03/28/22 03/28/22 22:59 06:59 14:59 Other: # Voids 2 Weight 68.039 kg GENERAL: The patient is lying in bed and is not in acute distress. CHEST: The heart rate is regular rate rhythm. No murmurs to auscultation. LUNG: Clear to auscultation bilaterally no wheezing noted throughout. Not labored breathing. ABDOMEN/GI: Bowel sounds present in all 4 quadrants. No tenderness to palpation throughout. NEUROLOGICAL: Higher mental function: The patient is awake, alert, oriented to self, place and time. Patient is following commands. No aphasia and no neglect. Cranial nerves: The pupils are round, equal and reactive to light . Visual gallo are full to confrontation throughout. Extraocular movement is intact no nystagmus is noted. Facial sensation is normal to touch throughout. The facial strength is normal throughout. Hearing is normal bilaterally to hand rub. Tongue is midline and moved [id number] without any difficulty. MIld dysarthria is noted (no dentures). Shoulder shrug is normal bilaterally. Motor: The strength is hard to assess individual strength because of her cooperation but is lifting all extremities above gravity. Normal bulk and appears normal tone. Cerebellum: Normal finger to nose bilaterally. Sensation: Sensation is normal to touch throughout. Reflexes (right/left): 2+ throughout. Plantars are downgoing bilaterally. Results - Laboratory Findings CBC and BMP: 03/28/22 06:12 03/28/22 06:12 Abnormal Lab Findings: Abnormal Labs 03/27/22 03/27/22 03/28/22 20:14 20:14 06:12 WBC 13.9 H Neutrophils # 10.2 H Monocytes # 1.2 H Glucose 132 H AST 138 H 69 H ALT 53 H 51 H Total Protein 5.9 L Assessment and Plan Assessment: Likely Breakthrough seizure (she reported she found herself on floor and possibly hitting her head and episode was unwitnessed) History of seizure and last seizure was 7 years ago Cerebral plasy Hypothyroidism Plan: I ordered a routine EEG and ordered Trileptal level. I increased her home dose of Trileptal from 750mg 1 tab bid to 900mg 1 tab bid. Continue neuro checks. Seizure precaution and pad. If patient continues to have ? or possible seizure-like activities at home then recommend prolonged EEG/Epilepsy monitoring unit as outpatient to capture episod es. Will defer the rest of medical management to primary team. Because of her seizure, she is to avoid driving for 6 months until no further seizure, avoid height, swim unassisted or use heavy machinary. Patient needs to follow-up with neurologist as outpatient within 1-2 weeks. The plan is discussed with patient and her nurse. If no further seizures by later today evening, then clear for discharge. Thank you for the consultation. Colton Carson M.D. Neuro-Hospitalist Time with Patient: Greater than 30
[2022-03-28] MEDS ORDERED: HYDROcodone/APAP 5-325MG 1 EACH TAB PO PRN (12:38)
[2022-03-28] MEDS ORDERED: LORazepam 1 MG/0.5 ML VIAL IV PRN (18:40)
[2022-03-28] MEDS ORDERED: OXcarbazepine 150 MG TAB PO SCH (21:00)
[2022-03-28] MEDS ORDERED: ATORVASTATIN 40 MG TAB PO SCH (21:00)
[2022-03-28] MEDS: POTASSIUM CITRATE 10 MEQ TABLET.ER PO SCH (21:02)
[2022-03-28 22:15] VITALS: RESP 18
--- NOTE | 2022-03-29 02:06 | EEG ---
ELECTROENCEPHALOGRAM REPORT CLINICAL HISTORY: This is a 51-year-old woman with history of seizure, who presented because of an episode of being found on the floor unresponsive concerning for seizure. The video EEG is obtained to evaluate for seizure epileptiform activity. RELEVANT MEDICATION: Trileptal. EEG TYPE: A routine 21-channel EEG is performed with video using the 10/20 electrode placement system. DESCRIPTION: Wakefulness is only obtained. During awake state, the posterior-dominant rhythm consists of [id number] voltage of 9.5 to 10 hertz activity that is well modulated, well sustained. There is no physiological sleep architecture seen. There is no focal slowing. Interictal and ictal is none. ACTIVATION PROCEDURE: Photic stimulation did not evoke a posterior driving response. There is no abnormality during the photic stimulation. Hyperventilation is not performed. CLINICAL INTERPRETATION: This is a normal routine EEG. There is no focal slowing, epileptiform discharge or seizure on the EEG. Clinical correlation is recommended. MMFELICITY / CASSIA: [id number] /
--- NOTE | 2022-03-29 06:13 | HP ---
HISTORY AND PHYSICAL HISTORY OF PRESENT ILLNESS: This is a 51-year-old white female with a history of seizures, cerebral palsy with recurrent seizures, discharged home. She had multiple seizures at home. She is back here for re-evaluation. Neurology saw her and had increased seizure medications. Dilantin. AST is 130, ALT is 53, glucose is 132. Sodium, potassium, and magnesium within normal limits. REVIEW OF SYSTEMS: A 14-point review of systems is otherwise negative. PAST MEDICAL HISTORY: Asthma, dyslipidemia, , osteoarthritis, seizure disorder, hypothyroidism. PAST SURGICAL HISTORY: Orthopedic surgery, cholecystectomy, appendectomy. FAMILY HISTORY: Please see further orders. MEDICATIONS: Reviewed. REVIEW OF SYSTEMS: A 14-point review of systems otherwise negative. PHYSICAL EXAMINATION: VITAL SIGNS: Temperature is 97 to 98, pulse 89 to 97, respiratory rate 16 to 18, blood pressure is 118 to 130s over 70s to 80s, O2 of 95 to 97. Vital signs stable. Afebrile. CARDIOVASCULAR: S1, S2. LUNGS: Clear. GI: Soft. HEMATOLOGY: Negative Homans. PSYCH: Fair mood and affect. NEUROLOGIC: Alert and oriented x3. Cranial nerves intact. ASSESSMENT: Likely breakthrough seizure, history of prior seizure, history of hypothyroidism. EEG. Trileptal level is ordered. Increase Trileptal 750 b.i.d. to 900 b.i.d. If no seizures over the next 24 hours, may be discharged most likely to follow up as outpatient. MMODL / IJN: [id number] /
[2022-03-29] MEDS ORDERED: LEVOTHYROXINE 100 MCG TAB PO SCH (06:30)
[2022-03-29 07:06] VITALS: BP 117/81; PULSE 88; TEMP 98.3
[2022-03-29] MEDS ORDERED: FOLIC ACID 1 MG TAB PO SCH (09:00)
[2022-03-29] MEDS ORDERED: amLODIPine 10 MG TAB PO SCH (09:00)
[2022-03-29] MEDS ORDERED: BUMETANIDE 0.5 MG TABLET PO SCH (09:00)
[2022-03-29] MEDS ORDERED: DASETTA PO SCH (09:00)
[2022-03-29] MEDS: OXcarbazepine 300 MG TAB PO SCH (09:26)
[2022-03-29] MEDS: POTASSIUM CITRATE 10 MEQ TABLET.ER PO SCH (09:28)
== END 2022-03-29 11:42 | disposition home or self-care (01) ==
LOC: EC 18:51 → 6NMEDSUR 22:20
PROVIDERS: ADMIT Family Medicine; ATTEND Family Medicine
DX: G40.909 Epilepsy, unspecified, not intractable, without status epilepticus (principal); J45.909 Unspecified asthma, uncomplicated; E78.5 Hyperlipidemia, unspecified; F32.A Depression, unspecified; I45.10 Unspecified right bundle-branch block; E03.9 Hypothyroidism, unspecified; G80.9 Cerebral palsy, unspecified; Z79.899 Other long term (current) drug therapy; Z79.890 Hormone replacement therapy; Z88.8 Allergy status to other drugs, medicaments and biological substances; Z90.49 Acquired absence of other specified parts of digestive tract; Z87.891 Personal history of nicotine dependence; Z82.49 Family history of ischemic heart disease and other diseases of the circulatory system
CPT/HCPCS: 96376; 96361; 96374; 96375; 99285; 36415; 94760; 95816; 93005; 80053 ×2; 80183; 83735; 85025 ×2; 70450; G0378 ×3; J2060; J2405 ×2

== ENCOUNTER → 2022-04-01 | Outpatient (CLI) | payer MEDICARE, OTHER ==
--- NOTE | 2022-04-01 14:14 | XR ---
Lumbar spine or graph history: Back pain Reviews the lumbar spine No comparisons There is a spinal curvature, dextroscoliosis centered at L4. There is multilevel spondylosis and loss of disc height present L5-S1. Lumbar vertebral bodies show preserved height and bone mineralization. Sclerosis present in the posterior elements of the lumbosacral junction. IMPRESSION: Degenerative disc disease, facet arthropathy, spinal curvature.
--- NOTE | 2022-04-01 14:16 | XR ---
Left hip HISTORY: Pain 2 views the left hip, correlation prior exam 09/16/2013 Bone mineralization, joint spaces and alignment are stable. There is overlying artifact. No fracture or dislocation. IMPRESSION: Stable exam, no acute abnormality.
== END | disposition home or self-care (01) ==
LOC: RADXRMAIN 12:18
PROVIDERS: ATTEND Family Medicine
DX: M51.36 Other intervertebral disc degeneration, lumbar region (principal); M47.816 Spondylosis without myelopathy or radiculopathy, lumbar region; M25.552 Pain in left hip
CPT/HCPCS: 72100; 73502

== ENCOUNTER → 2022-04-21 | Outpatient (CLI) | payer MEDICARE, OTHER ==
[2022-04-21 16:01] VITALS: BP 139/90; PULSE 80; RESP 16; TEMP 98.1
--- NOTE | 2022-04-21 16:42 | P.GSHP ---
History of Present Illness H&P Date: 04/21/22 Chief Complaint: abnormal right breast mammogram Xenia is a 51 year old female seen in consultation for Dr. Ovalle regarding a 12 oclock right breast mammographic and ultrasound abnormality. She had a bilateral mammogram on 01-27-22 followed by an ultrasound on 04-14-22. Ultr asound core biopsy of the left breast was recommended. The patient does not feel anything of concern in either breast. She has had a right breast biopsy in the past. She has not had any recent trauma or infection in the breast. After review of the mammogram and ultrasound report it appears that there are potentially 2 lesions in the right breast at 12:00 and 5:00 for biopsy and one lesion in the left breast at 12:00. Nicotine:6 months in her 20's not now caffiene: 1/2 cup/day pop pepsi chocolate: occasional BCP: she is on them now for 7 months Family History: none of cancer Hormonal History: menarche: 21 G1M1 menopause: Mallory-menopausal Surgical history: colonoscopy gallbladder appy knee surgery Medical History: cerebra palsy and seizures herniated disc in her back thyroid disorder hypothyroid Social History: Nicotine: Negative Alcohol: Occasional Drugs:none - Constitutional Constitutional: Denies chills, Denies fever - EENT Eyes: denies blurred vision, denies pain Ears: deny: decreased hearing, tinnitus Ears, nose, mouth and throat: Reports headache, Denies sore throat - Breasts Breasts: bilateral: as per HPI - Cardiovascular Cardiovascular: Denies chest pain, Denies shortness of breath - Respiratory Respiratory: Denies cough, Denies 7 - Gastrointestinal Gastrointestinal: Denies abdominal pain, Denies diarrhea, Denies nausea, Denies vomiting - Genitourinary (Female) Genitourinary: Denies dysuria, Denies hematuria - Musculoskeletal Comment: cerebra palsy - Neurological Neurological: Denies numbness, Denies weakness - Psychiatric Psychiatric: Denies anxiety, Denies depression - Endocrine Endocrine: Denies fatigue, Denies weight change - Hematologic/Lymphatic Comment: none - Allergic/Immunologic Allergic/Immunologic: Reports seasonal allergies Past Medical History Past Medical History: Asthma, Hyperlipidemia, Musculoskeletal Disorder, Osteoarthritis (OA), Seizure Disorder, Thyroid Disorder Additional Past Medical History / Comment(s): Kidney stones X3. "CEREBRAL PALSY, VERY JERKY LT SIDE, MANDI ARM." UNABLE TO READ. . THYROID Nodules. LAST SEIZURE 2017 EST. Migraine. . patient walks with out assistance. History of Any Multi-Drug Resistant Organisms: None Reported Past Surgical History: Appendectomy, Cholecystectomy, Orthopedic Surgery Additional Past Surgical History / Comment(s): BIOPSY Lung Surgery. KIDNEY STONE PROC. SURGERY ON TENDONS BALDOMERO KNEES. Past Anesthesia/Blood Transfusion Reactions: Previous Problems w/ Anesthesia Additional Past Anesthesia/Blood Transfusion Reaction / Comment(s): HAD PROBLEMS BREATHING DURING LUNG BIOPSY. MOTHER "NOT AWAKENING FOR 24 HRS AFTER PROCED URE." Past Psychological History: Depression Additional Psychological History / Comment(s): . Smoking Status: Former smoker Past Alcohol Use History: Rare Additional Past Alcohol Use History / Comment(s): STARTED SMOKING AT AGE 21 QUIT AT AGE 26 SMOKED 1/2PPD Past Drug Use History: None Reported - Past Family History Mother Family Medical History: No Reported History Additional Family Medical History / Comment(s): Maternal grandfather had an [place]. Father Family Medical History: No Reported History Medications and Allergies Home Medications Medication Instructions Recorded Confirmed Type ondansetron HCL [Zofran] 4 mg PO BID PRN 01/25/21 03/28/22 History Folic Acid 1 mg PO DAILY 02/01/21 03/28/22 History Atorvastatin [Lipitor] 40 mg PO HS 03/28/22 03/28/22 History Budesonide/Glycopyr/Formoterol 1 puff INHALATION RT-BID 03/28/22 03/28/22 History [Breztri Aerosphere Inhaler] Bumetanide [BUMEX] 0.5 mg PO DAILY 03/28/22 03/28/22 History Dasetta 1 tab PO DAILY 03/28/22 03/28/22 History Galcanezumab-Gnlm [Emgality 120 mg SQ QMONTHLY 03/28/22 03/28/22 History Syringe] HYDROcodone/APAP 5-325MG [[employer] 1 tab PO Q6HR PRN 03/28/22 03/28/22 History 5-325] Ibuprofen [Motrin] 600 mg PO DAILY PRN 03/28/22 03/28/22 History Levothyroxine Sodium [Synthroid] 100 mcg PO DAILY 03/28/22 03/28/22 History Potassium Citrate [Potassium 20 meq PO BID 03/28/22 03/28/22 History Citrate ER] amLODIPine [Norvasc] 10 mg PO DAILY 03/28/22 03/28/22 History OXcarbazepine [Trileptal] 900 mg PO BID 30 Days #60 tab 03/29/22 Rx Allergies Allergy/AdvReac Type Severity Reaction Status Date / Time phenytoin sodium Allergy Rash/Hives Verified 04/21/22 16:02 [From Dilantin] phenytoin sodium extended Allergy Rash/Hives Verified 04/21/22 16:02 [From Dilantin] zinc gluconate Allergy Rash/Hives Verified 04/21/22 16:02 [From Cold-Eeze] Surgical - Exam Vital Signs Temp Pulse Resp BP Pulse Ox 98.1 F 80 16 139/90 97 04/21/22 15:58 04/21/22 15:58 04/21/22 15:58 04/21/22 15:58 04/21/22 15:58 BMI: 25.6 - General no distress - Eyes normal ocular movement - Neck trachea midline - Respiratory normal respiratory effort, clear to auscultation - Cardiovascular Rhythm: regular Heart Sounds: normal: S1, S2 - Abdomen Abdomen: soft, non tender, no guarding, no rigid, no rebound - Integumentary normal turgor - Neurologic no disoriented, no combative - Musculoskeletal normal gait - Psychiatric oriented to time, oriented to person, oriented to place, speech is normal, memory intact Breast Exam: BRA: 36B Inspection: The lateral grade 2 ptosis Outpatient: Right breast: Multi-positional exam fibrocystic changes very dense breast no discrete dominant masses or nodules of concern Right axilla: No adenopathy of concern Left breast: Multiple positional exam fibrocystic changes no discrete dominant masses or nodules of concern Well-healed scar right breast from prior biopsy Results Impression: Mammogram and ultrasound reviewed with Dr. Acosta Assessment and Plan Assessment: Impression: Radiographic abnormality bilateral breast patient scheduled for bilateral breast ultrasound guided core biopsy to potentially at the right and one on the left the one in the right is at 12:00 and 5:00 The left breast lesion is at 12:00 Plan: Follow up after core biopsy CC: DR. Christopher Cook, Dr. Larry Ovalle
== END | disposition home or self-care (01) ==
LOC: WWCWWP 15:39
PROVIDERS: ATTEND Surgery
DX: Z53.9 Procedure and treatment not carried out, unspecified reason (principal)

== ENCOUNTER → 2022-05-04 | Day surgery (SDC) | payer MEDICARE, OTHER ==
--- NOTE | 2022-05-06 13:21 | MM ---
Reason for Exam: Post Procedure Mammogram. Last mammogram was performed 3 year(s) and 9 month(s) ago. Patient History: Menarche at age 18. Patient has no children. 09/21/2007, Excisional Biopsy on the Right side. Risk Values: Magali 5 year model risk: 1.2%. NCI Lifetime model risk: 10.6%. Prior Study Comparison: 04/08/2011 Left Diagnostic Mammogram, [facility]. 03/14/2014 Bilateral Diagnostic Mammogram, [facility]. 07/24/2018 Bilateral Screening Mammogram, [facility]. Tissue Density: Left: The breast tissue is extremely dense which could obscure a lesion on mammography. Pathology Description: Location: 12 o'clock. butterfly 12:00 The ultrasound guided cyst aspiration procedure was explained to the patient. The risks, benefits, alternatives were discussed. An informed consent was then obtained. A time out was performed . The patient was placed in supine positioning for imaging and for the procedure. The overlying skin was prepped with betadine and sterilely draped in usual sterile fashion. 8 ml 1% lidocaine was used as anesthetic into the skin and deeper breast tissue up to area of concern in the left 12 o'clock breast, 2 cm from nipple. Under ultrasound guidance, an 12-gauge spinal needle was advanced into the cyst and aspiration yielded 5 mL of greenish fluid. The fluid was labeled and sent for laboratory analysis. A wing clip was left in lesion. Good hemostasis was obtained with direct pressure. Postprocedure mammogram: The patient was transferred to mammography for physician ordered post procedure mammogram for clip placement verification. The clip is in the expected region of the biopsy. The patient tolerated the procedure well without any immediate complication. The patient was discharged to home in stable condition. Impression: Successful ultrasound guided cyst aspiration left breast. Cytology pending. Pathology Results: Result: Benign. B. LEFT BREAST, 12:00 POSITION, ASPIRATION: Limited specimen with rare degenerated epithelial cells and mostly nonspecific favored cyst debris. If clinically concerned for neoplasm, core biopsy is suggested. Overall Assessment: Benign Assessment: MG diagnostic mammo LT wo CAD. - Left: Benign, BI-RAD 2. Management: Diagnostic Mammogram of the left breast in 6 months. Electronically signed and approved by: Efrain Mendoza M.D. Radiologis
--- NOTE | 2022-05-06 13:22 | MM ---
Reason for Exam: Post Procedure Mammogram. Last mammogram was performed 3 year(s) and 9 month(s) ago. Patient History: Menarche at age 18. Patient has no children. 09/21/2007, Excisional Biopsy on the Right side. Risk Values: Magali 5 year model risk: 1.2%. NCI Lifetime model risk: 10.6%. Prior Study Comparison: 04/08/2011 Left Diagnostic Mammogram, [facility]. 03/14/2014 Bilateral Diagnostic Mammogram, [facility]. 07/24/2018 Bilateral Screening Mammogram, [facility]. Tissue Density: Right: The breast tissue is extremely dense which could obscure a lesion on mammography. Pathology Description: Location: 12 o'clock. coil 12:00 The ultrasound guided cyst aspiration procedure was explained to the patient. The risks, benefits, alternatives were discussed. An informed consent was then obtained. A time out was performed. The patient was placed in supine positioning for imaging and for the procedure. The overlying skin was prepped with betadine and sterilely draped in usual sterile fashion. 10 ml 1% lidocaine was used as anesthetic into the skin and deeper breast tissue up to area of concern in the right mild o'clock breast, cm from nipple. Under ultrasound guidance, an 12-gauge spinal needle was advanced into the cyst and aspiration yielded .5 mL of thick proteinaceous fluid. The fluid was labeled and sent for laboratory analysis. A wing clip was left in lesion. Good hemostasis was obtained with direct pressure. Postprocedure mammogram: The patient was transferred to mammography for physician ordered post procedure mammogram for clip placement verification. The clip is in the expected region of the biopsy. The patient tolerated the procedure well without any immediate complication. The patient was discharged to home in stable condition. Impression: Successful ultrasound guided cyst aspiration right 12:00 breast. Cytology pending. Pathology Results: A. RIGHT BREAST, 12:00 POSITION, ASPIRATION: Scattered and clustered degenerated ductal and lobular cells and peripheral blood elements. Cannot exclude neoplasm, imaging correlation and core biopsy suggested, if indicated. Overall Assessment: Suspicious, BI-RAD 4 Assessment: MG diagnostic mammo RT wo CAD - Right: Suspicious, BI-RAD 4. Management: Open Biopsy of the right breast. Electronically signed and approved by: Efrain Mendoza M.D. Radiologis
== END ==
LOC: RADUSWWP 08:19
PROVIDERS: ATTEND Surgery
DX: Z12.31 Encounter for screening mammogram for malignant neoplasm of breast (principal); N64.89 Other specified disorders of breast; N60.02 Solitary cyst of left breast
CPT/HCPCS: 88108; 88305; 77065 ×2; 76942; 19000 ×2; A4648

== ENCOUNTER → 2022-05-18 | Outpatient (CLI) | payer MEDICARE, OTHER ==
[2022-05-18 10:08] VITALS: BP 138/85; PULSE 85; RESP 19; TEMP 98.5
--- NOTE | 2022-05-18 10:27 | P.PN ---
Subjective Progress Note Date: 05/18/22 Principal diagnosis: radiographic abnormality bilateral breast This is a 51-year-old white female who underwent ultrasound-guided core aspiration bilateral breast on [id number]. The right side revealed scattered and clustered degenerated ductal and lobular cells and peripheral blood elements. It could not exclude neoplasia. Left side aspiration at 12:00 was limited specimen with rare degenerated epithelial cells and mostly nonspecific favored cystic bradycardia. If clini terra concern for neoplasia core biopsy suggested. The radiographs were reviewed in detail with Dr. Jessica. The lesion at 12:00 in the right breast is felt to be of concern in the needle localization and excision is recommended for the right side. The 5:00 lesion was not further addressed. The left breast 12:00 lesion was recommended for close surveillance unless the lesion on the right were to be positive for malignancy. She states the left side was not too uncomfortable however the right side was uncomfortable for the biopsy. At this time she is doing well. Examination: Ends: Clear Heart: Regular rate and rhythm Biopsy site right breast mild ecchymosis Biopsy site left breast mild ecchymosis Depression: Right breast 12:00 biopsy site cannot rule out neoplasia Left breast 12:00 biopsy site felt to be most likely benign Right breast 5 o'clock position not biopsied Plan: After review with Dr. Jessica discussion with the patient and her mother the plan is for 1. Needle localization excisional biopsy area of concern right breast to localize the mammogram at the clip site this is believed to be the site which was sampled and possible apical plastic tissue transfer 2. Close surveillance 5 o'clock position right breast 3. Close surveillance 12 o'clock position left breast CC: DR. Christopher Tobar Objective - Vital Signs Vital signs: Vital Signs Temp 98.5 F 05/18/22 10:05 Pulse 85 05/18/22 10:05 Resp 19 05/18/22 10:05 BP 138/85 05/18/22 10:05 Pulse Ox 97 05/18/22 10:05 FiO2 Intake & Output 05/17/22 05/18/22 05/18/22 18:59 06:59 18:59 Weight 57.606 kg
== END ==
LOC: WWCWWP 09:56
PROVIDERS: ATTEND Surgery
DX: R92.8 Other abnormal and inconclusive findings on diagnostic imaging of breast (principal); Z87.891 Personal history of nicotine dependence; Z88.8 Allergy status to other drugs, medicaments and biological substances

== ENCOUNTER 2022-05-24 07:22 | Day surgery (SDC) | payer MEDICARE, OTHER ==
[~2022-05-24 07:22] MED LIST changes: -ACETAMINOPHEN TAB 500 MG TAB PO PRN; +ALPRAZolam 0.5 MG TAB PO PRN; +HYDROmorphone 0.5 MG/0.5 ML SYRINGE IVP PRN; +LIDOCAINE 1% (10MG/ML) FOR IV START INTRADERMA PRN; +Pre Op ABX Message 1 EACH MISC MISCELLANE ONE; +SCOPOLAMINE 1 MG/72 HR PATCH TRANSDERM ONE
[2022-05-24] MEDS ORDERED: LIDOCAINE 1% INJ 10MG/ML (5 ML VIAL-PF) SQ ONE (08:59)
[2022-05-24] MEDS ORDERED: fentaNYL (PF) 50 MCG/ML 2 ML AMP ONE (09:36)
[2022-05-24] MEDS ORDERED: LIDOCAINE 2% INJ 20 MG/ML (2 ML VIAL) ONE (09:36)
[2022-05-24] MEDS ORDERED: MIDAZOLAM 2 MG/2 ML VIAL ONE (09:36)
[2022-05-24] MEDS ORDERED: PROPOFOL 10 MG/ML 20 ML VIAL IV ONE (09:36)
--- NOTE | 2022-05-24 10:41 | P.OP ---
Date of Procedure: 05/24/22 Preoperative Diagnosis: Discordant core biopsy right breast at 12:00 Postoperative Diagnosis: Same Procedure(s) Performed: Right breast needle localization lumpectomy, onco-plastic tissue transfer 29 cm Anesthesia: SAEED Surgeon: Miranda Mendez Estimated Blood Loss (ml): 5 IV fluids (ml): 500 Pathology: other (Breast tissue) Condition: stable Disposition: same day Indications for Procedure: Discordant core biopsy 12 o'clock position right breast Operative Findings: Dense breast tissue/radiographic specimen revealed area of concern had been adequately sampled clip in specimen Description of Procedure: The patient is a 51-year-old white female who underwent a needle aspiration of the area of concern in the right breast. Pathology stated could not rule out any neoplasia and is warranted interventional biopsy was recommended. After review with radiology interventional biopsy of the 12:00 area of concern in the right breast was recommended. A lesion of the left breast at 12:00 had been aspirated and was felt that there could be followed with a repeat radiographic study in 6 months. 5:00 lesion in the right breast appeared to be a simple cyst. The patient was first seen in the radiology department. Needle localization of the area of concern was performed. The patient was then brought to the operating room. Following induction of anesthesia the right breast was prepped and draped in a sterile fashion. An incision was made and carried down to the shaft of the needle. Surrounding tissue was excised. The cavity was approximately 5 cm x 3cm. The specimen was painted for orientation. An x-ray revealed that the area of concern had been adequately sampled revealing the clip of concern to be removed. The wound was well irrigated. Surgicel in powder form was placed. A superior pillar 4 x 2 cm was developed. An inferior pillar 3 x 2 cm was developed. The cavity itself was 15 cm. A total tissue transfer of 29 cm was performed. The pillars were brought together using 3-0 Vicryl suture. The subcutaneous tissue was closed using 3-0 Vicryl suture. The skin was closed using 4-0 Monocryl. Steri-Strips were applied.
--- NOTE | 2022-05-24 10:43 | P.DS ---
Providers Attending physician: Miranda Mendez Primary care physician: Christopher Cook Plan - Discharge Summary Discharge Rx Participant: No New Discharge Prescriptions: No Action ondansetron HCL [Zofran] 4 mg PO BID PRN PRN Reason: Nausea Budesonide/Glycopyr/Formoterol [Breztri Aerosphere Inhaler] 1 puff INHALATION RT-BID PRN PRN Reason: Shortness Of Breath diazePAM [Valium] 2 mg PO BID PRN PRN Reason: Anxiety Potassium Citrate [Urocit-K] 10 meq PO BID SUMAtriptan succinate [Imitrex] 100 mg PO DAILY Folic Acid 1 mg PO DAILY Ibuprofen [Motrin] 600 mg PO DAILY PRN PRN Reason: Pain Galcanezumab-Gnlm [Emgality Syringe] 120 mg SQ QMONTHLY Bumetanide [BUMEX] 0.5 mg PO DAILY amLODIPine [Norvasc] 10 mg PO DAILY Dasetta 1 tab PO DAILY Atorvastatin [Lipitor] 40 mg PO HS OXcarbazepine [Trileptal] 900 mg PO BID 30 Days #60 tab Omeprazole 20 mg PO BID Discharge Medication List ondansetron HCL [Zofran] 4 mg PO BID PRN 01/25/21 [History] Folic Acid 1 mg PO DAILY 02/01/21 [History] Atorvastatin [Lipitor] 40 mg PO HS 03/28/22 [History] Budesonide/Glycopyr/Formoterol [Breztri Aerosphere Inhaler] 1 puff INHALATION RT-BID PRN 03/28/22 [History] Bumetanide [BUMEX] 0.5 mg PO DAILY 03/28/22 [History] Dasetta 1 tab PO DAILY 03/28/22 [History] Galcanezumab-Gnlm [Emgality Syringe] 120 mg SQ QMONTHLY 03/28/22 [History] Ibuprofen [Motrin] 600 mg PO DAILY PRN 03/28/22 [History] amLODIPine [Norvasc] 10 mg PO DAILY 03/28/22 [History] OXcarbazepine [Trileptal] 900 mg PO BID 30 Days #60 tab 03/29/22 [Rx] Omeprazole 20 mg PO BID 05/24/22 [History] Potassium Citrate [Urocit-K] 10 meq PO BID 05/24/22 [History] SUMAtriptan succinate [Imitrex] 100 mg PO DAILY 05/24/22 [History] diazePAM [Valium] 2 mg PO BID PRN 05/24/22 [History] Follow up Appointment(s)/Referral(s): Miranda Mendez MD [STAFF PHYSICIAN] - 05/27/22 12:00 pm (Second Appointment 06/09/22 at 3:40 pm ) Activity/Diet/Wound Care/Special Instructions: do not drive for 24 hours after discharge or if taking narcotic pain medicine may shower after 48hours wear bra at all times Discharge Disposition: HOME SELF-CARE
[2022-05-24 10:51] VITALS: TEMP 97.4
[2022-05-24 11:33] VITALS: RESP 16
[2022-05-24] MEDS ORDERED: HYDROcodone/APAP 5-325MG 1 EACH TAB PO ONE (11:53)
[2022-05-24] MEDS ORDERED: HYDROcodone/APAP 5-325MG 1 EACH TAB ONE (11:55)
[2022-05-24 12:01] VITALS: BP 145/94; PULSE 94
--- NOTE | 2022-05-27 08:15 | MM ---
Risk Values: Magali 5 year model risk: 1.2%. NCI Lifetime model risk: 10.6%. Pathology Description: The procedure of needle localization with wire placement and than surgical excision was explained to the patient. Benefits, alternatives, and risks were discussed. An informed consent was then obtained. The shortest pathway for procedure was chosen. Shortest pathway was superior approach. The overlying skin was prepped and draped in usual sterile fashion. Lidocaine buffered with bicarbonate was used as anesthetic into the skin and subcutaneous tissue up to the level of area of concern. A 7 cm needle was used. It was placed via a superior approach under mammographic guidance. Subsequent 90 degrees mammogram show the needle to be in satisfactory position relative to the targeted area. At this point, wire was placed and the needle was withdrawn. The wire was fixed to patient's skin. Images were marked for surgeon. The patient tolerated the procedure well without any immediate complication. The patient was kept in the radiology department for short stay after the procedure and then taken to surgery for surgical excision. Targeted biopsy clip and wire with 2 surgical clips are identified in specimen mammogram. The patient was kept in hospital for short stay after the procedure and then discharged home in stable condition. Impression: Successful, uncomplicated needle localization with wire placement and surgical excision of right breast abnormality, full pathology results to follow. Pathology Results: Result: High risk, Intraductual papilloma high risk. RIGHT BREAST, NEEDLE LOCALIZATION EXCISION: Intraductal papilloma, margins negative. Background proliferative fibrocystic changes including moderate to florid usual type ductal hyperplasia, columnar cell change/columnar cell hyperplasia and calcifications. Previous biopsy site. Overall Assessment: High risk Management: Diagnostic Mammogram of both breasts in 2 months. 2 month follow up bilateral mammogram for bilateral complex breast parenchyma, total 6 month follow up from last screening exam. Electronically signed and approved by: Valeriy Santoro D.O.
== END 2022-05-24 12:57 | disposition home or self-care (01) ==
LOC: OR 07:22
PROVIDERS: ATTEND Surgery
DX: D24.1 Benign neoplasm of right breast (principal); R92.8 Other abnormal and inconclusive findings on diagnostic imaging of breast; E78.5 Hyperlipidemia, unspecified; J45.909 Unspecified asthma, uncomplicated; M19.90 Unspecified osteoarthritis, unspecified site; E07.9 Disorder of thyroid, unspecified; N20.0 Calculus of kidney; G40.909 Epilepsy, unspecified, not intractable, without status epilepticus; Z87.891 Personal history of nicotine dependence; Z79.51 Long term (current) use of inhaled steroids; Z79.899 Other long term (current) drug therapy; Z91.048 Other nonmedicinal substance allergy status; Z88.8 Allergy status to other drugs, medicaments and biological substances
CPT/HCPCS: 14001; 19125; 81025; 88307; 76098; 19281; C1819; J2250; J1100; J2405; J2001 ×2; J3010; J2704; J1170; J1644

== ENCOUNTER → 2022-06-09 | Outpatient (CLI) | payer MEDICARE, OTHER ==
--- NOTE | 2022-06-09 16:06 | P.PN ---
Progress Note - Text Progress Note Date: 06/09/22 Xenia is a 51 year old white female status post needle localization and lumpectomy on 05-24-22. Pathology revealed an intra-ductal papilloma. Patient tolerated the procedure without difficulty. She has had some itching related to the Steri-Strips and some mild erythema related to the Steri-Strips. Physical exam: Lungs: Clear Heart: Regular rate and rhythm Incision: Erythema seems to be related to the Steri-Strips versus mild cellulitis Plan: Course of Keflex Steri-Strips removed Patient follow-up in 1 week CC: DR. Cook
[2022-06-09 16:20] VITALS: BP 165/83; PULSE 101; RESP 17; TEMP 98.9
== END ==
LOC: WWCWWP 15:24
PROVIDERS: ATTEND Surgery
DX: R92.8 Other abnormal and inconclusive findings on diagnostic imaging of breast (principal); Z87.891 Personal history of nicotine dependence; Z91.048 Other nonmedicinal substance allergy status

== ENCOUNTER 2022-06-10 12:30 | Emergency (ER) | payer MEDICARE, OTHER ==
--- NOTE | 2022-06-10 12:34 | ED ---
General Adult HPI - General Stated complaint: Nausea,Vomiting Time Seen by Provider: 06/10/22 12:33 Source: patient, RN notes reviewed Mode of arrival: ambulatory Limitations: no limitations - History of Present Illness Initial comments: 51-year-old female presents emergency Department with chief complaint of nausea vomiting diarrhea. Symptoms started just prior arrival. Patient denies any abdominal pain. Patient did receive IV fluids, Zofran by EMS. Patient denies any sick contacts. Patient is complaining of mild headache, dizziness. - Related Data Home Medications Medication Instructions Recorded Confirmed ondansetron HCL [Zofran] 4 mg PO BID PRN 01/25/21 06/10/22 Folic Acid 1 mg PO DAILY 02/01/21 06/10/22 Atorvastatin [Lipitor] 40 mg PO HS 03/28/22 06/10/22 Budesonide/Glycopyr/Formoterol 1 puff INHALATION RT-BID PRN 03/28/22 06/10/22 [Breztri Aerosphere Inhaler] Bumetanide [BUMEX] 0.5 mg PO DAILY 03/28/22 06/10/22 Dasetta 1 tab PO DAILY 03/28/22 06/10/22 Galcanezumab-Gnlm [Emgality 120 mg SQ QMONTHLY 03/28/22 06/10/22 Syringe] Ibuprofen [Motrin] 600 mg PO DAILY PRN 03/28/22 06/10/22 amLODIPine [Norvasc] 10 mg PO DAILY 03/28/22 06/10/22 Omeprazole 20 mg PO BID 05/24/22 06/10/22 Potassium Citrate [Urocit-K] 20 meq PO BID 05/24/22 06/10/22 SUMAtriptan succinate [Imitrex] 100 mg PO DAILY 05/24/22 06/10/22 Previous Rx's Medication Instructions Recorded OXcarbazepine [Trileptal] 900 mg PO BID 30 Days #60 tab 03/29/22 Cephalexin [Keflex] 250 mg PO Q6HR #20 cap 06/09/22 Ondansetron Odt [Zofran Odt] 4 mg PO Q8HR PRN #10 tab 06/10/22 Allergies Allergy/AdvReac Type Severity Reaction Status Date / Time phenytoin sodium Allergy Rash/Hives Verified 06/10/22 14:45 [From Dilantin] phenytoin sodium extended Allergy Rash/Hives Verified 06/10/22 14:45 [From Dilantin] zinc gluconate Allergy Rash/Hives Verified 06/10/22 14:45 [From Cold-Eeze] Review of Systems ROS Statement: Those systems with pertinent positive or pertinent negative responses have been documented in the HPI. ROS Other: All systems not noted in ROS Statement are negative. Past Medical History Past Medical History: Asthma, Hyperlipidemia, Musculoskeletal Disorder, Osteoarthritis (OA), Seizure Disorder, Thyroid Disorder Additional Past Medical History / Comment(s): Kidney stones X3. "CEREBRAL PALSY, VERY JERKY LT SIDE, MANDI ARM." UNABLE TO READ. . THYROID Nodules. LAST SEIZURE 2017 EST. Migraine. . patient walks with out assistance. pt very poor historian, History of Any Multi-Drug Resistant Organisms: None Reported Past Surgical History: Appendectomy, Cholecystectomy, Orthopedic Surgery Additional Past Surgical History / Comment(s): BIOPSY Lung Surgery. KIDNEY STONE PROC. SURGERY ON TENDONS BALDOMERO KNEES. Past Anesthesia/Blood Transfusion Reactions: Previous Problems w/ Anesthesia Additional Past Anesthesia/Blood Transfusion Reaction / Comment(s): HAD PROBLEMS BREATHING DURING LUNG BIOPSY. MOTHER "NOT AWAKENING FOR 24 HRS AFTER PROCEDUR E." Past Psychological History: Depression Additional Psychological History / Comment(s): . Smoking Status: Former smoker Past Alcohol Use History: Rare Additional Past Alcohol Use History / Comment(s): STARTED SMOKING AT AGE 21 QUIT AT AGE 26 SMOKED 1/2PPD Past Drug Use History: None Reported - Past Family History Mother Family Medical History: No Reported History Additional Family Medical History / Comment(s): Maternal grandfather had an RI. Father Family Medical History: No Reported History Course Vital Signs 06/10/22 12:33 Temperature 98.2 F Pulse Rate 100 Respiratory 20 Rate Blood Pressure 144/97 O2 Sat by Pulse 95 Oximetry Medical Decision Making - Medical Decision Making Was pt. sent in by a medical professional or institution (, PA, CLOTHING PRESSER, urgent care, hospital, or fdc...) When possible be specific @ -[No] Did you speak to anyone other than the patient for history (EMS, parent, family, police, friend...)? What history was obtained from this source @ -EMS Did you review nursing and triage notes (agree or disagree)? Why? @ -[I reviewed and agree with nursing and triage notes] Were old charts reviewed (outside hosp., previous admission, EMS record, old EKG , old radiological studies, urgent care reports/EKG's, fdc records)? Report findings @ -[No old charts were reviewed] Differential Diagnosis (chest pain, altered mental status, abdominal pain women, abdominal pain men, vaginal bleeding, weakness, fever, dyspnea, syncope, headache, dizziness, GI bleed, back pain, seizure, CVA, palpatations, mental hea lth)? @ -[not applicable] EKG interpreted by me (3pts min.). @ -[As above] X-rays interpreted by me (1pt min.). @ -[None done] CT interpreted by me (1pt min.). @ -[None done] U/S interpreted by me (1pt. min.). @ -[None done] What testing was considered but not performed or refused? (CT, X-rays, U/S, labs)? Why? @ -CT was considered though patient's symptoms had resolved and abdomen is n ontender at this point What meds were considered but not given or refused? Why? @ -[None] Did you discuss the management of the patient with other professionals (professionals i.e. , PA, CLOTHING PRESSER, lab, RT, psych nurse, geriatric social work professor, auto bumper straightener, teacher, chief mechanical officer, pillowcase turner)? Give summary @ -[No] Was smoking cessation discussed for >3mins.? @ -[No] Was critical care preformed (if so, how long)? @ -[No] Were there social determinants of health that impacted care today? How? (Homelessness, low income, unemployed, alcoholism, drug addiction, transportation, low edu. Level, literacy, decrease access to med. care, care home, rehab)? @ -[No] Was there de-escalation of care discussed even if they declined (Discuss DNR or withdrawal of care, Hospice)? DNR status @ -[No] What co-morbidities impacted this encounter? (DM, HTN, Smoking, COPD, CAD, Cancer, CVA, ARF, Chemo, Hep., AIDS, mental health diagnosis, sleep apnea, morbid obesity)? @ -[None] Was patient admitted / discharged? Hospital course, mention meds given and route, prescriptions, significant lab abnormalities, going to OR and other pertinent info. @ -Discharged, patient has great computed IV fluids, antiemetics. Labs such unremarkable. Patient may be having some antibiotic-related nausea versus gastroenteritis Undiagnosed new problem with uncertain prognosis? @ -[No] Drug Therapy requiring intensive monitoring for toxicity (Heparin, Nitro, Insulin, Cardizem)? @ -[No] Were any procedures done? @ -[No] Diagnosis/symptom? @ -Gastroenteritis Acute, or Chronic, or Acute on Chronic? @ -acute Uncomplicated (without systemic symptoms) or Complicated (systemic symptoms)? @ -Uncomplicated Side effects of treatment? @ -[No] Exacerbation, Progression, or Severe Exacerbation? @ -[No] Poses a threat to life or bodily function? How? (Chest pain, USA, RI, pneumonia, PE, COPD, DKA, ARF, appy, cholecystitis, CVA, Diverticulitis, Homicidal, Suicidal, threat to staff... and all critical care pts) @ -[No] - Lab Data Result diagrams: 06/10/22 13:04 06/10/22 13:04 Lab Results 06/10/22 06/10/22 06/10/22 Range/Units 13:04 13:04 13:04 WBC 8.9 (3.8-10.6) k/uL RBC 4.79 (3.80-5.40) m/uL Hgb 14.5 (11.4-16.0) gm/dL Hct 43.2 (34.0-46.0) % MCV 90.2 (80.0-100.0) fL MCH 30.3 (25.0-35.0) pg MCHC 33.6 (31.0-37.0) g/dL RDW 13.0 (11.5-15.5) % Plt Count 376 (150-450) k/uL MPV 8.1 Neutrophils % 75 % Lymphocytes % 15 % Monocytes % 8 % Eosinophils % 0 % Basophils % 0 % Neutrophils # 6.6 (1.3-7.7) k/uL Lymphocytes # 1.3 (1.0-4.8) k/uL Monocytes # 0.7 (0-1.0) k/uL Eosinophils # 0.0 (0-0.7) k/uL Basophils # 0.0 (0-0.2) k/uL Sodium 138 (137-145) mmol/L Potassium 5.1 (3.5-5.1) mmol/L Chloride 102 (98-107) mmol/L Carbon Dioxide 30 (22-30) mmol/L Anion Gap 6 mmol/L BUN 14 (7-17) mg/dL Creatinine 0.51 L (0.52-1.04) mg/dL Est GFR (CKD-EPI)AfAm >90 (>60 ml/min/1.73 sqM) Est GFR (CKD-EPI)NonAf >90 (>60 ml/min/1.73 sqM) Glucose 84 (74-99) mg/dL Calcium 8.7 (8.4-10.2) mg/dL Total Bilirubin 0.3 (0.2-1.3) mg/dL AST 25 (14-36) U/L ALT 25 (4-34) U/L Alkaline Phosphatase 97 (38-126) U/L Total Protein 6.6 (6.3-8.2) g/dL Albumin 4.0 (3.5-5.0) g/dL Amylase 75 (30-110) U/L Lipase 79 (23-300) U/L Urine Color Urine Appearance (Clear) Urine pH (5.0-8.0) Ur Specific [place] (1.001-1.035) Urine Protein (Negative) Urine Glucose (UA) (Negative) Urine Ketones (Negative) Urine Blood (Negative) Urine Nitrite (Negative) Urine Bilirubin (Negative) Urine Urobilinogen (<2.0) mg/dL Ur Leukocyte Esterase (Negative) Amorphous Sediment (None) /hpf Urine Mucus (None) /hpf Influenza Type A (PCR) Not Detected (Not Detectd) Influenza Type B (PCR) Not Detected (Not Detectd) RSV (PCR) Not Detected (Not Detectd) SARS-CoV-2 (PCR) Not Detected (Not Detectd) 06/10/22 Range/Units 13:17 WBC (3.8-10.6) k/uL RBC (3.80-5.40) m/uL Hgb (11.4-16.0) gm/dL Hct (34.0-46.0) % MCV (80.0-100.0) fL MCH (25.0-35.0) pg MCHC (31.0-37.0) g/dL RDW (11.5-15.5) % Plt Count (150-450) k/uL MPV Neutrophils % % Lymphocytes % % Monocytes % % Eosinophils % % Basophils % % Neutrophils # (1.3-7.7) k/uL Lymphocytes # (1.0-4.8) k/uL Monocytes # (0-1.0) k/uL Eosinophils # (0-0.7) k/uL Basophils # (0-0.2) k/uL Sodium (137-145) mmol/L Potassium (3.5-5.1) mmol/L Chloride (98-107) mmol/L Carbon Dioxide (22-30) mmol/L Anion Gap mmol/L BUN (7-17) mg/dL Creatinine (0.52-1.04) mg/dL Est GFR (CKD-EPI)AfAm (>60 ml/min/1.73 sqM) Est GFR (CKD-EPI)NonAf (>60 ml/min/1.73 sqM) Glucose (74-99) mg/dL Calcium (8.4-10.2) mg/dL Total Bilirubin (0.2-1.3) mg/dL AST (14-36) U/L ALT (4-34) U/L Alkaline Phosphatase (38-126) U/L Total Protein (6.3-8.2) g/dL Albumin (3.5-5.0) g/dL Amylase (30-110) U/L Lipase (23-300) U/L Urine Color Yellow Urine Appearance Turbid H (Clear) Urine pH 7.5 (5.0-8.0) Ur Specific [place] 1.018 (1.001-1.035) Urine Protein Trace H (Negative) Urine Glucose (UA) Negative (Negative) Urine Ketones Negative (Negative) Urine Blood Negative (Negative) Urine Nitrite Negative (Negative) Urine Bilirubin Negative (Negative) Urine Urobilinogen 2.0 (<2.0) mg/dL Ur Leukocyte Esterase Negative (Negative) Amorphous Sediment Many H (None) /hpf Urine Mucus Moderate H (None) /hpf Influenza Type A (PCR) (Not Detectd) Influenza Type B (PCR) (Not Detectd) RSV (PCR) (Not Detectd) SARS-CoV-2 (PCR) (Not Detectd) Disposition Clinical Impression: Gastroenteritis Disposition: HOME SELF-CARE Condition: Stable Instructions (If sedation given, give patient instructions): Acute Nausea and Vomiting (ED) Additional Instructions: Please return to the Emergency Department if symptoms worsen or any other conc erns. Prescriptions: Ondansetron Odt [Zofran Odt] 4 mg PO Q8HR PRN #10 tab PRN Reason: Nausea Is patient prescribed a controlled substance at d/c from ED?: No Referrals: Christopher Cook MD [Primary Care Provider] - 1-2 days Time of Disposition: 14:48
[2022-06-10 12:36] VITALS: TEMP 98.2
[2022-06-10 13:48] LABS: Basophils % (A) 0 %; Eosinophils % (A) 0 %; HCT 43.2 % (34.0-46.0); HGB 14.5 gm/dL (11.4-16.0); Lymphocytes # (A) 1.3 k/uL (1.0-4.8); Lymphocytes % (A) 15 %; MCH 30.3 pg (25.0-35.0); MCHC 33.6 g/dL (31.0-37.0); MCV 90.2 fL (80.0-100.0); Mean Platelet Volume 8.1; Monocytes # (A) 0.7 k/uL (0-1.0); Monocytes % (A) 8 %; Neutrophils # (A) 6.6 k/uL (1.3-7.7); Neutrophils % (A) 75 %; Platelet Count 376 k/uL (150-450); RBC 4.79 m/uL (3.80-5.40); WBC 8.9 k/uL (3.8-10.6)
[2022-06-10] MEDS ORDERED: FAMOTIDINE 20 MG/2 ML VIAL IV STA (13:58)
[2022-06-10] MEDS ORDERED: METOCLOPRAMIDE 5 MG/ML 2 ML VIAL IVP STA (13:58)
[2022-06-10] MEDS ORDERED: KETOROLAC 15 MG/ML 1 ML VIAL IVP STA (13:58)
[2022-06-10 14:00] LABS: Amorphous Sediment,Urine Many /hpf; Appearance,Urine Turbid (Clear); Bilirubin,Urine Negative (Negative); Blood,Urine Negative (Negative); Color,Urine Yellow; Glucose,Urine (UA) Negative (Negative); Ketones,Urine Negative (Negative); Leukocyte Esterase,Urine Negative (Negative); Mucus,Urine Moderate /hpf; Nitrite,Urine Negative (Negative); PH, Urine 7.5 (5.0-8.0); Protein,Urine Trace (Negative); Specific Gravity,Urine 1.018 (1.001-1.035)
[2022-06-10 14:11] LABS: ALT 25 U/L (4-34); AST 25 U/L (14-36); African American GFR (CKD) >90 (>60 ml/min/1.73 sqM); Alkaline Phosphatase 97 U/L (38-126); Amylase 75 U/L (30-110); Anion Gap 6 mmol/L; Blood Urea Nitrogen 14 mg/dL (7-17); Calcium 8.7 mg/dL (8.4-10.2); Carbon Dioxide 30 mmol/L (22-30); Chloride 102 mmol/L (98-107); Glucose 84 mg/dL (74-99); Lipase 79 U/L (23-300); Non-African American GFR(CKD) >90 (>60 ml/min/1.73 sqM); Potassium 5.1 mmol/L (3.5-5.1); Sodium 138 mmol/L (137-145); Total Bilirubin 0.3 mg/dL (0.2-1.3); Total Protein 6.6 g/dL (6.3-8.2)
[2022-06-10 15:36] VITALS: BP 146/96; PULSE 108; RESP 18
== END 2022-06-10 15:39 | disposition home or self-care (01) ==
LOC: EC 12:30
DX: K52.9 Noninfective gastroenteritis and colitis, unspecified (principal); J45.909 Unspecified asthma, uncomplicated; E78.5 Hyperlipidemia, unspecified; M19.90 Unspecified osteoarthritis, unspecified site; F32.A Depression, unspecified; Z87.891 Personal history of nicotine dependence; Z79.899 Other long term (current) drug therapy; Z79.1 Long term (current) use of non-steroidal anti-inflammatories (NSAID); Z79.51 Long term (current) use of inhaled steroids; Z20.822 Contact with and (suspected) exposure to COVID-19; Z88.8 Allergy status to other drugs, medicaments and biological substances; Z91.048 Other nonmedicinal substance allergy status
CPT/HCPCS: 36415; 80053; 82150; 83690; 85025; 81001; 87636; 99284; 96374; 96375 ×2; J2765; J1885

== ENCOUNTER → 2022-06-17 | Outpatient (CLI) | payer MEDICARE, OTHER ==
--- NOTE | 2022-06-17 15:38 | P.PN ---
Progress Note - Text Progress Note Date: 06/17/22 Xenia is a 51 year old white female status post needle localization and lumpectomy on 05-24-22. Pathology revealed an intra-ductal papilloma. Patient tolerated the procedure without difficulty. She has had some itching related to the Steri-Strips and some mild erythema related to the Steri-Strips. She was given a course of Keflex. The redness has improved. No fever or chills. Physical exam: Lungs: Clear Heart: Regular rate and rhythm Incision: Erythema improved Plan: incision clean and dry Patient follow-up in 6 months right breast mammogram CC: DR. Cook
== END ==
LOC: WWCWWP 14:42
PROVIDERS: ATTEND Surgery
DX: R92.8 Other abnormal and inconclusive findings on diagnostic imaging of breast (principal); Z87.891 Personal history of nicotine dependence; Z88.8 Allergy status to other drugs, medicaments and biological substances

== ENCOUNTER 2022-10-24 22:18 | Emergency (ER) | payer MEDICARE, OTHER ==
[2022-10-24 22:32] VITALS: BP 144/98; PULSE 90; RESP 16; TEMP 98.4
[2022-10-24 22:54] LABS: Basophils % (A) 0 %; Eosinophils % (A) 0 %; HCT 44.7 % (34.0-46.0); HGB 15.2 gm/dL (11.4-16.0); Lymphocytes # (A) 2.4 k/uL (1.0-4.8); Lymphocytes % (A) 26 %; MCH 29.9 pg (25.0-35.0); MCV 88.1 fL (80.0-100.0); Mean Platelet Volume 7.6; Monocytes # (A) 0.8 k/uL (0-1.0); Monocytes % (A) 8 %; Neutrophils # (A) 5.9 k/uL (1.3-7.7); Neutrophils % (A) 62 %; Platelet Count 316 k/uL (150-450); RBC 5.07 m/uL (3.80-5.40); RDW 12.9 % (11.5-15.5); WBC 9.4 k/uL (3.8-10.6)
--- NOTE | 2022-10-24 23:06 | ED ---
General Adult HPI - General Chief complaint: Chest Pain Stated complaint: Chest pain Time Seen by Provider: 10/24/22 22:34 Source: patient, RN notes reviewed, old records reviewed Mode of arrival: EMS - History of Present Illness Initial comments: 51-year-old female presenting for evaluation of chest pain which began just prior to arrival. Patient states that she developed a substernal chest pain without vomiting or diaphoresis which is currently significantly improved. Kath gustafson denies previous cardiac history. She states she does have some cough and dyspnea which she attributes to her asthma and is chronic and unchanged. No fever. No abdominal pain. - Related Data Home Medications Medication Instructions Recorded Confirmed ondansetron HCL [Zofran] 4 mg PO BID PRN 01/25/21 06/17/22 Folic Acid 1 mg PO DAILY 02/01/21 06/17/22 Atorvastatin [Lipitor] 40 mg PO HS 03/28/22 06/17/22 Budesonide/Glycopyr/Formoterol 1 puff INHALATION RT-BID PRN 03/28/22 06/17/22 [Breztri Aerosphere Inhaler] Bumetanide [BUMEX] 0.5 mg PO DAILY 03/28/22 06/17/22 Dasetta 1 tab PO DAILY 03/28/22 06/17/22 Galcanezumab-Gnlm [Emgality 120 mg SQ QMONTHLY 03/28/22 06/17/22 Syringe] Ibuprofen [Motrin] 600 mg PO DAILY PRN 03/28/22 06/17/22 amLODIPine [Norvasc] 10 mg PO DAILY 03/28/22 06/17/22 Omeprazole 20 mg PO BID 05/24/22 06/17/22 Potassium Citrate [Urocit-K] 20 meq PO BID 05/24/22 06/17/22 SUMAtriptan succinate [Imitrex] 100 mg PO DAILY 05/24/22 06/17/22 Previous Rx's Medication Instructions Recorded OXcarbazepine [Trileptal] 900 mg PO BID 30 Days #60 tab 03/29/22 Ondansetron Odt [Zofran Odt] 4 mg PO Q8HR PRN #10 tab 06/10/22 Allergies Allergy/AdvReac Type Severity Reaction Status Date / Time phenytoin sodium Allergy Rash/Hives Verified 10/24/22 22:24 [From Dilantin] phenytoin sodium extended Allergy Rash/Hives Verified 10/24/22 22:24 [From Dilantin] zinc gluconate Allergy Rash/Hives Verified 10/24/22 22:24 [From Cold-Eeze] Review of Systems ROS Statement: Those systems with pertinent positive or pertinent negative responses have been documented in the HPI. ROS Other: All systems not noted in ROS Statement are negative. Past Medical History Past Medical History: Asthma, Hyperlipidemia, Musculoskeletal Disorder, Osteoarthritis (OA), Seizure Disorder, Thyroid Disorder Additional Past Medical History / Comment(s): Kidney stones X3. "CEREBRAL PALSY, VERY JERKY LT SIDE, MANDI ARM." UNABLE TO READ. . THYROID Nodules. LAST SEIZURE 2017 EST. Migraine. . patient walks with out assistance. pt very poor historian, History of Any Multi-Drug Resistant Organisms: None Reported Past Surgical History: Appendectomy, Cholecystectomy, Orthopedic Surgery Additional Past Surgical History / Comment(s): BIOPSY Lung Surgery. KIDNEY STONE PROC. SURGERY ON TENDONS BALDOMERO KNEES. Past Anesthesia/Blood Transfusion Reactions: Previous Problems w/ Anesthesia Additional Past Anesthesia/Blood Transfusion Reaction / Comment(s): HAD PROBLEMS BREATHING DURING LUNG BIOPSY. MOTHER "NOT AWAKENING FOR 24 HRS AFTER PROCEDURE." Past Psychological History: Depression Smoking Status: Former smoker Past Alcohol Use History: Rare Past Drug Use History: None Reported - Past Family History Mother Family Medical History: No Reported History Additional Family Medical History / Comment(s): Maternal grandfather had an [place]. Father Family Medical History: No Reported History General Exam General appearance: alert, in no apparent distress Head exam: Present: atraumatic, normocephalic Eye exam: Present: normal appearance, PERRL ENT exam: Present: normal exam Neck exam: Present: normal inspection. Absent: tenderness, meningismus Respiratory exam: Present: normal lung sounds bilaterally. Absent: respiratory distress, wheezes Cardiovascular Exam: Present: regular rate, normal rhythm GI/Abdominal exam: Present: soft. Absent: distended, tenderness, guarding Extremities exam: Present: normal inspection, normal capillary refill. Absent: pedal edema Neurological exam: Present: alert, oriented X3 Skin exam: Present: warm, dry, intact. Absent: cyanosis, diaphoretic Course Vital Signs 10/24/22 22:22 Temperature 98.4 F Pulse Rate 90 Respiratory 16 Rate Blood Pressure 144/98 O2 Sat by Pulse 96 Oximetry Medical Decision Making - Medical Decision Making Was pt. sent in by a medical professional or institution (JARRETT Dave, [employer] COLUMN OPERATOR, urgent care, hospital, or long term...) When possible be specific @ -No Did you speak to anyone other than the patient for history (EMS, parent, family, police, friend...)? What history was obtained from this source @ -No Did you review nursing and triage notes (agree or disagree)? Why? @ -I reviewed and agree with nursing and triage notes Were old charts reviewed (outside hosp., previous admission, EMS record, old EKG, old radiological studies, urgent care reports/EKG's, long term records)? Report findings @ -No old charts were reviewed Differential Diagnosis (chest pain, altered mental status, abdominal pain women, abdominal pain men, vaginal bleeding, weakness, fever, dyspnea, syncope, headache, dizziness, GI bleed, back pain, seizure, CVA, palpatations, mental health, musculoskeletal)? @ Differential Chest Pain: Stable Angina, Unstable Angina, STEMI, NSTEMI Aortic Dissection, Pneumothorax, Musculoskeletal, Esophageal Spasm GERD, Cholecystitis, Pancreatitis, Zoster, this is not meant to be an all-inclusive list. EKG interpreted by me (3pts min.). @ Sinus rhythm, left atrial enlargement and incomplete right bundle, rate of 93, OH interval 178, QRS duration 105, QTC 414 X-rays interpreted by me (1pt min.). @Chest x-ray negative for acute cardiopulmonary findings, reviewed by myself CT interpreted by me (1pt min.). @ -None done U/S interpreted by me (1pt. min.). @ -None done What testing was considered but not performed or refused? (CT, X-rays, U/S, labs)? Why? @ -None What meds were considered but not given or refused? Why? @ -None Did you discuss the management of the patient with other professionals (professionals i.e. JARRETT Dave, SODA COLUMN OPERATOR, lab, RT, psych nurse, social worker clinical, horse identifier, teacher, animal services officer, case therapist)? Give summary @ -No Was smoking cessation discussed for >3mins.? @ -No Was critical care preformed (if so, how long)? @ -No Were there social determinants of health that impacted care today? How? (Homelessness, low income, unemployed, alcoholism, drug addiction, transportation, low edu. Level, literacy, decrease access to med. care, snf, rehab)? @ -No Was there de-escalation of care discussed even if they declined (Discuss DNR or withdrawal of care, Hospice)? DNR status @ -No What co-morbidities impacted this encounter? (DM, HTN, Smoking, COPD, CAD, Cancer, CVA, ARF, Chemo, Hep., AIDS, mental health diagnosis, sleep apnea, morbid obesity)? @ Asthma Was patient admitted / discharged? Hospital course, mention meds given and route, prescriptions, significant lab abnormalities, going to OR and other pertinent info. @ 51-year-old female with chest pain which was nearly resolved at the time my initial evaluation. EKG showed a right bundle-branch block without ST segment elevation. Chest x-ray is clear. Normal CBC, initial troponin is negative. I did discuss admission for serial cardiac enzymes, telemetry and cardiology consultation. Patient prefers discharge. She agrees to repeat troponin testing in the emergency department. Throughout troponin is also negative. Patient remains chest pain-free and is given strict return parameters. Undiagnosed new problem with uncertain prognosis? @ -No Drug Therapy requiring intensive monitoring for toxicity (Heparin, Nitro, Insulin, Cardizem)? @ -No Were any procedures done? @ -No Diagnosis/symptom? @ Chest pain Acute, or Chronic, or Acute on Chronic? @ Acute Uncomplicated (without systemic symptoms) or Complicated (systemic symptoms)? @ -Complicated Side effects of treatment? @ -No Exacerbation, Progression, or Severe Exacerbation? @ -No Poses a threat to life or bodily function? How? (Chest pain, USA, [place], pneumonia, PE, COPD, DKA, ARF, appy, cholecystitis, CVA, Diverticulitis, Homicidal, Suicidal, threat to staff... and all critical care pts) @ -[Yes, chest pain - Lab Data Result diagrams: 10/24/22 22:38 10/24/22 22:38 Lab Results 10/24/22 10/24/22 10/24/22 Range/Units 22:38 22:38 22:38 WBC 9.4 (3.8-10.6) k/uL RBC 5.07 (3.80-5.40) m/uL Hgb 15.2 (11.4-16.0) gm/dL Hct 44.7 (34.0-46.0) % MCV 88.1 (80.0-100.0) fL MCH 29.9 (25.0-35.0) pg MCHC 34.0 (31.0-37.0) g/dL RDW 12.9 (11.5-15.5) % Plt Count 316 (150-450) k/uL MPV 7.6 Neutrophils % 62 % Lymphocytes % 26 % Monocytes % 8 % Eosinophils % 0 % Basophils % 0 % Neutrophils # 5.9 (1.3-7.7) k/uL Lymphocytes # 2.4 (1.0-4.8) k/uL Monocytes # 0.8 (0-1.0) k/uL Eosinophils # 0.0 (0-0.7) k/uL Basophils # 0.0 (0-0.2) k/uL PT 9.5 (9.0-12.0) sec INR 0.9 (<1.2) APTT 23.4 (22.0-30.0) sec D-Dimer (<0.60) mg/L FEU Sodium 135 L (137-145) mmol/L Potassium 3.4 L (3.5-5.1) mmol/L Chloride 93 L (98-107) mmol/L Carbon Dioxide 35 H (22-30) mmol/L Anion Gap 7 mmol/L BUN 15 (7-17) mg/dL Creatinine 0.58 (0.52-1.04) mg/dL Est GFR (CKD-EPI)AfAm >90 (>60 ml/min/1.73 sqM) Est GFR (CKD-EPI)NonAf >90 (>60 ml/min/1.73 sqM) Glucose 109 H (74-99) mg/dL Calcium 9.4 (8.4-10.2) mg/dL Magnesium 2.0 (1.6-2.3) mg/dL Total Bilirubin 0.3 (0.2-1.3) mg/dL AST 28 (14-36) U/L ALT 26 (4-34) U/L Alkaline Phosphatase 101 (38-126) U/L Troponin I (0.000-0.034) ng/mL Total Protein 6.8 (6.3-8.2) g/dL Albumin 4.1 (3.5-5.0) g/dL Lipase 104 (23-300) U/L 10/24/22 10/24/22 10/25/22 Range/Units 22:38 22:38 00:58 WBC (3.8-10.6) k/uL RBC (3.80-5.40) m/uL Hgb (11.4-16.0) gm/dL Hct (34.0-46.0) % MCV (80.0-100.0) fL MCH (25.0-35.0) pg MCHC (31.0-37.0) g/dL RDW (11.5-15.5) % Plt Count (150-450) k/uL MPV Neutrophils % % Lymphocytes % % Monocytes % % Eosinophils % % Basophils % % Neutrophils # (1.3-7.7) k/uL Lymphocytes # (1.0-4.8) k/uL Monocytes # (0-1.0) k/uL Eosinophils # (0-0.7) k/uL Basophils # (0-0.2) k/uL PT (9.0-12.0) sec INR (<1.2) APTT (22.0-30.0) sec D-Dimer <0.17 (<0.60) mg/L FEU Sodium (137-145) mmol/L Potassium (3.5-5.1) mmol/L Chloride (98-107) mmol/L Carbon Dioxide (22-30) mmol/L Anion Gap mmol/L BUN (7-17) mg/dL Creatinine (0.52-1.04) mg/dL Est GFR (CKD-EPI)AfAm (>60 ml/min/1.73 sqM) Est GFR (CKD-EPI)NonAf (>60 ml/min/1.73 sqM) Glucose (74-99) mg/dL Calcium (8.4-10.2) mg/dL Magnesium (1.6-2.3) mg/dL Total Bilirubin (0.2-1.3) mg/dL AST (14-36) U/L ALT (4-34) U/L Alkaline Phosphatase (38-126) U/L Troponin I <0.012 <0.012 (0.000-0.034) ng/mL Total Protein (6.3-8.2) g/dL Albumin (3.5-5.0) g/dL Lipase (23-300) U/L Disposition Clinical Impression: Chest pain Disposition: HOME SELF-CARE Condition: Fair Instructions (If sedation given, give patient instructions): Chest Pain (ED) Is patient prescribed a controlled substance at d/c from ED?: No Referrals: Christopher Cook MD [Primary Care Provider] - 1-2 days Time of Disposition: 01:53
[2022-10-24 23:10] LABS: INR 0.9 (<1.2); Partial Thromboplastin Time 23.4 sec (22.0-30.0); Prothrombin Time 9.5 sec (9.0-12.0)
[2022-10-24 23:11] LABS: ALT 26 U/L (4-34); AST 28 U/L (14-36); African American GFR (CKD) >90 (>60 ml/min/1.73 sqM); Albumin 4.1 g/dL (3.5-5.0); Alkaline Phosphatase 101 U/L (38-126); Anion Gap 7 mmol/L; Blood Urea Nitrogen 15 mg/dL (7-17); Calcium 9.4 mg/dL (8.4-10.2); Carbon Dioxide 35 mmol/L (22-30); Chloride 93 mmol/L (98-107); Glucose 109 mg/dL (74-99); Lipase 104 U/L (23-300); Non-African American GFR(CKD) >90 (>60 ml/min/1.73 sqM); Potassium 3.4 mmol/L (3.5-5.1); Sodium 135 mmol/L (137-145); Total Bilirubin 0.3 mg/dL (0.2-1.3); Total Protein 6.8 g/dL (6.3-8.2)
--- NOTE | 2022-10-24 23:44 | XR ---
EXAMINATION TYPE: XR chest 2V DATE OF EXAM: 10/24/2022 COMPARISON: 01/02/2022 INDICATION: Chest pain TECHNIQUE: Frontal and lateral views of the chest are obtained. FINDINGS: The heart size is normal. The pulmonary vasculature is normal. The lungs are clear. IMPRESSION: 1. No acute pulmonary process.
== END 2022-10-25 02:06 | disposition home or self-care (01) ==
LOC: EC 22:18
DX: R07.89 Other chest pain (principal); J45.909 Unspecified asthma, uncomplicated; E78.5 Hyperlipidemia, unspecified; F32.A Depression, unspecified; M19.90 Unspecified osteoarthritis, unspecified site; Z79.51 Long term (current) use of inhaled steroids; Z79.899 Other long term (current) drug therapy; Z79.1 Long term (current) use of non-steroidal anti-inflammatories (NSAID); Z87.891 Personal history of nicotine dependence
CPT/HCPCS: 36415; 71046; 80053; 83690; 83735; 84484; 85025; 85379; 85610; 85730; 93005; 99285

== ENCOUNTER 2022-11-18 16:46 | Emergency (ER) | payer MEDICARE, OTHER ==
[2022-11-18 17:38] VITALS: TEMP 98
[2022-11-18] MEDS ORDERED: LIDOCAINE 1% INJ 10MG/ML (30 ML VIAL-PF) SQ ONE (17:46)
[2022-11-18] MEDS ORDERED: DIPH,PERTUS(ACELL)TETVAC-LF 0.5 ML VIAL IM ONE (17:46)
--- NOTE | 2022-11-18 17:46 | ED ---
General Adult HPI - General Chief complaint: Fall Stated complaint: Fall/head laceration Source: patient, RN notes reviewed Mode of arrival: wheelchair Limitations: no limitations - History of Present Illness Initial comments: 52-year-old female presents to the emergency department with chief complaint of fall. Patient states that she tripped over the vacuum cleaner carpet and upholstery. Patient has laceration to her left sided eyebrow from her glasses. Denies any other injury. Denies loss of consciousness, dizziness, blood thinners. She does not know when she last got a tetanus shot. - Related Data Home Medications Medication Instructions Recorded Confirmed ondansetron HCL [Zofran] 4 mg PO BID PRN 01/25/21 06/17/22 Folic Acid 1 mg PO DAILY 02/01/21 06/17/22 Atorvastatin [Lipitor] 40 mg PO HS 03/28/22 06/17/22 Budesonide/Glycopyr/Formoterol 1 puff INHALATION RT-BID PRN 03/28/22 06/17/22 [Breztri Aerosphere Inhaler] Bumetanide [BUMEX] 0.5 mg PO DAILY 03/28/22 06/17/22 Dasetta 1 tab PO DAILY 03/28/22 06/17/22 Galcanezumab-Gnlm [Emgality 120 mg SQ QMONTHLY 03/28/22 06/17/22 Syringe] Ibuprofen [Motrin] 600 mg PO DAILY PRN 03/28/22 06/17/22 amLODIPine [Norvasc] 10 mg PO DAILY 03/28/22 06/17/22 Omeprazole 20 mg PO BID 05/24/22 06/17/22 Potassium Citrate [Urocit-K] 20 meq PO BID 05/24/22 06/17/22 SUMAtriptan succinate [Imitrex] 100 mg PO DAILY 05/24/22 06/17/22 Previous Rx's Medication Instructions Recorded OXcarbazepine [Trileptal] 900 mg PO BID 30 Days #60 tab 03/29/22 Ondansetron Odt [Zofran Odt] 4 mg PO Q8HR PRN #10 tab 06/10/22 Allergies Allergy/AdvReac Type Severity Reaction Status Date / Time phenytoin sodium Allergy Rash/Hives Verified 11/18/22 17:38 [From Dilantin] phenytoin sodium extended Allergy Rash/Hives Verified 11/18/22 17:38 [From Dilantin] zinc gluconate Allergy Rash/Hives Verified 11/18/22 17:38 [From Cold-Eeze] Review of Systems ROS Statement: Those systems with pertinent positive or pertinent negative responses have been documented in the HPI. ROS Other: All systems not noted in ROS Statement are negative. Past Medical History Past Medical History: Asthma, Hyperlipidemia, Musculoskeletal Disorder, Osteoarthritis (OA), Seizure Disorder, Thyroid Disorder Additional Past Medical History / Comment(s): Kidney stones X3. "CEREBRAL PALSY, VERY JERKY LT SIDE, MANDI ARM." UNABLE TO READ. . THYROID Nodules. LAST SEIZURE 2017 EST. Migraine. . patient walks with out assistance. pt very poor historian, History of Any Multi-Drug Resistant Organisms: None Reported Past Surgical History: Appendectomy, Cholecystectomy, Orthopedic Surgery Additional Past Surgical History / Comment(s): BIOPSY Lung Surgery. KIDNEY STONE PROC. SURGERY ON TENDONS BALDOMERO KNEES. Past Anesthesia/Blood Transfusion Reactions: Previous Problems w/ Anesthesia Additional Past Anesthesia/Blood Transfusion Reaction / Comment(s): HAD PROBLEMS BREATHING DURING LUNG BIOPSY. MOTHER "NOT AWAKENING FOR 24 HRS AFTER PROCEDURE." Past Psychological History: Depression Smoking Status: Former smoker Past Alcohol Use History: Rare Past Drug Use History: None Reported - Past Family History Mother Family Medical History: No Reported History Additional Family Medical History / Comment(s): Maternal grandfather had an [place]. Father Family Medical History: No Reported History General Exam - General Exam Comments Initial Comments: Visual Physical Exam Vital signs reviewed General: Well-appearing, nontoxic, no acute distress. Head: Normocephalic, laceration above left eyebrow Eyes: PERRLA, EOMI ENT: Airway patent Chest: Nonlabored breathing Skin: No visual rash, normal skin tone Neuro: Alert and oriented 3 Musculoskeletal: No gross abnormalities Limitations: no limitations General appearance: alert, in no apparent distress Head exam: Present: atraumatic, normocephalic, normal inspection Eye exam: Present: normal appearance, PERRL, EOMI. Absent: scleral icterus, conjunctival injection, periorbital swelling ENT exam: Present: normal exam, mucous membranes moist, TM's normal bilaterally, normal external ear exam Neck exam: Present: normal inspection. Absent: tenderness, meningismus, lymphadenopathy Respiratory exam: Present: normal lung sounds bilaterally. Absent: respiratory distress, wheezes, rales, rhonchi, stridor Cardiovascular Exam: Present: regular rate, normal rhythm, normal heart sounds. Absent: systolic murmur, diastolic murmur, rubs, gallop, clicks GI/Abdominal exam: Present: soft, normal bowel sounds. Absent: distended, tenderness, guarding, rebound, rigid Extremities exam: Present: normal inspection, full ROM, normal capillary refill. Absent: tenderness, pedal edema, joint swelling, calf tenderness Back exam: Present: normal inspection Neurological exam: Present: alert, oriented X3, CN II-XII intact, other (GCS15) Psychiatric exam: Present: normal affect, normal mood Skin exam: Present: warm, dry, normal color, other (laceration to left eyebrow about 2cm ). Absent: rash Course Vital Signs 11/18/22 17:35 Temperature 98.0 F Pulse Rate 82 Respiratory 20 Rate Blood Pressure 124/78 O2 Sat by Pulse 97 Oximetry Procedures - Laceration Laceration #1 Consent Obtained: verbal consent Indication: laceration Site: face Size (cm): 2 Description: linear Depth: simple, single layer Anesthetic Used: lidocaine 1% Anesthesia Technique: local infiltration Pre-repair: wound explored, irrigated extensively Type of Sutures: other (monofilament) Size of Sutures: 5-0 Number of Sutures: 6 Technique: simple, interrupted Patient Tolerated Procedure: well, no complications Medical Decision Making - Medical Decision Making Was pt. sent in by a medical professional or institution (JARRETT Dave, LAW CLERK, urgent care, hospital, or custodial...) When possible be specific @ -No Did you speak to anyone other than the patient for history (EMS, parent, family, police, friend...)? What history was obtained from this source @ -No Did you review nursing and triage notes (agree or disagree)? Why? @ -I reviewed and agree with nursing and triage notes Were old charts reviewed (outside hosp., previous admission, EMS record, old EKG, old radiological studies, urgent care reports/EKG's, custodial records)? Report findings @ -No old charts were reviewed Differential Diagnosis (chest pain, altered mental status, abdominal pain women, abdominal pain men, vaginal bleeding, weakness, fever, dyspnea, syncope, headache, dizziness, GI bleed, back pain, seizure, CVA, palpatations, mental health, musculoskeletal)? @ -laceration, abrasion, fall, this list is not all inclusive EKG interpreted by me (3pts min.). @ -none X-rays interpreted by me (1pt min.). @ -None done CT interpreted by me (1pt min.). @ -None done U/S interpreted by me (1pt. min.). @ -None done What testing was considered but not performed or refused? (CT, X-rays, U/S, labs)? Why? @ -CT brain was considered but decided against based on [place] head CT rules and shared decision making What meds were considered but not given or refused? Why? @ -None Did you discuss the management of the patient with other professionals (professionals i.e. , PA, LAW CLERK, lab, RT, psych nurse, social security specialist, emergency medicine physician assistant, teacher, agricultural loan officer, medical case manager)? Give summary @ -No Was smoking cessation discussed for >3mins.? @ -No Was critical care preformed (if so, how long)? @ -No Were there social determinants of health that impacted care today? How? (Homelessness, low income, unemployed, alcoholism, drug addiction, transportation, low edu. Level, literacy, decrease access to med. care, senior care, rehab)? @ -No Was there de-escalation of care discussed even if they declined (Discuss DNR or withdrawal of care, Hospice)? DNR status @ -No What co-morbidities impacted this encounter? (DM, HTN, Smoking, COPD, CAD, Cancer, CVA, ARF, Chemo, Hep., AIDS, mental health diagnosis, sleep apnea, morbid obesity)? @ -None Was patient admitted / discharged? Hospital course, mention meds given and route, prescriptions, significant lab abnormalities, going to OR and other pertinent info. @ -Discharged. Patient presented to emergency department chief complaint of fall. Patient states that it was a mechanical fall in which she tripped over the vacuum cleaner carpet and upholstery she states that her glasses when into her left eyebrow causing a laceration. She states that she did not injure anything else. Denies loss consciousness, blood thinners. She states she is otherwise feeling fine at this time. Laceration to the left eyebrow was repaired with 6 simple interrupted sutures. [place] head CT rules and shared decision-making was used to decided against CT brain at this time. Patient and family advised of return precautions and advised follow-up with her primary care provider for suture removal in the next week. Patient discharged in stable condition. Case discussed my attending, Dr. Ramires Undiagnosed new problem with uncertain prognosis? @ -No Drug Therapy requiring intensive monitoring for toxicity (Heparin, Nitro, Insulin, Cardizem)? @ -No Were any procedures done? @ -Yes laceration repair Diagnosis/symptom? @ -Laceration Acute, or Chronic, or Acute on Chronic? @ -Acute Uncomplicated (without systemic symptoms) or Complicated (systemic symptoms)? @ -Uncomplicated Side effects of treatment? @ -No Exacerbation, Progression, or Severe Exacerbation? @ -No Poses a threat to life or bodily function? How? (Chest pain, [place], [place], pneumonia, PE, COPD, DKA, ARF, appy, cholecystitis, CVA, Diverticulitis, Homicidal, Suicidal, threat to staff... and all critical care pts) @ -No Disposition Clinical Impression: Fall, Laceration Disposition: HOME SELF-CARE Condition: Stable Instructions (If sedation given, give patient instructions): Care For Your Stitches (ED) Additional Instructions: Follow up with your primary care provider for suture removal early next week. Please return to the emergency department for new or worsening symptoms. Is patient prescribed a controlled substance at d/c from ED?: No Referrals: Christopher Cook MD [Primary Care Provider] - 1-2 days Time of Disposition: 19:10
[2022-11-18] MEDS ORDERED: ACETAMINOPHEN TAB 500 MG TAB PO STA (19:10)
[2022-11-18 19:28] VITALS: BP 146/82; PULSE 103; RESP 22
== END 2022-11-18 19:28 | disposition home or self-care (01) ==
LOC: EC 16:46
DX: S01.112A Laceration without foreign body of left eyelid and periocular area, initial encounter (principal); J45.909 Unspecified asthma, uncomplicated; E78.5 Hyperlipidemia, unspecified; M19.90 Unspecified osteoarthritis, unspecified site; F32.A Depression, unspecified; Z87.891 Personal history of nicotine dependence; Z88.8 Allergy status to other drugs, medicaments and biological substances; Z79.899 Other long term (current) drug therapy; Z23 Encounter for immunization; W01.198A Fall on same level from slipping, tripping and stumbling with subsequent striking against other object, initial encounter
CPT/HCPCS: 90715; 99284; 90471; 12011; J2001

== ENCOUNTER → 2022-12-16 | Outpatient (CLI) | payer MEDICARE, OTHER | END | disposition home or self-care (01) | LOC: RADMAMWWP 14:13 | PROVIDERS: ATTEND Surgery | DX: Z53.9 Procedure and treatment not carried out, unspecified reason (principal) ==

== ENCOUNTER 2023-05-07 11:08 | Emergency (ER) | payer MEDICARE, OTHER ==
--- NOTE | 2023-05-07 11:27 | ED ---
Abdominal Pain HPI - General Chief Complaint: Abdominal Pain Stated Complaint: Abd Pain Source: patient Mode of arrival: ambulatory Limitations: no limitations - History of Present Illness Initial Comments: The patient is a 52-year-old female presents emergency room with complaint of lower abdominal pain that started this morning. The pain resolved with a dose of fentanyl given by EMS. She had taken Tylenol prior to EMS arriving as well. Patient currently is a 2-10 pain patient is a dizzy hematuria and frequency. She denies any fevers, constipation or diarrhea. She denies any dark or tarry stools recently. Patient states that when she had these had 10 pain she became nauseous and felt diaphoretic but that resolved with pain control. Has had a cholecystectomy in the past and believe she has had appendectomy. Last menstrual period was April 24 however she had a menstrual cycle early April as well and is likely perimenopausal - Related Data Home Medications Medication Instructions Recorded Confirmed ondansetron HCL [Zofran] 4 mg PO BID PRN 01/25/21 06/17/22 Folic Acid 1 mg PO DAILY 02/01/21 06/17/22 Atorvastatin [Lipitor] 40 mg PO HS 03/28/22 06/17/22 Budesonide/Glycopyr/Formoterol 1 puff INHALATION RT-BID PRN 03/28/22 06/17/22 [Breztri Aerosphere Inhaler] Bumetanide [BUMEX] 0.5 mg PO DAILY 03/28/22 06/17/22 Dasetta 1 tab PO DAILY 03/28/22 06/17/22 Galcanezumab-Gnlm [Emgality 120 mg SQ QMONTHLY 03/28/22 06/17/22 Syringe] Ibuprofen [Motrin] 600 mg PO DAILY PRN 03/28/22 06/17/22 amLODIPine [Norvasc] 10 mg PO DAILY 03/28/22 06/17/22 Omeprazole 20 mg PO BID 05/24/22 06/17/22 Potassium Citrate [Urocit-K] 20 meq PO BID 05/24/22 06/17/22 SUMAtriptan succinate [Imitrex] 100 mg PO DAILY 05/24/22 06/17/22 Previous Rx's Medication Instructions Recorded OXcarbazepine [Trileptal] 900 mg PO BID 30 Days #60 tab 03/29/22 Ondansetron Odt [Zofran Odt] 4 mg PO Q8HR PRN #10 tab 06/10/22 Allergies Allergy/AdvReac Type Severity Reaction Status Date / Time phenytoin sodium Allergy Rash/Hives Verified 05/07/23 11:25 [From Dilantin] phenytoin sodium extended Allergy Rash/Hives Verified 05/07/23 11:25 [From Dilantin] zinc gluconate Allergy Rash/Hives Verified 05/07/23 11:25 [From Cold-Eeze] Review of Systems ROS Statement: Those systems with pertinent positive or pertinent negative responses have been documented in the HPI. ROS Other: All systems not noted in ROS Statement are negative. Past Medical History Past Medical History: Asthma, Hyperlipidemia, Musculoskeletal Disorder, Osteoarthritis (OA), Seizure Disorder, Thyroid Disorder Additional Past Medical History / Comment(s): Kidney stones X3. "CEREBRAL PALSY, VERY JERKY LT SIDE, MANDI ARM." UNABLE TO READ. . THYROID Nodules. LAST SEIZURE 2017 EST. Migraine. . patient walks with out assistance. pt very poor historian, History of Any Multi-Drug Resistant Organisms: None Reported Past Surgical History: Appendectomy, Cholecystectomy, Orthopedic Surgery Additional Past Surgical History / Comment(s): BIOPSY Lung Surgery. KIDNEY STONE PROC. SURGERY ON TENDONS BALDOMERO KNEES. Past Anesthesia/Blood Transfusion Reactions: Previous Problems w/ Anesthesia Additional Past Anesthesia/Blood Transfusion Reaction / Comment(s): HAD PROBLEMS BREATHING DURING LUNG BIOPSY. MOTHER "NOT AWAKENING FOR 24 HRS AFTER PROCEDURE." Past Psychological History: Depression Smoking Status: Former smoker Past Alcohol Use History: Rare Past Drug Use History: None Reported - Past Family History Mother Family Medical History: No Reported History Additional Family Medical History / Comment(s): Maternal grandfather had an DE. Father Family Medical History: No Reported History General Exam - General Exam Comments Initial Comments: Visual Physical Exam Vital signs reviewed General: Well-appearing, nontoxic, no acute distress. Head: Normocephalic, atraumatic Eyes: PERRLA, EOMI ENT: Airway patent Chest: Nonlabored breathing Skin: No visual rash, normal skin tone Neuro: Alert and oriented 3 Musculoskeletal: No gross abnormalities Limitations: no limitations General appearance: alert, in no apparent distress Head exam: Present: atraumatic Eye exam: Present: normal appearance, PERRL ENT exam: Present: normal exam, other (Absent throughout) Neck exam: Present: normal inspection, full ROM Respiratory exam: Present: normal lung sounds bilaterally Cardiovascular Exam: Present: regular rate, normal rhythm GI/Abdominal exam: Present: soft, tenderness (minimal periumbilical pain). Absent: guarding, rebound, rigid, pulsatile mass Extremities exam: Present: full ROM Back exam: Present: full ROM Neurological exam: Present: alert, oriented X3, CN II-XII intact Psychiatric exam: Present: normal affect, normal mood Skin exam: Present: warm, dry Course Vital Signs 05/07/23 11:21 Temperature 98 F Pulse Rate 87 Respiratory 18 Rate Blood Pressure 111/67 O2 Sat by Pulse 99 Oximetry - Reevaluation(s) Reevaluation #1: 05/07/23 15:26 Patient's well appearing in the emergency room. Her pain is a 2/10 pain after the fentanyl given by EMS. Was given Toradol to further improve the pain. I discussed lab and imaging results with patient and mother bedside. 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 Patient understands discharge and treatment discharge plan. 05/07/23 15:27 Medical Decision Making - Medical Decision Making The quick note portion was completed by myself, electronically signed by SPENCER Ahn. Was pt. sent in by a medical professional or institution (JARRETT Dave, DENTAL TECHNICIAN APPRENTICE, urgent care, hospital, or alf...) When possible be specific @ -[No] Did you speak to anyone other than the patient for history (EMS, parent, family, police, friend...)? What history was obtained from this source @ -Family at the bedside Did you review nursing and triage notes (agree or disagree)? Why? @ -[I reviewed and agree with nursing and triage notes] Were old charts reviewed (outside hosp., previous admission, EMS record, old EKG, old radiological studies, urgent care reports/EKG's, alf records)? Report findings @ -Yes old charts were reviewed Differential Diagnosis (chest pain, altered mental status, abdominal pain women, abdominal pain men, vaginal bleeding, weakness, fever, dyspnea, syncope, headache, dizziness, GI bleed, back pain, seizure, CVA, palpatations, mental health, musculoskeletal)? @ -Gas, colitis, diverticulitis, urinary tract infection EKG interpreted by me (3pts min.). @ -[As above] X-rays interpreted by me (1pt min.). @ -[None done] CT interpreted by me (1pt min.). @ -CT is negative for any bowel obstruction, colitis, diverticulitis or other acute changes however there is some thickening of the endometrium likely consistent with her menstrual cycle or perimenopause U/S interpreted by me (1pt. min.). @ -[None done] What testing was considered but not performed or refused? (CT, X-rays, U/S, labs)? Why? @ -[None] What meds were considered but not given or refused? Why? @ -[None] Did you discuss the management of the patient with other professionals (professionals i.e. , PA, DENTAL TECHNICIAN APPRENTICE, lab, RT, psych nurse, social media strategist, carpenter maintenance, teacher, property and supply officer, onsite case manager)? Give summary @ -[No] Was smoking cessation discussed for >3mins.? @ -[No] Was critical care preformed (if so, how long)? @ -[No] Were there social determinants of health that impacted care today? How? (Homelessness, low income, unemployed, alcoholism, drug addiction, transportation, low edu. Level, literacy, decrease access to med. care, [facility], rehab)? @ -[No] Was there de-escalation of care discussed even if they declined (Discuss DNR or withdrawal of care, Hospice)? DNR status @ -[No] What co-morbidities impacted this encounter? (DM, HTN, Smoking, COPD, CAD, Ca ncer, CVA, ARF, Chemo, Hep., AIDS, mental health diagnosis, sleep apnea, morbid obesity)? @ -[None] Was patient admitted / discharged? Hospital course, mention meds given and route, prescriptions, significant lab abnormalities, going to OR and other pertinent info. @ -Patient has had very minimal pain throughout her ED stay. Her labs are u nremarkable and there is no significant changes seen on the computed tomography scan. She is stable to follow up as an outpatient. I recommended following up with a store management trainee as well. She understands [facility] treatment discharge plan. Undiagnosed new problem with uncertain prognosis? @ -[No] Drug Therapy requiring intensive monitoring for toxicity (Heparin, Nitro, Insulin, Cardizem)? @ -[No] Were any procedures done? @ -[No] Diagnosis/symptom? @ -Abdominal pain, thickened endometrium Acute, or Chronic, or Acute on Chronic? @ -Acute Uncomplicated (without systemic symptoms) or Complicated (systemic symptoms)? @ -[default] Side effects of treatment? @ -[No] Exacerbation, Progression, or Severe Exacerbation? @ -[No] Poses a threat to life or bodily function? How? (Chest pain, USA, DE, pneumonia, PE, COPD, DKA, ARF, appy, cholecystitis, CVA, Diverticulitis, Homicidal, Suicidal, threat to staff... and all critical care pts) @ -[No] - Lab Data Result diagrams: 05/07/23 11:59 05/07/23 11:59 Lab Results 05/07/23 05/07/23 05/07/23 Range/Units 11:59 11:59 11:59 WBC 8.6 (3.8-10.6) k/uL RBC 4.36 (3.80-5.40) m/uL Hgb 13.5 (11.4-16.0) gm/dL Hct 41.3 (34.0-46.0) % MCV 94.6 (80.0-100.0) fL MCH 30.9 (25.0-35.0) pg MCHC 32.6 (31.0-37.0) g/dL RDW 12.7 (11.5-15.5) % Plt Count 377 (150-450) k/uL MPV 7.7 Neutrophils % 77 % Lymphocytes % 14 % Monocytes % 7 % Eosinophils % 0 % Basophils % 0 % Neutrophils # 6.6 (1.3-7.7) k/uL Lymphocytes # 1.2 (1.0-4.8) k/uL Monocytes # 0.6 (0-1.0) k/uL Eosinophils # 0.0 (0-0.7) k/uL Basophils # 0.0 (0-0.2) k/uL Sodium 140 (137-145) mmol/L Potassium 3.7 (3.5-5.1) mmol/L Chloride 98 (98-107) mmol/L Carbon Dioxide 30 (22-30) mmol/L Anion Gap 12 mmol/L BUN 23 H (7-17) mg/dL Creatinine 0.62 (0.52-1.04) mg/dL Est GFR (CKD-EPI)AfAm >90 (>60 ml/min/1.73 sqM) Est GFR (CKD-EPI)NonAf >90 (>60 ml/min/1.73 sqM) Glucose 119 H (74-99) mg/dL Calcium 9.2 (8.4-10.2) mg/dL Total Bilirubin 0.4 (0.2-1.3) mg/dL AST 24 (14-36) U/L ALT 26 (4-34) U/L Alkaline Phosphatase 69 (38-126) U/L Total Protein 7.1 (6.3-8.2) g/dL Albumin 4.2 (3.5-5.0) g/dL Lipase 65 (23-300) U/L HCG, Quant <2.4 mIU/mL Urine Color Colorless Urine Appearance Clear (Clear) Urine pH 7.5 (5.0-8.0) Ur Specific [place] 1.010 (1.001-1.035) Urine Protein Negative (Negative) Urine Glucose (UA) Negative (Negative) Urine Ketones Negative (Negative) Urine Blood Negative (Negative) Urine Nitrite Negative (Negative) Urine Bilirubin Negative (Negative) Urine Urobilinogen <2.0 (<2.0) mg/dL Ur Leukocyte Esterase Negative (Negative) - Radiology Data Radiology results: report reviewed, image reviewed Disposition Clinical Impression: Abdominal pain, Thickened endometrium Disposition: HOME SELF-CARE Condition: Good Instructions (If sedation given, give patient instructions): Abdominal Pain (ED) Is patient prescribed a controlled substance at d/c from ED?: No Referrals: Christopher Cook MD [Primary Care Provider] - 1-2 days Time of Disposition: 15:31
[2023-05-07 11:40] VITALS: RESP 18; TEMP 98
[2023-05-07 13:19] LABS: Basophils % (A) 0 %; Eosinophils % (A) 0 %; HCT 41.3 % (34.0-46.0); HGB 13.5 gm/dL (11.4-16.0); Lymphocytes # (A) 1.2 k/uL (1.0-4.8); Lymphocytes % (A) 14 %; MCH 30.9 pg (25.0-35.0); MCHC 32.6 g/dL (31.0-37.0); MCV 94.6 fL (80.0-100.0); Mean Platelet Volume 7.7; Monocytes # (A) 0.6 k/uL (0-1.0); Monocytes % (A) 7 %; Neutrophils # (A) 6.6 k/uL (1.3-7.7); Neutrophils % (A) 77 %; Platelet Count 377 k/uL (150-450); RBC 4.36 m/uL (3.80-5.40); RDW 12.7 % (11.5-15.5); WBC 8.6 k/uL (3.8-10.6)
[2023-05-07 13:47] LABS: ALT 26 U/L (4-34); AST 24 U/L (14-36); African American GFR (CKD) >90 (>60 ml/min/1.73 sqM); Albumin 4.2 g/dL (3.5-5.0); Alkaline Phosphatase 69 U/L (38-126); Anion Gap 12 mmol/L; Blood Urea Nitrogen 23 mg/dL (7-17); Calcium 9.2 mg/dL (8.4-10.2); Carbon Dioxide 30 mmol/L (22-30); Chloride 98 mmol/L (98-107); Glucose 119 mg/dL (74-99); Lipase 65 U/L (23-300); Non-African American GFR(CKD) >90 (>60 ml/min/1.73 sqM); Potassium 3.7 mmol/L (3.5-5.1); Sodium 140 mmol/L (137-145); Total Bilirubin 0.4 mg/dL (0.2-1.3); Total Protein 7.1 g/dL (6.3-8.2)
[2023-05-07 14:03] LABS: HCG,Quantitative Serum <2.4 mIU/mL
[2023-05-07 14:08] LABS: Appearance,Urine Clear (Clear); Bilirubin,Urine Negative (Negative); Blood,Urine Negative (Negative); Color,Urine Colorless; Glucose,Urine (UA) Negative (Negative); Ketones,Urine Negative (Negative); Leukocyte Esterase,Urine Negative (Negative); Nitrite,Urine Negative (Negative); PH, Urine 7.5 (5.0-8.0); Protein,Urine Negative (Negative); Urobilinogen,Urine <2.0 mg/dL (<2.0)
--- NOTE | 2023-05-07 14:35 | CT ---
EXAMINATION TYPE: CT abdomen pelvis w con CT DLP: 536.8 mGycm, Automated exposure control for dose reduction was used. DATE OF EXAM: 05/07/2023 2:22 PM COMPARISON: CT abdomen pelvis most recent from CLINICAL INDICATION:Female, 52 years old with history of lower abdominal pain. TECHNIQUE: Axial CT of the abdomen and pelvis. Sagittal and coronal reformats were created on a [employer] workstation. Contrast used:100 mL of Isovue 300 with IV Contrast, (none if empty) Oral contrast used: without Oral Contrast (none if empty) FINDINGS: LOWER CHEST: Unremarkable ABDOMEN LIVER: Unremarkable GALLBLADDER AND BILE DUCTS: The gallbladder is nonvisualized. No evidence of biliary duct dilation PANCREAS: Unremarkable. SPLEEN: Unremarkable. ADRENAL GLANDS: Unremarkable. KIDNEYS AND URETERS: No evidence of hydronephrosis or renal calculus. The ureters are unremarkable. PELVIS BLADDER: Unremarkable REPRODUCTIVE: Endometrium is prominent in appearance. ABDOMEN & PELVIS STOMACH AND BOWEL: Stomach and duodenum are unremarkable. The appendix is unremarkable. No evidence o f bowel obstruction. PERITONEUM/RETROPERITONEUM: No evidence of pneumoperitoneum or free fluid. VASCULATURE: No evidence of aortic aneurysm. MUSCULOSKELETAL: No acute osseous abnormalities LYMPH NODES: No gross evidence for lymphadenopathy. SOFT TISSUE/ABDOMINAL WALL: Unremarkable IMPRESSION: 1. No evidence of acute intra-abdominal process. 2. Prominent endometrium. Correlate with phase of patient's menstrual cycle and consider follow-up [facility] FACILITIES MANAGER.
[2023-05-07] MEDS ORDERED: KETOROLAC 15 MG/ML 1 ML VIAL IVP STA (15:18)
[2023-05-07 15:43] VITALS: BP 102/64; PULSE 80
== END 2023-05-07 15:40 | disposition home or self-care (01) ==
LOC: EC 11:08
DX: R10.30 Lower abdominal pain, unspecified (principal); R93.89 Abnormal findings on diagnostic imaging of other specified body structures; I45.10 Unspecified right bundle-branch block; E78.5 Hyperlipidemia, unspecified; I10 Essential (primary) hypertension; J45.909 Unspecified asthma, uncomplicated; Z79.899 Other long term (current) drug therapy
CPT/HCPCS: 36415; 80053; 83690; 85025; 81003; 84702; 74177; 99285; 96374; J1885; Q9967

== ENCOUNTER → 2023-05-18 | Outpatient (CLI) | payer MEDICARE, OTHER ==
--- NOTE | 2023-05-18 14:37 | US ---
EXAMINATION TYPE: US pelvic complete DATE OF EXAM: 05/18/2023 COMPARISON: NONE CLINICAL INDICATION: Female, 52 years old with history of N94.6 DYSMENORRHEA, UNSPECIFIED; gen pelvic pain, irregular cycles TECHNIQUE: Transabdominal (TA). Transabdominal sonographic images of the pelvis were acquired. Date of LMP: 2 cycles in Nov EXAM MEASUREMENTS: Uterus: 10.0 x 4.7 x 6.7 cm Endometrial Stripe: 0.5 cm Right Ovary: 1.1 x 2.0 x 1.7 cm Left Ovary: 3.3 x 2.5 x 1.2 cm 1. Uterus: bulky heterogeneous uterus with 1.4cm posterior fibroid 2. Endometrium: wnl 3. Right Ovary: wnl 4. Left Ovary: wnl 5. Bilateral Adnexa: wnl 6. Posterior cul-de-sac: no free fluid seen IMPRESSION: Uterine leiomyomatous change noted.
== END | disposition home or self-care (01) ==
LOC: RADUSWWP 13:51
PROVIDERS: ATTEND Family Medicine
DX: D25.9 Leiomyoma of uterus, unspecified (principal); N94.6 Dysmenorrhea, unspecified
CPT/HCPCS: 76856

== ENCOUNTER 2023-06-09 13:23 | Emergency (ER) | payer MEDICARE, OTHER ==
[2023-06-09 13:34] VITALS: RESP 18; TEMP 98.5
[2023-06-09] MEDS ORDERED: SODIUM CHLORIDE 0.9% 1,000 ML IV STA (14:05)
[2023-06-09 14:37] LABS: Basophils % (A) 0 %; Eosinophils % (A) 0 %; HCT 36.7 % (34.0-46.0); HGB 12.4 gm/dL (11.4-16.0); Lymphocytes % (A) 16 %; MCHC 33.9 g/dL (31.0-37.0); MCV 91.2 fL (80.0-100.0); Mean Platelet Volume 8.3; Monocytes # (A) 0.6 k/uL (0-1.0); Monocytes % (A) 10 %; Neutrophils # (A) 4.6 k/uL (1.3-7.7); Neutrophils % (A) 72 %; Platelet Count 271 k/uL (150-450); RBC 4.02 m/uL (3.80-5.40); RDW 12.5 % (11.5-15.5); WBC 6.5 k/uL (3.8-10.6)
[2023-06-09 14:38] LABS: Appearance,Urine Clear (Clear); Bilirubin,Urine Negative (Negative); Blood,Urine Negative (Negative); Color,Urine Colorless; Glucose,Urine (UA) Negative (Negative); Ketones,Urine Negative (Negative); Leukocyte Esterase,Urine Negative (Negative); Nitrite,Urine Negative (Negative); Protein,Urine Negative (Negative); Specific Gravity,Urine 1.013 (1.001-1.035); Urobilinogen,Urine <2.0 mg/dL (<2.0)
[2023-06-09 15:09] LABS: ALT 24 U/L (4-34); AST 36 U/L (14-36); African American GFR (CKD) >90 (>60 ml/min/1.73 sqM); Albumin 3.7 g/dL (3.5-5.0); Alkaline Phosphatase 70 U/L (38-126); Anion Gap 12 mmol/L; Blood Urea Nitrogen 12 mg/dL (7-17); Calcium 8.3 mg/dL (8.4-10.2); Carbon Dioxide 25 mmol/L (22-30); Chloride 93 mmol/L (98-107); Glucose 85 mg/dL (74-99); Non-African American GFR(CKD) >90 (>60 ml/min/1.73 sqM); Potassium 3.3 mmol/L (3.5-5.1); Sodium 130 mmol/L (137-145); Total Bilirubin 0.5 mg/dL (0.2-1.3); Total Protein 6.3 g/dL (6.3-8.2)
[2023-06-09] MEDS ORDERED: POTASSIUM CHLORIDE ER 20 MEQ TAB.ER PO STA (15:23)
--- NOTE | 2023-06-09 15:36 | ED ---
Seizure HPI - General Chief Complaint: Seizure Stated Complaint: siezure Time Seen by Provider: 06/09/23 13:30 Source: patient, EMS Mode of arrival: EMS Limitations: no limitations - History of Present Illness Initial Comments: 52-year-old female presents to the emergency department for seizure. Patient does have a history of seizure disorder and takes Trileptal. Her last seizure was one year ago. She was at the [employer] shop getting her hair done when her head went back and her eyes rolled back in her head. She did have some generalized shaking. She did have incontinence. Seizure lasted for approximately 1 minute. She was not administered any medications. She has been taking her medications as directed without any missed doses. No new me dications. She has had a recent upper respiratory infection. She denies any head trauma. No complaints of urinary tract infection. Denies concern of . No trauma was sustained during syncopal episode. No other alleviating, sole skiver modifying factors - Related Data Home Medications Medication Instructions Recorded Confirmed ondansetron HCL [Zofran] 4 mg PO BID PRN 01/25/21 06/17/22 Folic Acid 1 mg PO DAILY 02/01/21 06/17/22 Atorvastatin [Lipitor] 40 mg PO HS 03/28/22 06/17/22 Budesonide/Glycopyr/Formoterol 1 puff INHALATION RT-BID PRN 03/28/22 06/17/22 [Breztri Aerosphere Inhaler] Bumetanide [BUMEX] 0.5 mg PO DAILY 03/28/22 06/17/22 Dasetta 1 tab PO DAILY 03/28/22 06/17/22 Galcanezumab-Gnlm [Emgality 120 mg SQ QMONTHLY 03/28/22 06/17/22 Syringe] Ibuprofen [Motrin] 600 mg PO DAILY PRN 03/28/22 06/17/22 amLODIPine [Norvasc] 10 mg PO DAILY 03/28/22 06/17/22 Omeprazole 20 mg PO BID 05/24/22 06/17/22 Potassium Citrate [Urocit-K] 20 meq PO BID 05/24/22 06/17/22 SUMAtriptan succinate [Imitrex] 100 mg PO DAILY 05/24/22 06/17/22 Previous Rx's Medication Instructions Recorded OXcarbazepine [Trileptal] 900 mg PO BID 30 Days #60 tab 03/29/22 Ondansetron Odt [Zofran Odt] 4 mg PO Q8HR PRN #10 tab 06/10/22 Benzonatate [Tessalon Perles] 100 mg PO TID PRN #30 capsule 06/09/23 Allergies Allergy/AdvReac Type Severity Reaction Status Date / Time phenytoin sodium Allergy Rash/Hives Verified 06/18/23 13:26 [From Dilantin] phenytoin sodium extended Allergy Rash/Hives Verified 06/18/23 13:26 [From Dilantin] zinc gluconate Allergy Rash/Hives Verified 06/18/23 13:26 [From Cold-Eeze] Review of Systems ROS Statement: Those systems with pertinent positive or pertinent negative responses have been documented in the HPI. ROS Other: All systems not noted in ROS Statement are negative. Past Medical History Past Medical History: Asthma, Hyperlipidemia, Musculoskeletal Disorder, Osteoarthritis (OA), Seizure Disorder, Thyroid Disorder Additional Past Medical History / Comment(s): Kidney stones X3. "CEREBRAL PALSY, VERY JERKY LT SIDE, MANDI ARM." UNABLE TO READ. . THYROID Nodules. LAST SEIZURE 2017 EST. Migraine. . patient walks with out assistance. pt very poor historian, History of Any Multi-Drug Resistant Organisms: None Reported Past Surgical History: Appendectomy, Cholecystectomy, Orthopedic Surgery Additional Past Surgical History / Comment(s): BIOPSY Lung Surgery. KIDNEY STONE PROC. SURGERY ON TENDONS BALDOMERO KNEES. Past Anesthesia/Blood Transfusion Reactions: Previous Problems w/ Anesthesia Additional Past Anesthesia/Blood Transfusion Reaction / Comment(s): HAD PROBLEMS BREATHING DURING LUNG BIOPSY. MOTHER "NOT AWAKENING FOR 24 HRS AFTER PROCEDURE." Past Psychological History: Depression Smoking Status: Former smoker Past Alcohol Use History: Rare Past Drug Use History: None Reported - Past Family History Mother Family Medical History: No Reported History Additional Family Medical History / Comment(s): Maternal grandfather had an [place]. Father Family Medical History: No Reported History General Exam Limitations: no limitations General appearance: alert, in no apparent distress Head exam: Present: atraumatic, normocephalic, normal inspection Eye exam: Present: normal appearance, PERRL, EOMI. Absent: scleral icterus, conjunctival injection, periorbital swelling ENT exam: Present: normal exam, mucous membranes moist Neck exam: Present: normal inspection. Absent: tenderness, meningismus, lymphadenopathy Respiratory exam: Present: normal lung sounds bilaterally. Absent: respiratory distress, wheezes, rales, rhonchi, stridor Cardiovascular Exam: Present: regular rate, normal rhythm, normal heart sounds. Absent: systolic murmur, diastolic murmur, rubs, gallop, clicks GI/Abdominal exam: Present: soft, normal bowel sounds. Absent: distended, tenderness, guarding, rebound, rigid Extremities exam: Present: normal inspection, full ROM, normal capillary refill. Absent: tenderness, pedal edema, joint swelling, calf tenderness Back exam: Present: normal inspection Neurological exam: Present: alert, oriented X3, CN II-XII intact Psychiatric exam: Present: normal affect, normal mood Skin exam: Present: warm, dry, intact, normal color. Absent: rash Course Vital Signs 06/09/23 06/09/23 06/09/23 13:26 14:00 15:30 Temperature 98.5 F Pulse Rate 75 75 70 Respiratory 18 18 17 Rate Blood Pressure 106/63 106/63 106/63 O2 Sat by Pulse 98 Oximetry 06/09/23 06/09/23 06/09/23 16:00 16:30 17:19 Temperature Pulse Rate 73 73 73 Respiratory 19 18 18 Rate Blood Pressure 112/65 102/58 106/63 O2 Sat by Pulse 99 Oximetry Medical Decision Making - Medical Decision Making Was pt. sent in by a medical professional or institution (JARRETT Dave, INFRASTRUCTURE SECURITY ARCHITECT, urgent care, hospital, or assisted...) When possible be specific @ -No Did you speak to anyone other than the patient for history (EMS, parent, family, police, friend...)? What history was obtained from this source @ -EMS, mother, boyfriend Did you review nursing and triage notes (agree or disagree)? Why? @ -I reviewed and agree with nursing and triage notes Were old charts reviewed (outside hosp., previous admission, EMS record, old EKG, old radiological studies, urgent care reports/EKG's, assisted records)? Report findings @ -No old charts were reviewed Differential Diagnosis (chest pain, altered mental status, abdominal pain women, abdominal pain men, vaginal bleeding, weakness, fever, dyspnea, syncope, headache, dizziness, GI bleed, back pain, seizure, CVA, palpatations, mental health, musculoskeletal)? @ -seizure, syncope, dysrhythmia, medication non complicance EKG interpreted by me (3pts min.). @ -yes and demonstrates sinus rhythm with a rate of 78. IL interval 178. QRS 114. QTC of 451. No acute ST segment elevations or depressions X-rays interpreted by me (1pt min.). @ -None done CT interpreted by me (1pt min.). @ -None done U/S interpreted by me (1pt. min.). @ -None done What testing was considered but not performed or refused? (CT, X-rays, U/S, labs)? Why? @ -None What meds were considered but not given or refused? Why? @ -None Did you discuss the management of the patient with other professionals (professionals i.e. , PA, INFRASTRUCTURE SECURITY ARCHITECT, lab, RT, psych nurse, social professionals, relationship associate, teacher, president and chief commercial officer, family independence case manager)? Give summary @ -No Was smoking cessation discussed for >3mins.? @ -No Was critical care preformed (if so, how long)? @ -No Were there social determinants of health that impacted care today? How? (Homelessness, low income, unemployed, alcoholism, drug addiction, transportation, low edu. Level, literacy, decrease access to med. care, residential, re hab)? @ -No Was there de-escalation of care discussed even if they declined (Discuss DNR or withdrawal of care, Hospice)? DNR status @ -No What co-morbidities impacted this encounter? (DM, HTN, Smoking, COPD, CAD, Cancer, CVA, ARF, Chemo, Hep., AIDS, mental health diagnosis, sleep apnea, morbid obesity)? @ -seizure disorder, cerebral palsy Was patient admitted / discharged? Hospital course, mention meds given and route, prescriptions, significant lab abnormalities, going to OR and other pertinent info. @ -Upon arrival patient was placed in room 26. Thorough history and physical exam was performed. 12-lead EKG is obtained. Laboratory studies are conducted. Laboratory studies are reviewed and patient does test positive for RSV. Sodium and potassium are little bit low and therefore these were placed. Results are discussed the patient. I do not have a Trileptal level at this time and therefore I do not feel comfortable increasing the patient's home medications. Recommend that they follow up with Dr. Cook for possible medication adjustments. She is to return for any new or worsening symptoms. Patient does not drive at all. Patient discharged in stable condition Undiagnosed new problem with uncertain prognosis? @ -No Drug Therapy requiring intensive monitoring for toxicity (Heparin, Nitro, Insulin, Cardizem)? @ -No Were any procedures done? @ -No Diagnosis/symptom? @ -acute breakthrough seizure, hx seizure disorder, rsv positive Acute, or Chronic, or Acute on Chronic? @ -acute Uncomplicated (without systemic symptoms) or Complicated (systemic symptoms)? @ -complicated Side effects of treatment? @ -No Exacerbation, Progression, or Severe Exacerbation? @ -No Poses a threat to life or bodily function? How? (Chest pain, USA, LA, pneumonia, PE, COPD, DKA, ARF, appy, cholecystitis, CVA, Diverticulitis, Homicidal, Suicidal, threat to staff... and all critical care pts) @ -No - Lab Data Result diagrams: 06/09/23 14:21 06/09/23 14:21 Lab Results 06/09/23 06/09/23 06/09/23 Range/Units 14:21 14:21 14:21 WBC 6.5 (3.8-10.6) k/uL RBC 4.02 (3.80-5.40) m/uL Hgb 12.4 (11.4-16.0) gm/dL Hct 36.7 (34.0-46.0) % MCV 91.2 (80.0-100.0) fL MCH 31.0 (25.0-35.0) pg MCHC 33.9 (31.0-37.0) g/dL RDW 12.5 (11.5-15.5) % Plt Count 271 (150-450) k/uL MPV 8.3 Neutrophils % 72 % Lymphocytes % 16 % Monocytes % 10 % Eosinophils % 0 % Basophils % 0 % Neutrophils # 4.6 (1.3-7.7) k/uL Lymphocytes # 1.0 (1.0-4.8) k/uL Monocytes # 0.6 (0-1.0) k/uL Eosinophils # 0.0 (0-0.7) k/uL Basophils # 0.0 (0-0.2) k/uL Sodium 130 L (137-145) mmol/L Potassium 3.3 L (3.5-5.1) mmol/L Chloride 93 L (98-107) mmol/L Carbon Dioxide 25 (22-30) mmol/L Anion Gap 12 mmol/L BUN 12 (7-17) mg/dL Creatinine 0.55 (0.52-1.04) mg/dL Est GFR (CKD-EPI)AfAm >90 (>60 ml/min/1.73 sqM) Est GFR (CKD-EPI)NonAf >90 (>60 ml/min/1.73 sqM) Glucose 85 (74-99) mg/dL Calcium 8.3 L (8.4-10.2) mg/dL Magnesium 2.0 (1.6-2.3) mg/dL Total Bilirubin 0.5 (0.2-1.3) mg/dL AST 36 (14-36) U/L ALT 24 (4-34) U/L Alkaline Phosphatase 70 (38-126) U/L Total Protein 6.3 (6.3-8.2) g/dL Albumin 3.7 (3.5-5.0) g/dL Urine Color Colorless Urine Appearance Clear (Clear) Urine pH 7.0 (5.0-8.0) Ur Specific [place] 1.013 (1.001-1.035) Urine Protein Negative (Negative) Urine Glucose (UA) Negative (Negative) Urine Ketones Negative (Negative) Urine Blood Negative (Negative) Urine Nitrite Negative (Negative) Urine Bilirubin Negative (Negative) Urine Urobilinogen <2.0 (<2.0) mg/dL Ur Leukocyte Esterase Negative (Negative) Urine HCG, Qual (Not Detectd) Oxcarbazepine (10-35) ug/mL Influenza Type A (PCR) (Not Detectd) Influenza Type B (PCR) (Not Detectd) RSV (PCR) (Not Detectd) SARS-CoV-2 (PCR) (Not Detectd) 06/09/23 06/09/23 06/09/23 Range/Units 14:21 14:21 15:42 WBC (3.8-10.6) k/uL RBC (3.80-5.40) m/uL Hgb (11.4-16.0) gm/dL Hct (34.0-46.0) % MCV (80.0-100.0) fL MCH (25.0-35.0) pg MCHC (31.0-37.0) g/dL RDW (11.5-15.5) % Plt Count (150-450) k/uL MPV Neutrophils % % Lymphocytes % % Monocytes % % Eosinophils % % Basophils % % Neutrophils # (1.3-7.7) k/uL Lymphocytes # (1.0-4.8) k/uL Monocytes # (0-1.0) k/uL Eosinophils # (0-0.7) k/uL Basophils # (0-0.2) k/uL Sodium (137-145) mmol/L Potassium (3.5-5.1) mmol/L Chloride (98-107) mmol/L Carbon Dioxide (22-30) mmol/L Anion Gap mmol/L BUN (7-17) mg/dL Creatinine (0.52-1.04) mg/dL Est GFR (CKD-EPI)AfAm (>60 ml/min/1.73 sqM) Est GFR (CKD-EPI)NonAf (>60 ml/min/1.73 sqM) Glucose (74-99) mg/dL Calcium (8.4-10.2) mg/dL Magnesium (1.6-2.3) mg/dL Total Bilirubin (0.2-1.3) mg/dL AST (14-36) U/L ALT (4-34) U/L Alkaline Phosphatase (38-126) U/L Total Protein (6.3-8.2) g/dL Albumin (3.5-5.0) g/dL Urine Color Urine Appearance (Clear) Urine pH (5.0-8.0) Ur Specific [place] (1.001-1.035) Urine Protein (Negative) Urine Glucose (UA) (Negative) Urine Ketones (Negative) Urine Blood (Negative) Urine Nitrite (Negative) Urine Bilirubin (Negative) Urine Urobilinogen (<2.0) mg/dL Ur Leukocyte Esterase (Negative) Urine HCG, Qual Not Detected (Not Detectd) Oxcarbazepine 27.4 (10-35) ug/mL Influenza Type A (PCR) Not Detected (Not Detectd) Influenza Type B (PCR) Not Detected (Not Detectd) RSV (PCR) Detected A (Not Detectd) SARS-CoV-2 (PCR) Not Detected (Not Detectd) Disposition Clinical Impression: Generalized seizure, RSV bronchiolitis Disposition: HOME SELF-CARE Condition: Stable Instructions (If sedation given, give patient instructions): Seizure/Epilepsy Discharge Instructions & Follow-Up, Recurrent Seizures in Adults (ED) Additional Instructions: Please use the Tessalon pearls as needed for cough. Follow-up with your doctor for any seizure medication adjustments. Return for any new or worsening symptoms Prescriptions: Benzonatate [Tessalon Perles] 100 mg PO TID PRN #30 capsule PRN Reason: Cough Is patient prescribed a controlled substance at d/c from ED?: No Referrals: Christopher Cook MD [Primary Care Provider] - 1-2 days Time of Disposition: 17:18
[2023-06-09] MEDS ORDERED: ONDANSETRON 4 MG/2 ML VIAL IVP STA (15:42)
[2023-06-09 17:04] VITALS: PULSE 73
[2023-06-09 17:26] VITALS: BP 106/63
== END 2023-06-09 17:25 | disposition home or self-care (01) ==
LOC: EC 13:23
DX: G40.409 Other generalized epilepsy and epileptic syndromes, not intractable, without status epilepticus (principal); J21.0 Acute bronchiolitis due to respiratory syncytial virus; J45.909 Unspecified asthma, uncomplicated; M19.90 Unspecified osteoarthritis, unspecified site; F32.A Depression, unspecified; E78.5 Hyperlipidemia, unspecified; Z87.891 Personal history of nicotine dependence; Z79.899 Other long term (current) drug therapy; Z90.49 Acquired absence of other specified parts of digestive tract; Z88.8 Allergy status to other drugs, medicaments and biological substances; Z20.822 Contact with and (suspected) exposure to COVID-19
CPT/HCPCS: 36415; 93005; 80053; 80183; 83735; 85025; 81003; 81025; 87636; 99285; 96374; 96361; J2405

== ENCOUNTER 2023-06-18 13:14 | Emergency (ER) | payer MEDICARE, OTHER ==
[2023-06-18 13:30] VITALS: BP 111/70; PULSE 103; RESP 18; TEMP 98.2
--- NOTE | 2023-06-18 13:38 | ED ---
URI HPI - General Source: patient, RN notes reviewed Mode of arrival: ambulatory Limitations: no limitations <Kadie Mosquera - Last Filed: 06/18/23 13:38> <Apolonia Griffith - Last Filed: 06/18/23 14:47> - General Chief Complaint: Upper Respiratory Infection Stated Complaint: rsv symptoms Time Seen by Provider: 06/18/23 13:37 - History of Present Illness Initial Comments: This is a 52 year old female who presents to the emergency department for a cough. She tested positive for RSV about a week ago when she came to the emergency department for a seizure. States that she continues to have a cough. Reports a hx of asthma. Denies any chest pain or shortness of breath. (Kadie Mosquera) Patient is a 52-year-old female presented ER with chief complaint of a cough. Patient was recently diagnosed with RSV about a week ago. Patient reports she still has been having a cough. She reports she has been having mild shortness of breath with her cough. She reports she has been taking the medication prescribed here, Tessalon Perles, with relief. Denies chest pain, fevers, chills, abdominal pain. (Apolonia Griffith) - Related Data Home Medications Medication Instructions Recorded Confirmed ondansetron HCL [Zofran] 4 mg PO BID PRN 01/25/21 06/17/22 Folic Acid 1 mg PO DAILY 02/01/21 06/17/22 Atorvastatin [Lipitor] 40 mg PO HS 03/28/22 06/17/22 Budesonide/Glycopyr/Formoterol 1 puff INHALATION RT-BID PRN 03/28/22 06/17/22 [Breztri Aerosphere Inhaler] Bumetanide [BUMEX] 0.5 mg PO DAILY 03/28/22 06/17/22 Dasetta 1 tab PO DAILY 03/28/22 06/17/22 Galcanezumab-Gnlm [Emgality 120 mg SQ QMONTHLY 03/28/22 06/17/22 Syringe] Ibuprofen [Motrin] 600 mg PO DAILY PRN 03/28/22 06/17/22 amLODIPine [Norvasc] 10 mg PO DAILY 03/28/22 06/17/22 Omeprazole 20 mg PO BID 05/24/22 06/17/22 Potassium Citrate [Urocit-K] 20 meq PO BID 05/24/22 06/17/22 SUMAtriptan succinate [Imitrex] 100 mg PO DAILY 05/24/22 06/17/22 Previous Rx's Medication Instructions Recorded OXcarbazepine [Trileptal] 900 mg PO BID 30 Days #60 tab 03/29/22 Ondansetron Odt [Zofran Odt] 4 mg PO Q8HR PRN #10 tab 06/10/22 Benzonatate [Tessalon Perles] 100 mg PO TID PRN #30 capsule 06/09/23 Allergies Allergy/AdvReac Type Severity Reaction Status Date / Time phenytoin sodium Allergy Rash/Hives Verified 06/18/23 13:26 [From Dilantin] phenytoin sodium extended Allergy Rash/Hives Verified 06/18/23 13:26 [From Dilantin] zinc gluconate Allergy Rash/Hives Verified 06/18/23 13:26 [From Cold-Eeze] Review of Systems ROS Other: All systems not noted in ROS Statement are negative. <Kadie Mosquera - Last Filed: 06/18/23 13:38> ROS Other: All systems not noted in ROS Statement are negative. <Apolonia Griffith - Last Filed: 06/18/23 14:47> ROS Statement: Those systems with pertinent positive or pertinent negative responses have been documented in the HPI. Past Medical History Past Medical History: Asthma, Hyperlipidemia, Musculoskeletal Disorder, Osteoarthritis (OA), Seizure Disorder, Thyroid Disorder Additional Past Medical History / Comment(s): Kidney stones X3. "CEREBRAL PALSY, VERY JERKY LT SIDE, MANDI ARM." UNABLE TO READ. . THYROID Nodules. LAST SEIZURE 2017 EST. Migraine. . patient walks with out assistance. pt very poor historian, History of Any Multi-Drug Resistant Organisms: None Reported Past Surgical History: Appendectomy, Cholecystectomy, Orthopedic Surgery Additional Past Surgical History / Comment(s): BIOPSY Lung Surgery. KIDNEY STONE PROC. SURGERY ON TENDONS BALDOMERO KNEES. Past Anesthesia/Blood Transfusion Reactions: Previous Problems w/ Anesthesia Additional Past Anesthesia/Blood Transfusion Reaction / Comment(s): HAD PROBLEMS BREATHING DURING LUNG BIOPSY. MOTHER "NOT AWAKENING FOR 24 HRS AFTER PROCEDURE." Past Psychological History: Depression Smoking Status: Former smoker Past Alcohol Use History: Rare Past Drug Use History: None Reported - Past Family History Mother Family Medical History: No Reported History Additional Family Medical History / Comment(s): Maternal grandfather had an [place]. Father Family Medical History: No Reported History <Kadie Mosquera - Last Filed: 06/18/23 13:38> General Exam Limitations: no limitations <Kadie Mosquera - Last Filed: 06/18/23 13:38> General appearance: alert, in no apparent distress Head exam: Present: atraumatic, normocephalic, normal inspection Eye exam: Present: normal appearance, PERRL, EOMI. Absent: scleral icterus, conjunctival injection, periorbital swelling ENT exam: Present: normal exam, mucous membranes moist Neck exam: Present: normal inspection. Absent: tenderness, meningismus, lymphadenopathy Respiratory exam: Present: normal lung sounds bilaterally. Absent: respiratory distress, wheezes, rales, rhonchi, stridor Cardiovascular Exam: Present: regular rate, normal rhythm, normal heart sounds. Absent: systolic murmur, diastolic murmur, rubs, gallop, clicks Neurological exam: Present: alert, oriented X3, CN II-XII intact Psychiatric exam: Present: normal affect, normal mood Skin exam: Present: warm, dry, intact, normal color. Absent: rash <Apolonia Griffith - Last Filed: 06/18/23 14:47> - General Exam Comments Initial Comments: Visual Physical Exam Vital signs reviewed General: Well-appearing, nontoxic, no acute distress. Head: Normocephalic, atraumatic Eyes: PERRLA, EOMI ENT: Airway patent Chest: Nonlabored breathing Skin: No visual rash, normal skin tone Neuro: Alert and oriented 3 Musculoskeletal: No gross abnormalities (Kadie Mosquera) Course Vital Signs 06/18/23 06/18/23 06/18/23 13:22 14:32 14:35 Temperature 98.2 F Pulse Rate 103 H Respiratory 18 18 18 Rate Blood Pressure 111/70 O2 Sat by Pulse 96 98 Oximetry Medical Decision Making <Kadie Mosquera - Last Filed: 06/18/23 13:38> - Radiology Data Radiology results: report reviewed, image reviewed <Apolonia Griffith - Last Filed: 06/18/23 14:47> - Medical Decision Making I performed the QuickNote portion of this chart. Signed Kadie Mosquera PA-C. (Kadie Mosquera) Was pt. sent in by a medical professional or institution (JARRETT Dave, LENS GENERATING MACHINE TENDER, urgent care, hospital, or alf...) When possible be specific @ -No Did you speak to anyone other than the patient for history (EMS, parent, family, police, friend...)? What history was obtained from this source @ -No Did you review nursing and triage notes (agree or disagree)? Why? @ -I reviewed and agree with nursing and triage notes Were old charts reviewed (outside hosp., previous admission, EMS record, old EKG, old radiological studies, urgent care reports/EKG's, alf records)? Report findings @ -Yes, I reviewed old charts fro ER visit on 06/09/23/ Patient presented to ER f or seizure and was diagnosed with RSV. Differential Diagnosis (chest pain, altered mental status, abdominal pain women, abdominal pain men, vaginal bleeding, weakness, fever, dyspnea, syncope, headache, dizziness, GI bleed, back pain, seizure, CVA, palpatations, mental health, musculoskeletal)? @ -Differential Dyspnea: Coronary syndrome, arrhythmia, tamponade, asthma, COPD, pulmonary embolism, pneumonia, pneumothorax, pulmonary effusion, anaphylaxis, diabetic ketoacidosis, flailed chest, pulmonary contusion, diaphragmatic rupture, anemia, neuromuscular, this is not meant to be an all- inclusive list. EKG interpreted by me (3pts min.). @ -None X-rays interpreted by me (1pt min.). @ -Chest x-ray interpreted by me shows no acute process. CT interpreted by me (1pt min.). @ -None done U/S interpreted by me (1pt. min.). @ -None done What testing was considered but not performed or refused? (CT, X-rays, U/S, labs)? Why? @ -None What meds were considered but not given or refused? Why? @ -None Did you discuss the management of the patient with other professionals (professionals i.e. JARRETT Dave, LENS GENERATING MACHINE TENDER, lab, RT, psych nurse, social staff worker, criminal court judge, teacher, front desk officer, gearcase assembler)? Give summary @ -No Was smoking cessation discussed for >3mins.? @ -No Was critical care preformed (if so, how long)? @ -No Were there social determinants of health that impacted care today? How? (Homelessness, low income, unemployed, alcoholism, drug addiction, transportation, low edu. Level, literacy, decrease access to med. care, fpc, rehab)? @ -No Was there de-escalation of care discussed even if they declined (Discuss DNR or withdrawal of care, Hospice)? DNR status @ -No What co-morbidities impacted this encounter? (DM, HTN, Smoking, COPD, CAD, Cancer, CVA, ARF, Chemo, Hep., AIDS, mental health diagnosis, sleep apnea, morbid obesity)? @ -seizure disorder Was patient admitted / discharged? Hospital course, mention meds given and route, prescriptions, significant lab abnormalities, going to OR and other pertinent info. @ -Discharge. Patient is a 52-year-old female presented ER with chief complaint of cough. Vitals stable. History and physical exam were completed. Patient was in no signs of acute distress. Chest x-ray shows no acute process. I discussed i maging findings with patient. I advised to continue using prescribed medication as prescribed. I discussed return parameters. Patient be discharged in stable condition with follow-up to PCP. Patient expressed understanding and agreement with care plan. Undiagnosed new problem with uncertain prognosis? @ -No Drug Therapy requiring intensive monitoring for toxicity (Heparin, Nitro, Insulin, Cardizem)? @ -No Were any procedures done? @ -No Diagnosis/symptom? @ -Cough Acute, or Chronic, or Acute on Chronic? @ -Acute Uncomplicated (without systemic symptoms) or Complicated (systemic symptoms)? @ -Uncomplicated Side effects of treatment? @ -No Exacerbation, Progression, or Severe Exacerbation? @ -No Poses a threat to life or bodily function? How? (Chest pain, [place], [place], pneumonia, PE, COPD, DKA, ARF, appy, cholecystitis, CVA, Diverticulitis, Homicidal, Suicidal, threat to staff... and all critical care pts) @ -No (Apolonia Griffith) Disposition <Kadie Mosquera - Last Filed: 06/18/23 13:38> Is patient prescribed a controlled substance at d/c from ED?: No Time of Disposition: 14:25 <Apolonia Griffith - Last Filed: 06/18/23 14:47> Clinical Impression: Cough Disposition: HOME SELF-CARE Condition: Stable Instructions (If sedation given, give patient instructions): Upper Respiratory Infection (ED) Additional Instructions: Please continue medications as prescribed. Follow-up with PCP in the next 1-2 days. Return to ER for any new or worsening symptoms. Referrals: Christopher Cook MD [Primary Care Provider] - 1-2 days
--- NOTE | 2023-06-18 13:39 | ED ---
URI HPI - General Chief Complaint: Upper Respiratory Infection Stated Complaint: rsv symptoms Time Seen by Provider: 06/18/23 13:37 Source: patient, RN notes reviewed Mode of arrival: ambulatory Limitations: no limitations - History of Present Illness Initial Comments: Patient is a 52-year-old female presented ER with chief complaint of cough. Patient was seen here and diagnosed with RSV about a week ago. Patient reports her mother reports that she now has a. Patient denies any fevers, chills, shortness of breath or chest pain. - Related Data Home Medications Medication Instructions Recorded Confirmed ondansetron HCL [Zofran] 4 mg PO BID PRN 01/25/21 06/17/22 Folic Acid 1 mg PO DAILY 02/01/21 06/17/22 Atorvastatin [Lipitor] 40 mg PO HS 03/28/22 06/17/22 Budesonide/Glycopyr/Formoterol 1 puff INHALATION RT-BID PRN 03/28/22 06/17/22 [Breztri Aerosphere Inhaler] Bumetanide [BUMEX] 0.5 mg PO DAILY 03/28/22 06/17/22 Dasetta 1 tab PO DAILY 03/28/22 06/17/22 Galcanezumab-Gnlm [Emgality 120 mg SQ QMONTHLY 03/28/22 06/17/22 Syringe] Ibuprofen [Motrin] 600 mg PO DAILY PRN 03/28/22 06/17/22 amLODIPine [Norvasc] 10 mg PO DAILY 03/28/22 06/17/22 Omeprazole 20 mg PO BID 05/24/22 06/17/22 Potassium Citrate [Urocit-K] 20 meq PO BID 05/24/22 06/17/22 SUMAtriptan succinate [Imitrex] 100 mg PO DAILY 05/24/22 06/17/22 Previous Rx's Medication Instructions Recorded OXcarbazepine [Trileptal] 900 mg PO BID 30 Days #60 tab 03/29/22 Ondansetron Odt [Zofran Odt] 4 mg PO Q8HR PRN #10 tab 06/10/22 Benzonatate [Tessalon Perles] 100 mg PO TID PRN #30 capsule 06/09/23 Allergies Allergy/AdvReac Type Severity Reaction Status Date / Time phenytoin sodium Allergy Rash/Hives Verified 06/18/23 13:26 [From Dilantin] phenytoin sodium extended Allergy Rash/Hives Verified 06/18/23 13:26 [From Dilantin] zinc gluconate Allergy Rash/Hives Verified 06/18/23 13:26 [From Cold-Eeze] Review of Systems ROS Statement: Those systems with pertinent positive or pertinent negative responses have been documented in the HPI. ROS Other: All systems not noted in ROS Statement are negative. Past Medical History Past Medical History: Asthma, Hyperlipidemia, Musculoskeletal Disorder, Osteoarthritis (OA), Seizure Disorder, Thyroid Disorder Additional Past Medical History / Comment(s): Kidney stones X3. "CEREBRAL PALSY, VERY JERKY LT SIDE, MANDI ARM." UNABLE TO READ. . THYROID Nodules. LAST SEIZURE 2017 EST. Migraine. . patient walks with out assistance. pt very poor historian, History of Any Multi-Drug Resistant Organisms: None Reported Past Surgical History: Appendectomy, Cholecystectomy, Orthopedic Surgery Additional Past Surgical History / Comment(s): BIOPSY Lung Surgery. KIDNEY STONE PROC. SURGERY ON TENDONS BALDOMERO KNEES. Past Anesthesia/Blood Transfusion Reactions: Previous Problems w/ Anesthesia Additional Past Anesthesia/Blood Transfusion Reaction / Comment(s): HAD PROBLEMS BREATHING DURING LUNG BIOPSY. MOTHER "NOT AWAKENING FOR 24 HRS AFTER PROCEDURE." Past Psychological History: Depression Smoking Status: Former smoker Past Alcohol Use History: Rare Past Drug Use History: None Reported - Past Family History Mother Family Medical History: No Reported History Additional Family Medical History / Comment(s): Maternal grandfather had an [place]. Father Family Medical History: No Reported History General Exam - General Exam Comments Initial Comments: Visual Physical Exam Vital signs reviewed General: Well-appearing, nontoxic, no acute distress. Head: Normocephalic, atraumatic Eyes: PERRLA, EOMI ENT: Airway patent Chest: Nonlabored breathing Skin: No visual rash, normal skin tone Neuro: Alert and oriented 3 Musculoskeletal: No gross abnormalities Limitations: no limitations Course Vital Signs 06/18/23 13:22 Temperature 98.2 F Pulse Rate 103 H Respiratory 18 Rate Blood Pressure 111/70 O2 Sat by Pulse 96 Oximetry Medical Decision Making - Medical Decision Making I performed the quick note portion. Signed Zunilda Griffith PA-C Disposition Referrals: Christopher Cook MD [Primary Care Provider] - 1-2 days
--- NOTE | 2023-06-18 13:57 | XR ---
EXAMINATION TYPE: XR chest 2V DATE OF EXAM: 06/18/2023 COMPARISON: 10/24/2022 INDICATION: Cough congestion TECHNIQUE: Frontal and lateral views of the chest are obtained. FINDINGS: The heart size is normal. The pulmonary vasculature is normal. The lungs are clear. There appears to be a nipple shadow at the right chest. Surgical clips may be w ithin the right breast IMPRESSION: 1. No acute pulmonary process. 2. Probable nipple shadow right chest base. This could be confirmed with nipple markers.
== END 2023-06-18 14:42 | disposition home or self-care (01) ==
LOC: EC 13:14
DX: R05.9 Cough, unspecified (principal); J45.909 Unspecified asthma, uncomplicated; E78.5 Hyperlipidemia, unspecified; Z79.51 Long term (current) use of inhaled steroids; Z79.899 Other long term (current) drug therapy; Z88.8 Allergy status to other drugs, medicaments and biological substances; Z87.891 Personal history of nicotine dependence
CPT/HCPCS: 71046; 99284; 99285

== ENCOUNTER → 2023-08-15 | Outpatient (CLI) | payer MEDICARE, OTHER ==
--- NOTE | 2023-08-16 10:28 | XR ---
EXAMINATION TYPE: XR shoulder limited LT DATE OF EXAM: 08/15/2023 11:30 AM CLINICAL INDICATION:Female, 52 years old with history of M25.512 PAIN IN LEFT SHOULDER; [facility] COMPARISON: None TECHNIQUE: XR shoulder limited LT; examined in AP, scapular Y projections. FINDINGS: No evidence of acute osseous pathology, joint dislocation, or soft tissue swelling. The remaining po rtions of the visualized chest are unremarkable. Pseudosubluxation of the left shoulder. IMPRESSION: No acute osseous pathology.
--- NOTE | 2023-08-16 10:35 | XR ---
EXAMINATION TYPE: XR hand limited RT DATE OF EXAM: 08/15/2023 11:30 AM CLINICAL INDICATION:Female, 52 years old with history of M25.512 PAIN IN LEFT SHOULDER; [facility] COMPARISON: 01/01/2021 TECHNIQUE: XR hand limited RT Frontal, lateral and oblique views were obtained. FINDINGS: Normal alignment of the visualized joints. No acute osseous pathology is identified. No e vidence of soft tissue swelling. Mild multifocal degeneration changes with joint space narrowing and osteophyte formation. IMPRESSION: 1. No acute osseous pathology. 2. Mild multifocal degeneration changes with joint space narrowing and osteophyte formation.
== END | disposition home or self-care (01) ==
LOC: RADXRMAIN 10:37
PROVIDERS: ATTEND Family Medicine
DX: M25.512 Pain in left shoulder (principal); M25.741 Osteophyte, right hand

== ENCOUNTER → 2023-08-29 | Outpatient (CLI) | payer MEDICARE, OTHER | END | disposition home or self-care (01) | LOC: RADMAMWWP 10:31 | PROVIDERS: ATTEND Surgery | DX: Z53.9 Procedure and treatment not carried out, unspecified reason (principal) ==

== ENCOUNTER 2023-12-06 13:40 | Inpatient (IN) | payer MEDICARE, OTHER ==
--- NOTE | 2023-12-06 14:04 | ED ---
General Adult HPI - General Chief complaint: Seizure Stated complaint: Seizure Time Seen by Provider: 12/06/23 13:45 Source: patient, EMS, RN notes reviewed, old records reviewed Mode of arrival: EMS - History of Present Illness Initial comments: Is a 53-year-old female who has a past medical history significant for seizures and cerebral palsy. Patient was at work when started having epigastric abdominal pain. Patient states the pain was quite significant. Patient states she stiffened up and staff helped her to the ground. Some people thought she might of had a seizure but she states that she remembers everything she was not postictal and this did not seem like any other seizure she had. Patient states the pain is improved right now but is still there. Patient denies any radiation of the pain. Patient denies chest pain difficulty breathing or shortness of breath. Patient is any vomiting or diarrhea. Patient denies any headache patient has numbness weakness. - Related Data Home Medications Medication Instructions Recorded Confirmed ondansetron HCL [Zofran] 4 mg PO DAILY 01/25/21 12/06/23 Folic Acid 1 mg PO DAILY 02/01/21 12/06/23 Atorvastatin [Lipitor] 40 mg PO HS 03/28/22 12/06/23 Budesonide/Glycopyr/Formoterol 2 puff INHALATION RT-BID 03/28/22 12/06/23 [Breztri Aerosphere Inhaler] Galcanezumab-Gnlm [Emgality 120 mg SQ Q30D 03/28/22 12/06/23 Syringe] Ibuprofen [Motrin] 600 mg PO DAILY 03/28/22 12/06/23 Omeprazole 20 mg PO BID 05/24/22 12/06/23 Potassium Citrate [Urocit-K] 20 meq PO BID 05/24/22 12/06/23 SUMAtriptan succinate [Imitrex] 100 mg PO DAILY PRN 05/24/22 12/06/23 Albuterol Inhaler [Ventolin Hfa 2 puff INHALATION RT-Q4H PRN 12/06/23 12/06/23 Inhaler] Ascorbic Acid [Vitamin C] 500 mg PO DAILY 12/06/23 12/06/23 Docusate [Colace] 100 mg PO BID 12/06/23 12/06/23 Levothyroxine Sodium [Synthroid] 100 mcg PO DAILY 12/06/23 12/06/23 Multivitamins, Thera [Multivitamin 1 tab PO DAILY 12/06/23 12/06/23 (formulary)] Norethindrone-Ethin. Estradiol 1 tab PO DAILY 12/06/23 12/06/23 [Ortho-Novum 7-7-7-28 Tablet] Ondansetron [Zofran] 4 mg PO DAILY PRN 12/06/23 12/06/23 Terbinafine [LamISIL] 250 mg PO DAILY 12/06/23 12/06/23 Zinc Gluconate [Zinc] 50 mg PO DAILY 12/06/23 12/06/23 Previous Rx's Medication Instructions Recorded OXcarbazepine [Trileptal] 900 mg PO BID 30 Days #60 tab 03/29/22 Allergies Allergy/AdvReac Type Severity Reaction Status Date / Time phenytoin sodium Allergy Rash/Hives Verified 12/06/23 14:37 [From Dilantin] phenytoin sodium extended Allergy Rash/Hives Verified 12/06/23 14:37 [From Dilantin] zinc gluconate Allergy Rash/Hives Verified 12/06/23 14:38 [From Cold-Eeze] Review of Systems ROS Statement: Those systems with pertinent positive or pertinent negative responses have been documented in the HPI. ROS Other: All systems not noted in ROS Statement are negative. Past Medical History Past Medical History: Asthma, Hyperlipidemia, Musculoskeletal Disorder, Osteoarthritis (OA), Seizure Disorder, Thyroid Disorder Additional Past Medical History / Comment(s): Kidney stones X3. "CEREBRAL P ALSY, VERY JERKY LT SIDE, MANDI ARM." UNABLE TO READ. . THYROID Nodules. LAST SEIZURE 2017 EST. Migraine. . patient walks with out assistance. pt very poor historian, History of Any Multi-Drug Resistant Organisms: None Reported Past Surgical History: Appendectomy, Cholecystectomy, Orthopedic Surgery Additional Past Surgical History / Comment(s): BIOPSY Lung Surgery. KIDNEY STONE PROC. SURGERY ON TENDONS BALDOMERO KNEES. Past Anesthesia/Blood Transfusion Reactions: Previous Problems w/ Anesthesia Additional Past Anesthesia/Blood Transfusion Reaction / Comment(s): HAD PROBLEMS BREATHING DURING LUNG BIOPSY. MOTHER "NOT AWAKENING FOR 24 HRS AFTER PROCEDURE." Past Psychological History: Depression Smoking Status: Former smoker Past Alcohol Use History: Rare Past Drug Use History: None Reported - Past Family History Mother Family Medical History: No Reported History Additional Family Medical History / Comment(s): Maternal grandfather had an [place]. Father Family Medical History: No Reported History General Exam - General Exam Comments Initial Comments: GENERAL: Patient is well-developed and well-nourished. Patient is nontoxic and well- hydrated and is in mild distress. ENT: Neck is soft and supple. No significant lymphadenopathy is noted. Oropharynx is clear. Moist mucous membranes. Neck has full range of motion without eliciting any pain. EYES: The sclera were anicteric and conjunctiva were pink and moist. Extraocular movements were intact and pupils were equal round and reactive to light. Eyelids were unremarkable. PULMONARY: Unlabored respirations. Good breath sounds bilaterally. No audible rales rhonchi or wheezing was noted. CARDIOVASCULAR: There is a regular rate and rhythm without any murmurs gallops or rubs. ABDOMEN: Mild tenderness in the epigastric region SKIN: Skin is clear with no lesions or rashes and otherwise unremarkable. NEUROLOGIC: Patient is alert and oriented x3. Cranial nerves II through XII are grossly intact. Motor and sensory are also intact. Normal speech, volume and content. Symmetrical smile. MUSCULOSKELETAL: Normal extremities with adequate strength and full range of motion. LYMPHATICS: No significant lymphadenopathy is noted PSYCHIATRIC: Normal psychiatric evaluation. Course Vital Signs 12/06/23 12/06/23 13:43 16:06 Temperature 98.7 F Pulse Rate 74 74 Respiratory 18 18 Rate Blood Pressure 119/74 111/74 O2 Sat by Pulse 98 97 Oximetry Medical Decision Making - Medical Decision Making EKG shows a sinus rhythm at 66 bpm parables 182 QRS 110 QT interval 417 QTc is 431. Patient's EKG shows no ST segment ovation or depression. Was pt. sent in by a medical professional or institution (, PA, HIDE PULLER, urgent care, hospital, or penitentiary...) When possible be specific @ -No Did you speak to anyone other than the patient for history (EMS, parent, family, police, friend...)? What history was obtained from this source @ -No Did you review nursing and triage notes (agree or disagree)? Why? @ -I reviewed and agree with nursing and triage notes Were old charts reviewed (outside hosp., previous admission, EMS record, old EKG, old radiological studies, urgent care reports/EKG's, penitentiary records)? Report findings @ -No old charts were reviewed Differential Diagnosis? @ -Differential Abdominal Pain Women: Appendicitis, Cholecystitis, diverticulosis, ischemic bowel, pancreatitis, hepatitis, UTI, gastroenteritis, AAA, incarcerated hernia, bowel obstruction, constipation, inflammatory bowel, hepatitis, peptic ulcer disease, splenic infarction, perforated viscus, vulvitis, ovarian torsion, PID, kidney stone, placenta abruption, this is not meant to be an all-inclusive list EKG interpreted by me (3pts min.). @ -As above X-rays interpreted by me (1pt min.). @ -None done CT interpreted by me (1pt min.). @ -CT scan shows some inflammation around the pancreas U/S interpreted by me (1pt. min.). @ -None done What testing was considered but not performed or refused? (CT, X-rays, U/S, labs)? Why? @ -None What meds were considered but not given or refused? Why? @ -None Did you discuss the management of the patient with other professionals (professionals i.e. , PA, HIDE PULLER, lab, RT, psych nurse, social welfare clerk, advertising statistical clerk, teacher, catapult and arresting gear officer, porter sample case)? Give summary @ -Spoke with Dr. Cook he agreed to admit the patient admit the patient with admitting orders Was smoking cessation discussed for >3mins.? @ -No Was critical care preformed (if so, how long)? @ -No Were there social determinants of health that impacted care today? How? (Homelessness, low income, unemployed, alcoholism, drug addiction, transportation, low edu. Level, literacy, decrease access to med. care, fci, rehab)? @ -No Was there de-escalation of care discussed even if they declined (Discuss DNR or withdrawal of care, Hospice)? DNR status @ -No What co-morbidities impacted this encounter? (DM, HTN, Smoking, COPD, CAD, Cancer, CVA, ARF, Chemo, Hep., AIDS, mental health diagnosis, sleep apnea, morbid obesity)? @ -None Was patient admitted / discharged? Hospital course, mention meds given and route, prescriptions, significant lab abnormalities, going to OR and other pertinent info. @ -Patient appears to have acute pancreatitis and also hypokalemia and hyponatremia. Patient will be admitted to Dr. Mullally Undiagnosed new problem with uncertain prognosis? @ -No Drug Therapy requiring intensive monitoring for toxicity (Heparin, Nitro, Insulin, Cardizem)? @ -No Were any procedures done? @ -No Diagnosis/symptom? @ -Acute pancreatitis Acute, or Chronic, or Acute on Chronic? @ -Acute Uncomplicated (without systemic symptoms) or Complicated (systemic symptoms)? @ -Complicated Side effects of treatment? @ -No Exacerbation, Progression, or Severe Exacerbation? @ -No Poses a threat to life or bodily function? How? (Chest pain, [place], [place], pneumonia, PE, COPD, DKA, ARF, appy, cholecystitis, CVA, Diverticulitis, Homicidal, Suicidal, threat to staff... and all critical care pts) @ -Yes this can lead to electrolyte abnormalities and/or sepsis and or dehydration which can lead to endorgan dysfunction Diagnosis/symptom? @ -Hyponatremia Acute, or Chronic, or Acute on Chronic? @ -Acute Uncomplicated (without systemic symptoms) or Complicated (systemic symptoms)? @ -Complicated Side effects of treatment? @ -None Exacerbation, Progression, or Severe Exacerbation] @ -No Poses a threat to life or bodily function? @ -No Diagnosis/symptom? @ -Hypokalemia Acute, or Chronic, or Acute on Chronic? @ -Acute Uncomplicated (without systemic symptoms) or Complicated (systemic symptoms)? @ -Complicated Side effects of treatment? @ -None Exacerbation, Progression, or Severe Exacerbation] @ -No Poses a threat to life or bodily function? @ -No - Lab Data Result diagrams: 12/06/23 13:51 12/06/23 13:51 Lab Results 12/06/23 12/06/23 12/06/23 Range/Units 13:51 13:51 13:51 WBC 5.5 (3.8-10.6) k/uL RBC 3.65 L (3.80-5.40) m/uL Hgb 11.5 (11.4-16.0) gm/dL Hct 33.1 L (34.0-46.0) % MCV 90.7 (80.0-100.0) fL MCH 31.6 (25.0-35.0) pg MCHC 34.8 (31.0-37.0) g/dL RDW 12.8 (11.5-15.5) % Plt Count 314 (150-450) k/uL MPV 8.0 Neutrophils % 58 % Lymphocytes % 30 % Monocytes % 8 % Eosinophils % 1 % Basophils % 1 % Neutrophils # 3.2 (1.3-7.7) k/uL Lymphocytes # 1.7 (1.0-4.8) k/uL Monocytes # 0.4 (0-1.0) k/uL Eosinophils # 0.0 (0-0.7) k/uL Basophils # 0.0 (0-0.2) k/uL Sodium 125 L (137-145) mmol/L Potassium 3.1 L (3.5-5.1) mmol/L Chloride 92 L (98-107) mmol/L Carbon Dioxide 27 (22-30) mmol/L Anion Gap 6 mmol/L BUN 11 (7-17) mg/dL Creatinine 0.46 L (0.52-1.04) mg/dL Est GFR (CKD-EPI)AfAm >90 (>60 ml/min/1.73 sqM) Est GFR (CKD-EPI)NonAf >90 (>60 ml/min/1.73 sqM) Glucose 75 (74-99) mg/dL Plasma Lactic Acid Fredis 1.1 (0.7-2.0) mmol/L Calcium 8.7 (8.4-10.2) mg/dL Total Bilirubin 0.7 (0.2-1.3) mg/dL AST 72 H (14-36) U/L ALT 38 H (4-34) U/L Alkaline Phosphatase 61 (38-126) U/L Troponin I (0.000-0.034) ng/mL Total Protein 5.9 L (6.3-8.2) g/dL Albumin 3.6 (3.5-5.0) g/dL Amylase 180 H (30-110) U/L Lipase 1601 H (23-300) U/L 12/06/23 Range/Units 13:51 WBC (3.8-10.6) k/uL RBC (3.80-5.40) m/uL Hgb (11.4-16.0) gm/dL Hct (34.0-46.0) % MCV (80.0-100.0) fL MCH (25.0-35.0) pg MCHC (31.0-37.0) g/dL RDW (11.5-15.5) % Plt Count (150-450) k/uL MPV Neutrophils % % Lymphocytes % % Monocytes % % Eosinophils % % Basophils % % Neutrophils # (1.3-7.7) k/uL Lymphocytes # (1.0-4.8) k/uL Monocytes # (0-1.0) k/uL Eosinophils # (0-0.7) k/uL Basophils # (0-0.2) k/uL Sodium (137-145) mmol/L Potassium (3.5-5.1) mmol/L Chloride (98-107) mmol/L Carbon Dioxide (22-30) mmol/L Anion Gap mmol/L BUN (7-17) mg/dL Creatinine (0.52-1.04) mg/dL Est GFR (CKD-EPI)AfAm (>60 ml/min/1.73 sqM) Est GFR (CKD-EPI)NonAf (>60 ml/min/1.73 sqM) Glucose (74-99) mg/dL Plasma Lactic Acid Fredis (0.7-2.0) mmol/L Calcium (8.4-10.2) mg/dL Total Bilirubin (0.2-1.3) mg/dL AST (14-36) U/L ALT (4-34) U/L Alkaline Phosphatase (38-126) U/L Troponin I <0.012 (0.000-0.034) ng/mL Total Protein (6.3-8.2) g/dL Albumin (3.5-5.0) g/dL Amylase (30-110) U/L Lipase (23-300) U/L Disposition Clinical Impression: Acute pancreatitis, Hyponatremia, Hypokalemia Disposition: ADMITTED IP TO THIS [facility] Time of Disposition: 15:01
[2023-12-06] MEDS: SODIUM CHLORIDE 0.9% 500 ML 500 ML IV STA (14:24)
[2023-12-06 14:25] LABS: Basophils % (A) 1 %; Eosinophils % (A) 1 %; HCT 33.1 % (34.0-46.0); HGB 11.5 gm/dL (11.4-16.0); Lymphocytes # (A) 1.7 k/uL (1.0-4.8); Lymphocytes % (A) 30 %; MCH 31.6 pg (25.0-35.0); MCHC 34.8 g/dL (31.0-37.0); MCV 90.7 fL (80.0-100.0); Monocytes # (A) 0.4 k/uL (0-1.0); Monocytes % (A) 8 %; Neutrophils # (A) 3.2 k/uL (1.3-7.7); Neutrophils % (A) 58 %; Platelet Count 314 k/uL (150-450); RBC 3.65 m/uL (3.80-5.40); RDW 12.8 % (11.5-15.5); WBC 5.5 k/uL (3.8-10.6)
[2023-12-06 14:37] LABS: ALT 38 U/L (4-34); AST 72 U/L (14-36); African American GFR (CKD) >90 (>60 ml/min/1.73 sqM); Albumin 3.6 g/dL (3.5-5.0); Alkaline Phosphatase 61 U/L (38-126); Amylase 180 U/L (30-110); Anion Gap 6 mmol/L; Blood Urea Nitrogen 11 mg/dL (7-17); Calcium 8.7 mg/dL (8.4-10.2); Carbon Dioxide 27 mmol/L (22-30); Chloride 92 mmol/L (98-107); Glucose 75 mg/dL (74-99); Lipase 1601 U/L (23-300); Non-African American GFR(CKD) >90 (>60 ml/min/1.73 sqM); Potassium 3.1 mmol/L (3.5-5.1); Sodium 125 mmol/L (137-145); Total Bilirubin 0.7 mg/dL (0.2-1.3); Total Protein 5.9 g/dL (6.3-8.2)
--- NOTE | 2023-12-06 15:27 | CT ---
EXAMINATION TYPE: CT abdomen pelvis w con CT DLP: 541.8 mGycm, Automated exposure control for dose reduction was used. DATE OF EXAM: 12/06/2023 3:09 PM COMPARISON: None. CLINICAL INDICATION:Female, 53 years old with history of abdominal pain; abdominal pain TECHNIQUE: Axial CT abdomen pelvis w con;Sagittal and coronal reformats were created on a separate w orkstation. Contrast used:100 ml mL of Isovue 300 with IV Contrast, (none if empty) Oral contrast used: without Oral Contrast (none if empty) FINDINGS: LOWER CHEST: Unremarkable ABDOMEN LIVER: Periportal edema within the liver. GALLBLADDER AND BILE DUCTS: Unremarkable. PANCREAS: Unremarkable. SPLEEN: Unremarkable. ADRENAL GLANDS: Unremarkable. KIDNEYS AND URETERS: No evidence of hydronephrosis or renal calculus. The ureters are unremarkable. PELVIS BLADDER: Unremarkable REPRODUCTIVE: Heterogenous appearance of the endometrium. ABDOMEN & PELVIS STOMACH AND BOWEL: No evidence of bowel obstruction. PERITONEUM/RETROPERITONEUM: No evidence of pneumoperitoneum or free fluid. VASCULATURE: No evidence of aortic aneurysm. MUSCULOSKELETAL: No acute osseous abnormalities LYMPH NODES: No gross evidence for lymphadenopathy. SOFT TISSUE/ABDOMINAL WALL: Unremarkable IMPRESSION: 1. No definitive acute abdominal process. 2. Heterogenous uterine endometrium correlate with pelvic ultrasound to rule out endometrial carcino ma. Correlate with history of menstrual cycle.
[2023-12-06] MEDS: POTASSIUM CHLORIDE 20 MEQ in WATER FOR INJECTION 1 100ML.BAG IVPB STA (15:35)
[2023-12-06] MEDS: SODIUM CHLORIDE 0.9% 500 ML 500 ML IV ONE (15:37)
[2023-12-06] MEDS: SODIUM CHLORIDE 0.9% 1,000 ML IV SCH ×2 (15:39→17:22)
[2023-12-06] MEDS: POTASSIUM CHLORIDE ER 20 MEQ TAB.ER PO STA (15:39)
[2023-12-06] MEDS: ONDANSETRON 4 MG/2 ML VIAL IVP PRN (17:17)
[2023-12-06] MEDS ORDERED: ALBUTEROL NEBULIZED 2.5 MG/3 ML INHALATION PRN (21:47)
--- NOTE | 2023-12-07 01:42 | US ---
EXAM: US Abdomen Limited, Right Upper Quadrant CLINICAL HISTORY: Pain TECHNIQUE: Real-time ultrasound of the right upper quadrant with image documentation. COMPARISON: CT abdomen 12/06/2023. FINDINGS: Liver: 16.37 cm length. No mass. No intrahepatic bile duct dilation. Gallbladder: Not visualized. No sonographic Kumari's sign. Common bile duct: 5.2 mm. No stones. No dilation. Pancreas: Unremarkable as visualized. Right kidney: 12 cm length. No stones. No solid mass. No hydronephrosis. IMPRESSION: Gallbladder not identified. No biliary ductal dilatation. Otherwise negative.
[2023-12-07] MEDS: LEVOTHYROXINE 100 MCG TAB PO SCH (06:33)
[2023-12-07] MEDS: IBUPROFEN 600 MG TAB PO PRN (06:36)
[2023-12-07 07:23] LABS: Basophils % (A) 1 %; Eosinophils % (A) 1 %; HCT 33.8 % (34.0-46.0); HGB 11.5 gm/dL (11.4-16.0); Lymphocytes # (A) 1.5 k/uL (1.0-4.8); Lymphocytes % (A) 31 %; MCH 31.7 pg (25.0-35.0); MCV 93.2 fL (80.0-100.0); Mean Platelet Volume 7.9; Monocytes # (A) 0.4 k/uL (0-1.0); Monocytes % (A) 7 %; Neutrophils # (A) 2.8 k/uL (1.3-7.7); Neutrophils % (A) 58 %; Platelet Count 320 k/uL (150-450); RBC 3.62 m/uL (3.80-5.40); RDW 13.1 % (11.5-15.5); WBC 4.8 k/uL (3.8-10.6)
[2023-12-07 07:52] LABS: ALT 48 U/L (4-34); AST 46 U/L (14-36); African American GFR (CKD) >90 (>60 ml/min/1.73 sqM); Albumin 3.2 g/dL (3.5-5.0); Albumin/Globulin Ratio 1.5; Alkaline Phosphatase 58 U/L (38-126); Anion Gap 5 mmol/L; Blood Urea Nitrogen 4 mg/dL (7-17); Calcium 8.7 mg/dL (8.4-10.2); Carbon Dioxide 20 mmol/L (22-30); Chloride 111 mmol/L (98-107); Globulin 2.1 g/dL; Glucose 72 mg/dL (74-99); Lipase 89 U/L (23-300); Non-African American GFR(CKD) >90 (>60 ml/min/1.73 sqM); Potassium 4.2 mmol/L (3.5-5.1); Sodium 136 mmol/L (137-145); Total Bilirubin 0.7 mg/dL (0.2-1.3); Total Protein 5.3 g/dL (6.3-8.2)
[2023-12-07] MEDS: OXcarbazepine 300 MG TAB PO SCH (08:25)
[2023-12-07] MEDS: ASCORBIC ACID 500 MG TAB PO SCH (08:26)
[2023-12-07] MEDS: MULTIVITAMINS, THERA 1 EACH TAB PO SCH (08:26)
[2023-12-07] MEDS: FOLIC ACID 1 MG TAB PO SCH (08:26)
[2023-12-07] MEDS: PANTOPRAZOLE 40 MG TABLET PO SCH (08:26)
[2023-12-07] MEDS: DOCUSATE 100 MG CAP PO SCH (08:26)
[2023-12-07] MEDS: ZINC SULFATE 220 MG CAP PO SCH (08:26)
[2023-12-07] MEDS: POTASSIUM CHLORIDE ER 20 MEQ TAB.ER PO SCH (08:26)
[2023-12-07] MEDS ORDERED: SUMAtriptan succinate 50 MG TAB PO PRN (09:00)
[2023-12-07] MEDS: FORMOTEROL FUMARATE 20 MCG/2 ML NEBU INHALATION SCH (09:13)
[2023-12-07] MEDS: SYMBICORT 160-4.5 MCG INHALER INHALATION SCH (09:14)
[2023-12-07] MEDS: IPRATROPIUM 0.5 MG/2.5 ML NEBU INHALATION SCH (09:14)
[2023-12-07 11:26] LABS: Basophils % (A) 1 %; Eosinophils % (A) 0 %; HCT 35.9 % (34.0-46.0); HGB 11.7 gm/dL (11.4-16.0); Lymphocytes # (A) 1.1 k/uL (1.0-4.8); Lymphocytes % (A) 27 %; MCH 30.6 pg (25.0-35.0); MCHC 32.5 g/dL (31.0-37.0); MCV 94.3 fL (80.0-100.0); Mean Platelet Volume 7.1; Monocytes # (A) 0.4 k/uL (0-1.0); Monocytes % (A) 9 %; Neutrophils # (A) 2.5 k/uL (1.3-7.7); Neutrophils % (A) 62 %; Platelet Count 326 k/uL (150-450); RDW 12.9 % (11.5-15.5); WBC 4.1 k/uL (3.8-10.6)
[2023-12-07 11:38] LABS: ALT 44 U/L (4-34); AST 35 U/L (14-36); African American GFR (CKD) >90 (>60 ml/min/1.73 sqM); Albumin 3.2 g/dL (3.5-5.0); Albumin/Globulin Ratio 1.4; Alkaline Phosphatase 55 U/L (38-126); Amylase 79 U/L (30-110); Anion Gap 2 mmol/L; Blood Urea Nitrogen 3 mg/dL (7-17); Calcium 8.5 mg/dL (8.4-10.2); Carbon Dioxide 24 mmol/L (22-30); Chloride 112 mmol/L (98-107); Globulin 2.3 g/dL; Glucose 87 mg/dL (74-99); Lipase 109 U/L (23-300); Non-African American GFR(CKD) >90 (>60 ml/min/1.73 sqM); Potassium 4.1 mmol/L (3.5-5.1); Sodium 138 mmol/L (137-145); Total Bilirubin 0.4 mg/dL (0.2-1.3); Total Protein 5.5 g/dL (6.3-8.2)
[2023-12-07 11:40] LABS: Amylase 78 U/L (30-110); Lipase 112 U/L (23-300)
--- NOTE | 2023-12-07 15:53 | US ---
EXAMINATION TYPE: US pelvis complete transvag DATE OF EXAM: 12/07/2023 COMPARISON: CT 12/06/2023, US 05/18/2023 and 01/31/2022 CLINICAL INDICATION: Female, 53 years old with history of abnormal uterus on ct scan; Abnormal uterus on CT. Patient has been having irregular periods x 6 months. . Hx miscarriage. TECHNIQUE: Transvaginal (TV) and Transabdominal (TA) . Transabdominal sonographic images of the pel vis were acquired. Transvaginal sonographic images were medically necessary to better assess the fol lowing anatomy: endometrium and ovaries Date of LMP: unknown, pt has been having irregular periods x 6 months. EXAM MEASUREMENTS: Uterus: 9.9 x 7.8 x 2.9 cm Endometrial Stripe: 0.45 cm- seen best transabdominally. Limited visibility. Right Ovary: 3.0 x 1.8 x 1.5 cm Left Ovary: Obscured 1. Uterus: Anteverted Heterogeneous. *Hypoechoic area with internal vascularity seen measurin .9 x 1.8 x 1.4 cm. 2. Endometrium: Anechoic fluid seen in lower cervix: 2.8 x 0.6 x 0.4 cm. 3. Right Ovary: No abnormalities seen 4. Left Ovary: Obscured 5. Bilateral Adnexa: Appear wnl 6. Posterior cul-de-sac: Appears wnl IMPRESSION: 1. Endometrium on transabdominal imaging appears within normal limits for thickness. 2. Uterine fibroid suggested. 3. Small amount of fluid within the endometrium possibly representing blood products.
--- NOTE | 2023-12-07 18:29 | P.GSCN ---
History of Present Illness Consult date: 12/07/23 History of present illness: CHIEF COMPLAINT: Abdominal pain HISTORY OF PRESENT ILLNESS: The patient is a 53 year old female with developmental delay who presents with acute pancreatitis, lipase was over 1600 on admission. Family member at bedside. Patient just had a large lunch including Pepsi, solid foods. She reports complete resolution of her epigastric abdominal pain. "I feel fine." She is eager to go home tomorrow. General surgery was consulted for acute pancreatitis. Patient unaware of prior cholecystectomy. PAST MEDICAL HISTORY: See list and reviewed PAST SURGICAL HISTORY: See list and reviewed MEDICATIONS: See list and reviewed ALLERGIES: See list and reviewed SOCIAL HISTORY: See list and reviewed FAMILY HISTORY: See list and reviewed REVIEW OF ORGAN SYSTEMS: CONSTITUTIONAL: No fevers or chills. No recent weight loss. EYES: Denies any trouble with vision. Wears glasses. HEENT: No difficulties with hearing. No nosebleeds. No difficulty swallowing. RESPIRATORY: Has asthma. CARDIOVASCULAR: Denies any chest pain, palpitations, or recent heart attacks. Has hyperlipidemia. GASTROINTESTINAL: Denies fatty food intolerance. Denies change in bowel habits and gas bloat. GENITOURINARY: History of kidney stones. NEUROLOGICAL: Has seizure disorder. Has cerebral palsy. MUSCULOSKELETAL: Has osteoarthritis bilateral knees. SKIN: No current skin cancer. No rash. PSYCHIATRIC: Has developmental delay. Has depression. ENDOCRINE: Denies current thyroid disorders. Denies any blood sugar glucose intolerance. HEME/LYMPHATIC: Denies any lumps and bumps around the neck. No recent deep venous thrombosis. ALLERGY/IMMUNOLOGY: No immunoglobulin therapy. No immune deficiencies. BREAST: Denies current breast lumps, pain or nipple discharge. PHYSICAL EXAM: VITALS: Reviewed CONSTITUTIONAL: Well developed and in no acute distress. EYES: Conjuctivae without sclera icterus. Extraocular movements grossly intact. HEAD, EARS, NOSE, THROAT: Moist buccal mucosa. Head is atraumatic, normocephalic. Hears conversational speech. No nasal drainage. NECK: Supple. No JV distention. No thyroidomegaly. RESPIRATORY: Non-labored respirations and equal bilateral excursions. No gross wheezes. CARDIOVASCULAR: Palpable 2+ radial pulses. ABDOMEN: No peritonitis. Nontender. LYMPH: No neck lymphadenopathy. MUSCULOSKELETAL: No clubbing cyanosis or edema SKIN: Warm and well perfused with good skin turgor. NEUROLOGIC: Cranial nerves II through XII grossly intact. No focal or lateralizing signs. PSYCH: Appropriate affect. Alert and oriented to person, place and time. Displays appropriate insight. CLINCAL LABS: Reviewed. Sodium on admission 125, hyponatremia. Sodium normal 138. Lipase down 1601 to normal, 109. LFTs elevated trending downward. IMAGING: Independently reviewed. CT of the abdomen pelvis independently re viewed demonstrate biliary ductal dilation. Hepatic biliary ductal dilation identified. Gallbladder is nonvisualized on CT scan. No generalized ascites. Heterogeneous uterus identified. This is my independent interpretation. Ultrasound gallbladder reviewed demonstrates absent gallbladder. RADIOLOGY: Report reviewed. CT of the abdomen pelvis reports gallbladder however not present on imaging study. Transvaginal ultrasound demonstrates normal endometrial stripe. Presence of fibroids. ASSESSMENT: 1. Acute pancreatitis present on admission 2. Hyponatremia present on admission 3. Hypokalemia present on admission PLAN: 1. IV fluid hydration. 2. Diet as tolerated 3. No acute general surgical intervention 3. Patient stable for discharge when medically stable ADVANCE DIRECTIVE: CODE STATUS in chart Thank you for this kind consultation. Past Medical History Past Medical History: Asthma, Hyperlipidemia, Musculoskeletal Disorder, Oste oarthritis (OA), Seizure Disorder, Thyroid Disorder Additional Past Medical History / Comment(s): Kidney stones X3. "CEREBRAL PALSY, VERY JERKY LT SIDE, MANDI ARM." UNABLE TO READ. . THYROID Nodules. LAST SEIZURE 2023 EST. Migraine. . patient walks with out assistance. pt very poor historian, History of Any Multi-Drug Resistant Organisms: None Reported Past Surgical History: Appendectomy, Cholecystectomy, Orthopedic Surgery Additional Past Surgical History / Comment(s): BIOPSY Lung Surgery. KIDNEY STONE PROC. SURGERY ON TENDONS BALDOMERO KNEES. Past Anesthesia/Blood Transfusion Reactions: Previous Problems w/ Anesthesia Additional Past Anesthesia/Blood Transfusion Reaction / Comm: HAD PROBLEMS BREATHING DURING LUNG BIOPSY. MOTHER "NOT AWAKENING FOR 24 HRS AFTER PROCEDURE." Past Psychological History: Depression Additional Psychological History / Comment(s): . Smoking Status: Former smoker Past Alcohol Use History: Rare Additional Past Alcohol Use History / Comment(s): STARTED SMOKING AT AGE 21 QUIT AT AGE 26 SMOKED 1/2PPD Past Drug Use History: None Reported - Past Family History Mother Family Medical History: No Reported History Additional Family Medical History / Comment(s): Maternal grandfather had an [place]. Father Family Medical History: No Reported History Medications and Allergies Home Medications Medication Instructions Recorded Confirmed Type ondansetron HCL [Zofran] 4 mg PO DAILY 01/25/21 12/06/23 History Folic Acid 1 mg PO DAILY 02/01/21 12/06/23 History Atorvastatin [Lipitor] 40 mg PO HS 03/28/22 12/06/23 History Budesonide/Glycopyr/Formoterol 2 puff INHALATION RT-BID 03/28/22 12/06/23 History [Breztri Aerosphere Inhaler] Galcanezumab-Gnlm [Emgality 120 mg SQ Q30D 03/28/22 12/06/23 History Syringe] Ibuprofen [Motrin] 600 mg PO DAILY 03/28/22 12/06/23 History OXcarbazepine [Trileptal] 900 mg PO BID 30 Days #60 tab 03/29/22 12/06/23 Rx Omeprazole 20 mg PO BID 05/24/22 12/06/23 History Potassium Citrate [Urocit-K] 20 meq PO BID 05/24/22 12/06/23 History SUMAtriptan succinate [Imitrex] 100 mg PO DAILY PRN 05/24/22 12/06/23 History Albuterol Inhaler [Ventolin Hfa 2 puff INHALATION RT-Q4H PRN 12/06/23 12/06/23 History Inhaler] Ascorbic Acid [Vitamin C] 500 mg PO DAILY 12/06/23 12/06/23 History Docusate [Colace] 100 mg PO BID 12/06/23 12/06/23 History Levothyroxine Sodium [Synthroid] 100 mcg PO DAILY 12/06/23 12/06/23 History Multivitamins, Thera [Multivitamin 1 tab PO DAILY 12/06/23 12/06/23 History (formulary)] Norethindrone-Ethin. Estradiol 1 tab PO DAILY 12/06/23 12/06/23 History [Ortho-Novum 7-7-7-28 Tablet] Ondansetron [Zofran] 4 mg PO DAILY PRN 12/06/23 12/06/23 History Terbinafine [LamISIL] 250 mg PO DAILY 12/06/23 12/06/23 History Zinc Gluconate [Zinc] 50 mg PO DAILY 12/06/23 12/06/23 History Allergies Allergy/AdvReac Type Severity Reaction Status Date / Time phenytoin sodium Allergy Rash/Hives Verified 12/06/23 14:37 [From Dilantin] phenytoin sodium extended Allergy Rash/Hives Verified 12/06/23 14:37 [From Dilantin] zinc gluconate Allergy Rash/Hives Verified 12/06/23 14:38 [From Cold-Eeze] Surgical - Exam Vital Signs Temp Pulse Resp BP Pulse Ox 98.7 F 74 18 119/74 98 12/06/23 13:43 12/06/23 13:43 12/06/23 13:43 12/06/23 13:43 12/06/23 13:43 Results - Labs 12/07/23 11:13 12/07/23 11:13 Abnormal Lab Results - Last 24 Hours (Table) 12/07/23 12/07/23 12/07/23 Range/Units 05:51 05:51 11:13 RBC 3.62 L (3.80-5.40) m/uL Hct 33.8 L (34.0-46.0) % Sodium 136 L (137-145) mmol/L Chloride 111 H 112 H (98-107) mmol/L Carbon Dioxide 20 L (22-30) mmol/L BUN 4 L 3 L (7-17) mg/dL Creatinine 0.48 L 0.47 L (0.52-1.04) mg/dL Glucose 72 L (74-99) mg/dL AST 46 H (14-36) U/L ALT 48 H 44 H (4-34) U/L Total Protein 5.3 L 5.5 L (6.3-8.2) g/dL Albumin 3.2 L 3.2 L (3.5-5.0) g/dL Diabetes panel 12/07/23 12/07/23 Range/Units 05:51 11:13 Sodium 136 L 138 (137-145) mmol/L Potassium 4.2 4.1 (3.5-5.1) mmol/L Chloride 111 H 112 H (98-107) mmol/L Carbon Dioxide 20 L 24 (22-30) mmol/L BUN 4 L 3 L (7-17) mg/dL Creatinine 0.48 L 0.47 L (0.52-1.04) mg/dL Glucose 72 L 87 (74-99) mg/dL Calcium 8.7 8.5 (8.4-10.2) mg/dL AST 46 H 35 (14-36) U/L ALT 48 H 44 H (4-34) U/L Alkaline Phosphatase 58 55 (38-126) U/L Total Protein 5.3 L 5.5 L (6.3-8.2) g/dL Albumin 3.2 L 3.2 L (3.5-5.0) g/dL Calcium panel 12/07/23 12/07/23 Range/Units 05:51 11:13 Calcium 8.7 8.5 (8.4-10.2) mg/dL Albumin 3.2 L 3.2 L (3.5-5.0) g/dL Pituitary panel 12/07/23 12/07/23 Range/Units 05:51 11:13 Sodium 136 L 138 (137-145) mmol/L Potassium 4.2 4.1 (3.5-5.1) mmol/L Chloride 111 H 112 H (98-107) mmol/L Carbon Dioxide 20 L 24 (22-30) mmol/L BUN 4 L 3 L (7-17) mg/dL Creatinine 0.48 L 0.47 L (0.52-1.04) mg/dL Glucose 72 L 87 (74-99) mg/dL Calcium 8.7 8.5 (8.4-10.2) mg/dL Adrenal panel 12/07/23 12/07/23 Range/Units 05:51 11:13 Sodium 136 L 138 (137-145) mmol/L Potassium 4.2 4.1 (3.5-5.1) mmol/L Chloride 111 H 112 H (98-107) mmol/L Carbon Dioxide 20 L 24 (22-30) mmol/L BUN 4 L 3 L (7-17) mg/dL Creatinine 0.48 L 0.47 L (0.52-1.04) mg/dL Glucose 72 L 87 (74-99) mg/dL Calcium 8.7 8.5 (8.4-10.2) mg/dL Total Bilirubin 0.7 0.4 (0.2-1.3) mg/dL AST 46 H 35 (14-36) U/L ALT 48 H 44 H (4-34) U/L Alkaline Phosphatase 58 55 (38-126) U/L Total Protein 5.3 L 5.5 L (6.3-8.2) g/dL Albumin 3.2 L 3.2 L (3.5-5.0) g/dL
--- NOTE | 2023-12-07 19:51 | HP ---
HISTORY AND PHYSICAL HISTORY OF PRESENT ILLNESS: In the emergency room, she was admitted with acute pancreatitis. She has never had this before. She has history of seizures, cerebral palsy, asthma. She stiffened up, fell to the ground, but she said this was not a typical seizure, I doubted that. She was found to have pancreatitis with abdominal pain with elevated lipase and abdominal pain. Food has been making her have pain and throw up within 30 minutes of eating. MEDICATIONS: 1. Lipitor is 40 daily. 2. Folic acid 1 mg daily. 3. Breztri inhaler. 4. Emgality shots. 5. Motrin. 6. Imitrex. 7. Ventolin HFA p.r.n. 8. Synthroid 100 mcg daily. 9. Multivitamin daily. 10.Lamisil 250 daily. 11.Zinc 50 daily. 12.Omeprazole 20 b.i.d. REVIEW OF SYSTEMS: A 14-point review of systems otherwise negative. PAST MEDICAL HISTORY: Asthma, dyslipidemia, musculoskeletal disorder, osteoarthritis, seizure disorder, thyroid disorder, kidney stones x2, cerebral palsy, thyroid nodules. PAST SURGICAL HISTORY: Appendectomy, cholecystectomy, and orthopedic surgery. FAMILY HISTORY: Mother had ND. Father as mentioned above. PHYSICAL EXAMINATION: GENERAL: Well developed, well nourished, in no acute distress. HEENT: Normocephalic, atraumatic. Pupils are equal, round, and reactive. LUNGS: Mild wheeze. SKIN: Warm and dry. ABDOMEN: She is tender to palpation mid abdomen, right upper quadrant. Mild guarding. No rebound. MUSCULOSKELETAL: Range of motion full. PSYCH: Fair mood and affect. VITAL SIGNS: Temp 98.7, pulse 74, respiratory rate 16 to 18, blood pressure 119 over 70s, O2 saturation 97% to 98%. LABORATORY DATA: EKG: Sinus rhythm. Sodium 125, potassium 3.1. Lipase 1601, amylase 180. Liver enzymes 72 and 38. She has acute pancreatitis, hyponatremia, hypokalemia. IV fluids, surgical consult, may be an ultrasound of gallbladder. Please see further orders. Prognosis guarded. Get surgical consult. Rehydrate. MMODL / IJN: [id number] /
[2023-12-07] MEDS: ATORVASTATIN 40 MG TAB PO SCH (19:58)
--- NOTE | 2023-12-08 01:42 | PN ---
PROGRESS NOTE This is a 53-year-old white female. Temperature 98.8, O2 95 on room air, and blood pressure 105/66. She has abnormal spot on her uterus. They wanted to do a pelvic ultrasound, which has been ordered. Her lipase is back down to normal, possibly advance her diet as she is doing better. She does has no gallbladder on ultrasound. No biliary obstruction. Waiting for surgical recommendations. We will advance diet as tolerated for pancreatitis. Condition, stable. Prognosis guarded. Please see further orders. Discharge when Surgery agrees that she is okay. She is on clear liquid diet since this time, replacing electrolytes. MMODL / IJN: [id number] /
[2023-12-08 02:58] VITALS: RESP 17
[2023-12-08 08:44] LABS: Basophils # (A) 0.03 X 10*3/uL (0.00-0.10); Basophils % (A) 0.5 %; Eosinophils # (A) 0 X 10*3/uL (0.04-0.35); Eosinophils % (A) 0 %; HCT 31.8 % (37.2-46.3); HGB 10.8 g/dL (12.0-15.0); Lymphocytes # (A) 1.87 X 10*3/uL (0.90-5.00); Lymphocytes % (A) 30.9 %; MCH 30.9 pg (27.0-32.0); MCV 91.1 FL (80.0-97.0); Mean Platelet Volume 9.8 FL (9.5-12.2); Monocytes # (A) 0.66 X 10*3/uL (0.20-1.00); Monocytes % (A) 10.9 %; NRBC Per 100 WBC 0 X 10*3/uL (0.00-0.01); Neutrophils # (A) 3.49 X 10*3/uL (1.80-7.70); Neutrophils % (A) 57.5 %; Platelet Count 316 X 10*3/uL (140-440); RBC 3.49 X 10*6/uL (4.10-5.20); RDW 13.6 % (11.5-14.5); WBC 6.06 X 10*3/uL (4.50-10.00)
[2023-12-08 08:46] VITALS: BP 112/62; TEMP 97.8
[2023-12-08 08:56] LABS: ALT 35 U/L (8-44); AST 17 U/L (13-35); Albumin 3.6 g/dL (3.8-4.9); Albumin/Globulin Ratio 2.25 Ratio (1.60-3.17); Alkaline Phosphatase 53 U/L (41-126); Blood Urea Nitrogen 6.3 mg/dL (9.0-27.0); Calcium 8.6 mg/dL (8.7-10.3); Carbon Dioxide 23.9 mmol/L (21.6-31.8); Chloride 107 mmol/L (96-109); Globulin 1.6 g/dL (1.6-3.3); Glucose 93 mg/dL (70-110); Potassium 4.4 mmol/L (3.5-5.5); Sodium 139 mmol/L (135-145); Total Bilirubin <0.2 mg/dL (0.3-1.2); Total Protein 5.2 g/dL (6.2-8.2)
--- NOTE | 2023-12-08 10:20 | P.PN ---
Subjective Progress Note Date: 12/08/23 CHIEF COMPLAINT: Abdominal pain HISTORY OF PRESENT ILLNESS: The patient is a 53 year old female with dev elopmental delay who presents with acute pancreatitis, lipase was over 1600 on admission. She denies any epigastric pain. She reports primarily pelvic discomfort. Patient has tolerated diet. She wants to be discharged. REVIEW OF ORGAN SYSTEMS: GENITOURINARY: History of kidney stones. Diagnosed with new uterine fibroids. NEUROLOGICAL: Has seizure disorder. Has cerebral palsy. MUSCULOSKELETAL: Has osteoarthritis bilateral knees. PSYCHIATRIC: Has developmental delay. Has depression. PHYSICAL EXAM: VITALS: Reviewed CONSTITUTIONAL: Well developed and in no acute distress. EYES: Conjuctivae without sclera icterus. Extraocular movements grossly intact. HEAD, EARS, NOSE, THROAT: Moist buccal mucosa. Head is atraumatic, normocephalic. Hears conversational speech. No nasal drainage. RESPIRATORY: Non-labored respirations and equal bilateral excursions. No gross wheezes. CARDIOVASCULAR: Palpable 2+ radial pulses. ABDOMEN: No peritonitis. No tenderness along the epigastrium. Mild suprapubic tenderness. MUSCULOSKELETAL: No clubbing cyanosis or edema SKIN: Warm and well perfused with good skin turgor. NEUROLOGIC: Cranial nerves II through XII grossly intact. No focal or la teralizing signs. PSYCH:Alert and oriented to person, place and time. CLINCAL LABS: Reviewed. Lipase normal. WBC normal. Sodium normal. ASSESSMENT: 1. Acute pancreatitis present on admission 2. Hyponatremia present on admission 3. Hypokalemia present on admission 4. Uterine fibroids. PLAN: 1. Overall, patient stable for discharge from a surgical standpoint when medically stable 2. Follow-up with gynecology as outpatient for uterine fibroids Objective - Vital Signs Vital signs: Vital Signs Temp 97.8 F 12/08/23 07:16 Pulse 86 12/08/23 08:14 Resp 17 12/08/23 07:16 BP 112/62 12/08/23 07:16 Pulse Ox 97 12/08/23 07:16 FiO2 Intake & Output 12/07/23 12/08/23 12/08/23 18:59 06:59 18:59 Other: # Voids 2 3 - Labs CBC & Chem 7: 12/08/23 06:04 12/08/23 06:04 Labs: Abnormal Lab Results - Last 24 Hours (Table) 12/07/23 12/08/23 12/08/23 Range/Units 11:13 06:04 06:04 RBC 3.49 L (4.10-5.20) X 10*6/uL Hgb 10.8 L (12.0-15.0) g/dL Hct 31.8 L (37.2-46.3) % Eosinophils # 0 L (0.04-0.35) X 10*3/uL Chloride 112 H (98-107) mmol/L BUN 3 L 6.3 L (7-17) mg/dL Creatinine 0.47 L (0.52-1.04) mg/dL BUN/Creatinine Ratio 10.50 L (12.00-20.00) Ratio Calcium 8.6 L (8.7-10.3) mg/dL Total Bilirubin <0.2 L (0.3-1.2) mg/dL ALT 44 H (4-34) U/L Total Protein 5.5 L 5.2 L (6.3-8.2) g/dL Albumin 3.2 L 3.6 L (3.5-5.0) g/dL
--- NOTE | 2023-12-08 11:03 | PN ---
PROGRESS NOTE DATE OF SERVICE: 12/08/2023 SUBJECTIVE: A 53-year-old white female, abdominal pain is resolved. Her CT scan, ultrasound reviewed. Lipase is now normal. She is on soft diet, doing fine, is sent home today. OBJECTIVE: VITAL SIGNS: Stable. CARDIOVASCULAR: S1, S2. LUNGS: Clear. GI: Soft. HEMATOLOGY: Negative Homans. ASSESSMENT: Acute on chronic pancreatitis, improved, unclear etiology, mostly viral probably. She has history of seizures, COPD. Continue current outpatient medicine. Discharge home. Follow up in office in a week. MMODL / IJN: [id number] /
[2023-12-08 11:52] VITALS: PULSE 88
== END 2023-12-08 13:43 | disposition home or self-care (01) | DRG 439 ==
LOC: EC 13:40 → 4SSUR 15:06
PROVIDERS: ADMIT Family Medicine; ATTEND Family Medicine
DX: K85.90 Acute pancreatitis without necrosis or infection, unspecified (principal); E87.1 Hypo-osmolality and hyponatremia; K86.1 Other chronic pancreatitis; G40.909 Epilepsy, unspecified, not intractable, without status epilepticus; G80.9 Cerebral palsy, unspecified; J44.89 Other specified chronic obstructive pulmonary disease; F32.A Depression, unspecified; E04.2 Nontoxic multinodular goiter; B34.9 Viral infection, unspecified; E87.6 Hypokalemia; D25.9 Leiomyoma of uterus, unspecified; E78.5 Hyperlipidemia, unspecified; G43.909 Migraine, unspecified, not intractable, without status migrainosus; M17.0 Bilateral primary osteoarthritis of knee; Z79.51 Long term (current) use of inhaled steroids; Z79.890 Hormone replacement therapy; Z79.3 Long term (current) use of hormonal contraceptives; Z79.899 Other long term (current) drug therapy; Z87.891 Personal history of nicotine dependence; Z88.8 Allergy status to other drugs, medicaments and biological substances
CPT/HCPCS: 36415; 74177; 76705; 76830; 76856; 80053; 82150; 83605; 83690; 84484; 85025; 93005; 94640; 96361; 96365; 96366; 96375; 99285

== ENCOUNTER 2024-01-12 12:19 | Emergency (ER) | payer MEDICARE, OTHER | END 2024-01-12 20:00 | disposition left against medical advice (07) | LOC: EC 12:19 | CPT/HCPCS: 93005; 99499 ==

== ENCOUNTER 2024-02-23 17:48 | Emergency (ER) | payer MEDICARE, OTHER ==
--- NOTE | 2024-02-23 18:12 | ED ---
Extremity Problem HPI - General Chief complaint: Extremity Problem,Nontraumatic Stated complaint: Left wrist injury Time Seen by Provider: 02/23/24 18:05 Source: patient, RN notes reviewed Mode of arrival: ambulatory Limitations: no limitations - History of Present Illness Initial comments: This is a 53-year-old female who presents to the emergency department for left wrist pain. States that this started earlier this week. Unsure if she has had any injuries. She has been wearing a wrist brace, which has been helpful. However, when she tried to take it off the pain returned. She has not noticed any redness. Unsure if there is been any swelling. MD Complaint: extremity pain - Related Data Home Medications Medication Instructions Recorded Confirmed ondansetron HCL [Zofran] 4 mg PO DAILY 01/25/21 12/06/23 Folic Acid 1 mg PO DAILY 02/01/21 12/06/23 Atorvastatin [Lipitor] 40 mg PO HS 03/28/22 12/06/23 Budesonide/Glycopyr/Formoterol 2 puff INHALATION RT-BID 03/28/22 12/06/23 [Breztri Aerosphere Inhaler] Galcanezumab-Gnlm [Emgality 120 mg SQ Q30D 03/28/22 12/06/23 Syringe] Ibuprofen [Motrin] 600 mg PO DAILY 03/28/22 12/06/23 Omeprazole 20 mg PO BID 05/24/22 12/06/23 Potassium Citrate [Urocit-K] 20 meq PO BID 05/24/22 12/06/23 SUMAtriptan succinate [Imitrex] 100 mg PO DAILY PRN 05/24/22 12/06/23 Albuterol Inhaler [Ventolin Hfa 2 puff INHALATION RT-Q4H PRN 12/06/23 12/06/23 Inhaler] Ascorbic Acid [Vitamin C] 500 mg PO DAILY 12/06/23 12/06/23 Docusate [Colace] 100 mg PO BID 12/06/23 12/06/23 Levothyroxine Sodium [Synthroid] 100 mcg PO DAILY 12/06/23 12/06/23 Multivitamins, Thera [Multivitamin 1 tab PO DAILY 12/06/23 12/06/23 (formulary)] Norethindrone-Ethin. Estradiol 1 tab PO DAILY 12/06/23 12/06/23 [Ortho-Novum 7-7-7-28 Tablet] Ondansetron [Zofran] 4 mg PO DAILY PRN 12/06/23 12/06/23 Terbinafine [LamISIL] 250 mg PO DAILY 12/06/23 12/06/23 Zinc Gluconate [Zinc] 50 mg PO DAILY 12/06/23 12/06/23 Previous Rx's Medication Instructions Recorded OXcarbazepine [Trileptal] 900 mg PO BID 30 Days #60 tab 03/29/22 HYDROcodone/APAP 5-325MG [E[place]ka 1 tab PO Q6HR PRN 3 Days #12 tab 02/23/24 5-325] Ibuprofen [Motrin] 800 mg PO Q8H PRN #30 tab 02/23/24 Allergies Allergy/AdvReac Type Severity Reaction Status Date / Time phenytoin sodium Allergy Rash/Hives Verified 12/06/23 14:37 [From Dilantin] phenytoin sodium extended Allergy Rash/Hives Verified 12/06/23 14:37 [From Dilantin] zinc gluconate Allergy Rash/Hives Verified 12/06/23 14:38 [From Cold-Eeze] Review of Systems ROS Statement: Those systems with pertinent positive or pertinent negative responses have been documented in the HPI. ROS Other: All systems not noted in ROS Statement are negative. Past Medical History Past Medical History: Asthma, Hyperlipidemia, Musculoskeletal Disorder, Osteoarthritis (OA), Seizure Disorder, Thyroid Disorder Additional Past Medical History / Comment(s): Kidney stones X3. "CEREBRAL PALSY, VERY JERKY LT SIDE, MANDI ARM." UNABLE TO READ. . THYROID Nodules. LAST SEIZURE 2023 EST. Migraine. . patient walks with out assistance. pt very poor historian, History of Any Multi-Drug Resistant Organisms: None Reported Past Surgical History: Appendectomy, Cholecystectomy, Orthopedic Surgery Additional Past Surgical History / Comment(s): BIOPSY Lung Surgery. KIDNEY STONE PROC. SURGERY ON TENDONS BALDOMERO KNEES. Past Anesthesia/Blood Transfusion Reactions: Previous Problems w/ Anesthesia Additional Past Anesthesia/Blood Transfusion Reaction / Comment(s): HAD PROBLEMS BREATHING DURING LUNG BIOPSY. MOTHER "NOT AWAKENING FOR 24 HRS AFTER PROCEDURE." Past Psychological History: Depression Additional Psychological History / Comment(s): . Smoking Status: Former smoker Past Alcohol Use History: Rare Additional Past Alcohol Use History / Comment(s): STARTED SMOKING AT AGE 21 QUIT AT AGE 26 SMOKED 1/2PPD Past Drug Use History: None Reported - Past Family History Mother Family Medical History: No Reported History Additional Family Medical History / Comment(s): Maternal grandfather had an IA. Father Family Medical History: No Reported History General Exam - General Exam Comments Initial Comments: Visual Physical Exam Vital signs reviewed General: Well-appearing, nontoxic, no acute distress. Head: Normocephalic, atraumatic Eyes: PERRLA, EOMI ENT: Airway patent Chest: Nonlabored breathing Skin: No visual rash, normal skin tone Neuro: Alert and oriented 3 Musculoskeletal: No gross abnormalities Limitations: no limitations General appearance: alert, in no apparent distress Head exam: Present: atraumatic, normocephalic, normal inspection Respiratory exam: Present: normal lung sounds bilaterally. Absent: respiratory distress, wheezes, rales, rhonchi, stridor Cardiovascular Exam: Present: regular rate, normal rhythm, normal heart sounds. Absent: systolic murmur, diastolic murmur, rubs, gallop, clicks Extremities exam: Present: other (Tenderness to palpation over the left wrist. No deformities, swelling, or ecchymosis. 2+ radial pulses.) Neurological exam: Present: alert, oriented X3, CN II-XII intact Psychiatric exam: Present: normal affect, normal mood Skin exam: Present: warm, dry, intact, normal color. Absent: rash Course Vital Signs 02/23/24 02/23/24 18:22 20:32 Temperature 98.0 F Pulse Rate 98 100 Respiratory 17 18 Rate Blood Pressure 123/80 130/78 O2 Sat by Pulse 99 98 Oximetry Procedures - Orthopedic Splinting/Casting Injury #1 Side: left Upper Extremity Injury Location: wrist Upper Extremity Immobilizer: volar splint Medical Decision Making - Medical Decision Making This is a 53 year old female who presents to the emergency department for left wrist pain. Was pt. sent in by a medical professional or institution? @ -No Did you speak to anyone other than the patient for history? @ -No Did you review nursing and triage notes? @ -Yes, and I agree, it is accurate with regards to the patient's symptoms. Were old charts reviewed? @ -No Differential Diagnosis? @ -Differential Musculoskeletal: Muscular strain, contusion, ligament sprain, fracture, arthritis, septic arthritis, bursitis, cellulitis, muscle spasm, nerve compression, DVT, arterial occlusion, herpes zoster, electrolyte abnormality, tumor.... This is not meant to be in all inclusive list EKG interpreted by me (3pts min.)? @ -Not obtained X-rays interpreted by me (1pt min.)? @ -X-ray of the left wrist obtained. My interpretation identifies soft tissue swelling. CT interpreted by me (1pt min.)? @ -Not obtained U/S interpreted by me (1pt. min.)? @ -Not obtained What testing was considered but not performed? (CT, X-rays, U/S, labs)? Why? @ -None What meds were considered but not given? Why? @ -None Did you discuss the management of the patient with other professionals? @ -No Did you reconcile home meds? @ -No Was smoking cessation discussed for >3mins.? @ -No Was critical care preformed (if so, how long)? @ -No Were there social determinants of health that impacted care today? How? (Homelessness, low income, unemployed, alcoholism, drug addiction, transportation, low edu. Level, literacy, decrease access to med. care, correction, rehab)? @ -No Was there de-escalation of care discussed even if they declined? (Discuss DNR or withdrawal of care, Hospice)? @ -No What co-morbidities impacted this encounter? (DM, HTN, Smoking, COPD, CAD, Cancer, CVA, Hep., AIDS, mental health diagnosis, sleep apnea, morbid obesity)? @ -Osteoarthritis Was patient admitted / discharged? @ -Discharged. X-ray of the left wrist demonstrates findings suggestive for triquetral avulsion. Volar splint was applied. Pain managed in the emergency department. Prescription for ibuprofen and Eureka provided. Information for orthopedic follow-up provided as well. She is advised to contact them for a follow-up appointment. Patient discharged home in stable condition. Case discussed with ED attending Dr. Foreman. Return precautions reviewed in depth, the patient is instructed to return to the emergency department with any new, worsening, or concerning symptoms. Patient verbalized understanding. Undiagnosed new problem with uncertain prognosis? @ -None Drug Therapy requiring intensive monitoring for toxicity (Heparin, Nitro, Insulin, Cardizem)? @ -None Were any procedures done? @ -Left volar splint application Diagnosis/symptom? @ -Left triquetral avulsion Acute, or Chronic, or Acute on Chronic? @ -Acute Uncomplicated (without systemic symptoms) or Complicated (systemic symptoms)? @ -Uncomplicated Side effects of treatment? @ -None Exacerbation, Progression, or Severe Exacerbation] @ -Not applicable Poses a threat to life or bodily function? @ -Will limit use of her left upper extremity for the mean time. - Radiology Data Radiology results: report reviewed, image reviewed Disposition Clinical Impression: Fracture, triquetral bone Disposition: HOME SELF-CARE Condition: Fair Instructions (If sedation given, give patient instructions): Wrist Fracture in Adults (ED), Splint Care (ED) Additional Instructions: Return to the emergency department with any new, worsening, or concerning symptoms. Alternate with ibuprofen and Tylenol as needed for pain relief. Take the E[place]ka sparingly when your pain is the most severe and be aware that it may make you drowsy. Contact orthopedics as listed below for a follow-up appointment. Follow up with your primary care provider in 1-2 days. Prescriptions: Ibuprofen [Motrin] 800 mg PO Q8H PRN #30 tab PRN Reason: Pain HYDROcodone/APAP 5-325MG [E[place]ka 5-325] 1 tab PO Q6HR PRN 3 Days #12 tab PRN Reason: Pain Is patient prescribed a controlled substance at d/c from ED?: Yes When asked, does pt state using other controlled substances?: No If prescribed controlled substance>3 days was MAPS reviewed?: Prescribed <3 Days Referrals: Christopher Cook MD [Primary Care Provider] - 1-2 days Gian Han MD [Medical Doctor] - 1-2 days Time of Disposition: 20:19
[2024-02-23 18:25] VITALS: TEMP 98
--- NOTE | 2024-02-23 19:07 | XR ---
EXAMINATION TYPE: XR wrist complete LT DATE OF EXAM: 02/23/2024 COMPARISON: None HISTORY: Pain worsening over 2-3 days TECHNIQUE: 4 view left wrist FINDINGS: There is a small osseous structure posterior to the carpal row on the lateral image. Findin gs can be compatible with a triquetral avulsion. No additional areas suspicious for fractures evident. Joint spaces are preserved. Soft tissues may lilly ve mild prominence over the dorsum of the wrist. Follow up exams can be performed 7-10 days from acute trauma for continued pain. There medicine bone scan could be performed for persistent pain at the anatomic snuff box. IMPRESSION: 1. Findings suggestive for triquetral avulsion. [facility], , 02/23/2024 7:05 PM
[2024-02-23] MEDS: IBUPROFEN 600 MG STARTER PACK 4 TAB BTL PO STA (20:06)
[2024-02-23] MEDS: IBUPROFEN 800 MG TAB PO STA (20:07)
[2024-02-23] MEDS: ACET/COD 300 MG/30 MG STARTER PACK 6 TAB BTL PO STA (20:07)
[2024-02-23] MEDS: HYDROcodone/APAP 5-325MG 1 EACH TAB PO STA (20:07)
[2024-02-23 20:33] VITALS: BP 130/78; PULSE 100; RESP 18
== END 2024-02-23 20:49 | disposition home or self-care (01) ==
LOC: EC 17:48
CPT/HCPCS: 29125; 99283

== ENCOUNTER 2024-03-29 13:53 | Emergency (ER) | payer MEDICARE, OTHER ==
--- NOTE | 2024-03-29 14:27 | ED ---
Headache HPI - General Source: patient, RN notes reviewed Mode of arrival: ambulatory Limitations: no limitations <Ayde Fritz - Last Filed: 03/29/24 18:59> <Ines Puente - Last Filed: 03/29/24 23:15> - General Chief Complaint: Headache Stated Complaint: Migraine Time Seen by Provider: 03/29/24 14:10 - History of Present Illness Initial Comments: This is a 53-year-old female with history of migraines and cerebral palsy presenting to the emergency department chief complaint of headache that has been persistent over the past few days. States that symptoms feel similar to when she has had migraines in the past however symptoms have persisted. She denies acute neurological deficits. She has been also experiencing nausea and vomiting. endorses mild photophobia. patient has seen a neurologist previously for headaches however it has been many years since follow up. (Ayde Fritz) - Related Data Home Medications Medication Instructions Recorded Confirmed ondansetron HCL [Zofran] 4 mg PO DAILY 01/25/21 12/06/23 Folic Acid 1 mg PO DAILY 02/01/21 12/06/23 Atorvastatin [Lipitor] 40 mg PO HS 03/28/22 12/06/23 Budesonide/Glycopyr/Formoterol 2 puff INHALATION RT-BID 03/28/22 12/06/23 [Breztri Aerosphere Inhaler] Galcanezumab-Gnlm [Emgality 120 mg SQ Q30D 03/28/22 12/06/23 Syringe] Ibuprofen [Motrin] 600 mg PO DAILY 03/28/22 12/06/23 Omeprazole 20 mg PO BID 05/24/22 12/06/23 Potassium Citrate [Urocit-K] 20 meq PO BID 05/24/22 12/06/23 SUMAtriptan succinate [Imitrex] 100 mg PO DAILY PRN 05/24/22 12/06/23 Albuterol Inhaler [Ventolin Hfa 2 puff INHALATION RT-Q4H PRN 12/06/23 12/06/23 Inhaler] Ascorbic Acid [Vitamin C] 500 mg PO DAILY 12/06/23 12/06/23 Docusate [Colace] 100 mg PO BID 12/06/23 12/06/23 Levothyroxine Sodium [Synthroid] 100 mcg PO DAILY 12/06/23 12/06/23 Multivitamins, Thera [Multivitamin 1 tab PO DAILY 12/06/23 12/06/23 (formulary)] Norethindrone-Ethin. Estradiol 1 tab PO DAILY 12/06/23 12/06/23 [Ortho-Novum 7-7-7-28 Tablet] Ondansetron [Zofran] 4 mg PO DAILY PRN 12/06/23 12/06/23 Terbinafine [LamISIL] 250 mg PO DAILY 12/06/23 12/06/23 Zinc Gluconate [Zinc] 50 mg PO DAILY 12/06/23 12/06/23 Previous Rx's Medication Instructions Recorded OXcarbazepine [Trileptal] 900 mg PO BID 30 Days #60 tab 03/29/22 HYDROcodone/APAP 5-325MG [[place] 1 tab PO Q6HR PRN 3 Days #12 tab 02/23/24 5-325] Ibuprofen [Motrin] 800 mg PO Q8H PRN #30 tab 02/23/24 Allergies Allergy/AdvReac Type Severity Reaction Status Date / Time phenytoin sodium Allergy Rash/Hives Verified 12/06/23 14:37 [From Dilantin] phenytoin sodium extended Allergy Rash/Hives Verified 12/06/23 14:37 [From Dilantin] zinc gluconate Allergy Rash/Hives Verified 12/06/23 14:38 [From Cold-Eeze] Review of Systems ROS Other: All systems not noted in ROS Statement are negative. <Ayde Fritz - Last Filed: 03/29/24 18:59> ROS Other: All systems not noted in ROS Statement are negative. <Ines Puente - Last Filed: 03/29/24 23:15> ROS Statement: Those systems with pertinent positive or pertinent negative responses have been documented in the HPI. Past Medical History Past Medical History: Asthma, Hyperlipidemia, Musculoskeletal Disorder, Osteoarthritis (OA), Seizure Disorder, Thyroid Disorder Additional Past Medical History / Comment(s): Kidney stones X3. "CEREBRAL PALSY, VERY JERKY LT SIDE, MANDI ARM." UNABLE TO READ. . THYROID Nodules. LAST SEIZURE 2023 EST. Migraine. . patient walks with out assistance. pt very poor historian, History of Any Multi-Drug Resistant Organisms: None Reported Past Surgical History: Appendectomy, Cholecystectomy, Orthopedic Surgery Additional Past Surgical History / Comment(s): BIOPSY Lung Surgery. KIDNEY STONE PROC. SURGERY ON TENDONS BALDOMERO KNEES. Past Anesthesia/Blood Transfusion Reactions: Previous Problems w/ Anesthesia Additional Past Anesthesia/Blood Transfusion Reaction / Comment(s): HAD PROBLEMS BREATHING DURING LUNG BIOPSY. MOTHER "NOT AWAKENING FOR 24 HRS AFTER PROCEDURE." Past Psychological History: Depression Smoking Status: Former smoker Past Alcohol Use History: Rare Past Drug Use History: None Reported - Past Family History Mother Family Medical History: No Reported History Additional Family Medical History / Comment(s): Maternal grandfather had an IA. Father Family Medical History: No Reported History <Stieler,Ayde - Last Filed: 03/29/24 18:59> General Exam Limitations: no limitations, language barrier General appearance: alert, in no apparent distress Head exam: Present: atraumatic, normocephalic, normal inspection Eye exam: Present: normal appearance, PERRL, EOMI. Absent: scleral icterus, conjunctival injection, periorbital swelling ENT exam: Present: normal exam, mucous membranes moist Neck exam: Present: normal inspection. Absent: tenderness, meningismus, lymphadenopathy Respiratory exam: Present: normal lung sounds bilaterally. Absent: respiratory distress, wheezes, rales, rhonchi, stridor Cardiovascular Exam: Present: regular rate, normal rhythm, normal heart sounds. Absent: systolic murmur, diastolic murmur, rubs, gallop, clicks GI/Abdominal exam: Present: soft, normal bowel sounds. Absent: distended, tenderness, guarding, rebound, rigid Extremities exam: Present: normal inspection, full ROM, normal capillary refill. Absent: tenderness, pedal edema, joint swelling, calf tenderness Back exam: Present: normal inspection Neurological exam: Present: alert, oriented X3, CN II-XII intact <Stieler,Ayde - Last Filed: 03/29/24 18:59> - General Exam Comments Initial Comments: Visual Physical Exam Vital signs reviewed General: Well-appearing, nontoxic, no acute distress. Head: Normocephalic, atraumatic Eyes: PERRLA, EOMI ENT: Airway patent Chest: Nonlabored breathing Skin: No visual rash, normal skin tone Neuro: Alert and oriented 3 Musculoskeletal: No gross abnormalities (Stieler,Ayde) Course Vital Signs 03/29/24 03/29/24 03/29/24 14:20 18:39 20:25 Temperature 98.8 F 98.2 F Pulse Rate 76 83 81 Respiratory 18 18 16 Rate Blood Pressure 119/82 119/71 98/62 O2 Sat by Pulse 99 97 96 Oximetry Medical Decision Making <Ayde Fritz - Last Filed: 03/29/24 18:59> <Ines Puente - Last Filed: 03/29/24 23:15> - Medical Decision Making Was pt. sent in by a medical professional or institution (, PA, UTILITIES AND MAINTENANCE SUPERVISOR, urgent care, hospital, or retirement...) When possible be specific @ -[No] Did you speak to anyone other than the patient for history (EMS, parent, family, police, friend...)? What history was obtained from this source @ -[No] Did you review nursing and triage notes (agree or disagree)? Why? @ -[I reviewed and agree with nursing and triage notes] Were old charts reviewed (outside hosp., previous admission, EMS record, old EKG, old radiological studies, urgent care reports/EKG's, retirement records)? Report findings @ -[No old charts were reviewed] Differential Diagnosis (chest pain, altered mental status, abdominal pain women, abdominal pain men, vaginal bleeding, weakness, fever, dyspnea, syncope, headache, dizziness, GI bleed, back pain, seizure, CVA, palpatations, mental health, musculoskeletal)? @ -Differential Headache: Migraine, tension, cluster, carbon monoxide, central venous thrombosis, pension karma temporal arteritis, acute closure glaucoma, intercranial hemorrhage, mastoiditis, sinusitis, head injury, this is not meant to be an all-inclusive list. EKG interpreted by me (3pts min.). @ -None X-rays interpreted by me (1pt min.). @ -[None done] CT interpreted by me (1pt min.). @ -[None done] U/S interpreted by me (1pt. min.). @ -[None done] What testing was considered but not performed or refused? (CT, X-rays, U/S, labs)? Why? @ -[None] What meds were considered but not given or refused? Why? @ -[None] Did you discuss the management of the patient with other professionals (professionals i.e. , JARRETT, UTILITIES AND MAINTENANCE SUPERVISOR, lab, RT, psych nurse, social services coordinator, lawyer probate, teacher, chief creative officer, complex case manager)? Give summary @ -[No] Was smoking cessation discussed for >3mins.? @ -[No] Was critical care preformed (if so, how long)? @ -[No] Were there social determinants of health that impacted care today? How? (Homelessness, low income, unemployed, alcoholism, drug addiction, transportation, low edu. Level, literacy, decrease access to med. care, custodial, rehab)? @ -[No] Was there de-escalation of care discussed even if they declined (Discuss DNR or withdrawal of care, Hospice)? DNR status @ -[No] What co-morbidities impacted this encounter? (DM, HTN, Smoking, COPD, CAD, Cancer, CVA, ARF, Chemo, Hep., AIDS, mental health diagnosis, sleep apnea, morbid obesity)? @ -[None] Was patient admitted / discharged? Hospital course, mention meds given and r oute, prescriptions, significant lab abnormalities, going to OR and other pertinent info. @ -53-year-old female with persistent migraine headache. On my evaluation the patient she is resting comfortably, no signs of acute distress. Her vital signs are stable. She is noted to have mild photophobia. patient had a few episodes of emesis while in the emergency department waiting room. Neurological examination unremarkable for acute deficits. Patient is treated with IV fluids, Toradol, Benadryl. On reevaluation patient states that her symptoms are still persistent. She is offered both Decadron and Dilaudid. On reevaluation, patient notes that migraine has somewhat subsided however symptoms are still present of the headache. At this time patient was offered CT imaging of the bra in without contrast for further evaluation of persistent headache despite medication. She is in agreement to undergo CT imaging. Patient is signed out to my colleague, Ines Puente PA-C pending CT imaging results and disposition. Undiagnosed new problem with uncertain prognosis? @ -[No] Drug Therapy requiring intensive monitoring for toxicity (Heparin, Nitro, Insulin, Cardizem)? @ -[No] Were any procedures done? @ -[No] Diagnosis/symptom? @ -[default] Acute, or Chronic, or Acute on Chronic? @ -[default] Uncomplicated (without systemic symptoms) or Complicated (systemic symptoms)? @ -[default] Side effects of treatment? @ -[No] Exacerbation, Progression, or Severe Exacerbation? @ -[No] Poses a threat to life or bodily function? How? (Chest pain, USA, IA, pneumonia, PE, COPD, DKA, ARF, appy, cholecystitis, CVA, Diverticulitis, Homicidal, Suicidal, threat to staff... and all critical care pts) @ -[No] (Catrina,Ayde) Was pt. sent in by a medical professional or institution (, PA, UTILITIES AND MAINTENANCE SUPERVISOR, urgent care, hospital, or retirement...) When possible be specific @ -No Did you speak to anyone other than the patient for history (EMS, parent, family, police, friend...)? What history was obtained from this source @ -No Did you review nursing and triage notes (agree or disagree)? Why? @ -I reviewed and agree with nursing and triage notes Were old charts reviewed (outside hosp., previous admission, EMS record, old EKG, old radiological studies, urgent care reports/EKG's, retirement records)? Report findings @ -No old charts were reviewed Differential Diagnosis (chest pain, altered mental status, abdominal pain women, abdominal pain men, vaginal bleeding, weakness, fever, dyspnea, syncope, headache, dizziness, GI bleed, back pain, seizure, CVA, palpatations, mental health, musculoskeletal)? @ -Differential Headache: Migraine, tension, cluster, carbon monoxide, central venous thrombosis, pension karma temporal arteritis, acute closure glaucoma, intercranial hemorrhage, mastoiditis, sinusitis, head injury, this is not meant to be an all-inclusive list. EKG interpreted by me (3pts min.). @ -None X-rays interpreted by me (1pt min.). @ -None done CT interpreted by me (1pt min.). @ -CT head reveals no acute intracranial process U/S interpreted by me (1pt. min.). @ -None done What testing was considered but not performed or refused? (CT, X-rays, U/S, labs)? Why? @ -None What meds were considered but not given or refused? Why? @ -None Did you discuss the management of the patient with other professionals (professionals i.e. , PA, UTILITIES AND MAINTENANCE SUPERVISOR, lab, RT, psych nurse, social services coordinator, lawyer probate, teacher, chief creative officer, complex case manager)? Give summary @ -No Was smoking cessation discussed for >3mins.? @ -No Was critical care preformed (if so, how long)? @ -No Were there social determinants of health that impacted care today? How? (Homelessness, low income, unemployed, alcoholism, drug addiction, transportation, low edu. Level, literacy, decrease access to med. care, custodial, rehab)? @ -No Was there de-escalation of care discussed even if they declined (Discuss DNR or withdrawal of care, Hospice)? DNR status @ -No What co-morbidities impacted this encounter? (DM, HTN, Smoking, COPD, CAD, Cancer, CVA, ARF, Chemo, Hep., AIDS, mental health diagnosis, sleep apnea, morbid obesity)? @ -None Was patient admitted / discharged? Hospital course, mention meds given and route, prescriptions, significant lab abnormalities, going to OR and other pertinent info. @ -Discharge. This is a 53-year-old female presenting with headache x 3 days. Patient does have a history of migraines and reports this headache is similar in quality to previous migraines however reports it is unusual for her migraines to last several days. Patient is initially given IV fluids and analgesics. On reevaluation, patient reports limited improvement in symptoms. CT brain is then performed at this time which reveals no acute intracranial process. Upon reevaluation, patient is resting comfortably and reports symptoms have improved. Negative results of CT discussed with patient. I believe it is safe for patient to be discharged home at this time. Advised close follow-up with PCP next week for reevaluation. Supportive care as well as return precautions discussed with patient and she conveys understanding and agrees with plan. Case was discussed with my ED attending Dr. Foreman. Patient stable at time of discharge. Undiagnosed new problem with uncertain prognosis? @ -No Drug Therapy requiring intensive monitoring for toxicity (Heparin, Nitro, Insulin, Cardizem)? @ -No Were any procedures done? @ -No Diagnosis/symptom? @ -Headache Acute, or Chronic, or Acute on Chronic? @ -Acute Uncomplicated (without systemic symptoms) or Complicated (systemic symptoms)? @ -Uncomplicated Side effects of treatment? @ -No Exacerbation, Progression, or Severe Exacerbation? @ -No Poses a threat to life or bodily function? How? (Chest pain, USA, IA, pneumonia, PE, COPD, DKA, ARF, appy, cholecystitis, CVA, Diverticulitis, Homicidal, Suicidal, threat to staff... and all critical care pts) @ -No (Ines Puente) Disposition <Ayde Fritz - Last Filed: 03/29/24 18:59> Is patient prescribed a controlled substance at d/c from ED?: No Time of Disposition: 20:07 <Ines Puente - Last Filed: 03/29/24 23:15> Clinical Impression: Headache Disposition: HOME SELF-CARE Condition: Stable Instructions (If sedation given, give patient instructions): Acute Headache (ED) Additional Instructions: Please return to the Emergency Department if symptoms worsen or any other concerns. Referrals: Christopher Cook MD [Primary Care Provider] - 1-2 days
[2024-03-29] MEDS: SODIUM CHLORIDE 0.9% 1,000 ML IV STA (16:46)
[2024-03-29] MEDS: diphenhydrAMINE 50 MG/ML 1 ML VIAL IVP STA (16:46)
[2024-03-29] MEDS: KETOROLAC 15 MG/ML 1 ML VIAL IVP STA (16:47)
[2024-03-29] MEDS: DEXAMETHASONE SOD PHOSPHATE 10 MG/ML 1 ML VIAL IVP STA (17:47)
[2024-03-29] MEDS: HYDROmorphone 1 MG/ML 1 ML SYRINGE IVP STA (17:50)
[2024-03-29 18:40] VITALS: TEMP 98.2
--- NOTE | 2024-03-29 19:43 | CT ---
EXAMINATION TYPE: CT brain wo con CT DLP: 1109.4 mGycm, Automated exposure control for dose reduction was used. DATE OF EXAM: 03/29/2024 7:14 PM COMPARISON: 03/27/2022. CLINICAL INDICATION: Female, 53 years old with history of persistent [place]STER, Headache x 2 days. TECHNIQUE: Brain: Axial CT images of the brain were obtained with coronal and sagittal reformats created and rev iewed. Contrast used: None. Oral contrast used: None. FINDINGS: Brain: Extra-axial spaces: No abnormal extra-axial fluid collections. Ventricular system: Within normal limits Cerebral parenchyma: No acute intraparenchymal hemorrhage or mass effect. The campos-white junction is well differentiated. Cerebellum: Unremarkable. Mass effect: No evidence of midline shift. Intracranial vasculature: unremarkable Soft tissues: Normal. Calvarium/osseous structures: No depressed skull fracture. Paranasal sinuses and mastoid air cells: Mild scattered paranasal sinus disease. Visualized orbits: Orbital contents are intact. IMPRESSION: No acute intracranial process. [facility], , 03/29/2024 7:40 PM
[2024-03-29 20:41] VITALS: BP 98/62; PULSE 81; RESP 16
== END 2024-03-29 20:25 | disposition home or self-care (01) ==
LOC: EC 13:53
CPT/HCPCS: 70450; 96361; 96374; 96375; 99284

== ENCOUNTER 2024-05-06 11:02 | Observation (INO) | payer MEDICARE, OTHER ==
[2024-05-06] MEDS: SODIUM CHLORIDE 0.9% 1,000 ML IV STA ×2 (11:42→13:17)
[2024-05-06] MEDS: MECLIZINE 12.5 MG TAB PO STA (11:42)
[2024-05-06] MEDS: KETOROLAC 15 MG/ML 1 ML VIAL IVP STA (11:42)
[2024-05-06 11:48] LABS: Basophils # (A) 0.1 k/uL (0-0.2); Basophils % (A) 1 %; Eosinophils % (A) 0 %; HGB 13.8 gm/dL (11.4-16.0); Lymphocytes # (A) 1.4 k/uL (1.0-4.8); Lymphocytes % (A) 20 %; MCH 30.1 pg (25.0-35.0); MCHC 33.8 g/dL (31.0-37.0); MCV 89.3 fL (80.0-100.0); Mean Platelet Volume 6.7; Monocytes # (A) 0.5 k/uL (0-1.0); Monocytes % (A) 6 %; Neutrophils % (A) 71 %; Platelet Count 326 k/uL (150-450); RBC 4.59 m/uL (3.80-5.40); RDW 11.7 % (11.5-15.5); WBC 7.1 k/uL (3.8-10.6)
[2024-05-06 11:58] LABS: ALT 29 U/L (4-34); AST 34 U/L (14-36); African American GFR (CKD) >90 (>60 ml/min/1.73 sqM); Alkaline Phosphatase 55 U/L (38-126); Anion Gap 8 mmol/L; Blood Urea Nitrogen 11 mg/dL (7-17); Calcium 8.7 mg/dL (8.4-10.2); Carbon Dioxide 27 mmol/L (22-30); Chloride 89 mmol/L (98-107); Glucose 111 mg/dL (74-99); Non-African American GFR(CKD) >90 (>60 ml/min/1.73 sqM); Potassium 3.7 mmol/L (3.5-5.1); Sodium 124 mmol/L (137-145); Total Bilirubin 0.8 mg/dL (0.2-1.3); Total Protein 6.4 g/dL (6.3-8.2)
--- NOTE | 2024-05-06 12:59 | ED ---
Nausea/Vomiting/Diarrhea HPI - General Chief complaint: Nausea/Vomiting/Diarrhea Stated complaint: Vomiting Source: patient Mode of arrival: ambulatory Limitations: no limitations - History of Present Illness Initial comments: This is a 52-year-old female with history of epilepsy presenting with nausea and vomiting x 3 days. Patient states vomit is yellow in color. Dors is associated headache (6/10). Patient's suspects food poisoning after eating pizza tapping. Endorses associated anorexia. Patient denies fever, chills, dizziness, chest pain, dyspnea, diarrhea, and hematemesis. Onset/Timin -: days(s) Description of Vomiting: bilious Context: possible food poisoning Associated Symptoms: headaches - Related Data Home Medications Medication Instructions Recorded Confirmed ondansetron HCL [Zofran] 4 mg PO DAILY 01/25/21 05/06/24 Folic Acid 1 mg PO DAILY 02/01/21 05/06/24 Atorvastatin [Lipitor] 40 mg PO HS 03/28/22 05/06/24 Budesonide/Glycopyr/Formoterol 2 puff INHALATION RT-BID 03/28/22 05/06/24 [Breztri Aerosphere Inhaler] Galcanezumab-Gnlm [Emgality 120 mg SQ Q30D 03/28/22 05/06/24 Syringe] Ibuprofen [Motrin] 600 mg PO DAILY 03/28/22 05/06/24 Omeprazole 20 mg PO BID 05/24/22 05/06/24 Potassium Citrate [Urocit-K] 20 meq PO BID 05/24/22 05/06/24 SUMAtriptan succinate [Imitrex] 100 mg PO DAILY PRN 05/24/22 05/06/24 Albuterol Inhaler [Ventolin Hfa 2 puff INHALATION RT-Q4H PRN 12/06/23 05/06/24 Inhaler] Ascorbic Acid [Vitamin C] 500 mg PO DAILY 12/06/23 05/06/24 Docusate [Colace] 100 mg PO BID 12/06/23 05/06/24 Levothyroxine Sodium [Synthroid] 100 mcg PO DAILY 12/06/23 05/06/24 Multivitamins, Thera [Multivitamin 1 tab PO DAILY 12/06/23 05/06/24 (formulary)] Norethindrone-Ethin. Estradiol 1 tab PO DAILY 12/06/23 05/06/24 [Ortho-Novum 7-7-7-28 Tablet] Ondansetron [Zofran] 4 mg PO DAILY PRN 12/06/23 05/06/24 Terbinafine [LamISIL] 250 mg PO DAILY 12/06/23 05/06/24 Zinc Gluconate [Zinc] 50 mg PO DAILY 12/06/23 05/06/24 Dicyclomine [Bentyl] 10 mg PO TID 05/06/24 05/06/24 Ubrogepant [Ubrelvy] 100 mg PO Q2D 05/06/24 05/06/24 Previous Rx's Medication Instructions Recorded OXcarbazepine [Trileptal] 900 mg PO BID 30 Days #60 tab 03/29/22 Allergies Allergy/AdvReac Type Severity Reaction Status Date / Time phenytoin sodium Allergy Rash/Hives Verified 05/06/24 13:56 [From Dilantin] phenytoin sodium extended Allergy Rash/Hives Verified 05/06/24 13:56 [From Dilantin] zinc gluconate Allergy Rash/Hives Verified 05/06/24 13:56 [From Cold-Eeze] Review of Systems ROS Statement: Those systems with pertinent positive or pertinent negative responses have been documented in the HPI. ROS Other: All systems not noted in ROS Statement are negative. Past Medical History Past Medical History: Asthma, Hyperlipidemia, Musculoskeletal Disorder, Osteoarthritis (OA), Seizure Disorder, Thyroid Disorder Additional Past Medical History / Comment(s): Kidney stones X3. "CEREBRAL PALSY, VERY JERKY LT SIDE, MANDI ARM." UNABLE TO READ. . THYROID Nodules. LAST SEIZURE 2023 EST. Migraine. . patient walks with out assistance. pt very poor historian, History of Any Multi-Drug Resistant Organisms: None Reported Past Surgical History: Appendectomy, Cholecystectomy, Orthopedic Surgery Additional Past Surgical History / Comment(s): BIOPSY Lung Surgery. KIDNEY STONE PROC. SURGERY ON TENDONS BALDOMERO KNEES. Past Anesthesia/Blood Transfusion Reactions: Previous Problems w/ Anesthesia Additional Past Anesthesia/Blood Transfusion Reaction / Comment(s): HAD PROBLEMS BREATHING DURING LUNG BIOPSY. MOTHER "NOT AWAKENING FOR 24 HRS AFTER PROCEDURE." Past Psychological History: Depression Smoking Status: Former smoker Past Alcohol Use History: Rare Past Drug Use History: None Reported - Past Family History Mother Family Medical History: No Reported History Additional Family Medical History / Comment(s): Maternal grandfather had an [place]. Father Family Medical History: No Reported History General Exam Limitations: no limitations General appearance: alert, in no apparent distress Head exam: Present: atraumatic, normocephalic, normal inspection Eye exam: Present: normal appearance, PERRL, EOMI. Absent: scleral icterus, conjunctival injection, periorbital swelling ENT exam: Present: normal exam, mucous membranes moist Neck exam: Present: normal inspection. Absent: tenderness, meningismus, lymphadenopathy Respiratory exam: Present: normal lung sounds bilaterally. Absent: respiratory distress, wheezes, rales, rhonchi, stridor Cardiovascular Exam: Present: regular rate, normal rhythm, normal heart sounds. Absent: systolic murmur, diastolic murmur, rubs, gallop, clicks GI/Abdominal exam: Present: soft, tenderness (Diffuse abdominal tenderness without guarding), normal bowel sounds. Absent: distended, guarding, rebound, rigid Extremities exam: Present: normal inspection, full ROM, normal capillary refill. Absent: tenderness, pedal edema, joint swelling, calf tenderness Back exam: Present: normal inspection Neurological exam: Present: alert, oriented X3, CN II-XII intact Psychiatric exam: Present: normal affect, normal mood Skin exam: Present: warm, dry, intact, normal color. Absent: rash Course Vital Signs 05/06/24 05/06/24 05/06/24 11:10 13:46 19:22 Temperature 98.6 F Pulse Rate 77 85 77 Respiratory 18 16 18 Rate Blood Pressure 120/80 114/86 128/80 O2 Sat by Pulse 97 97 96 Oximetry 05/06/24 21:05 Temperature 97.6 F Pulse Rate 91 Respiratory 18 Rate Blood Pressure 132/83 O2 Sat by Pulse 96 Oximetry Medical Decision Making - Medical Decision Making Was pt. sent in by a medical professional or institution (, PA, MOLDED CANDLES WICKER, urgent care, hospital, or detention...) When possible be specific @ -No Did you speak to anyone other than the patient for history (EMS, parent, family, police, friend...)? What history was obtained from this source @ -No Did you review nursing and triage notes (agree or disagree)? Why? @ -I reviewed and agree with nursing and triage notes Were old charts reviewed (outside hosp., previous admission, EMS record, old EKG, old radiological studies, urgent care reports/EKG's, detention records)? Report findings @ -No old charts were reviewed Differential Diagnosis (chest pain, altered mental status, abdominal pain women, abdominal pain men, vaginal bleeding, weakness, fever, dyspnea, syncope, headache, dizziness, GI bleed, back pain, seizure, CVA, palpatations, mental health, musculoskeletal)? @ -Differential Abdominal Pain Women: Appendicitis, Cholecystitis, diverticulosis, ischemic bowel, pancreatitis, hepatitis, UTI, gastroenteritis, AAA, incarcerated hernia, bowel obstruction, constipation, inflammatory bowel, hepatitis, peptic ulcer disease, splenic infarction, perforated viscus, vulvitis, ovarian torsion, PID, kidney stone, placenta abruption, this is not meant to be an all-inclusive list EKG interpreted by me (3pts min.). @ -Not done X-rays interpreted by me (1pt min.). @ -None done CT interpreted by me (1pt min.). @ -None done U/S interpreted by me (1pt. min.). @ -None done What testing was considered but not performed or refused? (CT, X-rays, U/S, labs)? Why? @ -None What meds were considered but not given or refused? Why? @ -None Did you discuss the management of the patient with other professionals (professionals i.e. , PA, MOLDED CANDLES WICKER, lab, RT, psych nurse, social sciences research scientist, marketing proposal specialist, teacher, staff submarine warfare officer, casework specialist)? Give summary @ -Spoke to Dr. Cook for patient admission due to hyponatremia. Was smoking cessation discussed for >3mins.? @ -No Was critical care preformed (if so, how long)? @ -No Were there social determinants of health that impacted care today? How? (Homelessness, low income, unemployed, alcoholism, drug addiction, transporta tion, low edu. Level, literacy, decrease access to med. care, fpc, rehab)? @ -No Was there de-escalation of care discussed even if they declined (Discuss DNR or withdrawal of care, Hospice)? DNR status @ -No What co-morbidities impacted this encounter? (DM, HTN, Smoking, COPD, CAD, Cancer, CVA, ARF, Chemo, Hep., AIDS, mental health diagnosis, sleep apnea, morbid obesity)? @ -None Was patient admitted / discharged? Hospital course, mention meds given and route, prescriptions, significant lab abnormalities, going to OR and other pertinent info. @ -Lab work shows hyponatremia and low chloride. Cepheid test and lactic acid were negative. Patient given IV normal saline and Toradol as well as p.o. meclizine. Additional normal saline provided upon discovery of hyponatremia. Spoke to Dr. Cook for patient admission due to hyponatremia. Undiagnosed new problem with uncertain prognosis? @ -No Drug Therapy requiring intensive monitoring for toxicity (Heparin, Nitro, In sulin, Cardizem)? @ -No Were any procedures done? @ -No Diagnosis/symptom? @ -Hyponatremia, gastroenteritis/food poisoning Acute, or Chronic, or Acute on Chronic? @ -Acute Uncomplicated (without systemic symptoms) or Complicated (systemic symptoms)? @ -Complicated Side effects of treatment? @ -No Exacerbation, Progression, or Severe Exacerbation? @ -No Poses a threat to life or bodily function? How? (Chest pain, USA, HI, pneumonia, PE, COPD, DKA, ARF, appy, cholecystitis, CVA, Diverticulitis, Homicidal, Suicidal, threat to staff... and all critical care pts) @ -Hyponatremia - Lab Data Result diagrams: 05/06/24 11:42 05/07/24 11:18 Lab Results 05/06/24 05/06/24 05/06/24 Range/Units 11:42 11:42 11:42 WBC 7.1 (3.8-10.6) k/uL RBC 4.59 (3.80-5.40) m/uL Hgb 13.8 (11.4-16.0) gm/dL Hct 41.0 (34.0-46.0) % MCV 89.3 (80.0-100.0) fL MCH 30.1 (25.0-35.0) pg MCHC 33.8 (31.0-37.0) g/dL RDW 11.7 (11.5-15.5) % Plt Count 326 (150-450) k/uL MPV 6.7 Neutrophils % 71 % Lymphocytes % 20 % Monocytes % 6 % Eosinophils % 0 % Basophils % 1 % Neutrophils # 5.0 (1.3-7.7) k/uL Lymphocytes # 1.4 (1.0-4.8) k/uL Monocytes # 0.5 (0-1.0) k/uL Eosinophils # 0.0 (0-0.7) k/uL Basophils # 0.1 (0-0.2) k/uL Sodium 124 L (137-145) mmol/L Potassium 3.7 (3.5-5.1) mmol/L Chloride 89 L (98-107) mmol/L Carbon Dioxide 27 (22-30) mmol/L Anion Gap 8 mmol/L BUN 11 (7-17) mg/dL Creatinine 0.50 L (0.52-1.04) mg/dL Est GFR (CKD-EPI)AfAm >90 (>60 ml/min/1.73 sqM) Est GFR (CKD-EPI)NonAf >90 (>60 ml/min/1.73 sqM) Glucose 111 H (74-99) mg/dL Plasma Lactic Acid Fredis 1.4 (0.7-2.0) mmol/L Calcium 8.7 (8.4-10.2) mg/dL Total Bilirubin 0.8 (0.2-1.3) mg/dL AST 34 (14-36) U/L ALT 29 (4-34) U/L Alkaline Phosphatase 55 (38-126) U/L Total Protein 6.4 (6.3-8.2) g/dL Albumin 4.0 (3.5-5.0) g/dL Influenza Type A (PCR) (Not Detectd) Influenza Type B (PCR) (Not Detectd) RSV (PCR) (Not Detectd) SARS-CoV-2 (PCR) (Not Detectd) 05/06/24 Range/Units 11:42 WBC (3.8-10.6) k/uL RBC (3.80-5.40) m/uL Hgb (11.4-16.0) gm/dL Hct (34.0-46.0) % MCV (80.0-100.0) fL MCH (25.0-35.0) pg MCHC (31.0-37.0) g/dL RDW (11.5-15.5) % Plt Count (150-450) k/uL MPV Neutrophils % % Lymphocytes % % Monocytes % % Eosinophils % % Basophils % % Neutrophils # (1.3-7.7) k/uL Lymphocytes # (1.0-4.8) k/uL Monocytes # (0-1.0) k/uL Eosinophils # (0-0.7) k/uL Basophils # (0-0.2) k/uL Sodium (137-145) mmol/L Potassium (3.5-5.1) mmol/L Chloride (98-107) mmol/L Carbon Dioxide (22-30) mmol/L Anion Gap mmol/L BUN (7-17) mg/dL Creatinine (0.52-1.04) mg/dL Est GFR (CKD-EPI)AfAm (>60 ml/min/1.73 sqM) Est GFR (CKD-EPI)NonAf (>60 ml/min/1.73 sqM) Glucose (74-99) mg/dL Plasma Lactic Acid Fredis (0.7-2.0) mmol/L Calcium (8.4-10.2) mg/dL Total Bilirubin (0.2-1.3) mg/dL AST (14-36) U/L ALT (4-34) U/L Alkaline Phosphatase (38-126) U/L Total Protein (6.3-8.2) g/dL Albumin (3.5-5.0) g/dL Influenza Type A (PCR) Not Detected (Not Detectd) Influenza Type B (PCR) Not Detected (Not Detectd) RSV (PCR) Not Detected (Not Detectd) SARS-CoV-2 (PCR) Not Detected (Not Detectd) Disposition Clinical Impression: Food poisoning, Hyponatremia Disposition: ADMITTED IP TO THIS HOSP Is patient prescribed a controlled substance at d/c from ED?: No Time of Disposition: 13:08 Decision Date: 05/06/24 Decision Time: 13:08
[2024-05-06] MEDS ORDERED: NALOXONE 0.4 MG/ML 1 ML VIAL IV PRN (13:08)
[2024-05-06] MEDS ORDERED: ALBUTEROL NEBULIZED 2.5 MG/3 ML INHALATION PRN (13:10)
[2024-05-06] MEDS: ONDANSETRON 4 MG/2 ML VIAL IVP PRN (13:32)
[2024-05-06] MEDS: SODIUM CHLORIDE 0.9% 1,000 ML IV SCH (14:54)
[2024-05-06] MEDS: ONDANSETRON 4 MG/2 ML VIAL IVP STA (15:39)
[2024-05-06] MEDS: HYDROcodone/APAP 5-325MG 1 EACH TAB PO PRN (15:42)
[2024-05-06] MEDS: IPRATROPIUM-ALBUTEROL 3 ML NEB INHALATION SCH (20:22)
[2024-05-06] MEDS: OXcarbazepine 300 MG TAB PO SCH (21:15)
[2024-05-06] MEDS: SUMAtriptan succinate 50 MG TAB PO PRN (21:34)
[2024-05-06] MEDS: ATORVASTATIN 40 MG TAB PO SCH (22:12)
[2024-05-06] MEDS: DICYCLOMINE 10 MG CAP PO SCH (22:12)
[2024-05-06] MEDS: POTASSIUM CITRATE 10 MEQ TABLET.ER PO SCH (22:12)
[2024-05-06] MEDS: DOCUSATE 100 MG CAP PO SCH (22:12)
--- NOTE | 2024-05-07 00:49 | HP ---
HISTORY AND PHYSICAL HISTORY OF PRESENT ILLNESS: The patient was admitted with nausea and vomiting for 2 to 3 days, possible food poisoning. History of possible gastroparesis, abdominal pain, constipation. HOME MEDICATIONS: 1. Trileptal 900 b.i.d. for seizures. 2. Protonix 40 b.i.d. 3. Imitrex 100 p.r.n. 4. Folic acid 1 mg daily. 5. Bentyl 10 mg t.i.d. 6. Lipitor 40 daily. 7. DuoNeb q.i.d. 8. Synthroid 100 mcg daily. PHYSICAL EXAMINATION: VITAL SIGNS: O2 is 93% on room air, temp 98.2, pulse 89, respirations 16 to 18, blood pressure 141/76. White count 7.1, hemoglobin is 13.8, sodium 124, potassium 3.7, glucose 111. Troponins are negative. SARS negative. RSV negative. Progressive nausea and vomiting. Ordered CT scan of abdomen and pelvis. Rehydrate. Monitor for Zofran. Advance diet as tolerated. Prognosis guarded. MMODL / IJN: [id number] /
[2024-05-07] MEDS: LEVOTHYROXINE 100 MCG TAB PO SCH (05:47)
[2024-05-07] MEDS: MULTIVITAMINS, THERA 1 EACH TAB PO SCH (09:02)
[2024-05-07] MEDS: IBUPROFEN 600 MG TAB PO SCH (09:03)
[2024-05-07] MEDS: ASCORBIC ACID 500 MG TAB PO SCH (09:03)
[2024-05-07] MEDS: FOLIC ACID 1 MG TAB PO SCH (09:03)
[2024-05-07] MEDS: PANTOPRAZOLE 40 MG TABLET PO SCH (09:03)
[2024-05-07 11:57] LABS: African American GFR (CKD) >90 (>60 ml/min/1.73 sqM); Anion Gap 1 mmol/L; Blood Urea Nitrogen 9 mg/dL (7-17); Calcium 8.5 mg/dL (8.4-10.2); Carbon Dioxide 30 mmol/L (22-30); Chloride 103 mmol/L (98-107); Glucose 72 mg/dL (74-99); Non-African American GFR(CKD) >90 (>60 ml/min/1.73 sqM); Potassium 4.2 mmol/L (3.5-5.1); Sodium 134 mmol/L (137-145)
--- NOTE | 2024-05-07 14:43 | P.GSCN ---
History of Present Illness Consult date: 05/07/24 History of present illness: CHIEF COMPLAINT: Vomiting HISTORY OF PRESENT ILLNESS: This is a 53-year-old female who presented to the hospital with complaints of nausea and vomiting. Symptoms started 3 days ago. Patient reports she had been working on Monday and had been drinking a smoothie he they have been sitting out throughout the day. Patient reports she started having vomiting and did have epigastric abdominal pain after the vomiting. She reports no diarrhea and has been having normal bowel movements. Denies any sick contacts. There is concern that patient had possible food poisoning. Surgical history includes a cholecystectomy and EGD in 2020 with revealing gastritis. She was hyponatremic on admission. Patient reports she is feeling better today and was able to tolerate breakfast. PAST MEDICAL HISTORY: Asthma, Hyperlipidemia, Musculoskeletal Disorder, Osteoarthritis (OA), Seizure Disorder, Thyroid Disorder PAST SURGICAL HISTORY: Appendectomy, Cholecystectomy, Orthopedic Surgery MEDICATIONS: See below ALLERGIES: See below SOCIAL HISTORY: No illicit drug use. REVIEW OF SYSTEMS: CONSTITUTIONAL: Denies fever or chills. HEENT: Denies blurred vision, vision changes, or eye pain. Denies hemoptysis CARDIOVASCULAR: Denies chest pain or pressure. RESPIRATORY: No shortness of breath. GASTROINTESTINAL: See HPI for pertinent findings HEMATOLOGIC: Denies bleeding disorders. GENITOURINARY: Denies any blood in urine or increased urinary frequency. SKIN: Denies pruitis. Denies rash. PHYSICAL EXAM: VITAL SIGNS: Reviewed GENERAL: Well-developed in no acute distress. HEENT: No sclera icterus. Extraocular movements grossly intact. Moist buccal mucosa. Head is atraumatic, normocephalic. No nasal drainage. ABDOMEN: Soft. Nondistended. Nontender NEUROLOGIC: Alert and oriented. Cranial nerves II through XII grossly intact. LABORATORY DATA: WBC 7.1 Hgb 13.8 platelets 326 Sodium 124 potassium 3.7 creatinine 0.50 lactic acid 1.4 LFTs normal influenza RSV and COVID-19 not detected IMAGING: ASSESSMENT: 1. Nausea and vomiting possibly due to food poisoning 2. Hyponatremia PLAN: -No surgical intervention planned. Vomiting has resolved. Patient is tolerating regular diet. -Hyponatremia management per medicine service -Continue supportive care Physician Senior Data Warehouse Developer note has been reviewed by physician. Signing provider agrees with the documented findings, assessment, and plan of care. Past Medical History Past Medical History: Asthma, Hyperlipidemia, Musculoskeletal Disorder, Osteoarthritis (OA), Seizure Disorder, Thyroid Disorder Additional Past Medical History / Comment(s): Kidney stones X3. "CEREBRAL PALSY, VERY JERKY LT SIDE, MANDI ARM." UNABLE TO READ. . THYROID Nodules. LAST SEIZURE 2023 EST. Migraines History of Any Multi-Drug Resistant Organisms: None Reported Past Surgical History: Appendectomy, Cholecystectomy, Orthopedic Surgery Additional Past Surgical History / Comment(s): BIOPSY Lung Surgery. KIDNEY STONE PROC. SURGERY ON TENDONS BALDOMERO KNEES. Past Anesthesia/Blood Transfusion Reactions: Previous Problems w/ Anesthesia Additional Past Anesthesia/Blood Transfusion Reaction / Comm: HAD PROBLEMS BREATHING DURING LUNG BIOPSY. MOTHER "NOT AWAKENING FOR 24 HRS AFTER PROCEDURE." Past Psychological History: Depression Additional Psychological History / Comment(s): . Smoking Status: Former smoker Past Alcohol Use History: Rare Additional Past Alcohol Use History / Comment(s): STARTED SMOKING AT AGE 21 QUIT AT AGE 26 SMOKED 1/2PPD Past Drug Use History: None Reported - Past Family History Mother Family Medical History: No Reported History Additional Family Medical History / Comment(s): Maternal grandfather had an [place]. Father Family Medical History: No Reported History Medications and Allergies Home Medications Medication Instructions Recorded Confirmed Type ondansetron HCL [Zofran] 4 mg PO DAILY 01/25/21 05/06/24 History Folic Acid 1 mg PO DAILY 02/01/21 05/06/24 History Atorvastatin [Lipitor] 40 mg PO HS 03/28/22 05/06/24 History Budesonide/Glycopyr/Formoterol 2 puff INHALATION RT-BID 03/28/22 05/06/24 History [Breztri Aerosphere Inhaler] Galcanezumab-Gnlm [Emgality 120 mg SQ Q30D 03/28/22 05/06/24 History Syringe] Ibuprofen [Motrin] 600 mg PO DAILY 03/28/22 05/06/24 History OXcarbazepine [Trileptal] 900 mg PO BID 30 Days #60 tab 03/29/22 05/06/24 Rx Omeprazole 20 mg PO BID 05/24/22 05/06/24 History Potassium Citrate [Urocit-K] 20 meq PO BID 05/24/22 05/06/24 History SUMAtriptan succinate [Imitrex] 100 mg PO DAILY PRN 05/24/22 05/06/24 History Albuterol Inhaler [Ventolin Hfa 2 puff INHALATION RT-Q4H PRN 12/06/23 05/06/24 History Inhaler] Ascorbic Acid [Vitamin C] 500 mg PO DAILY 12/06/23 05/06/24 History Docusate [Colace] 100 mg PO BID 12/06/23 05/06/24 History Levothyroxine Sodium [Synthroid] 100 mcg PO DAILY 12/06/23 05/06/24 History Multivitamins, Thera [Multivitamin 1 tab PO DAILY 12/06/23 05/06/24 History (formulary)] Norethindrone-Ethin. Estradiol 1 tab PO DAILY 12/06/23 05/06/24 History [Ortho-Novum 7-7-7-28 Tablet] Ondansetron [Zofran] 4 mg PO DAILY PRN 12/06/23 05/06/24 History Terbinafine [LamISIL] 250 mg PO DAILY 12/06/23 05/06/24 History Zinc Gluconate [Zinc] 50 mg PO DAILY 12/06/23 05/06/24 History Dicyclomine [Bentyl] 10 mg PO TID 05/06/24 05/06/24 History Ubrogepant [Ubrelvy] 100 mg PO Q2D 05/06/24 05/06/24 History Allergies Allergy/AdvReac Type Severity Reaction Status Date / Time phenytoin sodium Allergy Rash/Hives Verified 05/06/24 13:56 [From Dilantin] phenytoin sodium extended Allergy Rash/Hives Verified 05/06/24 13:56 [From Dilantin] zinc gluconate Allergy Rash/Hives Verified 05/06/24 13:56 [From Cold-Eeze] Surgical - Exam Vital Signs Temp Pulse Resp BP Pulse Ox 98.6 F 77 18 120/80 97 05/06/24 11:10 05/06/24 11:10 05/06/24 11:10 05/06/24 11:10 05/06/24 11:10 Results - Labs 05/06/24 11:42 05/06/24 11:42 Abnormal Lab Results - Last 24 Hours (Table) 05/06/24 Range/Units 11:42 Sodium 124 L (137-145) mmol/L Chloride 89 L (98-107) mmol/L Creatinine 0.50 L (0.52-1.04) mg/dL Glucose 111 H (74-99) mg/dL Diabetes panel 05/06/24 Range/Units 11:42 Sodium 124 L (137-145) mmol/L Potassium 3.7 (3.5-5.1) mmol/L Chloride 89 L (98-107) mmol/L Carbon Dioxide 27 (22-30) mmol/L BUN 11 (7-17) mg/dL Creatinine 0.50 L (0.52-1.04) mg/dL Glucose 111 H (74-99) mg/dL Calcium 8.7 (8.4-10.2) mg/dL AST 34 (14-36) U/L ALT 29 (4-34) U/L Alkaline Phosphatase 55 (38-126) U/L Total Protein 6.4 (6.3-8.2) g/dL Albumin 4.0 (3.5-5.0) g/dL Calcium panel 05/06/24 Range/Units 11:42 Calcium 8.7 (8.4-10.2) mg/dL Albumin 4.0 (3.5-5.0) g/dL Pituitary panel 05/06/24 Range/Units 11:42 Sodium 124 L (137-145) mmol/L Potassium 3.7 (3.5-5.1) mmol/L Chloride 89 L (98-107) mmol/L Carbon Dioxide 27 (22-30) mmol/L BUN 11 (7-17) mg/dL Creatinine 0.50 L (0.52-1.04) mg/dL Glucose 111 H (74-99) mg/dL Calcium 8.7 (8.4-10.2) mg/dL Adrenal panel 05/06/24 Range/Units 11:42 Sodium 124 L (137-145) mmol/L Potassium 3.7 (3.5-5.1) mmol/L Chloride 89 L (98-107) mmol/L Carbon Dioxide 27 (22-30) mmol/L BUN 11 (7-17) mg/dL Creatinine 0.50 L (0.52-1.04) mg/dL Glucose 111 H (74-99) mg/dL Calcium 8.7 (8.4-10.2) mg/dL Total Bilirubin 0.8 (0.2-1.3) mg/dL AST 34 (14-36) U/L ALT 29 (4-34) U/L Alkaline Phosphatase 55 (38-126) U/L Total Protein 6.4 (6.3-8.2) g/dL Albumin 4.0 (3.5-5.0) g/dL
[2024-05-08 07:39] VITALS: BP 109/73; RESP 18; TEMP 98.4
--- NOTE | 2024-05-08 11:28 | PN ---
PROGRESS NOTE SUBJECTIVE: Hyponatremia, nausea, vomiting, viral syndrome, appears to be better eating and oral diet. No chest pain or shortness of breath. OBJECTIVE: CARDIOVASCULAR: S1 and S2. LUNGS: Transmitted upper sounds. GI: Soft. HEMATOLOGY: Negative Homans. PSYCH: Fair mood and affect. Continue current treatment. Advance diet as tolerated. Possibly discharged home in the morning, viral gastroenteritis, persistent emesis is over, hyponatremia is improving. Check sodium in the morning. MMODL / IJN: [id number] /
[2024-05-08 11:36] VITALS: PULSE 86
--- NOTE | 2024-05-08 12:32 | P.PN ---
Subjective Progress Note Date: 05/08/24 SURGICAL PROGRESS NOTE CHIEF COMPLAINT: Nausea and vomiting HISTORY OF PRESENT ILLNESS: Patient reports she is feeling better. She is tolerating diet. She wants to be discharged. No nausea or vomiting. Afebrile. Having bowel movements. Sodium 134 PHYSICAL EXAM: VITAL SIGNS: Reviewed. GENERAL: Well-developed in no acute distress. HEENT: No sclera icterus. Extraocular movements grossly intact. Moist buccal mucosa. Head is atraumatic, normocephalic. ABDOMEN: Soft. Nondistended. Nontender. NEUROLOGIC: Alert and oriented. Cranial nerves II through XII grossly intact. ASSESSMENT: 1. Possible food poisoning with nausea and vomiting now resolved PLAN: -Patient can be discharged from surgical standpoint Physician White Lead Filterer note has been reviewed by physician. Signing provider agrees with the documented findings, assessment, and plan of care. Objective - Vital Signs Vital signs: Vital Signs Temp 98.4 F 05/08/24 07:12 Pulse 86 05/08/24 11:35 Resp 18 05/08/24 07:12 BP 109/73 05/08/24 07:12 Pulse Ox 97 05/08/24 07:12 FiO2 Intake & Output 05/07/24 05/08/24 05/08/24 18:59 06:59 18:59 Intake Total 1320 825 Balance 1320 825 Intake: Intake, IV Titration 825 Amount Sodium Chloride 0.9% 1, 825 000 ml @ 75 mls/hr IV . [id number] [facility] Rx#:[id number] Oral 1320 Other: Voiding Method Toilet # Voids 3 # Bowel Movements 1 - Labs CBC & Chem 7: 05/06/24 11:42 05/07/24 11:18
--- NOTE | 2024-05-09 08:31 | DS ---
DISCHARGE SUMMARY DISCHARGE MEDICATIONS: 1. Zofran 4 mg daily. 2. Breztri 2 puffs b.i.d. 3. Imitrex 100 mg daily. 4. Lamisil 250 daily. 5. Vitamin C 500 daily. 6. Ortho-Novum (28) daily. 7. . 8. Folic acid 1 mg daily. 9. Motrin 600 daily. 10.Emgality 120 mg subcu every 30 days. 11.Lipitor 40 at night. 12.Trileptal 900 b.i.d. 13.Omeprazole 20 b.i.d. 14.Zinc 50 daily. 15.Multivitamin daily. 16.Synthroid 100 mcg daily. 17.Colace 100 b.i.d. 18.Bentyl 10 t.i.d. PROGNOSIS: Guarded. Ambulate as tolerated. Diet as tolerated. DISCHARGE DIAGNOSES: 1. Food poisoning. 2. Hyponatremia. 3. Acute pancreatitis. 4. Calculus of kidney. 5. Chronic obstructive pulmonary disease. 6. Seizure disorder. The patient came in with nausea and vomiting for 24 to 48 hours, which improved with electrolytes and severe hyponatremia, which was fixed with normal saline. Pancreatitis, abdominal pain, vomiting improved. She was discharged home in stable condition. Follow up as an outpatient. MMODL / ILIANAN: [id number] /
== END 2024-05-08 13:13 | disposition home or self-care (01) ==
LOC: EC 11:02 → INTOOBSV 14:22 → 4SSUR 14:22 → 5NMEDONC 19:36 → 4SSUR 19:36 → 5NMEDONC 20:43 → UNDODISIN 05-08 13:13
PROVIDERS: ADMIT Family Medicine; ATTEND Family Medicine
DX: A05.9 Bacterial foodborne intoxication, unspecified (principal); K85.90 Acute pancreatitis without necrosis or infection, unspecified; E87.1 Hypo-osmolality and hyponatremia; E78.5 Hyperlipidemia, unspecified; G40.909 Epilepsy, unspecified, not intractable, without status epilepticus; G80.9 Cerebral palsy, unspecified; J44.9 Chronic obstructive pulmonary disease, unspecified; N20.0 Calculus of kidney; Z79.890 Hormone replacement therapy; Z79.899 Other long term (current) drug therapy; Z87.442 Personal history of urinary calculi; Z87.891 Personal history of nicotine dependence; Z90.49 Acquired absence of other specified parts of digestive tract; Z88.8 Allergy status to other drugs, medicaments and biological substances
CPT/HCPCS: 96376 ×3; 96361 ×3; 96374; 96375; 99285; 36415; 94640 ×4; 80053; 80048; 83605; 85025; 87636; G0378 ×3; J2405 ×2; J1885

== ENCOUNTER → 2024-07-06 | Outpatient (CLI) | payer MEDICARE, OTHER ==
--- NOTE | 2024-07-06 11:38 | MR ---
EXAMINATION TYPE: MR pancreas wo/w con DATE OF EXAM: 07/06/2024 11:19 AM INDICATION: Patient age:Female; 53 years old; Reason for study: K86.9 PANCREATITIS; PHH. COMPARISON: CT abdomen and pelvis 12/06/2023, 05/07/2023, 08/28/2019, 04/10/2016 TECHNIQUE: Multiplanar multi-sequence imaging was performed without and with IV contrast. The patien t was given 5 ccs of Gadobutrol intravenously and dynamic imaging was performed. Post IV contrast sub traction images were also submitted for review. FINDINGS: LOWER CHEST: No gross irregularity. ABDOMEN Liver: Noncirrhotic morphology. No suspicious enhancing lesion. Subcentimeter T2 hyperintense cyst wi thin the left hepatic lobe. No fatty infiltration. Gallbladder and Bile ducts: Gallbladder surgically absent. No significant biliary ductal dilatation. Pancreas: No pancreatic ductal dilatation. No suspicious lesion. No inflammatory changes of surroundi ng fluid collections. Spleen: Unremarkable. Incidental splenule within the left upper quadrant. Adrenal glands: Unremarkable. Kidneys: Unremarkable. Stomach and Bowel: Unremarkable as visualized. Peritoneum: No evidence of pneumoperitoneum, free fluid, or adenopathy. Vasculature: Unremarkable. No aortic aneurysm. Abdominal wall: Unremarkable. Musculoskeletal: The osseous structures appear intact. IMPRESSION: 1. No evidence of abdominal mass. No pancreatic lesion or evidence of acute pancreatitis. No peripan creatic fluid collections. 2. Postcholecystectomy changes. [facility], , 07/06/2024 11:36 AM
== END | disposition home or self-care (01) ==
LOC: RADMRIMAIN 10:08
PROVIDERS: ATTEND Family Medicine
DX: K86.9 Disease of pancreas, unspecified (principal); Z98.890 Other specified postprocedural states
CPT/HCPCS: 74183; A9585

== ENCOUNTER 2024-08-05 09:08 | Emergency (ER) | payer MEDICARE, OTHER ==
[2024-08-05 09:38] VITALS: RESP 20
--- NOTE | 2024-08-05 10:07 | XR ---
EXAMINATION TYPE: XR chest 2V DATE OF EXAM: 08/05/2024 10:04 AM COMPARISON: 06/18/2023 CLINICAL INDICATION: Female, 53 years old with history of cough: Shortness of breath TECHNIQUE: XR chest 2V views of the chest are obtained. FINDINGS: Scattered senescent parenchymal changes noted. Hyperinflation compatible with COPD. No evidence for infiltrate. No evidence for atelectasis. Heart size is stable. Mediastinal structures are stable and grossly unremarkable. No evidence for hilar prominence. Degenerative changes dorsal spine. IMPRESSION: 1. No evidence for acute pulmonary disease. [facility], , 08/05/2024 10:05 AM
--- NOTE | 2024-08-05 10:17 | ED ---
URI HPI - General Chief Complaint: Upper Respiratory Infection Stated Complaint: body and joint ache, coughing, headache Time Seen by Provider: 08/05/24 09:18 Source: patient, RN notes reviewed Mode of arrival: ambulatory Limitations: no limitations - History of Present Illness Initial Comments: 53-year-old female presents emergency department with chief complaint of cough congestion body aches nausea. Symptoms started over the last several days. Patient states that she has a slight productive cough, body aches she has not taken recent Tylenol Motrin. Patient denies any syncopal episodes. She states she has had headaches she has had multiple sick contacts. - Related Data Home Medications Medication Instructions Recorded Confirmed ondansetron HCL [Zofran] 4 mg PO DAILY 01/25/21 05/06/24 Folic Acid 1 mg PO DAILY 02/01/21 05/06/24 Atorvastatin [Lipitor] 40 mg PO HS 03/28/22 05/06/24 Budesonide/Glycopyr/Formoterol 2 puff INHALATION RT-BID 03/28/22 05/06/24 [Breztri Aerosphere Inhaler] Galcanezumab-Gnlm [Emgality 120 mg SQ Q30D 03/28/22 05/06/24 Syringe] Ibuprofen [Motrin] 600 mg PO DAILY 03/28/22 05/06/24 Omeprazole 20 mg PO BID 05/24/22 05/06/24 Potassium Citrate [Urocit-K] 20 meq PO BID 05/24/22 05/06/24 SUMAtriptan succinate [Imitrex] 100 mg PO DAILY PRN 05/24/22 05/06/24 Albuterol Inhaler [Ventolin Hfa 2 puff INHALATION RT-Q4H PRN 12/06/23 05/06/24 Inhaler] Ascorbic Acid [Vitamin C] 500 mg PO DAILY 12/06/23 05/06/24 Docusate [Colace] 100 mg PO BID 12/06/23 05/06/24 Levothyroxine Sodium [Synthroid] 100 mcg PO DAILY 12/06/23 05/06/24 Multivitamins, Thera [Multivitamin 1 tab PO DAILY 12/06/23 05/06/24 (formulary)] Norethindrone-Ethin. Estradiol 1 tab PO DAILY 12/06/23 05/06/24 [Ortho-Novum 7-7-7-28 Tablet] Ondansetron [Zofran] 4 mg PO DAILY PRN 12/06/23 05/06/24 Terbinafine [LamISIL] 250 mg PO DAILY 12/06/23 05/06/24 Zinc Gluconate [Zinc] 50 mg PO DAILY 12/06/23 05/06/24 Dicyclomine [Bentyl] 10 mg PO TID 05/06/24 05/06/24 Ubrogepant [Ubrelvy] 100 mg PO Q2D 05/06/24 05/06/24 Previous Rx's Medication Instructions Recorded OXcarbazepine [Trileptal] 900 mg PO BID 30 Days #60 tab 03/29/22 Allergies Allergy/AdvReac Type Severity Reaction Status Date / Time phenytoin sodium Allergy Rash/Hives Verified 08/05/24 09:37 [From Dilantin] phenytoin sodium extended Allergy Rash/Hives Verified 08/05/24 09:37 [From Dilantin] zinc gluconate Allergy Rash/Hives Verified 08/05/24 09:37 [From Cold-Eeze] Review of Systems ROS Statement: Those systems with pertinent positive or pertinent negative responses have been documented in the HPI. ROS Other: All systems not noted in ROS Statement are negative. Past Medical History Past Medical History: Asthma, Hyperlipidemia, Musculoskeletal Disorder, Osteoarthritis (OA), Seizure Disorder, Thyroid Disorder Additional Past Medical History / Comment(s): Kidney stones X3. "CEREBRAL PALSY, VERY JERKY LT SIDE, MANDI ARM." UNABLE TO READ. . THYROID Nodules. LAST SEIZURE 2023 EST. Migraines History of Any Multi-Drug Resistant Organisms: None Reported Past Surgical History: Appendectomy, Cholecystectomy, Orthopedic Surgery Additional Past Surgical History / Comment(s): BIOPSY Lung Surgery. KIDNEY STONE PROC. SURGERY ON TENDONS BALDOMERO KNEES. Past Anesthesia/Blood Transfusion Reactions: Previous Problems w/ Anesthesia Additional Past Anesthesia/Blood Transfusion Reaction / Comment(s): HAD PROBLEMS BREATHING DURING LUNG BIOPSY. MOTHER "NOT AWAKENING FOR 24 HRS AFTER PROCEDURE." Past Psychological History: Depression Smoking Status: Former smoker Past Alcohol Use History: Rare Past Drug Use History: None Reported - Past Family History Mother Family Medical History: No Reported History Additional Family Medical History / Comment(s): Maternal grandfather had an [place]. Father Family Medical History: No Reported History General Exam Limitations: no limitations General appearance: alert, in no apparent distress Head exam: Present: atraumatic, normocephalic, normal inspection Eye exam: Present: normal appearance, PERRL, EOMI. Absent: scleral icterus, conjunctival injection, periorbital swelling ENT exam: Present: normal exam, normal oropharynx, mucous membranes moist Neck exam: Present: normal inspection, full ROM. Absent: tenderness, meningismus, lymphadenopathy Respiratory exam: Present: normal lung sounds bilaterally. Absent: respiratory distress, wheezes, rales, rhonchi, stridor Cardiovascular Exam: Present: normal rhythm, tachycardia, normal heart sounds. Absent: systolic murmur, diastolic murmur, rubs, gallop, clicks GI/Abdominal exam: Present: soft, normal bowel sounds. Absent: distended, tenderness, guarding, rebound, rigid Course Vital Signs 08/05/24 09:36 Temperature 99.8 F H Pulse Rate 114 H Respiratory 20 Rate Blood Pressure 140/69 O2 Sat by Pulse 97 Oximetry Medical Decision Making - Medical Decision Making Was pt. sent in by a medical professional or institution (, PA, FEDERAL DISTRICT CLERK, urgent care, hospital, or penitentiary...) When possible be specific @ -No Did you speak to anyone other than the patient for history (EMS, parent, family, police, friend...)? What history was obtained from this source @ -No Did you review nursing and triage notes (agree or disagree)? Why? @ -I reviewed and agree with nursing and triage notes Were old charts reviewed (outside hosp., previous admission, EMS record, old EKG, old radiological studies, urgent care reports/EKG's, penitentiary records)? Report findings @ -No old charts were reviewed Differential Diagnosis (chest pain, altered mental status, abdominal pain women, abdominal pain men, vaginal bleeding, weakness, fever, dyspnea, syncope, headache, dizziness, GI bleed, back pain, seizure, CVA, palpatations, mental health, musculoskeletal)? @ -COVID 19, RSV, influenza, pneumonia, acute bronchitis, URI, this list is not all inclusive EKG interpreted by me (3pts min.). @ -None X-rays interpreted by me (1pt min.). @ -Chest x-ray shows no acute cardiopulmonary process. CT interpreted by me (1pt min.). @ -None done U/S interpreted by me (1pt. min.). @ -None done What testing was considered but not performed or refused? (CT, X-rays, U/S, labs)? Why? @ -None What meds were considered but not given or refused? Why? @ -None Did you discuss the management of the patient with other professionals (professionals i.e. Dr., PA, FEDERAL DISTRICT CLERK, lab, RT, psych nurse, social studies teacher, machine paint mixer, teacher, chief operations officer, case hardener)? Give summary @ -No Was smoking cessation discussed for >3mins.? @ -No Was critical care preformed (if so, how long)? @ -No Were there social determinants of health that impacted care today? How? (Homelessness, low income, unemployed, alcoholism, drug addiction, transportation, low edu. Level, literacy, decrease access to med. care, shelter, rehab)? @ -No Was there de-escalation of care discussed even if they declined (Discuss DNR or withdrawal of care, Hospice)? DNR status @ -No What co-morbidities impacted this encounter? (DM, HTN, Smoking, COPD, CAD, Cancer, CVA, ARF, Chemo, Hep., AIDS, mental health diagnosis, sleep apnea, morbid obesity)? @ -None Was patient admitted / discharged? Hospital course, mention meds given and route, prescriptions, significant lab abnormalities, going to OR and other pertinent info. @ -[Discharge patient presented for URI symptoms she more likely has influenza but tested negative this time. Patient chest x-ray is unremarkable she has no obvious signs of infection patient be discharged with supportive treatment and recheck return parameters dot. Undiagnosed new problem with uncertain prognosis? @ -No Drug Therapy requiring intensive monitoring for toxicity (Heparin, Nitro, Insulin, Cardizem)? @ -No Were any procedures done? @ -No Diagnosis/symptom? @ -URI Acute, or Chronic, or Acute on Chronic? @ -Acute Uncomplicated (without systemic symptoms) or Complicated (systemic symptoms)? @ -Uncomplicated Side effects of treatment? @ -No Exacerbation, Progression, or Severe Exacerbation? @ -No Poses a threat to life or bodily function? How? (Chest pain, [place], [place], pneumonia, PE, COPD, DKA, ARF, appy, cholecystitis, CVA, Diverticulitis, Homicidal, Suicidal, threat to staff... and all critical care pts) @ -No - Lab Data Lab Results 08/05/24 Range/Units 09:38 Influenza Type A (PCR) Not Detected (Not Detectd) Influenza Type B (PCR) Not Detected (Not Detectd) RSV (PCR) Not Detected (Not Detectd) SARS-CoV-2 (PCR) Not Detected (Not Detectd) Disposition Clinical Impression: Acute upper respiratory infection Disposition: HOME SELF-CARE Condition: Stable Instructions (If sedation given, give patient instructions): Upper Respiratory Infection (ED) Additional Instructions: Please return to the Emergency Department if symptoms worsen or any other concerns. Is patient prescribed a controlled substance at d/c from ED?: No Referrals: Christopher Cook MD [Primary Care Provider] - 1-2 days Time of Disposition: 11:12
[2024-08-05 10:40] LABS: Influenza A Not Detected (Not Detectd); Influenza B Not Detected (Not Detectd); RSV Not Detected (Not Detectd)
[2024-08-05] MEDS: ACETAMINOPHEN TAB 325 MG TAB PO STA (11:25)
[2024-08-05] MEDS: IBUPROFEN 600 MG TAB PO STA (11:25)
[2024-08-05 11:37] VITALS: BP 134/84; PULSE 100; TEMP 99.6
== END 2024-08-05 11:37 | disposition home or self-care (01) ==
LOC: EC 09:08
DX: J06.9 Acute upper respiratory infection, unspecified (principal); Z87.891 Personal history of nicotine dependence; Z88.8 Allergy status to other drugs, medicaments and biological substances
CPT/HCPCS: 71046; 87636; 99284

== ENCOUNTER 2024-11-10 12:13 | Emergency (ER) | payer MEDICARE, OTHER ==
[2024-11-10 12:20] VITALS: TEMP 98.3
--- NOTE | 2024-11-10 12:29 | ED ---
General Adult HPI - General Chief complaint: Nausea/Vomiting/Diarrhea Stated complaint: Vomiting Time Seen by Provider: 11/10/24 12:16 Source: patient, EMS, RN notes reviewed Mode of arrival: EMS Limitations: no limitations - History of Present Illness Initial comments: Patient is a 54-year-old female present to the emergency department with concerns with vomiting. Onset of symptoms was 2 days ago. Limited oral intake since that time, probably only 1 normal meal. Patient has had some liquids. Patient has only vomited twice however does not have much desire to eat. Patient did not have a seizure however had an aura as she was concerned that she might have a seizure. No weakness or confusion. Patient states she has been anxious lately and believes this is contributing to her problems. - Related Data Home Medications Medication Instructions Recorded Confirmed ondansetron HCL [Zofran] 4 mg PO DAILY 01/25/21 05/06/24 Folic Acid 1 mg PO DAILY 02/01/21 05/06/24 Atorvastatin [Lipitor] 40 mg PO HS 03/28/22 05/06/24 Budesonide/Glycopyr/Formoterol 2 puff INHALATION RT-BID 03/28/22 05/06/24 [Breztri Aerosphere Inhaler] Galcanezumab-Gnlm [Emgality 120 mg SQ Q30D 03/28/22 05/06/24 Syringe] Ibuprofen [Motrin] 600 mg PO DAILY 03/28/22 05/06/24 Omeprazole 20 mg PO BID 05/24/22 05/06/24 Potassium Citrate [Urocit-K] 20 meq PO BID 05/24/22 05/06/24 SUMAtriptan succinate [Imitrex] 100 mg PO DAILY PRN 05/24/22 05/06/24 Albuterol Inhaler [Ventolin Hfa 2 puff INHALATION RT-Q4H PRN 12/06/23 05/06/24 Inhaler] Ascorbic Acid [Vitamin C] 500 mg PO DAILY 12/06/23 05/06/24 Docusate [Colace] 100 mg PO BID 12/06/23 05/06/24 Levothyroxine Sodium [Synthroid] 100 mcg PO DAILY 12/06/23 05/06/24 Multivitamins, Thera [Multivitamin 1 tab PO DAILY 12/06/23 05/06/24 (formulary)] Norethindrone-Ethin. Estradiol 1 tab PO DAILY 12/06/23 05/06/24 [Ortho-Novum 7-7-7-28 Tablet] Ondansetron [Zofran] 4 mg PO DAILY PRN 12/06/23 05/06/24 Terbinafine [LamISIL] 250 mg PO DAILY 12/06/23 05/06/24 Zinc Gluconate [Zinc] 50 mg PO DAILY 12/06/23 05/06/24 Dicyclomine [Bentyl] 10 mg PO TID 05/06/24 05/06/24 Ubrogepant [Ubrelvy] 100 mg PO Q2D 05/06/24 05/06/24 Previous Rx's Medication Instructions Recorded OXcarbazepine [Trileptal] 900 mg PO BID 30 Days #60 tab 03/29/22 Acetaminophen Tab [Tylenol Tab] 500 mg PO Q4H #20 tablet 08/05/24 Ibuprofen [Motrin] 600 mg PO Q8HR PRN #20 tab 08/05/24 Allergies Allergy/AdvReac Type Severity Reaction Status Date / Time phenytoin sodium Allergy Rash/Hives Verified 11/10/24 12:22 [From Dilantin] phenytoin sodium extended Allergy Rash/Hives Verified 11/10/24 12:22 [From Dilantin] zinc gluconate Allergy Rash/Hives Verified 11/10/24 12:22 [From Cold-Eeze] Review of Systems ROS Statement: Those systems with pertinent positive or pertinent negative responses have been documented in the HPI. ROS Other: All systems not noted in ROS Statement are negative. Constitutional: Denies: fever Eyes: Denies: eye pain ENT: Denies: ear pain Respiratory: Denies: dyspnea Cardiovascular: Denies: chest pain Endocrine: Denies: fatigue Gastrointestinal: Reports: as per HPI, nausea, vomiting. Denies: abdominal pain Neurological: Denies: weakness, confusion Psychiatric: Reports: anxiety Past Medical History Past Medical History: Asthma, Hyperlipidemia, Musculoskeletal Disorder, Osteoarthritis (OA), Seizure Disorder, Thyroid Disorder Additional Past Medical History / Comment(s): Kidney stones X3. "CEREBRAL PALSY, VERY JERKY LT SIDE, MANDI ARM." UNABLE TO READ. . THYROID Nodules. LAST SEIZURE 2023 EST. Migraines History of Any Multi-Drug Resistant Organisms: None Reported Past Surgical History: Appendectomy, Cholecystectomy, Orthopedic Surgery Additional Past Surgical History / Comment(s): BIOPSY Lung Surgery. KIDNEY STONE PROC. SURGERY ON TENDONS BALDOMERO KNEES. Past Anesthesia/Blood Transfusion Reactions: Previous Problems w/ Anesthesia Additional Past Anesthesia/Blood Transfusion Reaction / Comment(s): HAD PROBLEMS BREATHING DURING LUNG BIOPSY. MOTHER "NOT AWAKENING FOR 24 HRS AFTER PROCEDURE." Past Psychological History: Depression Smoking Status: Former smoker Past Alcohol Use History: Rare Past Drug Use History: None Reported - Past Family History Mother Family Medical History: No Reported History Additional Family Medical History / Comment(s): Maternal grandfather had an [place]. Father Family Medical History: No Reported History General Exam Limitations: no limitations General appearance: alert, in no apparent distress Head exam: Present: atraumatic Eye exam: Present: normal appearance, PERRL ENT exam: Present: mucous membranes dry Neck exam: Present: normal inspection Respiratory exam: Present: normal lung sounds bilaterally Cardiovascular Exam: Present: regular rate, normal rhythm GI/Abdominal exam: Present: soft. Absent: tenderness Extremities exam: Present: normal inspection. Absent: pedal edema, calf tenderness Neurological exam: Present: alert, oriented X3, CN II-XII intact. Absent: motor sensory deficit Expanded Neurological exam: Present: protecting the airway Speech: Present: fluid speech Cranial nerves: EOM's Intact: Normal Motor strength exam: RUE: 5, LUE: 5, RLE: 5, LLE: 5 Eye Response: (4) open spontaneously Motor Response: (6) obeys commands Verbal Response: (5) oriented Psychiatric exam: Present: normal affect, normal mood Skin exam: Present: normal color Course Vital Signs 11/10/24 11/10/24 11/10/24 12:15 12:49 13:00 Temperature 98.3 F Pulse Rate 90 92 90 Respiratory 20 18 12 Rate Blood Pressure 116/76 114/79 115/74 O2 Sat by Pulse 99 99 98 Oximetry EKG Findings - EKG Results: EKG: interpreted by ERMD (Right axis.), sinus rhythm, normal QRS, normal ST/T Medical Decision Making - Medical Decision Making Was pt. sent in by a medical professional or institution (, PA, FRETTED INSTRUMENT MAKER HAND, urgent care, hospital, or custodial...) When possible be specific @ -No Did you speak to anyone other than the patient for history (EMS, parent, family, police, friend...)? What history was obtained from this source @ -No Did you review nursing and triage notes (agree or disagree)? Why? @ -I reviewed and agree with nursing and triage notes Were old charts reviewed (outside hosp., previous admission, EMS record, old EKG, old radiological studies, urgent care reports/EKG's, custodial records)? Report findings @ -No old charts were reviewed Differential Diagnosis (chest pain, altered mental status, abdominal pain women, abdominal pain men, vaginal bleeding, weakness, fever, dyspnea, syncope, headache, dizziness, GI bleed, back pain, seizure, CVA, palpatations, mental health, musculoskeletal)? @ -Differential Abdominal Pain Women: Appendicitis, Cholecystitis, diverticulosis, ischemic bowel, pancreatitis, hepatitis, UTI, gastroenteritis, AAA, incarcerated hernia, bowel obstruction, constipation, inflammatory bowel, hepatitis, peptic ulcer disease, splenic infarction, perforated viscus, vulvitis, ovarian torsion, PID, kidney stone, placenta abruption, this is not meant to be an all-inclusive list EKG interpreted by me (3pts min.). @ -As above X-rays interpreted by me (1pt min.). @ -None done CT interpreted by me (1pt min.). @ -None done U/S interpreted by me (1pt. min.). @ -None done What testing was considered but not performed or refused? (CT, X-rays, U/S, labs)? Why? @ -None What meds were considered but not given or refused? Why? @ -None Did you discuss the management of the patient with other professionals (professionals i.e. , PA, FRETTED INSTRUMENT MAKER HAND, lab, RT, psych nurse, social work supervisor, assistant casino shift manager, teacher, community arts officer, major case detective)? Give summary @ -No Was smoking cessation discussed for >3mins.? @ -No Was critical care preformed (if so, how long)? @ -No Were there social determinants of health that impacted care today? How? (Homelessness, low income, unemployed, alcoholism, drug addiction, transportation, low edu. Level, literacy, decrease access to med. care, fpc, rehab)? @ -No Was there de-escalation of care discussed even if they declined (Discuss DNR or withdrawal of care, Hospice)? DNR status @ -No What co-morbidities impacted this encounter? (DM, HTN, Smoking, COPD, CAD, Cancer, CVA, ARF, Chemo, Hep., AIDS, mental health diagnosis, sleep apnea, morbid obesity)? @ -None Was patient admitted / discharged? Hospital course, mention meds given and route, prescriptions, significant lab abnormalities, going to OR and other pertinent info. @ -Patient presents with nausea vomiting and anxiety. Evaluation unremarkable. Patient reevaluated following medication and feels much better and comfortable with discharge home. Patient updated. Undiagnosed new problem with uncertain prognosis? @ -No Drug Therapy requiring intensive monitoring for toxicity (Heparin, Nitro, Insulin, Cardizem)? @ -No Were any procedures done? @ -No Diagnosis/symptom? @ -Nausea vomiting Acute, or Chronic, or Acute on Chronic? @ -Acute Uncomplicated (without systemic symptoms) or Complicated (systemic symptoms)? @ -Complicated with anxiety Side effects of treatment? @ -No Exacerbation, Progression, or Severe Exacerbation? @ -No Poses a threat to life or bodily function? How? (Chest pain, [place], [place], pneumonia, PE, COPD, DKA, ARF, appy, cholecystitis, CVA, Diverticulitis, Homicidal, Suicidal, threat to staff... and all critical care pts) @ -No - Lab Data Result diagrams: 11/10/24 12:20 11/10/24 12:20 Lab Results 11/10/24 11/10/24 Range/Units 12:20 12:20 WBC 6.37 (4.50-10.00) 10*3/uL RBC 4.11 (4.10-5.20) 10*6/uL Hgb 12.8 (12.0-15.0) g/dL Hct 37.4 (37.2-46.3) % MCV 91.0 (80.0-97.0) fL MCH 31.1 (27.0-32.0) pg MCHC 34.2 (32.0-37.0) g/dL Plt Count 345 (140-440) 10*3/uL MPV 9.2 L (9.5-12.2) fL Immature Gran % (Auto) 0.2 % Neutrophils % 60.5 % Lymphocytes % 28.9 % Monocytes % 9.6 % Eosinophils % 0.0 % Basophils % 0.8 % Immature Gran # 0.01 (0.00-0.04) 10*3/uL Neutrophils # 3.86 (1.80-7.70) 10*3/uL Lymphocytes # 1.84 (0.90-5.00) 10*3/uL Monocytes # 0.61 (0.20-1.00) 10*3/uL Eosinophils # 0.00 L (0.04-0.35) 10*3/uL Basophils # 0.05 (0.00-0.10) 10*3/uL Sodium 131 L (137-145) mmol/L Potassium 3.5 (3.5-5.1) mmol/L Chloride 94 L (98-107) mmol/L Carbon Dioxide 29 (22-30) mmol/L Anion Gap 8 mmol/L BUN 18 H (7-17) mg/dL Creatinine 0.62 (0.52-1.04) mg/dL Est GFR (CKD-EPI)AfAm >90 (>60 ml/min/1.73 sqM) Est GFR (CKD-EPI)NonAf >90 (>60 ml/min/1.73 sqM) Glucose 130 H (74-99) mg/dL Calcium 9.3 (8.4-10.2) mg/dL Total Bilirubin 0.4 (0.2-1.3) mg/dL AST 23 (14-36) U/L ALT 19 (4-34) U/L Alkaline Phosphatase 50 (38-126) U/L Total Protein 6.5 (6.3-8.2) g/dL Albumin 3.8 (3.5-5.0) g/dL Amylase 66 (30-110) U/L Lipase 63 (23-300) U/L Disposition Clinical Impression: Nausea Disposition: HOME SELF-CARE Condition: Stable Instructions (If sedation given, give patient instructions): Acute Nausea and Vomiting (ED) Additional Instructions: Please do follow-up with your primary care physician in the next couple days for recheck. Return for uncontrolled vomiting, seizures, worsening or changing symptoms or other concerns. Is patient prescribed a controlled substance at d/c from ED?: No Referrals: Christopher Cook MD [Primary Care Provider] - 1-2 days Time of Disposition: 13:20
[2024-11-10 12:34] LABS: Basophils # (A) 0.05 10*3/uL (0.00-0.10); Basophils % (A) 0.8 %; HCT 37.4 % (37.2-46.3); HGB 12.8 g/dL (12.0-15.0); Lymphocytes # (A) 1.84 10*3/uL (0.90-5.00); Lymphocytes % (A) 28.9 %; MCH 31.1 pg (27.0-32.0); MCHC 34.2 g/dL (32.0-37.0); Mean Platelet Volume 9.2 fL (9.5-12.2); Monocytes # (A) 0.61 10*3/uL (0.20-1.00); Monocytes % (A) 9.6 %; Neutrophils # (A) 3.86 10*3/uL (1.80-7.70); Neutrophils % (A) 60.5 %; Platelet Count 345 10*3/uL (140-440); RBC 4.11 10*6/uL (4.10-5.20); WBC 6.37 10*3/uL (4.50-10.00)
[2024-11-10] MEDS: FAMOTIDINE 20 MG/2 ML VIAL IV STA (12:42)
[2024-11-10] MEDS: SODIUM CHLORIDE 0.9% 1,000 ML IV ONE (12:42)
[2024-11-10] MEDS: LORazepam 1 MG/0.5 ML VIAL IV STA (12:42)
[2024-11-10 12:45] LABS: ALT 19 U/L (4-34); AST 23 U/L (14-36); African American GFR (CKD) >90 (>60 ml/min/1.73 sqM); Albumin 3.8 g/dL (3.5-5.0); Alkaline Phosphatase 50 U/L (38-126); Amylase 66 U/L (30-110); Anion Gap 8 mmol/L; Blood Urea Nitrogen 18 mg/dL (7-17); Calcium 9.3 mg/dL (8.4-10.2); Carbon Dioxide 29 mmol/L (22-30); Chloride 94 mmol/L (98-107); Glucose 130 mg/dL (74-99); Lipase 63 U/L (23-300); Non-African American GFR(CKD) >90 (>60 ml/min/1.73 sqM); Potassium 3.5 mmol/L (3.5-5.1); Sodium 131 mmol/L (137-145); Total Bilirubin 0.4 mg/dL (0.2-1.3); Total Protein 6.5 g/dL (6.3-8.2)
[2024-11-10 13:30] VITALS: BP 111/73; PULSE 99; RESP 18
[2024-11-10] MEDS: ONDANSETRON 4 MG ODT STARTER PACK 2 TAB BTL PO STA (13:30)
== END 2024-11-10 15:45 | disposition home or self-care (01) ==
LOC: EC 12:13
DX: R11.2 Nausea with vomiting, unspecified (principal); Z87.891 Personal history of nicotine dependence; Z88.8 Allergy status to other drugs, medicaments and biological substances
CPT/HCPCS: 36415; 93005; 80053; 82150; 83690; 85025; 99284; 96374; 96375; 96361; J2060; S0119; J1308